=== PATIENT | male | born 1945 | race Hispanic/Latino ===

== ENCOUNTER 2017-02-07 11:31 | Outpatient (CLI) | payer MEDICARE, OTHER ==
--- NOTE | 2017-02-07 13:56 | SJPRAD ---
TWO VIEWS LUMBAR SPINE: History: Spinal listhesis. Comparison: 12-28-16 FINDINGS: Extension and flexion views of the lumbar spine redemonstrate anterolisthesis of L4 upon L5. Upon ex tension there is approximately 1 cm anterolisthesis of L4 upon L5. Upon flexion there is 1.6 mm ante rolisthesis of L4 upon L5. IMPRESSION: Spondylolisthesis of L4 upon L5. POS: [facility]
== END 2017-02-07 11:32 | disposition home or self-care (01) ==
LOC: MWLC RAD 11:31
PROVIDERS: ATTEND Specialist
DX: M43.16 Spondylolisthesis, lumbar region (principal)

== ENCOUNTER 2017-03-07 12:12 | Outpatient (CLI) | payer MEDICARE, OTHER ==
--- NOTE | 2017-03-07 13:27 | RAD ---
CHEST 2 VIEWS: Date: 03/07/17 HISTORY: Dyspnea. COMPARISON: 12/21/16. FINDINGS: Cardiac silhouette and pulmonary vasculature are unremarkable. Lungs remain hyperinflated. Atelectas is at the left base has increased since the previous study. Linear scarring is present bilaterally. Mediastinum is midline with aortic calcification and postoperative changes. There is elevation of ea ch humeral head and degenerative changes of each shoulder. IMPRESSION: 1. COPD. Increasing left basilar atelectasis. 2. Chronic bilateral rotator cuff tears. POS: [facility]
== END 2017-03-07 12:13 | disposition home or self-care (01) ==
LOC: RAD 12:12
PROVIDERS: ATTEND Internal Medicine Critical Care Medicine
DX: R06.00 Dyspnea, unspecified (principal); J44.9 Chronic obstructive pulmonary disease, unspecified; J98.11 Atelectasis; M75.102 Unspecified rotator cuff tear or rupture of left shoulder, not specified as traumatic; M75.101 Unspecified rotator cuff tear or rupture of right shoulder, not specified as traumatic
CPT/HCPCS: 71020

== ENCOUNTER 2017-03-29 14:20 | Outpatient (CLI) | payer MEDICARE, OTHER ==
--- NOTE | 2017-03-29 10:22 | RAD ---
LUMBAR SPINE SERIES WITH FLEXION AND EXTENSION: History: Back pain. FINDINGS: There are severe arthritic changes of the spine. The vertebral body heights are well maintained. Ther e are degenerative changes at all disc levels with disc narrowing. There is marked degenerative facet changes. There is a grade I spondylolisthesis at L4 on L5 which appears to perhaps slightly accentua te in flexion. Pedicles are intact. IMPRESSION: Marked arthritic changes of the spine. Spondylolisthesis of L4 on L5, perhaps slightly accentuated in flexion. POS: [facility]
--- NOTE | 2017-03-29 10:22 | CT ---
CT OF THE LUMBAR SPINE WITHOUT CONTRAST: Date: 03-29-17 Comparison: None. History: Back pain, left groin pain, left lower extremity radiculopathy. Technique: Serial axial CT imaging is obtained at 3 mm intervals from lower thoracic spine through lo wer sacrum without contrast. Coronal and sagittal reformatted imaging obtained. FINDINGS: There are six vertebral bodies which resemble lumbar vertebral bodies in that they do not contain rib s. However, for the purpose of this examination, it will be assumed that the T12 vertebral body is no n-rib bearing with a possible rudimentary left sided rib seen. Thus, there is anterolisthesis of L4 o n L5, measuring approximately 9 mm. There is an incompletely imaged left sided pleural effusion. There are scattered atherosclerotic calc ification of the abdominal aorta and its branches. There is an abdominal aortic aneurysm, incompletely imaged on this examination, measuring in the 3.8 x 3.4 cm range. T12-L1: There is anterior osteophyte formation and disc space narrowing with posterior osteophyte and mild bilateral facet hypertrophy. There is no osseous cause of significant central canal or neural f oraminal stenosis. L1-2: There is disc space narrowing and a vacuum disc. There is anterior osteophyte formation. There is a disc osteophyte complex causing at least mild central canal stenosis. There is bilateral facet h ypertrophy with mild to moderate bilateral neural foraminal stenosis, left greater than right. L2-3: There is disc space narrowing and a vacuum disc with anterior osteophyte formation and a disc o steophyte complex. There is probably at least moderate central canal stenosis. There is bilateral fac et hypertrophy with moderate left and mild right neural foraminal stenosis. L3-4: There is disc space narrowing and vacuum disc formation with bilateral facet hypertrophy causin g moderate/severe bilateral neural foraminal stenosis. Minimal retrolisthesis noted. At least moderat e central canal stenosis suspected. L4-5: Vacuum disc formation noted. Prominent facet hypertrophy with air within the bilateral facet mario ints suggest degenerative change. There is anterolisthesis in the 9-10 mm range. Severe bilateral xochilt ral foraminal stenosis and severe central canal stenosis is suspected. L5-S1: There is bilateral facet hypertrophy, right greater than left, with moderate bilateral neural foraminal stenosis suspected. Disc bulge noted. No acute fracture. No worrisome lytic or blastic bone lesion. IMPRESSION: 1. Assuming five lumbar type vertebral bodies with a T12 vertebral body which does not demonstrate ri bs, there is anterolisthesis of L4 on L5 measuring in the 9-10 mm range. There is severe multilevel d egenerative change noted within the lumbar spine as well. 2. Incompletely imaged abdominal aortic aneurysm. 3. Incompletely imaged left pleural effusion. POS: [facility]
== END 2017-03-29 14:21 | disposition home or self-care (01) ==
LOC: TBSIIMAG 14:20
PROVIDERS: ATTEND Surgery
DX: M47.26 Other spondylosis with radiculopathy, lumbar region (principal); M43.16 Spondylolisthesis, lumbar region; I71.4 Abdominal aortic aneurysm, without rupture; J90 Pleural effusion, not elsewhere classified
CPT/HCPCS: 72120; 72131

== ENCOUNTER 2017-05-03 12:51 | Outpatient (CLI) | payer MEDICARE, OTHER ==
--- NOTE | 2017-05-03 16:18 | RAD ---
PA AND LATERAL VIEWS OF CHEST: HISTORY: Dyspnea. FINDINGS: Comparison is made with the exam dated 03/07/17. Changes of median sternotomy are again seen. The heart size is borderline. Mild chronic changes in the lung baez are again noted. There is continued blunting of the left costophrenic angle. No lob ar consolidation or pneumothorax are seen. IMPRESSION: Small left pleural effusion versus scarring. POS: [facility]
== END 2017-05-03 12:52 | disposition home or self-care (01) ==
LOC: RAD 12:51
PROVIDERS: ATTEND Internal Medicine Critical Care Medicine
DX: R06.00 Dyspnea, unspecified (principal)
CPT/HCPCS: 71020

== ENCOUNTER 2017-06-19 13:32 | Inpatient (IN) | payer MEDICARE, OTHER ==
[2017-06-19 14:21] LABS: #Basophils 0.1 thou/uL (0.0-0.2); #Eosinphils 0.1 thou/uL (0.0-0.7); #Lymphocytes 2.1 thou/uL (1.20-3.40); #Monocytes 1.3 thou/uL (0.11-0.59); #Neutrophils 7.6 thou/uL (1.40-6.50); %Basophils 0.6 % (0.0-1.0); %Eosinophils 0.9 % (0.0-10.0); %Lymphocytes 18.7 % (21.0-51.0); %Monocytes 11.6 % (0.0-10.0); %Neutrophils 68.3 % (42.0-75.0); Hemoglobin 13.5 g/dL (14.0-18.0); Mean Corpuscular HGB CONC 33.9 g/dL (32.0-36.0); Mean Corpuscular Hemoglobin 35.2 pg (27.0-31.0); Mean Platelet Volume 8.4 fL (7.4-10.4); Platelet Count 230 thou/uL (130-400); RBC Distribution Width 12.6 % (11.5-14.5); Red Blood Cell (RBC) Count 3.84 mill/uL (4.70-6.10); White Blood Cell (WBC) Count 11.1 thou/uL (4.8-10.8)
[2017-06-19 14:40] LABS: CKMB 1.6 ng/mL (0-6.6); Troponin I 0.026 ng/mL (< 0.028)
[2017-06-19 14:41] LABS: ALT (SGPT) 7 U/L (8-55); AST (SGOT) 9 U/L (5-34); Alkaline Phosphatase 86 U/L (40-150); Anion Gap 12 mmol/L (10-20); BUN (Urea Nitrogen) 12 mg/dL (8.4-25.7); Bilirubin, Total 0.8 mg/dL (0.2-1.2); CK (CPK) 53 U/L (30-200); Calc. Creatinine Clearance 0 mL/min (70-130); Calcium 9.6 mg/dL (7.8-10.44); Carbon Dioxide 28 mmol/L (23-31); Chloride 101 mmol/L (98-107); Estimated GFR-MDRD 53; Globulin 3.7 g/dL (2.4-3.5); Glucose 81 mg/dL (83-110); Potassium 4.3 mmol/L (3.5-5.1); Protein, Total 7.7 g/dL (5.8-8.1); Sodium 137 mmol/L (136-145)
--- NOTE | 2017-06-19 15:18 | RAD ---
ONE VIEW OF THE CHEST: INDICATION: Dyspnea. COMPARISON: Prior exam dated 09/16/16 and 05/03/17. FINDINGS: There is cardiomegaly with worsening pulmonary vascular congestion. Hilar edema. There are small bi lateral pleural effusions, left greater than right. There are increased bilateral airspace opacities in the lower lobes which may be related to atelectasis. No pneumothorax is evident. IMPRESSION: Findings of mild congestive heart failure. Continued followup is recommended. POS: [facility]
[2017-06-19] MEDS ORDERED: Furosemide 40 MG/4 ML VIAL ONE (16:35)
[2017-06-19 19:14] LABS: Troponin I 0.045 ng/mL (< 0.028)
[2017-06-19] MEDS ORDERED: Ondansetron ODT 4 MG TAB SL PRN (20:45)
[2017-06-19] MEDS ORDERED: Acetaminophen 325 MG TAB PO PRN (20:45)
[2017-06-19] MEDS ORDERED: Ondansetron HCl/PF 4 MG/2 ML Vial IVP PRN (20:45)
[2017-06-19 21:03] VITALS: BMI 30.2
[2017-06-19 21:48] LABS: Troponin I 0.036 ng/mL (< 0.028)
[2017-06-20] MEDS ORDERED: Acetaminophen 325 MG TAB PO PRN (04:44)
[2017-06-20] MEDS ORDERED: Guaifenesin DM 100-10/5 ML UDCUP PO PRN (04:44)
[2017-06-20] MEDS ORDERED: Senokot 8.6 MG TAB PO PRN (04:44)
[2017-06-20] MEDS: Furosemide 40 MG/4 ML VIAL SLOW IVP SCH ×2 (05:49→14:25)
--- NOTE | 2017-06-20 05:53 | HP ---
REASON FOR ADMISSION: CHF exacerbation. HISTORY OF PRESENT ILLNESS: The patient gives history of shortness of breath which started last . This was getting worse progressively. Yesterday, he was barely able to breathe, hence called EMS and was brought here to the emergency room. He has dry cough mostly with no fever. He has take n his flu shot for this year. He normally ambulates inside the house and does not go out much becaus e his lower back hurts. No complaints of chest pain, palpitations or PND. The patient has some orth opnea and is comfortable at 40 degrees head elevation. PAST MEDICAL AND SURGICAL HISTORY: History of CABG, hypertension, dyslipidemia, peripheral vascular disease, benign prostatic hypertrophy, paroxysmal atrial fibrillation, back surgery, left fem-pop. CURRENT MEDICATIONS: Gabapentin 400 mg p.o. 3 times daily, aspirin 81 mg p.o. daily, Flomax 0.4 mg p .o. daily, Protonix 40 mg p.o. daily, amiodarone 200 mg p.o. daily, Lasix 40 mg p.o. daily, lovastati n 40 mg p.o. at bedtime. ALLERGIES: No known drug allergies. PERSONAL HISTORY: Quit smoking more than 15 years ago, does not abuse alcohol or drugs. Lives with his . FAMILY HISTORY: Mom in her 80s from old age. Father also in his 80s, but has had history of stroke. REVIEW OF SYSTEMS: The following complete review of systems was negative, unless otherwise mentioned in the HPI or below: Constitutional: Weight loss or gain, ability to conduct usual activities. Skin: Rash, itching. Eyes: Double vision, pain. ENT/Mouth: Nose bleeding, neck stiffness, pain, tenderness. Cardiovascular: Palpitations, dyspnea on exertion, orthopnea. Respiratory: Shortness of breath, wheezing, cough, hemoptysis, fever or night sweats. Gastrointestinal: Poor appetite, abdominal pain, heartburn, nausea, vomiting, constipation, or diarr hea. Genitourinary: Urgency, frequency, dysuria, nocturia. Musculoskeletal: Pain, swelling. Neurologic/Psychiatric: Anxiety, depression. Allergy/Immunologic: Skin rash, bleeding tendency. PHYSICAL EXAMINATION: GENERAL: The patient is a 72-year-old male who is currently not in any acute distress. The patient states he voided a lot of urine after he got into the ER. VITAL SIGNS: Blood pressure 156/74, pulse 66 per minute, respiratory rate 18 per minute, temperature 97.5 degrees Fahrenheit, saturating 100% on room air. NECK: Supple, no elevated JVD. HEENT: Eyes: Extraocular muscles intact. Pupils reacting to light. Oral cavity: Mucous membranes are moist. No exudates or congestion. CARDIOVASCULAR SYSTEM: S1, S2 heard. Regular rhythm. RESPIRATORY SYSTEM: Air entry 1+ bilateral. Scattered rales in the infrascapular area. ABDOMEN: Soft, bowel sounds heard. No tenderness, rigidity or guarding. EXTREMITIES: No peripheral edema or calf tenderness. VASCULAR SYSTEM: Peripheral pulses 1+ bilateral. No ischemic ulcerations or gangrene. CENTRAL NERVOUS SYSTEM: No gross focal deficits seen. The patient is alert, awake, oriented well. PSYCHIATRIC SYSTEM: The patient's mood is euthymic. No hallucinations or delusions. LABORATORY DATA AND X-RAY FINDINGS: EKG done shows normal sinus rhythm at 63 beats per minute. Whit e count of 11, H and H 13 and 39, platelet count 230, MCV is 104 with 68% neutrophils. Electrolytes are stable. BUN 12, creatinine 1.3, glucose 81. Troponin I is indeterminate with peaking up to 0.04 , CK-MB 1.6. BNP is 1370, albumin is 4.0. Influenza A and B antigens are negative. Chest x-ray don e shows mild pulmonary vascular congestion. CLINICAL IMPRESSION AND PLAN: The patient will be admitted to telemetry for acute congestive heart f ailure exacerbation, likely diastolic dysfunction. We will obtain echo with 2D Doppler. We will con tinue him on Lasix 40 mg IV q.12 hourly. He will also be on Flomax, Zocor, gabapentin, aspirin, amio darone as before. Small dose of Coreg will be added for now twice daily. We will also consult Dr. Selvin owens, his resort housekeeper during his stay here. The patient has already voided a significant amount of u rine after he received 40 mg of Lasix in the ER. We will continue to closely monitor him on telemetr y.
[2017-06-20] MEDS: Famotidine 20 MG TAB PO SCH (09:13)
[2017-06-20] MEDS: Tamsulosin HCl 0.4 MG CAP PO SCH (09:13)
[2017-06-20] MEDS: Carvedilol 3.125 MG TAB PO SCH ×2 (09:14→20:47)
[2017-06-20] MEDS: Gabapentin 400 MG CAP PO SCH ×3 (09:14→20:45)
[2017-06-20] MEDS: Amiodarone 200 MG TAB PO SCH (09:14)
[2017-06-20] MEDS: Enoxaparin Sodium 40 MG/0.4 ML SYRINGE SC SCH (09:15)
--- NOTE | 2017-06-20 12:20 | CON ---
DATE OF CONSULTATION: 06/20/2017 PRIMARY CARE PHYSICIAN: Unknown. PRIMARY RENAL DIETITIAN: Dr. Soraida Del Rosario REFERRING PHYSICIAN: Dr. Kong [facility] doctor. REASON FOR CARDIOLOGY CONSULTATION: CHF exacerbation. HISTORY OF PRESENT ILLNESS: Mr. Ricardo is a 72-year-old male with significant history of coronary artery disease status post CABG x4 in 07/2016, hypertension, hyperlipidemia, and chronic kidney disease. The patient started having shortness of breath about 1 week ago, which became worse even though he was taking Lasix 40 mg one tablet daily. He called primary care doctor yesterday and was instructed to present to the emergency department for further evaluation and treatments. After he was administered the Lasix 40 mg IV push and a DuoNeb in the [place] [facility], he reported his symptoms improved. He also reported that he voided a lot at the ER. The patient was transferred to [address] [place] [address] for further treatment. This morning; however, he started feeling shortness of breath even after he received Lasix IV push in the morning around 6 o'clock. The patient denies chest pain or tightness or discomfort in his chest, palpitations or fluttering in his chest, nausea and vomiting, numbness into the left extremities, diaphoresis or any other cardiac complaints during the episode or this morning. He was seen by Ms. Garner at the [facility] after he was discharged from the hospital in 2016. However, since then, he has not followed up with her. He has a history of chronic kidney disease before he moved to [place]. However, when he moved to [place], he has not seen any nephrologists yet. He has a history of peripheral artery disease and was supposed to have arterial femoral runoff last month. He has not had the arterial femoral runoff test yet due to his busy schedule. He denies any pain in the lower extremities at this moment. The patient's last echocardiogram was done in 03/2017 which shows EF of 45%, left ventricle dilation, mild aortic valve sclerosis, moderate left atrial enlargement, moderate mitral valve regurgitation, mild to moderate arterial valve insufficiency, mild tricuspid regurgitation, inferior wall akinesis. The patient had a carotid Doppler study in 07/2016 which shows no stenosis. The patient underwent a coronary artery bypass in 07/2016 x4, VIRK to LAD, reversed saphenous vein graft to acute marginal, left radial artery to ramus and a reversed saphenous vein graft to obtuse marginal 1. The patient's chest x-ray during this admission shows a mild congestive heart failure. Atrial duplex study in 03/2017 showed that the bilateral saphenous superficial femoral artery is a 70% stenosis and bilateral superficial femoral artery disease. PAST MEDICAL HISTORY: Hypertension, coronary artery disease, hyperlipidemia, valvular disease, atrial fibrillation. PAST SURGICAL HISTORY: Coronary artery bypass graft x4 in 07/216, back surgery in 10/2016. FAMILY HISTORY: His younger brother has a history of diabetes, heart surgery and pacemaker placement. The patient's father due to stroke. SOCIAL HISTORY: He is . He had 6 children who are living well. He never smoked before. He used to drink about 12 pack beer almost every day, but quit in 1999. He denied illicit drug abuse. ALLERGIES: He has no known drug allergies. CURRENT MEDICATIONS: Lasix 40 mg once a day, amiodarone 200 mg 1 tablet once a day, gabapentin 400 mg 3 times a day, aspirin 81 mg once a day, Flomax 0.4 mg once a day, Protonix 40 mg once a day, lovastatin 40 mg once a day, metolazone 5 mg 1 tablet on Monday and Monday, Coreg 3.125 mg twice a day. REVIEW OF SYSTEMS: The following complete review of systems was negative, unless otherwise mentioned in the HPI or below. CONSTITUTIONAL: Weight gain or loss. Sense of well-being, ability to conduct usual activities, exercise tolerance. SKIN: Rash, itching, change in hair growth or loss, nail change. EYES: Vision change, blurry vision, double vision, tearing, blind spots, pain. ENT: Headache, vertigo, lightheadedness, dizziness, nose bleeding, cold, obstruction, discharge, dental difficulty, gingival bleeding, dentures, neck stiffness, pain, tenderness, mass in the thyroid or other areas. He has complained about a stuffy and runny nose and phlegm with the cough. CARDIOVASCULAR: Precordial pain, substernal distress, palpitations, syncope, dyspnea on exertion, orthopnea, nocturnal dyspnea, edema, cyanosis, heart murmur , varicosis, claudication. RESPIRATORY: Positive for shortness of breath, negative for pain, wheezing, stridor, hemoptysis. GASTROINTESTINAL: Poor appetite, dysphagia, indigestion, abdominal pain, heartburn, eructation, nausea, vomiting, jaundice, diarrhea, blood in stool. He has complained of chronic constipation which resolves with fiber daily. GENITOURINARY: Urgency, frequency, dysuria, nocturia, hematuria, polyuria, oliguria, unusual color of urine. MUSCULOSKELETAL: Pain, swelling, redness or heat of muscle, limited motion, muscular weakness, atrophy, cramps. NEUROLOGIC: Seizure, conversion, tremor, incoordination, difficulty with memory of speech. PSYCHIATRIC: Emotional problem, anxiety, depression, previous psychiatric care , unusual perceptions, hallucinations. PHYSICAL EXAMINATION: VITAL SIGNS: Blood pressure 142/65, heart rate 60s with sinus rhythm, temperature 97.6, respiratory rate 16, O2 sat 95% with room air. GENERAL: Well-developed, well-nourished without any acute distress. HEAD: Normocephalic, atraumatic. EYES: Extraocular muscle movement intact. He wears glasses. ENT: Oral and nasal mucosa is moist without lesion. NECK: No JVD. Neck supple, normal range of motion. LUNGS: Diminished at the bases, but clear to auscultation bilaterally. No wheezing, rhonchi, or rales noted. CARDIOVASCULAR: Regular rate and rhythm, normal S1, S2. There are no S3 or S4. He has significant murmur to the left sternal border, but no hives, thrills , bruits or rub noted. Diminished pulses to bilateral dorsal pedis, posterior tibial and popliteal. Carotid pulse present without bruits or thrill. EXTREMITIES: No edema in the bilateral lower extremities. ABDOMEN: Soft and nontender, no mass to palpate, nondistended. Bowel sounds are present. MUSCULOSKELETAL: Able to move all extremities. SKIN: Warm and dry. No skin rash, lesion or bruise noted. NEUROLOGIC: Alert, oriented x4, awake. Normal affect. Nonfocal. PSYCHIATRIC: Mood and affect normal. EKG: A 12-lead EKG in the ER shows sinus rhythm with no significant ST segment changes or T-wave inversion. LABORATORY DATA: WBC 7.1, hemoglobin 13.5, hematocrit 39.8, platelet 230. Sodium 137, potassium 4.3, BUN 12, creatinine 1.33, AST 9, ALT 7, CK-MB 1.6, troponin, 0.026, 0.045, 0.036. BNP 1370.1. ASSESSMENT AND PLAN: 1. Acute on chronic systolic congestive heart failure. The echocardiogram result this admission is still pending at this time. The patient responds well to current medication regimen. He is not on CHAVEZ due to medical history of CKD. We would like continue current treatment plans and adjust as appropriate. We would like to refer this patient to the [facility] again at discharge. 2. Coronary artery disease with history of CABG x4 in 07/2016. The patient's condition is stable at this time. The patient is on aspirin, carvedilol, Lovenox and simvastatin. 3. Hypertension. The patient's vital signs are stable at this moment. We would like to continue to monitor. 4. History of paroxysmal atrial fibrillation. The patient's telemetry record is showing sinus rhythm at this moment. He is on amiodarone 200 mg once a day with aspirin 81 mg and also the Lovenox. We would like to continue to monitor. 5. Chronic kidney disease. The patient's creatinine is stable at this moment, we would like to continue to monitor. 6. Peripheral artery disease. The patient is asymptomatic at this moment. The patient will undergo arterial femoral runoff procedure when the patient's condition is stable. 7. Hyperlipidemia. The patient is on a statin. We would like to continue the current medication. Thank you very much for allowing Cardiology office to participate in the care of this patient. We will follow along with the patient's care team and make further recommendations as appropriate. LUIS ARMANDO
--- NOTE | 2017-06-20 18:44 | PDOC.EVN ---
Event Note - Event Note Event Note: Chart reviewed. Pt seen. Will follow.
[2017-06-20] MEDS ORDERED: Simvastatin 20 MG TAB PO SCH (21:00)
--- NOTE | 2017-06-20 21:43 | CON ---
ADDENDUM DATE OF CONSULTATION: 06/20/2017 DATE OF ADMISSION: 06/19/2017 INDICATION FOR CONSULTATION: This is a very pleasant 72-year-old gentleman I have followed for quite some time, who was admitted with CHF exacerbation. Please refer to the notes already dictated by jaimie kinney nurse practitioner. This very unfortunate 72-year-old gentleman who was found to have severe three-vessel coronary artery disease underwent bypass surgery in 07/2016 with 4-vessel bypass. He also has a history of chronic kidney disease, hypertension, and dyslipidemia. He has been complaining of shortness of breath for 1 or 2 weeks. He says it is continuing getting worse. He was taking his diuretics as prescribed, but unfortunately continued to have shortness of breath. Interestingly enough, he was able to lie down at night without too much shortness of breath, but during the day time, he appeared to be more short of breath. He was also given nebulizer treatments I believe in the emergency room as well as IV Lasi x and then had significant diuresis and is feeling much better. He has had continued urine output an d seems to be improving. He had been seen in the [facility] in the past but was doing quit e well and was then discharged from the [facility] earlier last year. Since that time, Krishna hopkins he was seen once or twice in the office. He does have chronic kidney disease, but has not bee n followed by a superintendent board mill and he was supposed to undergo further evaluation for his peripheral vas cular disease. He actually had an aortobifemoral bypass in the past and I believe he had a fem-pop b ypass also. He had an echocardiogram performed today which shows an ejection fraction of about 40-45 %. He does have mild aortic valve sclerosis and calcifications with some mitral annular calcificatio ns. His left atrium is dilated as well as the right atrium is slightly dilated. He also has some mi ld to moderate mitral valve regurgitation, mild aortic and tricuspid valve regurgitation. This is pr coty much unchanged from previous echo back in 03/2017. He has undergone bypass surgery and has been doing quite well, but has not been always compliant with his medications, but otherwise he has been doing relatively well. He denies any chest pain, but does continue to have some shortness of breath which he says had been exacerbated but now has seemed to have improved. MEDICATIONS: Prior to admission included Lasix, amiodarone, gabapentin, aspirin, Flomax, lovastatin, Protonix, metolazone on Mondays and Fridays, and Coreg 3.125 mg b.i.d. For his review of systems, social history, family history, please refer to the notes dictated by the nurse practitioner. PHYSICAL EXAMINATION: GENERAL: Reveals a well-developed, well-nourished gentleman who is in no acute distress at this time . VITAL SIGNS: His blood pressure is 142/65, heart rate is in the 60s and shows a sinus rhythm. He is afebrile. O2 saturations are 95% on room air, respiratory rate is about 16. He is a well-developed , well-nourished gentleman in no acute distress. HEENT: Shows the head to be normocephalic and atraumatic. Carotid pulses are present. I did not he ar any gross bruits at this time. CHEST: Clear to auscultation, but does have some decreased breath sounds on the right base. CARDIOVASCULAR: Exam reveals a regular rate and rhythm. Heart sounds are somewhat distant. I did n ot hear any S3 or S4. He has no significant murmurs, heaves, thrills, bruits or rubs, but does have a soft systolic murmur at the upper sternal border, most likely compatible with his aortic valve scle rosis. He has a well-healed midline surgical incision after median sternotomy. EXTREMITIES: Show no clubbing, cyanosis or edema. I cannot palpate pedal pulses. SKIN: Warm and dry. NEUROLOGIC: He is awake and alert. He seems to have a normal motor function. He has no evidence of psychiatric abnormalities. His EKG shows a sinus rhythm, but no acute ST segment changes. LABORATORY DATA: Did show an indeterminate troponin I which peaked up at 0.045 and may be due to con gestive heart failure symptoms with his BNP of 1370, his potassium is 4.3, creatinine is 1.33. There is no evidence of anemia at this time. IMPRESSION: 1. Acute on chronic systolic as well as diastolic dysfunction. Also, please note that previously on the echocardiogram today, it appears he does have some degree of diastolic dysfunction. This appear s to be an exacerbation of both diastolic and systolic dysfunction. We will continue his beta blocke rs and diuretics. He has not seen a superintendent board mill and most likely will need to be followed up with Alexus kendrick prior to starting any significant CHAVEZ inhibitors or ARBs 2. History of coronary artery disease. This has remained stable since his bypass surgery, would con tinue the same medications for the beta blockers as well as the statin medications and an aspirin a d ay. 3. History of paroxysmal atrial fibrillation. The patient remains in sinus rhythm at this time, wou ld continue the amiodarone. 4. History of hypertension. This also appears to be stable. 5. Hyperlipidemia. We will continue his medications. 6. Chronic kidney disease. He certainly should follow with a superintendent board mill as most likely in the fut ure his kidneys may become worse and otherwise from a cardiac standpoint with the diuresis, he appear s to be stable and most likely he will be discharged to home within next 1-2 days.
[2017-06-21 05:44] LABS: #Basophils 0.1 thou/uL (0.0-0.2); #Eosinphils 0.2 thou/uL (0.0-0.7); #Lymphocytes 2.9 thou/uL (1.20-3.40); #Monocytes 1.6 thou/uL (0.11-0.59); #Neutrophils 6.1 thou/uL (1.40-6.50); %Basophils 0.9 % (0.0-1.0); %Eosinophils 1.8 % (0.0-10.0); %Lymphocytes 26.4 % (21.0-51.0); %Monocytes 14.5 % (0.0-10.0); %Neutrophils 56.3 % (42.0-75.0); Hemoglobin 12.8 g/dL (14.0-18.0); Mean Corpuscular HGB CONC 33.5 g/dL (32.0-36.0); Mean Corpuscular Hemoglobin 35.1 pg (27.0-31.0); Mean Platelet Volume 8.6 fL (7.4-10.4); Platelet Count 226 thou/uL (130-400); RBC Distribution Width 12.8 % (11.5-14.5); Red Blood Cell (RBC) Count 3.64 mill/uL (4.70-6.10); White Blood Cell (WBC) Count 10.8 thou/uL (4.8-10.8)
[2017-06-21 05:59] LABS: Anion Gap 13 mmol/L (10-20); BUN (Urea Nitrogen) 19 mg/dL (8.4-25.7); Calc. Creatinine Clearance 59 mL/min (70-130); Calcium 9.3 mg/dL (7.8-10.44); Carbon Dioxide 29 mmol/L (23-31); Chloride 101 mmol/L (98-107); Estimated GFR-MDRD 49; Glucose 91 mg/dL (83-110); Potassium 3.5 mmol/L (3.5-5.1); Sodium 139 mmol/L (136-145)
[2017-06-21] MEDS: Furosemide 40 MG/4 ML VIAL SLOW IVP SCH (06:00)
[2017-06-21] MEDS: Gabapentin 400 MG CAP PO SCH (08:28)
[2017-06-21] MEDS: Enoxaparin Sodium 40 MG/0.4 ML SYRINGE SC SCH (08:29)
[2017-06-21] MEDS: Amiodarone 200 MG TAB PO SCH (08:29)
[2017-06-21] MEDS: Carvedilol 3.125 MG TAB PO SCH (08:29)
[2017-06-21] MEDS: Tamsulosin HCl 0.4 MG CAP PO SCH (08:29)
[2017-06-21] MEDS: Famotidine 20 MG TAB PO SCH (08:29)
--- NOTE | 2017-06-21 10:48 | PDOC.CTH ---
<Bertha Rangel - Last Filed: 06/21/17 10:44> Cardiology Progress Note - Subjective The pt seen and examined. No overnight events. No cardiac complaints. He stated he can breath much better today. His O2 sat was low last night and required him to wear 1LNC during sleep. - Objective Vital Signs Temp Pulse Resp BP Pulse Ox 06/21/17 08:29 97.5 F L 59 L 18 140/62 96 06/21/17 08:00 97.5 F L 59 L 18 97 06/21/17 04:50 97.7 F 62 18 114/53 L 93 L Weight 198 lb 1.6 oz 06/20/17 06/21/17 06/22/17 06:59 06:59 06:59 Intake Total 360 960 Output Total 400 1100 800 Balance -40 -140 -800 - Physical Examination General/Neuro: alert & oriented x3 Neck: no JVD present Lungs: CTA Heart: RRR Abdomen: soft Extremities: other: (No edema) - Telemetry Telemetry Rhythm: SB-SR 57-60s - Labs Result Diagrams: 06/21/17 05:03 06/21/17 05:03 Troponin/CKMB CK-MB (CK-2) 1.6 ng/mL (0-6.6) 06/19/17 14:01 Troponin I 0.036 ng/mL (< 0.028) H 06/19/17 21:15 - Assessment/Plan 1. Acute on Chronic combined HF - Echo on 06/20/17 showed EF 40-45%, mild-mod MR , and mild AR and TR. The pt's breathing improved after Lasix IV; Lasix was changed to PO. Cont. monitor 2. CAD with Hx of CABG x4 in 07/2016 - stable with ASA, BBlocker, and statin. No CHAVEZ or ARB due to hx of CKD. Cont. monitor 3. HTN - stable with current med; cont. monitor 4. PAD - AFRO as outpt. 5. CKD - Lasix was changed to PO form today. Cont. monitor 6. Hyperlipidemia - on Statin 7. Paroxysmal afib - remains in SR; cont. amiodarone MAR reviewed * From Cardiac standpoint, the pt is stable to d/c home. The pt will f/u with Dr Del Rosario' office within 2-4 wks and CHF clinic. Review of Systems - Review of Systems Constitutional: reports: no symptoms reported EENTM: reports: no symptoms reported Respiratory: reports: see HPI Cardiac (ROS): reports: no symptoms reported ABD/GI: reports: no symptoms reported : reports: no symptoms reported <Maribell Del Rosario - Last Filed: 06/21/17 17:09> Cardiology Progress Note - Objective Vital Signs Temp Pulse Pulse Pulse Resp BP BP 06/21/17 12:05 97.9 F 63 18 06/21/17 11:18 56 L 59 L 143/65 H 153/69 H 06/21/17 08:29 97.5 F L 59 L 18 06/21/17 08:00 97.5 F L 59 L 18 BP Pulse Ox Pulse Ox Pulse Ox 06/21/17 12:05 127/59 L 95 06/21/17 11:18 98 94 L 06/21/17 08:29 140/62 96 06/21/17 08:00 97 Weight 198 lb 1.6 oz 06/20/17 06/21/17 06/22/17 06:59 06:59 06:59 Intake Total 360 960 350 Output Total 400 1100 800 Balance -40 -140 -450 - Labs Result Diagrams: 06/21/17 05:03 06/21/17 05:03 Troponin/CKMB CK-MB (CK-2) 1.6 ng/mL (0-6.6) 06/19/17 14:01 Troponin I 0.036 ng/mL (< 0.028) H 06/19/17 21:15 - Assessment/Plan Pt. seen and eval;. by me. I agree with the A/P by the C PROGRAMMER.Chest clear, RRR. Pt. is stable for d/c. Follow up withthe CHF clinic and see me in 1 month.
[2017-06-21 12:08] VITALS: TEMP 97.9
[2017-06-21] MEDS ORDERED: Furosemide 20 MG TAB PO SCH (14:00)
[2017-06-21] MEDS ORDERED: Furosemide 40 MG TAB PO SCH (14:00)
[2017-06-21 15:27] VITALS: BP 153/69
--- NOTE | 2017-06-22 01:09 | DIS ---
DATE OF ADMISSION: 06/20/2017 DATE OF DISCHARGE: 06/21/2017 DISCHARGE DIAGNOSIS: Congestive heart failure exacerbation. CONDITION OF PATIENT ON THE DAY OF DISCHARGE: Stable. I assessed Mr. Ricardo on 06/21/2017. He bela es any chest pain or shortness of breath. He reports feeling better. Vital signs are stable. S1 an d S2 are heard, regular. Lungs are clear to auscultation bilaterally. CONSULTATIONS DURING THIS HOSPITALIZATION: Cardiology, Dr. Del Rosario. INVESTIGATIONS DURING THIS HOSPITALIZATION: 1. A 2D echocardiogram on 06/20/2017, which showed mildly increased left ventricular size, left vent ricular ejection fraction estimated at 40%-45%, restrictive filling pattern, normal white ventricular size and function, moderately dilated left atrium, mildly enlarged right atrium, mild to moderate mi tral regurgitation, mild aortic regurgitation and mild tricuspid regurgitation. 2. On the day of discharge, Mr. Ricardo has white count of 10,800, hemoglobin 12.8, platelet count 22 6,000, creatinine 1.41 and normal electrolytes. HOSPITAL COURSE: Mr. Ricardo is a pleasant 72-year-old gentleman who was admitted to [facility] on 06/20/2017 for congestive heart failure exacerbation. He received intravenous d iuretics with marked improvement in his symptoms. He is being discharged home on Lasix 40 mg orally daily. Cardiology service consulted during this hospitalization and will follow up as outpatient. DISCHARGE MEDICATIONS: No changes were made to his home medications as dictated on history and physi [place] note from 06/20/2017. Many thanks for allowing me to participate in your patient's care. Please feel free to contact me wi th any questions or concerns. Please note that he is on aspirin because of history of paroxysmal atrial fibrillation, per Cardiolog y Service recommendations. DISCHARGE DESTINATION: Home. TOTAL AMOUNT OF TIME SPENT COORDINATING THIS DISCHARGE: 18 minutes.
--- NOTE | 2017-07-22 18:28 | EKG ---
Test Reason : Blood Pressure : / mmHG Vent. Rate : 063 BPM Atrial Rate : 063 BPM P-R Int : 148 ms QRS Dur : 100 ms QT Int : 478 ms P-R-T Axes : 000 012 002 degrees QTc Int : 489 ms Normal sinus rhythm with sinus arrhythmia Prolonged QT No STEMI Abnormal ECG Confirmed by RAJI WICK [id number]), publishing editor TROY MORRISON ([id number] on 07/22/2017 6:27:54 PM Referred By: Confirmed By:RAJI WICK
== END 2017-06-21 13:15 | disposition home or self-care (01) | DRG 291 ==
LOC: ERS 13:32 → 2NO 18:13
PROVIDERS: ADMIT Family Medicine; ATTEND Family Medicine
DX: I13.0 Hypertensive heart and chronic kidney disease with heart failure and stage 1 through stage 4 chronic kidney disease, or unspecified chronic kidney disease (principal); I50.43 Acute on chronic combined systolic (congestive) and diastolic (congestive) heart failure; I48.0 Paroxysmal atrial fibrillation; I73.9 Peripheral vascular disease, unspecified; N18.9 Chronic kidney disease, unspecified; E78.5 Hyperlipidemia, unspecified; N40.0 Benign prostatic hyperplasia without lower urinary tract symptoms; Z87.891 Personal history of nicotine dependence; Z79.82 Long term (current) use of aspirin; Z79.899 Other long term (current) drug therapy; Z95.1 Presence of aortocoronary bypass graft
CPT/HCPCS: 36415; 71045; 80048; 80053; 82553; 83880; 84484; 85025; 87804; 93005; 93306; 93798; 94640; 94760; 96374; J1650; J1940; J7620

== ENCOUNTER 2017-06-25 23:39 | Inpatient (IN) | payer MEDICARE, OTHER ==
[2017-06-25 23:59] LABS: #Basophils 0.1 thou/uL (0.0-0.2); #Eosinphils 0.3 thou/uL (0.0-0.7); #Lymphocytes 3.2 thou/uL (1.20-3.40); #Monocytes 1.1 thou/uL (0.11-0.59); #Neutrophils 4.8 thou/uL (1.40-6.50); %Basophils 1.1 % (0.0-1.0); %Eosinophils 2.7 % (0.0-10.0); %Lymphocytes 33.5 % (21.0-51.0); %Neutrophils 50.7 % (42.0-75.0); Mean Corpuscular HGB CONC 32.9 g/dL (32.0-36.0); Mean Corpuscular Hemoglobin 34.4 pg (27.0-31.0); Mean Platelet Volume 8.5 fL (7.4-10.4); Platelet Count 236 thou/uL (130-400); RBC Distribution Width 12.5 % (11.5-14.5); Red Blood Cell (RBC) Count 3.78 mill/uL (4.70-6.10); White Blood Cell (WBC) Count 9.5 thou/uL (4.8-10.8)
[2017-06-26 00:06] LABS: INR-International Normal Ratio 1.1; PTT 32.1 SEC (22.9-36.1)
[2017-06-26 00:12] LABS: ALT (SGPT) 13 U/L (8-55); AST (SGOT) 12 U/L (5-34); Albumin 3.7 g/dL (3.4-4.8); Alkaline Phosphatase 78 U/L (40-150); Anion Gap 12 mmol/L (10-20); BUN (Urea Nitrogen) 26 mg/dL (8.4-25.7); Bilirubin, Total 0.3 mg/dL (0.2-1.2); CK (CPK) 58 U/L (30-200); Calc. Creatinine Clearance 0 mL/min (70-130); Calcium 9.4 mg/dL (7.8-10.44); Carbon Dioxide 28 mmol/L (23-31); Chloride 104 mmol/L (98-107); Estimated GFR-MDRD 43; Globulin 3.6 g/dL (2.4-3.5); Glucose 91 mg/dL (83-110); Potassium 4.2 mmol/L (3.5-5.1); Protein, Total 7.3 g/dL (5.8-8.1); Sodium 140 mmol/L (136-145)
[2017-06-26 00:17] LABS: CKMB 1.3 ng/mL (0-6.6); Troponin I 0.022 ng/mL (< 0.028)
[2017-06-26] MEDS ORDERED: Acetaminophen 325 MG TAB PO PRN (02:49)
[2017-06-26] MEDS ORDERED: Ondansetron HCl/PF 4 MG/2 ML Vial IVP PRN (02:49)
[2017-06-26] MEDS ORDERED: Ondansetron ODT 4 MG TAB SL PRN (02:49)
[2017-06-26 04:08] VITALS: BMI 32.2
[2017-06-26 04:43] LABS: Troponin I 0.029 ng/mL (< 0.028)
[2017-06-26 06:08] LABS: Troponin I 0.034 ng/mL (< 0.028)
--- NOTE | 2017-06-26 06:53 | CT ---
CT OF BRAIN PERFORMED WITHOUT CONTRAST ENHANCEMENT: Date: 06/25/17 HISTORY: Right-sided weakness. COMPARISON: 08/14/16. FINDINGS: There is generalized ventricular and sulcal prominence. An old lacunar infarct in the right periventr icular white matter is stable. There are no signs of intracerebral hemorrhage or extra-axial fluid co llections. Mastoid air cells and visualized sinuses are clear. IMPRESSION: No acute intracranial abnormalities. Findings telephoned to the ER at 0005 hours. CODE CR. POS: [facility]
[2017-06-26] MEDS ORDERED: Labetalol HCl 100 MG/20 ML VIAL SLOW IVP PRN (07:49)
[2017-06-26] MEDS ORDERED: Sodium Chloride 0.9% 1,000 ML IV SCH (08:00)
[2017-06-26] MEDS ORDERED: Lorazepam 0.5 MG TAB PO PRN (08:20)
--- NOTE | 2017-06-26 08:58 | HP ---
PATIENT'S RECORDS ANALYST: Dr. Del Rosario. CHIEF COMPLAINT: Right lower extremity weakness. HISTORY OF PRESENT ILLNESS: A 72-year-old male with a known history of paroxysmal atrial fibrillation, on aspirin for anticoagulation, status post CABG x2 vessels, who presents with a chief complaint of right lower extremity weakness that occurred while at rest watching TV yesterday evening. Patient states that he was watching TV and then suddenly felt that he was leaning towards his right side, tried to stand up, and was unable to do so due to sudden onset right lower extremity weakness. He identifies it as being isolated to the right lower extremity with no other involvement. Denies any slurred speech, any new headache, any new dizziness. Denies any paresthesias. Denies any prior similar events as well. Of note, the patient was recently admitted and discharged earlier this month for a CHF exacerbation. At this point in time, the patient denies any shortness of breath, chest pressure, chest pain, interval illness, or any difficulty with breathing. REVIEW OF SYSTEMS: As per HPI. Constitutional: No recent fevers or chills. HEENT: No new headaches, no dizziness, no vision changes, no lightheadedness. No new ear pain. Cardiovascular: No chest pain, no chest pressure, no left-sided arm numbness or tingling. No diaphoresis. Respiratory: No shortness of breath. No new cough and new sinus congestion. Gastrointestinal: Denies any nausea, vomiting, abdominal pain, diarrhea. Genitourinary: Endorses having difficulty urinating over the last several hours and was unable to urinate overnight, and currently feels that he has to urinate, but is unable to actually urinate. Denies any similar prior issues with urination. States his last bowel movement was yesterday. Denies any redness, diarrhea, or tiredness. Musculoskeletal: Right lower extremity complete weakness, unable to control any motion to that left lower extremity in any direction. Denies any paresthesias, any sensations of anesthesia on that extremity. Also, endorses some left lower extremity "shooting pain" and some chronic back pain, which is grossly unchanged per the patient. PAST MEDICAL HISTORY: As per HPI, includes the followin. Hypertension. 2. Coronary artery disease, status post CABG 4-vessel bypass in 07/2016. 3. Paroxysmal atrial fibrillation. 4. BPH. 5. Dyslipidemia. 6. Peripheral vascular disease, status post left fem-pop bypass. 7. History of CHF, echocardiogram done 06/19/2017 demonstrating EF of 40%-45%. 8. Chronic kidney disease, unknown stage, with a baseline creatinine approximately 1.4. HOME MEDICATIONS: Please see EMR for full details. The patient denies any recent changes to his home medication, endorses good compliance, although prior documentation as recently as 2 weeks ago indicates that he might have intermittently poor adherence to his medication regimen. FAMILY HISTORY: Notable for stroke and cardiovascular disease. He states his father had stroke at an early age. SOCIAL HISTORY: Denies any active alcohol, tobacco, or illicit drug use. is with him at bedside. He is a former smoker, quit more than 15 years ago. PHYSICAL EXAMINATION: VITAL SIGNS: Temperature of 98, pulse 67, blood pressure 132/82, respirations 18, satting 87% on room air. GENERAL: The patient is awake, conversant, appropriate, lying in the hospital bed, answers questions appropriately, appears to be oriented x3. HEENT: Moist mucous membranes. Equal ocular motions are intact. Pupils equal and reactive. CARDIOVASCULAR: S1, S2. Pulses 2+ bilateral upper extremities, no pitting pedal edema. RESPIRATORY: Clear to auscultation bilaterally. No wheezes, rales, or rhonchi , some bibasilar crackles bilaterally. ABDOMEN: Positive bowel sounds, soft, nontender to palpation. MUSCULOSKELETAL: Bilateral upper extremities, grossly 5/5 strength; bilateral lower extremities grossly 1/5, right lower extremity compared to the left lower extremity in terms of strength. The patient is unable to move his right lower extremity off the bed in either adduction, abduction, extension, or flexion independently. LABORATORY DATA AND IMAGING: WBC 9.5, hemoglobin 13.0, hematocrit 39.5, platelets 236. PT 14.0, INR 1.1, sodium 140, potassium 4.2, chloride 104, bicarbonate 28, BUN 26, creatinine 1.57, glucose 91, calcium 9.4, total bilirubin 0.3, AST 12, ALT 13, alkaline phosphatase 78. Creatine kinase 58. Troponin 0.022, followed by 0.029, followed by 0.034. Total serum protein 7.3, albumin 3.7. 06/25/2017, brain CT without contrast. Findings: "There is generalized ventricular and sulcal prominence and old lacunar infarct in the right periventricular white matter is stable. There are no signs of intracerebral hemorrhage or extraaxial fluid collections. Mastoid air cells and visualized sinuses are clear. 06/25/2017, chest x-ray, reviewed by myself, large cardiac silhouette, prominent postsurgical sternotomy wires are in place, overt effusion , prominent vasculature, question of early pulmonary edema. ASSESSMENT AND PLAN: A 72-year-old male, who presents with right lower extremity weakness. 1. Right lower extremity weakness. The patient denies any known history of stroke. However, he does have some abnormalities noted on brain CT, which are old. I suspect that the patient likely had an under diagnosed event in the past. The patient is currently on aspirin, mostly for anticoagulation of his risk factors, which include peripheral vascular disease, coronary artery disease , hypertension, paroxysmal atrial fibrillation. Recommend that patient undergo ultrasound of carotids, MRI of the brain. The patient recently had a transthoracic echocardiogram, 06/19/2017. I suspect that a repeat echocardiogram at this point in time might be low yield. Also, concerned for the fact that the patient has no lumbar stenosis and degenerative bone disease in his L-spine. I concern for evolution to cauda equina-type syndromes. We will go ahead and obtain imaging of the lower spine, particularly in the setting of a new urinary retention. Also, we will bladder scan and straight catheterization if needed with close attention to the patient's renal function. 2. Known history of coronary artery disease, status post coronary artery bypass grafting x4 vessels with mildly elevated troponin, likely secondary to his other comorbid ongoing issues at this point in time, suspect a type 2 myocardial infarction. He also has chronically elevated troponins and this is within range at this point in time. 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 3. Chronic kidney disease, question of resolving acute kidney injury superimposed. We will closely monitor intake and output, urinalysis with reflex culture has been ordered. See above regarding urinary retention as well. 4. Hypertension. Continue home regimen and closely monitor. 5. Hyperlipidemia. Continue home regimen. Continue to monitor. 6. Diet: Cardiac. 7. Activity: Out of bed as tolerated. Will likely benefit from physical therapy. 8. Deep venous thrombosis prophylaxis with heparin secondary to renal dysfunction. Admit the patient in observation status. The patient's code status has been reviewed. He indicates his would be his medical decision maker if he is unable to make his own medical decision and wishes to be FULL CODE at this point in time. LUIS ARMANDO
[2017-06-26] MEDS ORDERED: Non-Formulary Item 1 EACH (Multivitamin [Multi-Day Vitamins] 1 TABLET) PO SCH (09:00)
[2017-06-26] MEDS ORDERED: Furosemide 20 MG TAB PO SCH (09:00)
--- NOTE | 2017-06-26 09:01 | RAD ---
1 VIEW CHEST: Date: 06/25/17 COMPARISON: 06/19/17. HISTORY: Altered mental status. FINDINGS: There are sternotomy wires. Normal cardiac silhouette. Pulmonary vessels are slightly prominent. Diff use interstitial opacities, without consolidation or mass. Stable blunting of the left costophrenic a ngle. No pneumothorax or osseous abnormalities. IMPRESSION: Cardiomegaly. Pulmonary vascular congestion. Congestive heart failure, unchanged. POS: [facility]
[2017-06-26] MEDS: Aspirin 81 mg Enteric Coated Tablet PO SCH (10:50)
[2017-06-26] MEDS: Furosemide 40 MG TAB PO SCH (10:50)
[2017-06-26] MEDS: Multivit, Therapeutic 1 TAB PO SCH (10:51)
[2017-06-26] MEDS: Heparin 5,000 UNITS/ML VIAL SC SCH ×2 (10:51→21:45)
[2017-06-26] MEDS: Tamsulosin HCl 0.4 MG CAP PO SCH (10:51)
[2017-06-26] MEDS: Amiodarone 200 MG TAB PO SCH (10:51)
[2017-06-26] MEDS: Gabapentin 400 MG CAP PO SCH ×3 (10:51→21:44)
--- NOTE | 2017-06-26 11:30 | MRI ---
MRI BRAIN WITHOUT CONTRAST: Date: 06/26/17 HISTORY: Right-sided weakness, TIA. FINDINGS: There are a few tiny foci of restricted diffusion in the left centrum semiovale with decreased signal on the ADC maps. There are multiple foci of T2 prolongation in the periventricular white matter cons istent with chronic small vessel ischemic disease. No hemorrhage, midline shift, or abnormal extra-ax ial fluid collections are seen. The visualized paranasal sinuses are well aerated. IMPRESSION: 1. A few acute lacunar infarctions in the left centrum semiovale. 2. Chronic small vessel ischemic disease. POS: [facility]
[2017-06-26 12:15] LABS: Bilirubin Negative (Negative); Blood, Urine Negative (Negative); Clarity CLEAR (Clear); Glucose, Urine (Dipstick) Negative (Negative); Leukocyte Negative (Negative); Nitrite Negative (Negative); Protein, Urine (Dipstick) Negative (Neg-Trace); Specific Gravity, Urine 1.012 (1.002-1.036); Urobilinogen 0.2 mg/dL (0.2-1.0); pH, Urine 7.5 (5.0-9.0)
--- NOTE | 2017-06-26 13:17 | MRI ---
MRI THORACIC SPINE WITHOUT CONTRAST: HISTORY: Right lower extremity weakness. New urinary retention. COMPARISON: None. TECHNIQUE: A thoracic spine MRI is performed without intravenous Gadolinium administration. Multisequential, mu ltiplanar imaging is performed. FINDINGS: There is appropriate T1 marrow signal intensity of the thoracic vertebrae. Thoracic spine vertebral body height is maintained. There is no fracture. No significant STIR hyperintensity to suggest nicole a or ligamentous injury. Small bilateral effusions. Visualized mediastinal structures are unremarkable. The thoracic cord has overall normal size and signal intensity. No evidence of cord expansion. No e vidence of T2 hyperintensity in the cord. The conus medullaris terminates beyond the T11 level. At T6-T7, there is a small right paracentral disk bulge that abuts the thecal sac. Mild central barbara l stenosis. T8-T9: Broad-based disk osteophyte complex abuts the thecal sac. Mild deformity of the thoracic cor d. Mild central canal stenosis. T9-T10: No significant disk osteophyte complex. No significant central canal stenosis. T11-T12/T11-T12: No significant central canal stenosis. IMPRESSION: Degenerative changes of the thoracic spine, as above. No high grade central canal stenosis. POS: [facility]
--- NOTE | 2017-06-26 13:37 | MRI ---
MRI OF LUMBAR SPINE PERFORMED WITHOUT CONTRAST ENHANCEMENT: HISTORY: Right lower extremity weakness and urinary retention. COMPARISON: A 01/18/17 study. FINDINGS: The vertebral bodies are normal in height. Disk narrowing is seen at the L1-2, L2-3, and L3-4 levels . There is spondylolisthesis of L4 on L5 of approximately 7 mm. There are disk desiccation changes at L5-S1. A T2 hyperintense area within the right tibia is statistically most likely a cyst. T11-12: Unremarkable. T12-L1: No significant canal or foraminal stenosis. L1-2: Mild degree of canal narrowing is noted. There are asymmetric left-sided facet and ligamentou s hypertrophic changes and some mild left foraminal narrowing. There also appears to be a left later al disk protrusion and annular disk tear. L2-3: The canal is mildly stenotic at this level. There is disk bulging and moderate bilateral fora bridgette narrowing. L3-4: There is moderately severe canal stenosis with facet and ligamentous hypertrophic changes. Th ere is marked bilateral foraminal narrowing. L4-5: There is also a severe canal stenosis at this level which is a combination of degenerative fac et and ligamentous hypertrophic changes, disk bulging, and spondylolisthesis. There is severe bilate ral foraminal narrowing. L5-S1: Moderately severe canal stenosis is also seen at this level with bilateral foraminal narrowin g slightly greater on the left. IMPRESSION: Severe canal stenosis at the L3-4, L4-5, and L5-S1 levels with areas of foraminal narrowing as discus sed above. These changes are fairly similar in appearance to the previous exam. POS: [facility]
--- NOTE | 2017-06-26 13:56 | CON ---
DATE OF CONSULTATION: 06/26/2017 PRIMARY CARE PHYSICIAN: Dr. Lake PRIMARY RESIDENTIAL WORKER: Dr. Soraida Del Rosario ATTENDING: Dr. Vashti Reich REASON FOR CONSULTATION: Elevated troponin. HISTORY OF PRESENT ILLNESS: Mr. Ricardo is a 72 years old male with a significant history of coronary artery disease with a CABG x4 in 07/2016, hypertension, hyperlipidemia, chronic kidney dise ase. The patient was recently discharged from the hospital for acute on chronic combined congestive heart failure on 06/21/2017. At that time, the patient denied shortness of breath, chest pain or di scomfort, the patient was in sinus rhythm. No sign of stroke at that time. Last night 06/25/2017 ar ound 10 o'clock last night while the patient was watching TV with his he started having weakness to his right lower extremity. According to the he could stand up, he could hold for the balanc e; however, he could not walk because of the severe weakness to his right leg. She did not if he had any slurred speech or weakness in the right upper extremities or facial drooping to the right side. Also, the patient denied any chest pain or heaviness in the chest, palpitation or fluttering in the chest, dizziness, lightheadedness, or any other cardiac symptoms during the episode. At the ER, the patient had a CT scan of the brain which shows no acute intracranial abnormality; however, MRI brain today shows a few acute lacunar infarction in the left centrum semiovale and also chronic small vesse l ischemic disease. The patient denies any history of TIA or a CVA in the past. During the initial Cardiology consult assessment the patient denies shortness of breath or numbness in the left upper ex tremities, discomfort or palpitations or fluttering in his chest, dizziness, lightheadedness, diaphor esis, nausea, vomiting or any other cardiac complaints. The patient's last echocardiogram was on 06/20/2017 which shows EF of 40-45%, mild to moderate mitral valve regurgitation and mild aortic valve regurgitation and mild tricuspid regurgitation. The patie nt had a carotid Doppler study done in 07/2016 showed no significant stenosis. The patient underwent a coronary artery bypass in 07/2016 with VIRK to LAD, reverse saphenous vein graft to acute marginal , left radial artery to ramus, and reversed saphenous vein graft to obtuse marginal 1. Arterial Dopp ler study in 03/2017 showed bilateral saphenous superficial femoral artery is 70% stenosis and bilate ral superficial femoral artery disease. The patient is supposed to have arteriogram runoff possibly as outpatient by Dr. Del Rosario. PAST MEDICAL HISTORY: Hypertension, coronary artery disease, hyperlipidemia, valvular disease, parox ysmal atrial fibrillation. PAST SURGICAL HISTORY: Coronary artery bypass graft x4 in 07/2016, back surgery in 07/2016 also. FAMILY HISTORY: His younger brother had a history of diabetes, heart surgery and a pacemaker placeme nt. The patient's father due to a stroke. There is no significant coronary artery disease, stroke, diabetes, hypertension in his maternal side. SOCIAL HISTORY: He is . He is living with his . He has six children who are alive and w ell. Actually he quit smoking in 2016 after he had a CABG bypass. He used to drink about a 12-pack of beer almost every day, but quit in 1999. He denies any illicit drug abuse. ALLERGIES: He has no known drug allergies. CURRENT MEDICATIONS: Multivitamin 1 tablet once a day, gabapentin 400 mg twice a day, Flomax 0.4 mg once daily, daily fiber 0.52 grams once a day as needed, aspirin 81 mg once a day, Protonix 40 mg onc e a day, amiodarone 200 mg once a day, lovastatin 40 mg once a day, furosemide 40 mg once a day. REVIEW OF SYSTEMS: The following complete review of systems was negative, unless otherwise mentioned in the HPI or below. CONSTITUTIONAL: Weight gain or loss and sense of well-being, ability to conduct usual activity, exer cise tolerance. SKIN: Rash, itching, change in hair growth or loss, nail change. EYES: Vision change, blurry vision, double vision, tearing, blind spots, pain. ENT: Headache, vertigo, lightheadedness, dizziness, nose bleeding, cold, obstruction, discharge from nose, dental difficulties, gingival bleeding, dentures, neck stiffness, pain, tenderness, mass in th e thyroid or other areas. CARDIOVASCULAR: Precordial pain, substernal distress, palpitations, syncope, dyspnea on exertion, or thopnea, nocturnal dyspnea, edema, cyanosis. Psychosis. Claudication. RESPIRATORY: He has a cough with phlegm, but negative for shortness of breath, pain, wheezing, strid or, hemoptysis. GASTROINTESTINAL: Poor appetite, dysphagia, indigestion, abdominal pain, heartburn, regurgitation, n ausea, vomiting, diarrhea or blood in stool. GENITOURINARY: No urgency, frequency, dysuria, nocturia, hematuria, polyuria, oliguria, unusual colo r of urine. However, he has urgent in and out cath today. The patient and the family do not know wh y he had in and out cath for urine. MUSCULOSKELETAL: Pain, swelling, redness or heat of muscles, muscular weakness. Positive for limita tion of motion and muscular weakness to the left lower extremity and tremor to right upper extremity. He denies cramps. NEUROLOGIC: Seizure, conversion, incoordination, difficulty with memory or speech. PSYCHIATRIC: Emotional problem, anxiety, depression, previous psychiatric care, unusual perception, hallucination. PHYSICAL EXAMINATION: VITAL SIGNS: Blood pressure 122/72, pulse is 68, sinus rhythm, respiratory rate is 18, and the tempe rature 98.6. GENERAL: Well-developed, well-nourished without any acute distress. HEAD: Normocephalic and atraumatic. EYES: Extraocular muscle movements are intact. He usually wears glasses for reading. ENT: Oral and nasal mucosa are moist without lesion. NECK: No JVD. Neck is supple with normal range of motion. LUNGS: Clear to auscultation bilaterally, but diminished at the bases. No wheezing, rhonchi, or ral es noted. CARDIOVASCULAR: Regular rate and rhythm, normal S1, S2. There are no S3, S4. He has a significant murmur to the left sternal border, but no hives, thrill, bruits or rubs noted. Diminution of pulses bilateral posterior tibial, and popliteal, but good pulses in the bilateral dorsal pedis. Carotid pu lses are present without bruits or thrills. EXTREMITIES: No edema in the bilateral lower extremities. The patient is able to move all extremiti es at this moment. ABDOMEN: Soft, nontender, no mass to palpate, nondistended. Bowel sounds are present. MUSCULOSKELETAL: Able to move all extremities. SKIN: Warm and dry. No skin rash, lesion or bruise noted. NEUROLOGIC: Alert, oriented x4, no slurred speech, normal affect. Nonfocal. PSYCHIATRIC: Mood and affect normal. EKG: Twelve lead EKG at the Emergency Department shows sinus rhythm with no significant ST segment c hanges or T-wave inversions. LABORATORY DATA: WBC 9.5, hemoglobin 13.0, hematocrit 39.5, platelets 236. PT 14.0, INR 1.1. Sodiu m 140, potassium 4.2, BUN 26, creatinine 1.57, AST 12, ALT 13, CK-MB 1.3, troponin 0.022, 0.029, 0.03 4. His chest x-ray showed pulmonary vascular congestion, unchanged congestive heart failure. Results of the MRI of the spine is pending at this time. IMPRESSION: 1. Indeterminate troponin level with unknown etiology. The patient denied any cardiac symptoms at t his moment. We would like to continue to monitor on telemetry and we like to adjust the patient's tr eatment plan as appropriate in the future. 2. Coronary artery disease with history of coronary artery bypass graft x4 in 07/2016. The patient' s condition is stable with aspirin and Lipitor. We would like to start beta seda for this patient for history of coronary artery disease. We like to continue to monitor on telemetry. 3. Hypertension, stable with current medications. 4. Peripheral artery disease. Arteriogram with runoff as outpatient. The patient's condition is st able at this time. 5. Chronic kidney disease, stable at this time, we would like to continue to monitor. 6. Hyperlipidemia. The patient is on Lipitor. 7. Prior history of paroxysmal atrial fibrillation. If patient remains in sinus rhythm, possible ev ent monitor when the patient is discharged. We would like to continue amiodarone and aspirin at this moment and he is on heparin 5000 units subcu twice a day. 8. Ex-smoker. He quit in 07/2016. Smoking cessation education giving to the patient and the family . He would like to have a nicotine patch at this moment to avoid nicotine urgency. Thank you very much for allowing Cardiology Service to participate in the care of this patient. We w ill follow along with the patient's care team and make further recommendations as appropriate.
--- NOTE | 2017-06-26 15:03 | ULT ---
BILATERAL CAROTID DUPLEX ULTRASOUND: DATE: 06/26/17 HISTORY: Lacunar infarction in the left centrum semiovale, right-sided weakness, TIA. TECHNIQUE: Mckeon scale ultrasound with color flow and spectral Doppler imaging of the extracranial carotid artery systems performed. FINDINGS: Bilateral carotid plaque is again seen as on exam of 08/11/16. The peak systolic velocity in the right ICA measures 103 cm/second with an end-diastolic velocity of 10 cm/second and a systolic ratio of 0.32. The peak systolic velocity in the left ICA measures 109 cm/second with an end-diastolic velocity of 1 7 cm/second and a systolic ratio of 1.13. Flow in both vertebral arteries remains antegrade. IMPRESSION: No evidence of hemodynamically significant stenosis. POS: DARIUS
--- NOTE | 2017-06-26 15:07 | ULT ---
RENAL ULTRASOUND: History: Urinary retention. Acute kidney insufficiency. Comparison: None. Technique: Sagittal and transverse imaging of the kidneys is performed. FINDINGS: Right kidney: Mild renal cortical thinning. No hydronephrosis. 5.1 x 9.2 x 4.7 cm. Left kidney: Mild renal cortical thinning. No hydronephrosis. 5.0 x 11.5 x 4.5 cm. Urinary bladder has a grossly normal mucosa. Both ureteral jets are identified. IMPRESSION: No hydronephrosis. POS: DARIUS
[2017-06-26] MEDS: Carvedilol 3.125 MG TAB PO SCH (16:22)
--- NOTE | 2017-06-26 16:48 | CON ---
DATE OF CONSULTATION: 06/26/2017 NEUROLOGY CONSULTATION CONSULTING PHYSICIAN: Hospitalist Service. IMPRESSION: 1. Patchy left parietal infarct, likely secondary to a cardioembolic event. 2. Atrial fibrillation. 3. Coronary artery bypass graft. PLAN: 1. Continue with anticoagulation. 2. PT and OT evaluations for possible rehab transfer. Mr. Ricardo is a 72-year-old man who was on aspirin before he developed acute weakness in the right le g. He denies any weakness in the arm or face. He did not notice any speech difficulty. Initial CT scan of the brain was unremarkable. Laboratory studies were all unremarkable as well. MRI of the br ain shows some punctate areas of infarction in the left parietal lobe that are new. MRIs of the lumb ar and thoracic spine were fairly unremarkable. He denies a history of prior stroke. He is followed by Dr. Del Rosario for his Cardiology. EKGs that are in the chart show normal sinus rhythm. Reportedly, t here is a history of some atrial fibrillation. PAST MEDICAL HISTORY: As listed above. ALLERGIES: None. SOCIAL HISTORY: No tobacco use. FAMILY HISTORY: Noncontributory. REVIEW OF SYSTEMS: No complaint of headache, nausea, vomiting, chest pain, shortness of breath. PHYSICAL EXAMINATION: GENERAL: Overweight elderly man lying in bed in no distress. VITAL SIGNS: Stable. He is afebrile. HEENT: Unremarkable. NECK: Supple. EXTREMITIES: No cyanosis. NEUROLOGIC: He is alert and oriented. His speech is fluent and clear. Cranial nerves were intact. Motor exam shows good strength in both upper extremities. He has antigravity strengthened in his le gs. Plantar responses upgoing on the right, downgoing on the left. Gait was not tested. No abnorma l movements were seen. SUMMARY: Elderly male with an acute parietal stroke on the left resulting in some right leg weakness . I would agree with anticoagulation if there is documentation of atrial fibrillation.
[2017-06-26] MEDS ORDERED: Non-Formulary Item 1 EACH (Lovastatin [Lovastatin] 40 MG) PO SCH (17:00)
[2017-06-26] MEDS ORDERED: PSYLLIUM HUSK 0.52 GM PO SCH (21:00)
[2017-06-26] MEDS: Atorvastatin Calcium 10 MG TAB PO SCH (21:44)
[2017-06-26] MEDS: Metamucil PACK PO SCH (21:45)
--- NOTE | 2017-06-27 03:56 | ADD-CON ---
ADDENDUM DATE OF ADMISSION: 06/26/2017 DATE OF CONSULTATION: 06/26/2017 INDICATION FOR CONSULTATION: A 72-year-old patient with a history of coronary artery disease, decrea se in left ventricular systolic function, hypertension, peripheral vascular disease, hyperlipidemia, who has a history of paroxysmal atrial fibrillation, who presented with what appears to be a CVA with some right lower extremity weakness. He had an MRI today, which did indicate new lacunar infarcts i nvolving the left centrum semiovale and he also was found to have chronic small vessel ischemic disea se. He apparently went to home while he was sitting, he is not having any event otherwise or any act ivity. There has been no documentation of any recent atrial fibrillation. He has been in sinus rhyt hm since his admission. He recently was in the hospital also for some congestive heart failure. He did well after that and was discharged home. At this time, he denied any chest pain or shortness of breath, the right lower extremity still remains weak and he is unable to move it early at all, but he does have some movement of the leg, but otherwise appears to be from a cardiac standpoint relatively stable. As far as his past medical history, social history, review of systems, family history and e xamination, please refer to the notes dictated by the nurse practitioner. I have reviewed her record s and discussed with patient and I would agree with her assessment and plan. At this time, it would be best to anticoagulate the patient. We would continue with the amiodarone just for prevention of a ny possible atrial fibrillation. Also, his coronary artery disease appears to be stable. Hypertensi on also was stable on the present medications as far as this. He also does have peripheral vascular disease and we will plan to do an arteriogram as an outpatient. This is still pending at the time of this dictation and it was planned for future event. Also he has a history of some chronic kidney di sease, which appears to be also relatively stable at this time. Indeterminate troponin, which most roque barrely is associated with his recent CVAs. We would continue to follow does not appear that this is c ardiac in this time. We will be more than happy to continue to follow the patient with you, but card iac status appears to be stable except for the new onset of the CVA. This is possibly could be due t o an embolic phenomenon. However, we have no indication that the patient had any further episodes of atrial fibrillation at this time. He was on Coumadin in the past, please note that, several years a go and this medicine had been stopped. Now, he has suffered a CVA, I would suggest that he to go pankaj k on his Coumadin or have long-term anticoagulation with Eliquis or Xarelto or Pradaxa. Based on his renal function, the Eliquis may be the best option.
[2017-06-27 06:10] LABS: Cardiac Risk 5.9 (Less than 4.5)
[2017-06-27] MEDS ORDERED: FLU VACC TS2017-18 (>65YR) 0.5 ML SYRINGE IM ONE (09:00)
[2017-06-27] MEDS: Aspirin 81 mg Enteric Coated Tablet PO SCH (09:39)
[2017-06-27] MEDS: Amiodarone 200 MG TAB PO SCH (09:39)
[2017-06-27] MEDS: Gabapentin 400 MG CAP PO SCH ×3 (09:39→21:07)
[2017-06-27] MEDS: Furosemide 40 MG TAB PO SCH (09:39)
[2017-06-27] MEDS: Carvedilol 3.125 MG TAB PO SCH ×2 (09:39→17:15)
[2017-06-27] MEDS: Heparin 5,000 UNITS/ML VIAL SC SCH ×2 (09:39→21:08)
[2017-06-27] MEDS: Tamsulosin HCl 0.4 MG CAP PO SCH (09:39)
[2017-06-27] MEDS: Multivit, Therapeutic 1 TAB PO SCH (09:39)
--- NOTE | 2017-06-27 10:32 | PDOC.PN ---
- Subjective Encounter Start Date: 06/27/17 Encounter Start Time: 10:30 Subjective: nsg notes rev, osiel ovn, no new c/o, @ bedside -: optimistic about RLE strength improvement - Objective Vital Signs & Weight: Vital Signs (12 hours) Temp Pulse Resp BP Pulse Ox 06/27/17 07:37 97.9 F 53 L 20 06/27/17 04:00 97.9 F 53 L 20 104/59 L 96 06/27/17 02:44 94 L 06/27/17 00:00 98.0 F 62 18 129/65 89 L I&O: 06/26/17 06/27/17 06/28/17 06:59 06:59 06:59 Intake Total 775 Output Total 1000 Balance -225 Result Diagrams: 06/25/17 23:49 06/25/17 23:49 Phys Exam - Physical Examination Constitutional: NAD HEENT: PERRLA, moist MMs, sclera anicteric Neck: no nodes, no JVD, supple Respiratory: no wheezing, no rales, no rhonchi, clear to auscultation bilateral Cardiovascular: RRR, no significant murmur, no rub Gastrointestinal: soft, non-tender, no distention, positive bowel sounds Musculoskeletal: no edema, pulses present Neurological: moves all 4 limbs RLE full ROM with strenght 3/5 LLE 5/5 Psychiatric: normal affect, A&O x 3 Dx/Plan - Plan * CVA * apprec neurology c/s * continue with current mgmt * PT/ OT t/c rehab hx afib * apprec cardiology c/s diet: cardiac activity; oob as mansi dvt ppx Review of Systems - Review of Systems Constitutional: chills - Medications/Allergies Allergies/Adverse Reactions: Allergies Allergy/AdvReac Type Severity Reaction Status Date / Time No Known Allergies Allergy Verified 06/19/17 22:15 Medications: Current Medications Amiodarone HCl (Cordarone) 200 mg PO DAILY [facility] Last Admin: 06/27/17 09:39 Dose: 200 mg Aspirin (Ecotrin) 81 mg PO DAILY [facility] Last Admin: 06/27/17 09:39 Dose: 81 mg Atorvastatin Calcium (Lipitor) 10 mg PO HS [facility] Last Admin: 06/26/17 21:44 Dose: 10 mg Carvedilol (Coreg) 3.125 mg PO BID-[facility] Last Admin: 06/27/17 09:39 Dose: 3.125 mg Furosemide (Lasix) 40 mg PO QAM [facility] Last Admin: 06/27/17 09:39 Dose: 40 mg Gabapentin (Neurontin) 400 mg PO TID [facility] Last Admin: 06/27/17 09:39 Dose: 400 mg Heparin Sodium (Porcine) (Heparin) 5,000 units SC Q12HR [facility] Last Admin: 06/27/17 09:39 Dose: 5,000 units Labetalol HCl (Normodyne) 20 mg SLOW IVP Q1H PRN PRN Reason: BP > 220/110 Multivitamins (Theragran) 1 tab PO DAILY [facility] Last Admin: 06/27/17 09:39 Dose: 1 tab Pantoprazole Sodium (Protonix) 40 mg PO DAILY [facility] Last Admin: 06/27/17 09:39 Dose: 40 mg Psyllium Hydrophilic Mucilloid (Metamucil) 1 pk PO HS [facility] Last Admin: 06/26/17 21:45 Dose: 1 pk Sodium Chloride (Flush - Normal Saline) 10 ml IVF Q12HR [facility] Last Admin: 06/27/17 09:40 Dose: 10 ml Sodium Chloride (Flush - Normal Saline) 10 ml IVF PRN PRN PRN Reason: Saline Flush Tamsulosin HCl (Flomax) 0.4 mg PO DAILY [facility] Last Admin: 06/27/17 09:39 Dose: 0.4 mg
[2017-06-27] MEDS ORDERED: Docusate Calcium (SURFAK) 240 MG CAP PO PRN (11:08)
--- NOTE | 2017-06-27 15:44 | PDOC.CTH ---
<Bertha Rangel - Last Filed: 06/27/17 15:40> Cardiology Progress Note - Subjective The pt seen and examined. No overnight events. No cardiac complaints. He used NC overnight due to bradycardia 2ndary to possible SA. He feels more strength to his RLE today - Objective Vital Signs Temp Pulse Pulse Pulse Resp BP BP 06/27/17 12:00 98.5 F 53 L 20 06/27/17 08:20 97.8 F 62 16 06/27/17 07:46 59 L 60 134/60 106/55 L 06/27/17 07:37 97.9 F 53 L 20 06/27/17 04:00 97.9 F 53 L 20 BP Pulse Ox 06/27/17 12:00 104/51 L 95 06/27/17 08:20 110/62 97 06/27/17 07:46 06/27/17 07:37 06/27/17 04:00 104/59 L 96 06/26/17 06/27/17 06/28/17 06:59 06:59 06:59 Intake Total 775 Output Total 1000 Balance -225 - Physical Examination General/Neuro: alert & oriented x3 Neck: no JVD present Lungs: CTA Heart: RRR Abdomen: soft Extremities: other: (No edemas) - Telemetry Telemetry Rhythm: SR - Labs Result Diagrams: 06/25/17 23:49 06/25/17 23:49 Troponin/CKMB CK-MB (CK-2) 1.3 ng/mL (0-6.6) 06/25/17 23:49 Troponin I 0.034 ng/mL (< 0.028) H 06/26/17 05:41 - Assessment/Plan 1. CVA with RLE weakness - his RLE strength is improving; managed by neurologist 2. Paroxymal Afib - remains in SR; on Amiodarone, ASA, Heparin; the list of OAC with information given to the pt today 3. CAD with Hx of CABG x4 in 2017 - stable with bblocker, ASA, statin, but no CHAVEZ due to hx of CKD; cont. monitor 4. Chronic combined HF - stable with Lasix and bblocker; not on CHAVEZ due to hx of CKD 5. HTN - stable with current meds 6. CKD - stable; cont. monitor 7. Hyperlipidemia - on Statin 8. PVD - stable; possible Arotogram with runoff as outpt. MAR reviewed Review of Systems - Review of Systems Constitutional: reports: no symptoms reported EENTM: reports: no symptoms reported Respiratory: reports: no symptoms reported Cardiac (ROS): reports: no symptoms reported ABD/GI: reports: no symptoms reported : reports: no symptoms reported Musculoskeletal: reports: see HPI <Maribell Del Rosario - Last Filed: 06/27/17 23:08> Cardiology Progress Note - Objective Vital Signs Temp Pulse Pulse Pulse Resp BP BP 06/27/17 19:53 98.1 F 54 L 16 06/27/17 17:55 98.2 F 54 L 20 06/27/17 13:45 52 L 57 L 114/51 L 131/76 06/27/17 12:00 98.5 F 53 L 20 BP Pulse Ox Pulse Ox Pulse Ox 06/27/17 19:53 120/59 L 94 L 06/27/17 17:55 118/56 L 98 06/27/17 13:45 96 98 06/27/17 12:00 104/51 L 95 06/26/17 06/27/17 06/28/17 06:59 06:59 06:59 Intake Total 775 900 Output Total 1000 Balance -225 900 - Labs Result Diagrams: 06/25/17 23:49 06/25/17 23:49 Troponin/CKMB CK-MB (CK-2) 1.3 ng/mL (0-6.6) 06/25/17 23:49 Troponin I 0.034 ng/mL (< 0.028) H 06/26/17 05:41 - Assessment/Plan Pt. seen and eval. by me.I agree with the A/p by the [employer]. He will decide if he wants to resume coumadin of some other OAC. Chest clear. RRR.
[2017-06-27] MEDS: Metamucil PACK PO SCH (21:06)
[2017-06-27] MEDS: Atorvastatin Calcium 10 MG TAB PO SCH (21:06)
[2017-06-27] MEDS: Senokot S 8.6-50 MG TAB PO SCH (21:07)
--- NOTE | 2017-06-27 23:41 | PDOC.PN ---
- Subjective Encounter Start Date: 06/27/17 Encounter Start Time: 09:00 Subjective: nsg notes rev, osiel ovn, no new c/o -: has not called his medication ins co to determine cost of eliquis -: pt wants to go home, his is afraid that he is too weak - Objective Vital Signs & Weight: Vital Signs (12 hours) Temp Pulse Pulse Pulse Resp BP BP 06/27/17 21:13 98.1 F 54 L 16 06/27/17 19:53 98.1 F 54 L 16 06/27/17 17:55 98.2 F 54 L 20 06/27/17 13:45 52 L 57 L 114/51 L 131/76 06/27/17 12:00 98.5 F 53 L 20 BP Pulse Ox Pulse Ox Pulse Ox 06/27/17 21:13 94 L 06/27/17 19:53 120/59 L 94 L 06/27/17 17:55 118/56 L 98 06/27/17 13:45 96 98 06/27/17 12:00 104/51 L 95 I&O: 06/26/17 06/27/17 06/28/17 06:59 06:59 06:59 Intake Total 775 900 Output Total 1000 Balance -225 900 Result Diagrams: 06/25/17 23:49 06/25/17 23:49 Phys Exam - Physical Examination Constitutional: NAD HEENT: PERRLA, moist MMs, sclera anicteric, oral pharynx no lesions Neck: no nodes, no JVD Respiratory: no wheezing, no rales, no rhonchi, clear to auscultation bilateral Cardiovascular: RRR, no significant murmur, no rub Gastrointestinal: soft, non-tender, positive bowel sounds Neurological: moves all 4 limbs Psychiatric: normal affect, A&O x 3 Dx/Plan - Plan * * CVA * apprec neurology c/s * continue with current mgmt * PT/ OT t/c rehab * t/c A/C based on financial feasibility hx afib/ PAF * apprec cardiology c/s hx CAD s/p CABG * continue current regimen diet: cardiac activity; oob as mansi dvt ppx Review of Systems - Medications/Allergies Allergies/Adverse Reactions: Allergies Allergy/AdvReac Type Severity Reaction Status Date / Time No Known Allergies Allergy Verified 06/19/17 22:15 Medications: Current Medications Amiodarone HCl (Cordarone) 200 mg PO DAILY [facility] Last Admin: 06/28/17 09:06 Dose: 200 mg Aspirin (Ecotrin) 81 mg PO DAILY [facility] Last Admin: 06/28/17 09:07 Dose: 81 mg Atorvastatin Calcium (Lipitor) 10 mg PO HS [facility] Last Admin: 06/27/17 21:06 Dose: 10 mg Carvedilol (Coreg) 3.125 mg PO BID-[facility] Last Admin: 06/28/17 09:05 Dose: 3.125 mg Docusate Calcium (Surfak) 240 mg PO DAILYPRN PRN PRN Reason: Constipation Last Admin: 06/27/17 21:06 Dose: 240 mg Furosemide (Lasix) 40 mg PO QAM [facility] Last Admin: 06/28/17 09:07 Dose: 40 mg Gabapentin (Neurontin) 400 mg PO TID [facility] Last Admin: 06/28/17 09:07 Dose: 400 mg Heparin Sodium (Porcine) (Heparin) 5,000 units SC Q12HR [facility] Last Admin: 06/28/17 09:10 Dose: 5,000 units Labetalol HCl (Normodyne) 20 mg SLOW IVP Q1H PRN PRN Reason: BP > 220/110 Multivitamins (Theragran) 1 tab PO DAILY [facility] Last Admin: 06/28/17 09:08 Dose: 1 tab Pantoprazole Sodium (Protonix) 40 mg PO DAILY [facility] Last Admin: 06/28/17 09:08 Dose: 40 mg Psyllium Hydrophilic Mucilloid (Metamucil) 1 pk PO HS [facility] Last Admin: 06/27/17 21:06 Dose: 1 pk Senna/Docusate Sodium (Senokot S) 1 tab PO BID [facility] Last Admin: 06/28/17 09:09 Dose: 1 tab Sodium Chloride (Flush - Normal Saline) 10 ml IVF Q12HR [facility] Last Admin: 06/28/17 09:10 Dose: 10 ml Sodium Chloride (Flush - Normal Saline) 10 ml IVF PRN PRN PRN Reason: Saline Flush Tamsulosin HCl (Flomax) 0.4 mg PO DAILY [facility] Last Admin: 06/28/17 09:10 Dose: 0.4 mg
[2017-06-28] MEDS: Carvedilol 3.125 MG TAB PO SCH ×2 (09:05→17:26)
[2017-06-28] MEDS: Amiodarone 200 MG TAB PO SCH (09:06)
[2017-06-28] MEDS: Aspirin 81 mg Enteric Coated Tablet PO SCH (09:07)
[2017-06-28] MEDS: Gabapentin 400 MG CAP PO SCH ×3 (09:07→20:58)
[2017-06-28] MEDS: Furosemide 40 MG TAB PO SCH (09:07)
[2017-06-28] MEDS: Multivit, Therapeutic 1 TAB PO SCH (09:08)
[2017-06-28] MEDS: Senokot S 8.6-50 MG TAB PO SCH ×2 (09:09→20:58)
[2017-06-28] MEDS: Heparin 5,000 UNITS/ML VIAL SC SCH ×2 (09:10→21:02)
[2017-06-28] MEDS: Tamsulosin HCl 0.4 MG CAP PO SCH (09:10)
--- NOTE | 2017-06-28 13:36 | PDOC.PN ---
- Subjective Encounter Start Date: 06/28/17 Encounter Start Time: 13:35 Subjective: nsg notes rev, osiel ovn, no new c/o, feels that his RLE is much stronger but -: c/o of R leg 'wobbling' when he tries to ambulate. pt wants to go home, wif -: e states she isn't able to help him at home. they both want longer stay - Objective Vital Signs & Weight: Vital Signs (12 hours) Temp Pulse Pulse Pulse Resp BP BP 06/28/17 11:41 97.1 F L 52 L 18 06/28/17 09:21 57 L 57 L 109/49 L 138/63 06/28/17 08:00 97.1 F L 52 L 18 06/28/17 03:23 97.9 F 57 L 16 BP Pulse Ox 06/28/17 11:41 107/46 L 90 L 06/28/17 09:21 06/28/17 08:00 126/55 L 94 L 06/28/17 03:23 114/54 L 95 I&O: 06/27/17 06/28/17 06/29/17 06:59 06:59 06:59 Intake Total 775 1140 480 Output Total 1000 Balance -225 1140 480 Result Diagrams: 06/25/17 23:49 06/25/17 23:49 Phys Exam - Physical Examination Constitutional: NAD HEENT: PERRLA, moist MMs, sclera anicteric, oral pharynx no lesions Neurological: moves all 4 limbs RLE 4/5, LLE 5/5 Psychiatric: normal affect, A&O x 3 Dx/Plan - Plan * CVA * apprec neurology c/s * continue with current mgmt * PT/ OT t/c rehab - still pending * pt states he is able to afford the eliquis co-pay - start eliquis today and monitor * pt may well benefit from rehab, at bare minimum will need outpatient PT hx afib/ PAF * apprec cardiology c/s hx CAD s/p CABG * continue current regimen ok for d/c today once pending insurance approval diet: cardiac activity; oob as mansi dvt ppx Review of Systems - Medications/Allergies Allergies/Adverse Reactions: Allergies Allergy/AdvReac Type Severity Reaction Status Date / Time No Known Allergies Allergy Verified 02/05/18 22:15 Medications: Current Medications Amiodarone HCl (Cordarone) 200 mg PO DAILY [facility] Last Admin: 06/28/17 09:06 Dose: 200 mg Aspirin (Ecotrin) 81 mg PO DAILY [facility] Last Admin: 06/28/17 09:07 Dose: 81 mg Atorvastatin Calcium (Lipitor) 10 mg PO HS [facility] Last Admin: 06/27/17 21:06 Dose: 10 mg Carvedilol (Coreg) 3.125 mg PO BID-WM [facility] Last Admin: 06/28/17 09:05 Dose: 3.125 mg Docusate Calcium (Surfak) 240 mg PO DAILYPRN PRN PRN Reason: Constipation Last Admin: 06/27/17 21:06 Dose: 240 mg Furosemide (Lasix) 40 mg PO QAM [facility] Last Admin: 06/28/17 09:07 Dose: 40 mg Gabapentin (Neurontin) 400 mg PO TID [facility] Last Admin: 06/28/17 09:07 Dose: 400 mg Heparin Sodium (Porcine) (Heparin) 5,000 units SC Q12HR [facility] Last Admin: 06/28/17 09:10 Dose: 5,000 units Labetalol HCl (Normodyne) 20 mg SLOW IVP Q1H PRN PRN Reason: BP > 220/110 Multivitamins (Theragran) 1 tab PO DAILY [facility] Last Admin: 06/28/17 09:08 Dose: 1 tab Pantoprazole Sodium (Protonix) 40 mg PO DAILY [facility] Last Admin: 06/28/17 09:08 Dose: 40 mg Psyllium Hydrophilic Mucilloid (Metamucil) 1 pk PO HS [facility] Last Admin: 06/27/17 21:06 Dose: 1 pk Senna/Docusate Sodium (Senokot S) 1 tab PO BID [facility] Last Admin: 06/28/17 09:09 Dose: 1 tab Sodium Chloride (Flush - Normal Saline) 10 ml IVF Q12HR [facility] Last Admin: 06/28/17 09:10 Dose: 10 ml Sodium Chloride (Flush - Normal Saline) 10 ml IVF PRN PRN PRN Reason: Saline Flush Tamsulosin HCl (Flomax) 0.4 mg PO DAILY [facility] Last Admin: 06/28/17 09:10 Dose: 0.4 mg
--- NOTE | 2017-06-28 14:29 | PDOC.CTH ---
Cardiology Progress Note - Objective Vital Signs Temp Pulse Pulse Pulse Resp BP BP 06/28/17 11:41 97.1 F L 52 L 18 06/28/17 09:21 57 L 57 L 109/49 L 138/63 06/28/17 08:00 97.1 F L 52 L 18 06/28/17 03:23 97.9 F 57 L 16 BP Pulse Ox 06/28/17 11:41 107/46 L 90 L 06/28/17 09:21 06/28/17 08:00 126/55 L 94 L 06/28/17 03:23 114/54 L 95 06/27/17 06/28/17 06/29/17 06:59 06:59 06:59 Intake Total 775 1140 480 Output Total 1000 Balance -225 1140 480 - Physical Examination General/Neuro: alert & oriented x3 Neck: carotid US brisk Lungs: other: (few scattered rales.) Heart: PMI normal Abdomen: NT/ND - Labs Result Diagrams: 06/25/17 23:49 06/25/17 23:49 Troponin/CKMB CK-MB (CK-2) 1.3 ng/mL (0-6.6) 06/25/17 23:49 Troponin I 0.034 ng/mL (< 0.028) H 06/26/17 05:41 - Assessment/Plan 1. CVA with RLE weakness - his RLE strength is improving; managed by neurologist. walking in the halls today. 2. Paroxymal Afib - remains in SR; on Amiodarone, ASA, Heparin; the list of OAC with information given to the pt yesterday. He would like to try eliqis. 3. CAD with Hx of CABG x4 in 2017 - stable with bblocker, ASA, statin, but no CHAVEZ due to hx of CKD; cont. monitor 4. Chronic combined HF - stable with Lasix and bblocker; not on CHAVEZ due to hx of CKD 5. HTN - stable with current meds 6. CKD - stable; cont. monitor 7. Hyperlipidemia - on Statin 8. PVD - stable; possible Arotogram with runoff as outpt. MAR reviewed
[2017-06-28] MEDS: Metamucil PACK PO SCH (20:57)
[2017-06-28] MEDS: Atorvastatin Calcium 10 MG TAB PO SCH (20:58)
[2017-06-28] MEDS: Apixaban 5 MG TAB PO SCH (21:02)
[2017-06-29] MEDS: Apixaban 5 MG TAB PO SCH (08:47)
[2017-06-29] MEDS: Aspirin 81 mg Enteric Coated Tablet PO SCH (08:47)
[2017-06-29] MEDS: Gabapentin 400 MG CAP PO SCH ×2 (08:47→15:01)
[2017-06-29] MEDS: Senokot S 8.6-50 MG TAB PO SCH (08:47)
[2017-06-29] MEDS: Tamsulosin HCl 0.4 MG CAP PO SCH (08:48)
[2017-06-29] MEDS: Amiodarone 200 MG TAB PO SCH (08:48)
[2017-06-29] MEDS: Furosemide 40 MG TAB PO SCH (08:48)
[2017-06-29] MEDS: Multivit, Therapeutic 1 TAB PO SCH (08:48)
[2017-06-29] MEDS: Carvedilol 3.125 MG TAB PO SCH ×2 (08:49→16:15)
[2017-06-29] MEDS: Heparin 5,000 UNITS/ML VIAL SC SCH (08:49)
[2017-06-29 12:22] VITALS: TEMP 98.1
[2017-06-29 15:47] VITALS: BP 124/58
== END 2017-06-29 20:05 | DRG 65 ==
LOC: ERS 23:39 → 2SE 06-26 02:23
PROVIDERS: ADMIT Internal Medicine Infectious Disease; ATTEND Internal Medicine Infectious Disease
DX: I63.9 Cerebral infarction, unspecified (principal); I13.0 Hypertensive heart and chronic kidney disease with heart failure and stage 1 through stage 4 chronic kidney disease, or unspecified chronic kidney disease; I48.0 Paroxysmal atrial fibrillation; I50.42 Chronic combined systolic (congestive) and diastolic (congestive) heart failure; G81.91 Hemiplegia, unspecified affecting right dominant side; Z95.1 Presence of aortocoronary bypass graft; Z79.82 Long term (current) use of aspirin; I25.10 Atherosclerotic heart disease of native coronary artery without angina pectoris; Z87.891 Personal history of nicotine dependence; N40.1 Benign prostatic hyperplasia with lower urinary tract symptoms; R33.8 Other retention of urine; E78.5 Hyperlipidemia, unspecified; I73.9 Peripheral vascular disease, unspecified; I08.3 Combined rheumatic disorders of mitral, aortic and tricuspid valves; N18.9 Chronic kidney disease, unspecified
CPT/HCPCS: 36415; 36416; 70450; 70551; 71045; 72146; 72148; 76770; 80053; 80061; 81003; 82550; 82553; 84484; 85025; 85610; 85730; 86850; 86900; 86901; 87086; 90471; 90682; 93005; 93880; A4216; G0008; G8978-GP-CL; G8979-GP-CJ; G8987-GO-CJ; G8988-GO-CI; G8996-GN-CH; G8997-GN-CH; J1644; Q2036

== ENCOUNTER 2017-09-04 16:23 | Inpatient (IN) | payer MEDICARE, OTHER ==
[2017-09-04 16:53] LABS: #Basophils 0.1 thou/uL (0.0-0.2); #Eosinphils 0.1 thou/uL (0.0-0.7); #Lymphocytes 2.1 thou/uL (1.20-3.40); #Monocytes 1.1 thou/uL (0.11-0.59); #Neutrophils 6.3 thou/uL (1.40-6.50); %Basophils 0.6 % (0.0-1.0); %Eosinophils 0.7 % (0.0-10.0); %Lymphocytes 21.8 % (21.0-51.0); %Monocytes 11.3 % (0.0-10.0); %Neutrophils 65.6 % (42.0-75.0); Hemoglobin 13.2 g/dL (14.0-18.0); Mean Corpuscular Hemoglobin 32.5 pg (27.0-31.0); Mean Corpuscular Volume 95.6 fl (80.0-94.0); Mean Platelet Volume 10.6 fL (7.4-10.4); Platelet Count 181 thou/uL (130-400); RBC Distribution Width 14.5 % (11.5-14.5); Red Blood Cell (RBC) Count 4.05 mill/uL (4.70-6.10); White Blood Cell (WBC) Count 9.6 thou/uL (4.8-10.8)
--- NOTE | 2017-09-04 17:41 | RAD ---
CHEST ONE VIEW: HISTORY: Cough. COMPARISON: Chest radiograph from 08/31/2017. FINDINGS: Heart size is enlarged. Mild pulmonary vascular congestion. There is a new right basilar opacity. No pneumothorax. IMPRESSION: 1. Cardiomegaly with pulmonary vascular congestion. 2. Suggestion of possible superimposed right lower lobe air space consolidation. Followup recommend ed. POS: DARIUS
[2017-09-04 17:47] LABS: ALT (SGPT) 13 U/L (8-55); AST (SGOT) 15 U/L (5-34); Albumin 3.9 g/dL (3.4-4.8); Alkaline Phosphatase 74 U/L (40-150); Anion Gap 16 mmol/L (10-20); BUN (Urea Nitrogen) 22 mg/dL (8.4-25.7); Bilirubin, Total 0.6 mg/dL (0.2-1.2); Calc. Creatinine Clearance 0 mL/min (70-130); Calcium 8.7 mg/dL (7.8-10.44); Carbon Dioxide 26 mmol/L (23-31); Chloride 97 mmol/L (98-107); Estimated GFR-MDRD 41; Globulin 3.2 g/dL (2.4-3.5); Glucose 89 mg/dL (83-110); Potassium 4.5 mmol/L (3.5-5.1); Protein, Total 7.1 g/dL (5.8-8.1); Sodium 134 mmol/L (136-145)
[2017-09-04 17:51] LABS: CKMB 1.2 ng/mL (0-6.6); Troponin I 0.105 ng/mL (< 0.028)
[2017-09-04] MEDS ORDERED: Piperacillin/Tazobactam 3.375 GM VIAL ONE (17:52)
[2017-09-04 20:53] LABS: Troponin I 0.104 ng/mL (< 0.028)
[2017-09-04] MEDS ORDERED: Furosemide 40 MG/4 ML VIAL ONE (21:14)
[2017-09-04 21:48] LABS: pH, Arterial 7.34 (7.35-7.45)
[2017-09-04 21:49] LABS: Actual Bicarbonate (HCO3a) 26.6 mEq/L (22-26); Base Excess (BEa) 0.1 mEq/L (0 (+/-) 2.5); Hematocrit-ABG 46.5 % (42.0-52.0); Hemoglobin (Hb) 13.5 g/dL (14.0-18.0); O2 Tension (PaO2) 435.5 mmHg (80.0-100.0)
[2017-09-04 21:50] LABS: Calcium, Ionized 1.1 mmol/L (1.12-1.30); Puncture Site RRA
[2017-09-04] MEDS ORDERED: Furosemide 40 MG/4 ML VIAL SLOW IVP SCH (22:00)
[2017-09-04] MEDS ORDERED: Magnesium 2 GM/NS 0.9% 100 ML 2 GM in Premix Bag 1 BAG IVPB SCH (22:00)
[2017-09-04] MEDS ORDERED: Docusate Calcium (SURFAK) 240 MG CAP PO PRN (23:42)
[2017-09-04] MEDS ORDERED: Milk Of Magnesia 30 ML UDCUP PO PRN (23:45)
[2017-09-04] MEDS ORDERED: Albuterol Sulfate 2.5 mg/3 ml Neb NEB PRN (23:48)
[2017-09-04 23:50] LABS: Troponin I 0.208 ng/mL (< 0.028)
[2017-09-05] MEDS ORDERED: [UNRECOGNIZED DRUG - OTHER] IVPB PRN (00:44)
[2017-09-05] MEDS ORDERED: Piperacillin/Tazobactam 3.375 GM in Sodium Chloride 0.9% 100 ML IVPB SCH (01:00)
[2017-09-05] MEDS: Acetaminophen 325 MG TAB PO PRN ×2 (01:00→16:27)
--- NOTE | 2017-09-05 04:10 | HP ---
PRIMARY CARE PHYSICIAN: Monae Walker M.D. PRESENTING COMPLAINT: Shortness of breath. HISTORY OF PRESENT ILLNESS: Mr. Guille Ricardo is a 72-year-old male with a history of CAD, status post CABG of 2 vessels, CHF (combined), CKD, paroxysmal atrial fibrillation, hyperlipidemia, and peripheral vascular disease, CVA with right lower extremity paresis and hypertension, who presents to the emergency room with shortness of breath. He reports intermittent shortness of breath for the past year since his CO about a year ago. However, for the past week he has gotten even more short of breath, associated with a fever, cough with minimal sputum. He has been unable to lie down flat and his has had to be sitting him up due to shortness of breath. He also complains of dyspnea on exertion, but has no PND or lower extremity edema. He denies chest pain, palpitations. He has no abdominal or urinary symptoms. PAST MEDICAL HISTORY: Hypertension, CAD, status post CABG with 4-vessel bypass in 08/2016, paroxysmal atrial fibrillation, BPH, dyslipidemia, peripheral vascular disease, status post left femoral popliteal bypass, CHF with EF in 2017 showed an EF of 40-45%, CKD, paroxysmal atrial fibrillation. PAST SURGICAL HISTORY: CABG, bypass surgery. SOCIAL HISTORY: He is a former smoker. He smoked since he was 17 years old, smoking about 10 cigarettes daily, but now only smokes intermittently. Does not drink alcohol or use illicit drugs. FAMILY HISTORY: Reviewed and noncontributory. ALLERGIES: None. HOME MEDICATIONS: Furosemide 40 mg daily, multivitamin 1 tablet daily, psyllium 0.52 mg at bedtime, amiodarone 200 mg daily, apixaban 5 mg b.i.d., aspirin 81 mg daily, carvedilol 3.125 mg b.i.d. with meals, docusate 240 mg daily p.r.n. for constipation, gabapentin 400 mg b.i.d., lovastatin 40 mg daily , pantoprazole 40 mg b.i.d., Flomax 0.4 mg daily. REVIEW OF SYSTEMS: A 12-point review of systems conducted and negative unless as stated in HPI. PHYSICAL EXAMINATION: VITAL SIGNS: Pulse rate 99, BP 136/77, respiratory rate 32, oxygen saturation 99% on nonrebreather, temperature 99.5 degree Fahrenheit. LABORATORY DATA: Normal WBC. CBC largely unremarkable. Serum chemistry with creatinine of 1.65, which seems to be around the patient's baseline. Initial troponin 0.105. BNP 474. Chest x-ray showed cardiomegaly with vascular congestion and suggestion of superimposed right lower lobe airspace consolidation. EKG shows no signs of acute ischemia. The patient was admitted to medical floor for pneumonia and CHF exacerbation. While on telemetry, he decompensated with oxygen saturation going to about the low 80s. He was initially started on nonrebreather, but due to non-progression , he was then upgraded to BiPAP and sent to the [facility] for acute hypoxic respiratory failure. ABG was done and showed a pH of 7.34 with pCO2 of 51 and pO2 of 435 on BiPAP. On admission, bicarbonate was 26. PHYSICAL EXAMINATION: GENERAL: Patient is not in acute distress while he is on BiPAP and seems comfortable. HEENT: Normocephalic, atraumatic. Not pale, anicteric. Moist mucous membranes. PERRLA, EOMI. NECK: Supple. No JVD. RESPIRATORY: Coarse breath sounds bilaterally with bibasilar crackles. CARDIOVASCULAR: S1 and S2, regular rate and rhythm. No murmurs, rubs, or gallops. ABDOMEN: Soft, nontender, nondistended. Bowel sounds normoactive. No hepatosplenomegaly. MUSCULOSKELETAL: No edema. SKIN: Warm and well well-perfused. No rashes or lesions. PSYCHIATRIC: Normal mood and affect. ASSESSMENT AND PLAN: 1. Acute hypoxic and hypercapnic respiratory failure: This might be a combination of pneumonia and some congestive heart failure. He has been started on IV furosemide, I will monitor his ins and outs and weigh him daily. He will also be monitored on telemetry and Cardiology consulted. For his pneumonia, He has been started on broad spectrum antibiotics, blood cultures will be followed and will also place on IV Solu-Medrol 40 mg daily due to new evidence showing it improves outcomes in patients with severe pneumonia. We will monitor vital signs closely and consult Pulmonary as well. 2. Congestive heart failure, combined: Patient is on acute exacerbation. Management as above. 3. Right lower lobe pneumonia. Management as per problem #1. 4. Paroxysmal atrial fibrillation: Patient is rate controlled. We will continue his home regimen of amiodarone, apixaban, and carvedilol. Monitor heart rate closely. 5. Coronary artery disease, status post coronary artery bypass graft: Patient is chest pain free. We will resume his home medications. Troponin is elevated , likely from congestive heart failure exacerbation. We will consult Cardiology. 6. Hyperlipidemia: Continue statins. 7. Chronic kidney disease: The patient seems to be at his baseline. We will monitor creatinine closely as he is on diuretics. 8. Hypertension. Patient is around his goal. We will resume home medications with holding parameters. He might also require TTE while on admission as last echocardiogram was done in 06/2017 and showed ejection fraction of 40-45% with left ventricular size mildly increased and mild to moderate mitral regurgitation , somewhat thickened and calcified aortic valve leaflets and mild tricuspid regurgitation. We will defer this decision to primary team and Cardiology. Deep venous thrombosis prophylaxis: Eliquis. CRITICAL CARE TIME: 40 MINUTES CODE STATUS: FULL CODE. MTDD
[2017-09-05 04:36] LABS: #Lymphocytes 0.8 thou/uL (1.20-3.40); #Monocytes 0.2 thou/uL (0.11-0.59); #Neutrophils 10.3 thou/uL (1.40-6.50); %Basophils 0.1 % (0.0-1.0); %Eosinophils 0.2 % (0.0-10.0); %Neutrophils 90.7 % (42.0-75.0); Hemoglobin 11.9 g/dL (14.0-18.0); Mean Corpuscular HGB CONC 32.3 g/dL (32.0-36.0); Mean Corpuscular Hemoglobin 31.6 pg (27.0-31.0); Mean Corpuscular Volume 98.1 fl (80.0-94.0); Mean Platelet Volume 8.6 fL (7.4-10.4); Platelet Count 207 thou/uL (130-400); RBC Distribution Width 13.2 % (11.5-14.5); Red Blood Cell (RBC) Count 3.77 mill/uL (4.70-6.10); White Blood Cell (WBC) Count 11.4 thou/uL (4.8-10.8)
[2017-09-05 05:03] LABS: Anion Gap 16 mmol/L (10-20); BUN (Urea Nitrogen) 23 mg/dL (8.4-25.7); Calc. Creatinine Clearance 45 mL/min (70-130); Calcium 8.5 mg/dL (7.8-10.44); Carbon Dioxide 27 mmol/L (23-31); Chloride 96 mmol/L (98-107); Estimated GFR-MDRD 40; Glucose 126 mg/dL (83-110); Potassium 3.9 mmol/L (3.5-5.1); Sodium 135 mmol/L (136-145)
[2017-09-05] MEDS: Piperacillin/Tazobactam 3.375 GM in Sodium Chloride 0.9% 100 ML IVPB SCH ×4 (06:06→23:50)
[2017-09-05] MEDS ORDERED: Carvedilol 3.125 MG TAB PO SCH (08:00)
[2017-09-05] MEDS ORDERED: Amiodarone 200 MG TAB PO SCH (09:00)
[2017-09-05] MEDS ORDERED: guaiFENesin ER 600 MG TAB PO SCH (09:00)
[2017-09-05] MEDS ORDERED: Furosemide 20 MG TAB PO SCH (09:00)
[2017-09-05] MEDS ORDERED: Famotidine 20 MG TAB PO SCH (09:00)
--- NOTE | 2017-09-05 09:03 | PDOC.PN ---
- Subjective Encounter Start Date: 09/05/17 Encounter Start Time: 08:30 -: old records requested/rev this morning pt feels better, he is off bipap, maintaining saturation via oxygen through nasal canula, no fever today, less dyspnea, no chest pain - Objective Resuscitation Status: Resuscitation Status FULL:Full Resuscitation MAR Reviewed: Yes Vital Signs & Weight: Vital Signs (12 hours) Temp Pulse Pulse Pulse Resp Resp Resp 09/05/17 08:08 55 L 20 09/05/17 07:41 97.3 F L 56 L 19 09/05/17 04:00 98.9 F 71 18 09/05/17 02:00 65 18 09/05/17 00:17 73 22 H 09/05/17 00:00 99.3 F 74 18 09/04/17 22:10 99.5 F 73 28 H 09/04/17 22:00 91 26 H 09/04/17 21:46 94 28 H 09/04/17 21:39 72 24 H 09/04/17 21:09 99 95 32 H 28 H BP BP BP BP Pulse Ox Pulse Ox Pulse Ox 09/05/17 08:08 100 09/05/17 07:41 113/52 L 100 09/05/17 04:00 111/66 100 09/05/17 02:00 106/48 L 96 09/05/17 00:17 97 09/05/17 00:00 109/48 L 97 09/04/17 22:10 100 09/04/17 22:00 129/66 100 09/04/17 21:46 110/61 100 09/04/17 21:39 98 09/04/17 21:09 136/77 110/61 99 100 Weight Weight 182 lb 4 oz I&O: 09/04/17 09/05/17 09/06/17 06:59 06:59 06:59 Intake Total 320 Output Total 900 Balance -580 Result Diagrams: 09/05/17 04:05 09/05/17 04:05 Radiology Reviewed by me: Yes (chest xray) EKG Reviewed by me: Yes (nsr) Phys Exam - Physical Examination Constitutional: NAD HEENT: PERRLA, moist MMs, sclera anicteric Neck: no JVD, supple Respiratory: wheezing present reduced air entry, basilar rales, more on right Cardiovascular: RRR, no significant murmur, no rub Gastrointestinal: soft, non-tender, no distention, positive bowel sounds Musculoskeletal: no edema, pulses present mcguire+ Neurological: non-focal, normal sensation, moves all 4 limbs Lymphatic: no nodes Psychiatric: normal affect, A&O x 3 Skin: no rash, normal turgor Dx/Plan (1) Acute on chronic systolic (congestive) heart failure Code(s): I50.23 - ACUTE ON CHRONIC SYSTOLIC (CONGESTIVE) HEART FAILURE Status : Acute (2) Acute respiratory failure with hypoxia Code(s): J96.01 - ACUTE RESPIRATORY FAILURE WITH HYPOXIA Status: Acute (3) Demand ischemia of myocardium Code(s): I24.8 - OTHER FORMS OF ACUTE ISCHEMIC HEART DISEASE Status: Acute (4) Right lower lobe pneumonia Code(s): J18.1 - LOBAR PNEUMONIA, UNSPECIFIED ORGANISM Status: Acute (5) BPH (benign prostatic hyperplasia) Code(s): N40.0 - BENIGN PROSTATIC HYPERPLASIA WITHOUT LOWER URINRY TRACT SYMP Status: Chronic (6) Anemia, normocytic normochromic Code(s): D64.9 - ANEMIA, UNSPECIFIED Status: Chronic (7) CAD (coronary artery disease) Code(s): I25.10 - ATHSCL HEART DISEASE OF [place] CORONARY ARTERY W/O ANG PCTRS Status: Chronic Qualifiers: Coronary Disease-Associated Artery/Lesion type: bypass graft [place] vs. transplanted heart: [place] heart Associated angina: without angina Qualified Code(s): I25.810 - Atherosclerosis of coronary artery bypass graft(s) without angina pectoris (8) CKD (chronic kidney disease) stage 3, GFR 30-59 ml/min Code(s): N18.3 - CHRONIC KIDNEY DISEASE, STAGE 3 (MODERATE) Status: Chronic (9) COPD (chronic obstructive pulmonary disease) Status: Chronic Qualifiers: Chronic bronchitis type: unspecified Comment: with possible exacerbation (10) Chronic anticoagulation Code(s): Z79.01 - JAIL (CURRENT) USE OF ANTICOAGULANTS Status: Chronic Comment: with elliquis (11) Dyslipidemia Code(s): E78.5 - HYPERLIPIDEMIA, UNSPECIFIED Status: Chronic (12) HTN (hypertension) Code(s): I10 - ESSENTIAL (PRIMARY) HYPERTENSION Status: Chronic Qualifiers: Hypertension type: essential hypertension Qualified Code(s): I10 - Essential (primary) hypertension (13) PVD (peripheral vascular disease) Code(s): I73.9 - PERIPHERAL VASCULAR DISEASE, UNSPECIFIED Status: Chronic Comment: prior surgery for left LE (14) Paroxysmal atrial fibrillation Code(s): I48.0 - PAROXYSMAL ATRIAL FIBRILLATION Status: Chronic - Plan cont current plan of care, continue antibiotics, respiratory therapy * home medication reconciled * continue diuresis with lasix * continue solumedrol * continue current empiric antibiotics * medication reviewed as below * symptomatic treatment * will monitor * pulmonary and cardiology consulted. * follow on culture Review of Systems - Review of Systems Constitutional: negative: fever, chills, sweats, weakness, malaise, other Eyes: negative: Pain, Vision Change, Conjunctivae Inflammation, Eyelid Inflammation, Redness, Other ENT: negative: Ear Pain, Ear Discharge, Nose Pain, Nose Discharge, Nose Congestion, Mouth Pain, Mouth Swelling, Throat Pain, Throat Swelling, Other Respiratory: Cough, Shortness of Breath, SOB with Excertion. negative: Dry, Hemoptysis, Pleuritic Pain, Sputum, Wheezing Cardiovascular: negative: chest pain, palpitations, orthopnea, paroxysmal nocturnal dyspnea, edema, light headedness, other Gastrointestinal: negative: Nausea, Vomiting, Abdominal Pain, Diarrhea, Constipation, Melena, Hematochezia, Other Genitourinary: negative: Dysuria, Frequency, Incontinence, Hematuria, Retention , Other Musculoskeletal: negative: Neck Pain, Shoulder Pain, Arm Pain, Back Pain, Hand Pain, Leg Pain, Foot Pain, Other Skin: negative: Rash, Lesions, Gio, Bruising, Other - Medications/Allergies Allergies/Adverse Reactions: Allergies Allergy/AdvReac Type Severity Reaction Status Date / Time No Known Allergies Allergy Verified 09/04/17 22:18 Medications: Current Medications Acetaminophen (Tylenol) 650 mg PO Q4H PRN PRN Reason: Headache/Fever or Pain Last Admin: 09/05/17 01:00 Dose: 650 mg Albuterol Sulfate (Ventolin) 2.5 mg NEB [id number] PRN PRN Reason: SOB &/or Wheezing Albuterol/Ipratropium (Duoneb) 3 ml NEB [id number] DANAY Last Admin: 09/05/17 08:08 Dose: 3 ml Albuterol/Ipratropium (Duoneb) 3 ml NEB Q4RS-ON PRN PRN Reason: SOB &/or Wheezing Amiodarone HCl (Cordarone) 200 mg PO DAILY [facility] Apixaban (Eliquis) 5 mg PO BID [facility] Aspirin (Ecotrin) 81 mg PO DAILY [facility] Atorvastatin Calcium (Lipitor) 10 mg PO HS [facility] Carvedilol (Coreg) 3.125 mg PO BID-WM [facility] Cyanocobalamin (Vitamin B-12) 1,000 mcg PO DAILY [facility] Docusate Calcium (Surfak) 240 mg PO DAILYPRN PRN PRN Reason: Constipation Famotidine (Pepcid) 20 mg PO DAILY [facility] Ferrous Sulfate (Feosol) 325 mg PO QAM-WM [facility] Folic Acid (Folvite) 1 mg PO DAILY [facility] Furosemide (Lasix) 20 mg SLOW IVP 0600,1400 [facility] Gabapentin (Neurontin) 400 mg PO BID [facility] Guaifenesin (Mucinex) 600 mg PO Q12HR [facility] Piperacillin Sod/Tazobactam (Sod 3.375 gm/ Sodium Chloride) 100 mls @ 200 mls/ hr IVPB Q6HR [facility] Last Admin: 09/05/17 06:06 Dose: 100 mls Vancomycin HCl 1.5 gm/ Sodium (Chloride) 300 mls @ 200 mls/hr IVPB 1400 [facility] Magnesium Hydroxide (Milk Of Magnesium) 30 ml PO DAILYPRN PRN PRN Reason: Constipation Methylprednisolone Sodium Succinate (Solu-Medrol) 40 mg IVP DAILY [facility] Last Admin: 09/04/17 21:23 Dose: 40 mg Miscellaneous Medication (Pharmacy To Dose) 1 each IVPB PRN PRN PRN Reason: Pharmacy to dose Mometasone Furoate/Formoterol Fumar (Dulera 200 Mcg/5 Mcg Inhaler) 2 puff INH BID-RT [facility] Pantoprazole Sodium (Protonix) 40 mg PO DAILY [facility] Potassium Chloride (K-Dur) 20 meq PO QAM-WM [facility] Sodium Chloride (Flush - Normal Saline) 10 ml IVF Q12HR [facility] Sodium Chloride (Flush - Normal Saline) 10 ml IVF PRN PRN PRN Reason: Saline Flush Last Admin: 09/05/17 01:02 Dose: 10 ml Tamsulosin HCl (Flomax) 0.4 mg PO DAILY [facility]
[2017-09-05] MEDS: Aspirin 81 mg Enteric Coated Tablet PO SCH (09:34)
[2017-09-05] MEDS: Cyanocobalamin (Vitamin B-12) 1,000 MCG TAB PO SCH (09:34)
[2017-09-05] MEDS: Ferrous Sulfate 325 MG TAB PO SCH (09:34)
[2017-09-05] MEDS: Tamsulosin HCl 0.4 MG CAP PO SCH (09:35)
[2017-09-05] MEDS: guaiFENesin ER 600 MG TAB PO SCH ×2 (09:35→21:14)
[2017-09-05] MEDS: Apixaban 5 MG TAB PO SCH ×2 (09:35→21:14)
[2017-09-05] MEDS: Potassium Chloride 20 MEQ TAB PO SCH (09:35)
[2017-09-05] MEDS: Folic Acid 1 MG TAB PO SCH (09:35)
[2017-09-05] MEDS: Gabapentin 400 MG CAP PO SCH ×2 (09:35→21:14)
--- NOTE | 2017-09-05 10:06 | CON ---
DATE OF CONSULTATION: 09/05/2017 HISTORY: This is a 72-year-old gentleman who comes to the hospital with symptoms of increasing shor tness of breath, cough. He was in a monitored bed yesterday when he became progressively more short of breath last night and he had to be transferred to the [facility] and placed on noninvasive ventilation. This morning he seemed better. He said he went to see his primary care physician yesterday apparent ly. He has been in and out of the hospital numerous times since his bypass surgery. He says on most days he is able to walk maybe a couple hundred feet without getting markedly dyspneic. PAST MEDICAL HISTORY: Pertinent for myocardial infarction, COPD, peripheral vascular disease, CVA, p leural effusion, BPH, atrial fibrillation. PAST SURGICAL HISTORY: Bypass 07/2016, fem-pop, back surgery. Readmission in August for congestive heart failure. His estimated EF has been about 40-45%. MEDICATIONS: His list of medicine from home includes Flomax 0.4, Protonix 40, lovastatin 40, gabapen tin 400 b.i.d., Lasix 40, Coreg 3.125, aspirin, Eliquis 5 twice a day, amiodarone 200. He is now started on Zosyn, vancomycin, steroids, nebs treatment. ALLERGIES: None. REVIEW OF SYSTEMS: Ten point negative. PHYSICAL EXAMINATION: GENERAL: He is awake, alert, responsive. VITAL SIGNS: This morning his sats are 100% on 2 liters, pulse 56, temperature 97, blood pressure 13 0/52. His I's and O's over the last 24 hours have been 320 in, 900 out. CHEST: No wheezing or crackles. CARDIAC: Normal S1, S2, no gallops. ABDOMEN: Soft, no mass. White count 11,000, H&H 11 and 37, platelet count 207. His pO2 is 435, pCO2 53.34 on a BiPAP. His c reatinine is 1.69. Electrolytes are normal. IMPRESSION: 1. Acute on chronic respiratory failure. 2. Congestive heart failure. 3. Chronic obstructive pulmonary disease exacerbation. 4. Former smoker. 5. Renal failure. PLAN: I do not see any evidence of any sepsis. I would deescalate the antibiotics. Otherwise, I ag ree with neb treatments, steroids, cardiac care. I will follow. This is a consultation note, 70 minutes spent, 50% spent in direct patient care.
[2017-09-05] MEDS ORDERED: Vancomycin HCl 1.5 GM in Sodium Chloride 0.9% 250 ML 300 ML IVPB SCH (14:00)
[2017-09-05] MEDS ORDERED: Furosemide 40 MG/4 ML VIAL SLOW IVP SCH (14:00)
[2017-09-05] MEDS: Furosemide 20 MG/2 ML VIAL SLOW IVP SCH (15:21)
[2017-09-05] MEDS ORDERED: Lovastatin 20 MG TAB PO SCH (17:00)
--- NOTE | 2017-09-05 18:51 | CON ---
DATE OF CONSULTATION: 09/05/2017 HISTORY OF PRESENT ILLNESS: The patient is a 72-year-old gentleman presenting with increasing dyspnea. The patient has a long history of coronary artery disease status post coronary bypass surgery x4. He also has a history of peripheral vascular disease and atrial fibrillation. The patient has a known history of a mild ischemic cardiomyopathy. The patient also has a history of paroxysmal atrial fibrillation and suffered a CVA. he is on chronic anticoagulation therapy. The patient presents with increasing dyspnea. The patient states a week ago, he started increasing his sodium consumption and noted to have increasing shortness of breath. The patient denied having any chest discomfort. PAST MEDICAL HISTORY: 1. Coronary artery disease 2. Atrial fibrillation. 3. Hypertension. 4. Dyslipidemia. 5. Peripheral vascular disease. 6. Diabetes mellitus. 7. History of cerebrovascular disease. PAST SURGICAL HISTORY: Coronary bypass graft surgery and back surgery. SOCIAL HISTORY: He is a former smoker. ALLERGIES: None. MEDICATIONS: Lasix 40 daily, apixaban 5 b.i.d., aspirin 81 daily, Coreg 3.125 b.i.d., Protonix 40 daily, Flomax 0.4 daily, lovastatin 40 daily, gabapentin 400 b.i.d. REVIEW OF SYSTEMS: Noticeable for increasing dyspnea. No history of easy bruising or bleeding, bright red blood per rectum. PHYSICAL EXAMINATION: GENERAL: Middle-aged gentleman, in no acute distress. VITAL SIGNS: Blood pressure is 110/50. NECK: Showed no jugular venous distention. LUNGS: Coarse breath sounds bilateral with diffuse rhonchi. HEART: Regular rate and rhythm. Normal S1 and S2. ABDOMEN: Nondistended. EXTREMITIES: Showed trace edema. SKIN: Warm and dry. NEUROLOGIC: Nonfocal. VASCULAR: Radial pulses 2+. LABORATORY DATA: Sodium 135, potassium 3.9, chloride 96, bicarbonate 27, BUN 23 , creatinine 1.69, glucose 126, troponin 0.28. BNP was 474. White blood cell 11.4, hemoglobin 11.9, hematocrit 37.0, platelets are 207. His EKG revealed him to have normal sinus rhythm, incomplete right bundle branch block, Q-waves suggestive of previous inferior infarct, no acute ST-T wave changes. IMPRESSION: 1. Dyspnea, probably secondary to chronic obstructive pulmonary disease exacerbation. 2. History of coronary bypass surgery. 3. Mild congestive heart failure secondary to systolic dysfunction. 4. Peripheral vascular disease. 5. Paroxysmal atrial fibrillation. 6. Renal insufficiency. 7. History of cerebrovascular accident. 8. Diabetes mellitus. 9. Dyslipidemia. This gentleman presents with increasing dyspnea. He appears to have mild congestive heart failure on his chest x-ray; however, his BNP is not significantly elevated. It appears to be mostly a chronic obstructive pulmonary disease exacerbation. We will discontinue his Coreg and amiodarone at this time. We will follow this patient with you through his hospitalization. LUIS ARMANDO
[2017-09-05] MEDS: Mometasone/Formoterol 120 PUFF INHALER INH SCH (19:01)
[2017-09-05] MEDS: Atorvastatin Calcium 10 MG TAB PO SCH (21:14)
[2017-09-06] MEDS: Piperacillin/Tazobactam 3.375 GM in Sodium Chloride 0.9% 100 ML IVPB SCH (05:33)
[2017-09-06] MEDS: Furosemide 20 MG/2 ML VIAL SLOW IVP SCH ×2 (05:33→14:04)
[2017-09-06] MEDS: Mometasone/Formoterol 120 PUFF INHALER INH SCH ×2 (08:05→19:14)
[2017-09-06] MEDS: Ferrous Sulfate 325 MG TAB PO SCH (09:46)
[2017-09-06] MEDS: Apixaban 5 MG TAB PO SCH ×2 (09:46→19:49)
[2017-09-06] MEDS: Potassium Chloride 20 MEQ TAB PO SCH (09:46)
[2017-09-06] MEDS: Gabapentin 400 MG CAP PO SCH ×2 (09:47→19:49)
[2017-09-06] MEDS: Cyanocobalamin (Vitamin B-12) 1,000 MCG TAB PO SCH (09:47)
[2017-09-06] MEDS: Aspirin 81 mg Enteric Coated Tablet PO SCH (09:47)
[2017-09-06] MEDS: Folic Acid 1 MG TAB PO SCH (09:47)
[2017-09-06] MEDS: Cefdinir 300 MG CAP PO SCH ×2 (09:47→19:49)
[2017-09-06] MEDS: guaiFENesin ER 600 MG TAB PO SCH ×2 (09:47→19:49)
[2017-09-06] MEDS: Tamsulosin HCl 0.4 MG CAP PO SCH (09:47)
--- NOTE | 2017-09-06 11:06 | PDOC.PN ---
- Subjective Encounter Start Date: 09/06/17 Encounter Start Time: 10:00 pt is doing well, he is on room air, no fever, no cough Patient seen and examined. No new complaints. No overnight events - Objective Resuscitation Status: Resuscitation Status FULL:Full Resuscitation MAR Reviewed: Yes Vital Signs & Weight: Vital Signs (12 hours) Temp Pulse Resp BP Pulse Ox 09/06/17 08:04 62 20 98 09/06/17 07:42 97.9 F 59 L 16 125/41 L 98 09/06/17 04:00 98.1 F 72 20 126/50 L 94 L 09/06/17 00:18 61 18 93 L 09/06/17 00:00 59 L 18 120/51 L 94 L Weight Weight 182 lb 4 oz I&O: 09/05/17 09/06/17 09/07/17 06:59 06:59 06:59 Intake Total 320 680 Output Total 900 1825 Balance -580 -1145 Result Diagrams: 09/05/17 04:05 09/05/17 04:05 EKG Reviewed by me: Yes Phys Exam - Physical Examination Constitutional: NAD HEENT: PERRLA, moist MMs, sclera anicteric Neck: no JVD, supple Respiratory: no wheezing, no rales, no rhonchi reduced air entry Cardiovascular: RRR, no significant murmur, no rub Gastrointestinal: soft, non-tender, no distention, positive bowel sounds Musculoskeletal: no edema, pulses present mcguire+ Neurological: non-focal, normal sensation, moves all 4 limbs Lymphatic: no nodes Psychiatric: normal affect, A&O x 3 Skin: no rash, normal turgor Dx/Plan (1) Acute on chronic systolic (congestive) heart failure Code(s): I50.23 - ACUTE ON CHRONIC SYSTOLIC (CONGESTIVE) HEART FAILURE Status : Acute (2) Acute respiratory failure with hypoxia Code(s): J96.01 - ACUTE RESPIRATORY FAILURE WITH HYPOXIA Status: Acute (3) Demand ischemia of myocardium Code(s): I24.8 - OTHER FORMS OF ACUTE ISCHEMIC HEART DISEASE Status: Acute (4) Right lower lobe pneumonia Code(s): J18.1 - LOBAR PNEUMONIA, UNSPECIFIED ORGANISM Status: Acute (5) BPH (benign prostatic hyperplasia) Code(s): N40.0 - BENIGN PROSTATIC HYPERPLASIA WITHOUT LOWER URINRY TRACT SYMP Status: Chronic (6) Anemia, normocytic normochromic Code(s): D64.9 - ANEMIA, UNSPECIFIED Status: Chronic (7) CAD (coronary artery disease) Code(s): I25.10 - ATHSCL HEART DISEASE OF [place] CORONARY ARTERY W/O ANG PCTRS Status: Chronic Qualifiers: Coronary Disease-Associated Artery/Lesion type: bypass graft [place] vs. transplanted heart: circle heart Associated angina: without angina Qualified Code(s): I25.810 - Atherosclerosis of coronary artery bypass graft(s) without angina pectoris (8) CKD (chronic kidney disease) stage 3, GFR 30-59 ml/min Code(s): N18.3 - CHRONIC KIDNEY DISEASE, STAGE 3 (MODERATE) Status: Chronic (9) COPD (chronic obstructive pulmonary disease) Status: Chronic Qualifiers: Chronic bronchitis type: unspecified Comment: with possible exacerbation (10) Chronic anticoagulation Code(s): Z79.01 - PATIENT ACCOUNTS COORDINATOR (CURRENT) USE OF ANTICOAGULANTS Status: Chronic Comment: with elliquis (11) Dyslipidemia Code(s): E78.5 - HYPERLIPIDEMIA, UNSPECIFIED Status: Chronic (12) HTN (hypertension) Code(s): I10 - ESSENTIAL (PRIMARY) HYPERTENSION Status: Chronic Qualifiers: Hypertension type: essential hypertension Qualified Code(s): I10 - Essential (primary) hypertension (13) PVD (peripheral vascular disease) Code(s): I73.9 - PERIPHERAL VASCULAR DISEASE, UNSPECIFIED Status: Chronic Comment: prior surgery for left LE (14) Paroxysmal atrial fibrillation Code(s): I48.0 - PAROXYSMAL ATRIAL FIBRILLATION Status: Chronic - Plan cont current plan of care, continue antibiotics, respiratory therapy * DC vancomycin and zosyn * start omnicef * continue IV lasix * continue solumedrol and respiratory therapy * ambulate as tolerated * medication reviewed as below * symptomatic treatment * transfer to tele * cardiology and pulmonary following * currently on hold amiodaron and BB as per cardiology Review of Systems - Review of Systems Constitutional: negative: fever, chills, sweats, weakness, malaise, other Eyes: negative: Pain, Vision Change, Conjunctivae Inflammation, Eyelid Inflammation, Redness, Other ENT: negative: Ear Pain, Ear Discharge, Nose Pain, Nose Discharge, Nose Congestion, Mouth Pain, Mouth Swelling, Throat Pain, Throat Swelling, Other Respiratory: negative: Cough, Dry, Shortness of Breath, Hemoptysis, SOB with Excertion, Pleuritic Pain, Sputum, Wheezing Cardiovascular: negative: chest pain, palpitations, orthopnea, paroxysmal nocturnal dyspnea, edema, light headedness, other Gastrointestinal: negative: Nausea, Vomiting, Abdominal Pain, Diarrhea, Constipation, Melena, Hematochezia, Other Genitourinary: negative: Dysuria, Frequency, Incontinence, Hematuria, Retention , Other Musculoskeletal: negative: Neck Pain, Shoulder Pain, Arm Pain, Back Pain, Hand Pain, Leg Pain, Foot Pain, Other Skin: negative: Rash, Lesions, Gio, Bruising, Other Neurological: negative: Weakness, Numbness, Incoordination, Change in Speech, Confusion, Seizures, Other - Medications/Allergies Allergies/Adverse Reactions: Allergies Allergy/AdvReac Type Severity Reaction Status Date / Time No Known Allergies Allergy Verified 09/04/17 22:18 Medications: Current Medications Acetaminophen (Tylenol) 650 mg PO Q4H PRN PRN Reason: Headache/Fever or Pain Last Admin: 09/05/17 16:27 Dose: 650 mg Albuterol Sulfate (Ventolin) 2.5 mg NEB [id number] PRN PRN Reason: SOB &/or Wheezing Albuterol/Ipratropium (Duoneb) 3 ml NEB [id number] [facility] Last Admin: 09/06/17 08:04 Dose: 3 ml Albuterol/Ipratropium (Duoneb) 3 ml NEB [id number] PRN PRN Reason: SOB &/or Wheezing Apixaban (Eliquis) 5 mg PO BID [facility] Last Admin: 09/06/17 09:46 Dose: 5 mg Aspirin (Ecotrin) 81 mg PO DAILY [facility] Last Admin: 09/06/17 09:47 Dose: 81 mg Atorvastatin Calcium (Lipitor) 10 mg PO HS [facility] Last Admin: 09/05/17 21:14 Dose: 10 mg Cefdinir (Omnicef) 300 mg PO BID [facility] Last Admin: 09/06/17 09:47 Dose: 300 mg Cyanocobalamin (Vitamin B-12) 1,000 mcg PO DAILY [facility] Last Admin: 09/06/17 09:47 Dose: 1,000 mcg Docusate Calcium (Surfak) 240 mg PO DAILYPRN PRN PRN Reason: Constipation Ferrous Sulfate (Feosol) 325 mg PO QA-[facility] Last Admin: 09/06/17 09:46 Dose: 325 mg Folic Acid (Folvite) 1 mg PO DAILY [facility] Last Admin: 09/06/17 09:47 Dose: 1 mg Furosemide (Lasix) 20 mg SLOW IVP 0600,1400 [facility] Last Admin: 09/06/17 05:33 Dose: 20 mg Gabapentin (Neurontin) 400 mg PO BID [facility] Last Admin: 09/06/17 09:47 Dose: 400 mg Guaifenesin (Mucinex) 600 mg PO Q12HR [facility] Last Admin: 09/06/17 09:47 Dose: 600 mg Magnesium Hydroxide (Milk Of Magnesium) 30 ml PO DAILYPRN PRN PRN Reason: Constipation Methylprednisolone Sodium Succinate (Solu-Medrol) 40 mg IVP DAILY [facility] Last Admin: 09/06/17 09:47 Dose: 40 mg Mometasone Furoate/Formoterol Fumar (Dulera 200 Mcg/5 Mcg Inhaler) 2 puff INH BID-RT [facility] Last Admin: 09/06/17 08:05 Dose: 2 puff Pantoprazole Sodium (Protonix) 40 mg PO DAILY [facility] Last Admin: 09/06/17 09:47 Dose: 40 mg Potassium Chloride (K-Dur) 20 meq PO QAM-WM [facility] Last Admin: 09/06/17 09:46 Dose: 20 meq Sodium Chloride (Flush - Normal Saline) 10 ml IVF Q12HR [facility] Last Admin: 09/06/17 09:48 Dose: 10 ml Sodium Chloride (Flush - Normal Saline) 10 ml IVF PRN PRN PRN Reason: Saline Flush Last Admin: 09/05/17 12:30 Dose: 10 ml Tamsulosin HCl (Flomax) 0.4 mg PO DAILY [facility] Last Admin: 09/06/17 09:47 Dose: 0.4 mg
--- NOTE | 2017-09-06 13:59 | PRG ---
DATE OF SERVICE: 09/06/2017 SUBJECTIVE: Events have been reviewed. He says he is feeling 100% better. He thinks he ate 2 pieces of pizza and has been watching his flui d intake, which may have triggered his episode of shortness of breath. OBJECTIVE: VITAL SIGNS: He is afebrile, heart rate 64, respiratory rate 17, oximetry is 95 on room air, blood p ressure 128/50. LUNGS: He does have faint wheezes on exam. CARDIOVASCULAR: Regular rhythm. ABDOMEN: Soft. EXTREMITIES: Without clubbing, cyanosis or edema. IMPRESSION: Congestive heart failure with diastolic dysfunction and systolic dysfunction. His eject ion fraction 2 months ago was 40%-45%. He has been admitted with a diagnosis of a chronic obstructive pulmonary disease exacerbation, but he is not somebody that has been in and out of the office with chronic obstructive pulmonary disease. I have ordered spirometry, but I suspect of anything, this is cardiac asthma. I will be happy to fol low with the other physicians caring for him.
[2017-09-06 15:45] VITALS: BMI 27.4
[2017-09-06] MEDS: Atorvastatin Calcium 10 MG TAB PO SCH (19:49)
[2017-09-07] MEDS: Furosemide 20 MG/2 ML VIAL SLOW IVP SCH (04:57)
[2017-09-07] MEDS: Mometasone/Formoterol 120 PUFF INHALER INH SCH (07:54)
[2017-09-07] MEDS: Cyanocobalamin (Vitamin B-12) 1,000 MCG TAB PO SCH (08:39)
[2017-09-07] MEDS: Aspirin 81 mg Enteric Coated Tablet PO SCH (08:39)
[2017-09-07] MEDS: Potassium Chloride 20 MEQ TAB PO SCH (08:39)
[2017-09-07] MEDS: Folic Acid 1 MG TAB PO SCH (08:39)
[2017-09-07] MEDS: Gabapentin 400 MG CAP PO SCH (08:39)
[2017-09-07] MEDS: Apixaban 5 MG TAB PO SCH (08:39)
[2017-09-07] MEDS: guaiFENesin ER 600 MG TAB PO SCH (08:39)
[2017-09-07] MEDS: Ferrous Sulfate 325 MG TAB PO SCH (08:40)
[2017-09-07] MEDS: Tamsulosin HCl 0.4 MG CAP PO SCH (08:40)
[2017-09-07] MEDS: Cefdinir 300 MG CAP PO SCH (08:41)
--- NOTE | 2017-09-07 09:27 | PDOC.CTH ---
<Bertha Rangel - Last Filed: 09/07/17 09:36> Cardiology Progress Note - Subjective The pt seen and examined. No overnight events. No cardiac complaints. He stated he started having SOB, but no BLE edema or ABD bloating prior to this admission. He already walked around the unit without any difficulties. - Objective Vital Signs Temp Pulse Resp BP Pulse Ox 09/07/17 07:53 80 16 09/07/17 07:48 97.2 F L 65 17 144/65 H 09/07/17 04:00 97.8 F 74 18 132/63 94 L 09/07/17 00:11 66 16 96 09/07/17 00:00 97.9 F 74 20 140/84 93 L Weight 194 lb 8 oz 09/06/17 09/07/17 09/08/17 06:59 06:59 06:59 Intake Total 680 750 Output Total 1825 2150 Balance -1145 -1400 - Physical Examination General/Neuro: alert & oriented x3 Neck: no JVD present Lungs: CTA (diminished at bases) Heart: RRR Abdomen: soft Extremities: other: (No edema) - Telemetry Telemetry Rhythm: SR 70s - Labs Result Diagrams: 09/05/17 04:05 09/05/17 04:05 Troponin/CKMB CK-MB (CK-2) 1.2 ng/mL (0-6.6) 09/04/17 17:19 Troponin I 0.208 ng/mL (< 0.028) H 09/04/17 23:19 - Assessment/Plan 1. Acute on chronic combined HF - Stable with Lasix 20mg IV BID which changed to PO BID from today. Start Coreg 3.125mg BID. Hold CHAVEZ due to hx of CKD. 2. COPD exacerbation - Stable with RA, managed by [employer] Operations Manager 3. Paroxymal Afib - Remains in SR; On Eliquis 5mg BID. Start Coreg 3.125mg BID. Will resume Amio 200mg daily when his VS is stable 4. CAD with Hx of CABG x4 in 2017 - stable with ASA, Statin. Resume Coreg from today. Cont. to monitor on tele 5. HTN - Resume Coreg from today 6. CKD - slightly worsen today. cont. to monitor 7. Hyperlipidemia - On Statin 8. PVD - AFRO in 07/2017 showed 100% stenosis in Bilat SFA to knees; no intervention at this moment due to high risk. 9. Hx of CVA in 2018 - uses a cane MAR reviewed *Echo in 06/2017 showed EF 40-45%, mild VICKIE, mod dilated LA, mild-mod MR, mild AR, and mild TR. Review of Systems - Review of Systems Constitutional: reports: no symptoms reported EENTM: reports: no symptoms reported Respiratory: reports: no symptoms reported Cardiac (ROS): reports: no symptoms reported ABD/GI: reports: no symptoms reported : reports: no symptoms reported Musculoskeletal: reports: no symptoms reported <Maribell Del Rosario - Last Filed: 09/07/17 16:47> Cardiology Progress Note - Objective Vital Signs Temp Pulse Pulse Pulse Resp BP BP 09/07/17 16:08 97.6 F 69 16 09/07/17 12:45 98.1 F 65 16 09/07/17 08:42 73 68 150/65 H 142/61 H 09/07/17 08:00 97.2 F L 80 16 09/07/17 07:53 80 16 09/07/17 07:48 97.2 F L 65 17 BP Pulse Ox Pulse Ox Pulse Ox 09/07/17 16:08 159/70 H 96 09/07/17 12:45 142/64 H 94 L 09/07/17 08:42 97 92 L 09/07/17 08:00 94 L 09/07/17 07:53 09/07/17 07:48 144/65 H Weight 194 lb 8 oz 09/06/17 09/07/17 09/08/17 06:59 06:59 06:59 Intake Total 680 750 Output Total 182 2150 Balance -1145 -1400 - Labs Result Diagrams: 09/05/17 04:05 09/05/17 04:05 Troponin/CKMB CK-MB (CK-2) 1.2 ng/mL (0-6.6) 09/04/17 17:19 Troponin I 0.208 ng/mL (< 0.028) H 09/04/17 23:19 - Assessment/Plan Pt. seen and eval. by me. I agree with the A/P by the CAFE SITE ATTENDANT.He is ready for D/C to home. he will f/U in the office in 3-4 weeks.
[2017-09-07] MEDS ORDERED: Carvedilol 3.125 MG TAB PO SCH ×2 (09:30→17:00)
--- NOTE | 2017-09-07 10:11 | PRG ---
DATE OF SERVICE: 09/07/2017 SUBJECTIVE: Mr. Ricardo is in no distress. OBJECTIVE: VITAL SIGNS: He is afebrile, heart rate is 65, respiratory rate 17, oximetry is 94% on room air, blo od pressure 144/65. Intake and output was negative 1400. LUNGS: Still remarkable for diffuse mild wheezes. HEART: Regular rhythm. ABDOMEN: Soft. IMPRESSION AND PLAN: He has no preexisting history of asthma or chronic obstructive pulmonary diseas e prior to his heart surgery. I suspect this is more likely cardiac asthma. The only way to sort th rough this will be pulmonary function tests now and then pulmonary function tests down the road. If they normalize, there would be an argument that this is cardiac asthma. PFTs summaries were done yes terday, but are not on the chart. I will try to locate these. He is only receiving nebulized treatments q.6 hours. He could be switched to a metered dose inhaler with p.r.n. nebulizer treatments. His IV steroids can be stopped.
[2017-09-07] MEDS ORDERED: Furosemide 20 MG TAB PO SCH (14:00)
[2017-09-07 16:08] VITALS: BP 159/70; TEMP 97.6
--- NOTE | 2017-09-07 16:46 | DIS ---
DATE OF ADMISSION: 09/04/2017 DATE OF DISCHARGE: 09/07/2017 PRIMARY CARE PHYSICIAN: Monae Walker M.D. CONSULTING FISHER SEAL: Dr. Onofre Toribio. ARCHIVIST: Dr. Bentley Del Rosario. DISCHARGE DIAGNOSES: 1. Acute on chronic combined systolic and diastolic congestive heart failure. 2. Right lower lobe community-acquired pneumonia. 3. Reactive airway disease. 4. Hypertension. 5. Hyperlipidemia. 6. Peripheral vascular disease. 7. History of coronary disease without angina. CONSULTATIONS: 1. Pulmonary Critical Care by Dr. Emigdio Clark followed up by Dr. Onofre Toribio. 2. Cardiology, Dr. Jam Gutierrez, followed up by Dr. Bentley Del Rosario. PROCEDURES: Pulmonary function testing, 09/06/2017. Results pending. Reviewed by Dr. Toribio. HISTORY AND PHYSICAL: Mr. Ricardo is a 72-year-old male with history of above who pres ents to the emergency department with shortness of breath on the day of admission. He had not been having any abdominal or urinary symptoms. No chest pain or palpitations. He did hav e some on exertion, but no PND or lower extremity edema. Workup in the emergency department showed m ildly elevated BNP, he was hypoxic and hypercapnic and was found to have right lower lobe infiltrate. Given IV Lasix and we were called for admission. The patient was seen by Dr. Krishnamurthy and admitted inpatient. Cardiology and Pulmonary were consulted . He was started on IV Solu-Medrol due to wheezing and a possibility of COPD. Overnight 09/04/2017 to 09/05/2017, the patient was seen by Dr. Clark in the applied technologist. He actual ly felt this was either new diagnosis of COPD or possibly acute exacerbation of his CHF with cardiac asthma and recommended deescalating with antibiotics and respiratory treatments. He was seen by Dr. Jam Gutierrez later that afternoon. He felt it was more COPD and not cardiac related. He was given IV diuretics and IV Solu-Medrol. The patient slowly improved and by 09/06/2017, the pat ient was improving. He was seen by Dr. Toribio who did not feel that it was a COPD at all, but felt mo re cardiac asthma. PFTs were obtained, but he was unable to find the tracings and so report is curre ntly pending, and is reviewing them as I dictate this note. The patient continued to improve and by 09/07/2017, it is negative almost 4 liters of fluid. He is b reathing better and back to his baseline, was requesting to go home. He has been seen by Dr. Del Rosario' nurse practitioner earlier today and Dr. Del Rosario had reviewed the medicine s and felt like everything looked good, but wanted to see him before he left, but otherwise cleared h im for discharge. Dr. Toribio was going to review the PFTs and want to see him in 2 weeks. PHYSICAL EXAMINATION: The patient was seen and examined on the day of discharge. He had some right lower lobe crackles posteriorly, probably expiratory phase with a low pitched end-expiratory wheezes. DISCHARGE PLAN AND DISPOSITION: Discussed with the patient and his face to face at the bedside. DISCHARGE MEDICATIONS: New medications: 1. Albuterol sulfate HFA 2 puffs every 4 hours as needed. New prescription sent. 2. Omnicef 300 mg p.o. b.i.d., prescription for 7 more days. 3. Guaifenesin ER 600 mg p.o. q.12 h. Prescription sent. 4. Dulera 200/5 two puffs inhaled b.i.d. Prescription sent. Medicines to resume. 1. Eliquis 5 mg p.o. b.i.d. 2. Aspirin 81 mg daily. 3. Carvedilol 3.125 mg p.o. b.i.d. 4. Docusate 240 mg p.o. daily p.r.n. constipation. 5. Lasix 40 mg p.o. q.a.m. 6. Gabapentin 400 mg p.o. b.i.d. 7. Lovastatin 40 mg p.o. q.p.m. 8. Pantoprazole 40 mg p.o. daily. 9. Flomax 0.4 mg p.o. at bedtime. 10. Multivitamin daily. 11. Daily fiber, psyllium husk 0.52 grams p.o. at bedtime. FOLLOWUP APPOINTMENTS: 1. Dr. Walker in a week. 2. Dr. Del Rosario in [address] Toribio in 2 weeks. DISCHARGE ACTIVITY: Per cardiopulmonary limits. DISCHARGE DIET: Heart healthy diet recommended. The patient will be followed by the [facility]. Ou tpatient physical therapy to resume. DISCHARGE CONDITION: Stable. DISPOSITION: Being discharged home via private vehicle.
== END 2017-09-07 17:31 | disposition home or self-care (01) | DRG 190 ==
LOC: ERS 16:23 → 2NO 18:00 → IMCU/EMU 22:03 → 2NO 09-06 15:55
PROVIDERS: ADMIT Family Medicine; ATTEND Family Medicine
DX: J44.0 Chronic obstructive pulmonary disease with (acute) lower respiratory infection (principal); J18.9 Pneumonia, unspecified organism; I50.43 Acute on chronic combined systolic (congestive) and diastolic (congestive) heart failure; J96.01 Acute respiratory failure with hypoxia; J96.02 Acute respiratory failure with hypercapnia; I13.0 Hypertensive heart and chronic kidney disease with heart failure and stage 1 through stage 4 chronic kidney disease, or unspecified chronic kidney disease; I69.351 Hemiplegia and hemiparesis following cerebral infarction affecting right dominant side; I24.8 Other forms of acute ischemic heart disease; I48.0 Paroxysmal atrial fibrillation; J44.1 Chronic obstructive pulmonary disease with (acute) exacerbation; E78.5 Hyperlipidemia, unspecified; I73.9 Peripheral vascular disease, unspecified; I25.10 Atherosclerotic heart disease of native coronary artery without angina pectoris; Z79.82 Long term (current) use of aspirin; Z79.51 Long term (current) use of inhaled steroids; Z95.1 Presence of aortocoronary bypass graft; Z87.891 Personal history of nicotine dependence; N40.0 Benign prostatic hyperplasia without lower urinary tract symptoms; D64.9 Anemia, unspecified; N18.3 Chronic kidney disease, stage 3 (moderate); Z79.01 Long term (current) use of anticoagulants
CPT/HCPCS: 36415; 71045; 80048; 80053; 82553; 82805; 83880; 84484; 85025; 87040; 93005; 93798; 94060; 94640; 94660; 94727; 96365; 96367; A4216; G8978-GP-CK; G8979-GP-CI; G8979-GP-CK; G8980-GP-CK; G8987-GO-CI; G8988-GO-CI; G8989-GO-CI; G9165-GN-CL; G9166-GN-CJ; J1940; J2543; J2920; J3370; J7050; J7620

== ENCOUNTER 2017-10-03 09:49 | Outpatient (CLI) | payer MEDICARE, OTHER ==
--- NOTE | 2017-10-03 11:21 | RAD ---
2 VIEWS CHEST: Date: 10/03/17 HISTORY: Dyspnea. COMPARISON: 05/03/17 and 09/12/17. FINDINGS: There are sternotomy wires. Normal cardiac silhouette. Pulmonary vessels and hilum are normal. Costop hrenic angles are slightly blunted, similar to the prior examination. There are parenchymal changes i n the left lung base. Hyperinflation is noted. No pneumothorax. No osseous abnormalities. IMPRESSION: Left lower lobe infiltrate. Continue surveillance. Worsening opacification when compared to the examination from 09/12/17. POS: [facility]
== END 2017-10-03 09:50 | disposition home or self-care (01) ==
LOC: RAD 09:49
PROVIDERS: ATTEND Internal Medicine Critical Care Medicine
DX: R06.00 Dyspnea, unspecified (principal); R91.8 Other nonspecific abnormal finding of lung field
CPT/HCPCS: 71046

== ENCOUNTER 2018-01-22 13:03 | Outpatient (CLI) | payer MEDICARE, OTHER ==
--- NOTE | 2018-01-22 14:36 | RAD ---
CHEST PA AND LATERAL TWO VIEWS: History: 72-year-old male with history of dyspnea. FINDINGS: There are persistent pleural and parenchymal changes in both lung bases, somewhat worse on the left s enmanuel, with evidence for some bilateral pleural effusions, slightly larger on the left. There is some b ilateral vascular congestion. Bibasilar parenchymal changes are also worse in the left infrahilar reg ion than the right but appear stable from 11-29-17 study. No confluent pneumonia or overt edema. IMPRESSION: Bilateral vascular congestion with stable bibasilar parenchymal changes and small bilateral pleural e ffusions, probably slightly larger in the left base than on the most recent prior study. No evidence for other significant new process. POS: [facility]
== END 2018-01-22 13:04 | disposition home or self-care (01) ==
LOC: RAD 13:03
PROVIDERS: ATTEND Internal Medicine Critical Care Medicine
DX: R06.00 Dyspnea, unspecified (principal); J90 Pleural effusion, not elsewhere classified; R09.89 Other specified symptoms and signs involving the circulatory and respiratory systems
CPT/HCPCS: 71046

== ENCOUNTER 2018-03-06 20:14 | Inpatient (IN) | payer MEDICARE, OTHER ==
[2018-03-06 20:44] LABS: #Basophils 0.1 thou/uL (0.0-0.2); #Eosinphils 0.1 thou/uL (0.0-0.7); #Lymphocytes 2.7 thou/uL (1.20-3.40); #Neutrophils 6.7 thou/uL (1.40-6.50); %Basophils 0.7 % (0.0-1.0); %Lymphocytes 25.4 % (21.0-51.0); %Monocytes 9.3 % (0.0-10.0); %Neutrophils 63.7 % (42.0-75.0); Hemoglobin 12.1 g/dL (14.0-18.0); Mean Corpuscular HGB CONC 31.2 g/dL (32.0-36.0); Mean Corpuscular Hemoglobin 28.9 pg (27.0-31.0); Mean Corpuscular Volume 92.7 fL (78.0-98.0); Mean Platelet Volume 8.2 fL (7.4-10.4); Platelet Count 331 thou/uL (130-400); RBC Distribution Width 15.2 % (11.5-14.5); Red Blood Cell (RBC) Count 4.18 mill/uL (4.70-6.10); White Blood Cell (WBC) Count 10.5 thou/uL (4.8-10.8)
[2018-03-06 21:05] LABS: CKMB 2.1 ng/mL (0-6.6); Troponin I 0.028 ng/mL (< 0.028)
[2018-03-06 21:11] LABS: ALT (SGPT) 13 U/L (8-55); AST (SGOT) 23 U/L (5-34); Albumin 3.3 g/dL (3.4-4.8); Alkaline Phosphatase 87 U/L (40-150); Anion Gap 18 mmol/L (10-20); BUN (Urea Nitrogen) 20 mg/dL (8.4-25.7); Bilirubin, Total 0.5 mg/dL (0.2-1.2); CK (CPK) 50 U/L (30-200); Calc. Creatinine Clearance 0 mL/min (70-130); Calcium 8.7 mg/dL (7.8-10.44); Carbon Dioxide 26 mmol/L (23-31); Chloride 94 mmol/L (98-107); Estimated GFR-MDRD 44; Glucose 162 mg/dL (83-110); Potassium 4.9 mmol/L (3.5-5.1); Protein, Total 8.3 g/dL (5.8-8.1); Sodium 133 mmol/L (136-145)
[2018-03-06] MEDS ORDERED: Nitroglycerin 2% Ointment 1 INCH/1 GM Packet ONE (21:25)
[2018-03-06] MEDS ORDERED: Furosemide 40 MG/4 ML VIAL ONE (21:25)
--- NOTE | 2018-03-06 21:30 | RAD ---
PORTABLE AP CHEST X-RAY 03/06/18 HISTORY: Dyspnea. COMPARISON: 01/22/18. FINDINGS: Postsurgical changes related to median sternotomy are again noted. The cardiac silhouette remains enl arged. Bibasilar pleural and parenchymal lung changes are again seen asymmetrically greater on the le ft. There are small bilateral pleural effusions present again noted on the left. Pulmonary vasculatur e is within normal limits. There is mild patchy density seen at the lateral right lung base. This cou ld be related to overlying soft tissue density. Given differences in technique, there has been no sig nificant interval change from prior exam. IMPRESSION: 1. Cardiomegaly without overt CHF. 2. Overall stable bibasilar pleural and parenchymal lung changes. Findings could be related to c hronic lung changes, but small bilateral pleural effusions with pneumonia at each lung base cannot be entirely excluded. 3. Osteopenia with stable right sided rib fractures. 4. Cardiomegaly. POS: [facility]
[2018-03-06] MEDS ORDERED: Artificial Tears 18 DROP/0.9 ML EA EYE PRN (22:55)
[2018-03-06] MEDS ORDERED: Calcium Carbonate 500 MG ChewTAB PO PRN (22:55)
[2018-03-06] MEDS ORDERED: Loperamide HCl 2 MG CAP PO PRN (22:55)
[2018-03-06] MEDS ORDERED: Bisacodyl 10 MG SUPP PR PRN (22:55)
[2018-03-06] MEDS ORDERED: Zolpidem Tartrate 5 MG TAB PO PRN (22:55)
[2018-03-06] MEDS ORDERED: Loratadine 10 MG TAB PO PRN (22:55)
[2018-03-06] MEDS ORDERED: HYDROcodone/Acetaminophen 5/325 mg Tablet PO PRN (22:55)
[2018-03-06] MEDS ORDERED: Sodium Chloride 0.65% Nasal 44 ML BOT EA NARE PRN (22:55)
[2018-03-06] MEDS ORDERED: Acetaminophen 325 MG TAB PO PRN (22:55)
[2018-03-06] MEDS ORDERED: Senokot S 8.6-50 MG TAB PO PRN (22:55)
[2018-03-06] MEDS ORDERED: Eucerin (Mineral Oil/Petrolatum,White) 30 gm Jar TOP PRN (22:55)
[2018-03-06] MEDS ORDERED: hydrALAZINE 20 MG/ML VIAL SLOW IVP PRN (22:55)
[2018-03-06] MEDS ORDERED: Bisacodyl 5 MG TAB PO PRN (22:55)
[2018-03-06] MEDS ORDERED: Diabetic Tussin 200 MG/10 ML UDCUP PO PRN (22:55)
[2018-03-06] MEDS ORDERED: Nitroglycerin 0.4 MG TAB (25 Tab Bottle) SL PRN (22:55)
[2018-03-06 23:27] LABS: Bilirubin Negative (Negative); Blood, Urine Negative (Negative); Clarity CLEAR (Clear); Glucose, Urine (Dipstick) Negative (Negative); Leukocyte Negative (Negative); Nitrite Negative (Negative); Protein, Urine (Dipstick) Negative (Neg-Trace); Specific Gravity, Urine 1.005 (1.002-1.036); Urobilinogen 0.2 mg/dL (0.2-1.0); pH, Urine 7.5 (5.0-9.0)
[2018-03-06 23:34] LABS: Bacteria/HPF None Seen HPF (None Seen); Hyaline Casts/LPF 0-3 HYALINE CAST LPF (0-3 Hyaline); RBC/HPF None Seen HPF (0-3); Squamous Epithelial None Seen HPF (0-3); WBC/HPF None Seen HPF (0-3)
[2018-03-07 01:06] LABS: CKMB 2.4 ng/mL (0-6.6); Troponin I 0.032 ng/mL (< 0.028)
--- NOTE | 2018-03-07 02:46 | HP ---
PRIMARY CARE PHYSICIAN: Dr. Monae Walker. DATE OF SERVICE: 03/06/2018 REASON FOR ADMISSION: Acute hypoxic respiratory failure, acute on chronic systolic and diastolic heart failure. HISTORY OF PRESENT ILLNESS: A 73-year-old male who lives at home who is accompanied by his daughter. The patient came to emergency room with a complaint of increasing shortness of breath. Patient is chronically short of breath. He always has shortness of breath and some cough, but for last week, he has increasing shortness of breath; even after walking a few steps, he gets out of breath. He does have orthopnea. He is not able to lie down flat. He does have increasing bilateral lower extremity edema. He has weight gain. He was hypoxic when he presented to emergency room, he was requiring oxygen. In the emergency room, he was not able to lie down flat. He was having active wheezing in both lungs. He appeared in respiratory distress. He was maintaining oxygen saturation with oxygen. He was otherwise hypertensive in the emergency room. Patient's daughter reports that the patient forgets taking medication. Patient lives with his and his recently went to [place] and that is why patient was not taking medication as prescribed. Patient's last admission in hospital in 08/2017. Patient is following [facility]. As patient's condition gotten worse and that is why patient's daughter brought him to the emergency room today. Patient denies any fever or chills. He denies any upper respiratory infection. He denies any flu-like illness. He denies any UTI symptoms. He denies any constipation, diarrhea. He denies any syncope, fall or PND. He denies any focal motor or sensory symptoms. REVIEW OF SYSTEMS: The following complete review of systems was negative, unless otherwise mentioned in the HPI or below: Constitutional: Weight loss or gain, ability to conduct usual activities. Skin: Rash, itching. Eyes: Double vision, pain. ENT/Mouth: Nose bleeding, neck stiffness, pain, tenderness. Cardiovascular: Palpitations, dyspnea on exertion, orthopnea. Respiratory: Shortness of breath, wheezing, cough, hemoptysis, fever or night sweats. Gastrointestinal: Poor appetite, abdominal pain, heartburn, nausea, vomiting, constipation, or diarrhea. Genitourinary: Urgency, frequency, dysuria, nocturia. Musculoskeletal: Pain, swelling. Neurologic/Psychiatric: Anxiety, depression. Allergy/Immunologic: Skin rash, bleeding tendency. Please see my HPI for pertinent positive and negative. All other review of systems reviewed and negative except as mentioned in the HPI. ALLERGIES: No known drug allergies. CURRENT HOME MEDICATIONS: Aspirin 81 mg p.o. daily, Lasix 40 mg p.o. daily, gabapentin 400 mg p.o. b.i.d., Lovastatin 40 mg p.o. daily, multivitamin 1 tablet p.o. daily, Protonix 40 mg p.o. daily, fiber tablet daily, Flomax 0.4 mg p.o. daily, Ventolin inhaler 2 puffs q.6 hourly p.r.n., Mucinex 600 mg twice daily, Eliquis 5 mg p.o. b.i.d., Coreg 3.125 mg p.o. b.i.d., Colace 240 mg p.o. daily p.r.n., Dulera 2 puffs inhalation b.i.d. PAST MEDICAL HISTORY: Coronary artery disease, required CABG in the past, hypertension, paroxysmal atrial fibrillation, chronic anticoagulation with Eliquis, benign enlargement of prostate, dyslipidemia, peripheral vascular disease, chronic systolic and diastolic heart failure and restrictive cardiomyopathy, chronic kidney disease stage 3. PAST SURGICAL HISTORY: CABG, back surgery. PAST PSYCHIATRIC HISTORY: Senile dementia. SOCIAL HISTORY: Patient is a former smoker. He started smoking when he was 17 years of age and he was smoking almost 10 cigarettes on a daily basis, but he quit smoking more than 10 years ago. He denies any alcohol abuse. FAMILY HISTORY: No strong family history of premature coronary artery disease, stroke or cancer. EMERGENCY ROOM COURSE: Patient is given nitropatch and Lasix 40 mg. PHYSICAL EXAMINATION: VITAL SIGNS: Currently, blood pressure 158/78, pulse 89, respiratory rate 32, temperature 97.6, saturation 97% on room air, weight 85.7 kilograms. GENERAL: Patient is currently in respiratory distress, hypertensive, tachypneic. HEAD: Normocephalic, atraumatic. EYES: Pupils round, reactive to light. Extraocular muscles intact. ENT: Oropharynx within normal limits. Moist mucous membranes, no oral lesion, no pharyngeal erythema, no exudate. NECK: Supple, elevated JVD, no thyromegaly, no carotid bruit. LUNGS: Bilateral end expiratory wheezing, bibasilar rales noted. CARDIAC: S1, S2 regular. No murmur, no gallop, no rub. ABDOMEN: Soft, bowel sounds present, nontender, nondistended. No organomegaly , no mass, no suprapubic tenderness. BACK: Unremarkable, no CVA tenderness. EXTREMITIES: Upper extremity, passive movement of all joints are normal. Lower extremity: Bilateral lower extremity pitting edema noted. Good distal pulsation. SKIN: No skin rash. HEMATOLOGICAL: No lymphadenopathy. PSYCHIATRIC: Normal affect. SIGNIFICANT LABORATORY DATA: EKG showing premature atrial complexes, prolonged QT interval. Chest x-ray: Cardiomegaly, pulmonary vascular congestion. CBC: WBC 10.5, hemoglobin 12.1, platelets 331. BMP: Sodium 133, potassium 4.9, chloride 94, carbon dioxide 26, anion gap 18, BUN 20, creatinine 1.56, glucose 162, calcium 8.7. LFT: AST 23, ALT 13, alkaline phosphatase is 87, albumin 3.3. CK 50, CK-MB 2.1, troponin I 0.028 and subsequent troponin 0.032. BNP 2983. Urinalysis normal. ASSESSMENT AND PLAN: 1. Acute respiratory failure with hypoxia, likely due to acute on chronic systolic and diastolic congestive heart failure. Currently, patient requiring oxygen. We will wean oxygen as tolerated. Patient will need underlying treatment for congestive heart failure. Patient is not using oxygen at home. We will monitor his oxygen requirement. 2. Acute on chronic systolic and diastolic heart failure. Patient has a restrictive cardiomyopathy. Patient will require Lasix 40 mg IV b.i.d. We will monitor input output chart, daily weight. Cardiac rehabilitation will be consulted. We will monitor electrolytes and replace accordingly. Fluid restriction 1500 mL per day. We will continue Coreg 3.125 mg p.o. b.i.d. We will consider adding Lisinopril 2.5 mg p.o. daily. 3. Chronic obstructive pulmonary disease with possible exacerbation. We will treat with Solu-Medrol 20 mg IV q.8 hourly, DuoNeb q.4 hourly and Dulera two puff inhalation b.i.d., Mucinex 600 mg twice daily. This patient has component of chronic obstructive pulmonary disease as well along with congestive heart failure, but predominantly, patient has congestive heart failure exacerbation. 4. Paroxysmal atrial fibrillation, currently in sinus rhythm. Continue Coreg 3.125 mg p.o. b.i.d. and anticoagulation with Eliquis 5 mg p.o. b.i.d. 5. Coronary artery disease with history of coronary artery bypass grafting. Continue aspirin 81 mg p.o. daily along with Coreg, lisinopril therapy. 6. Benign enlargement of prostate. Continue Flomax 0.4 mg p.o. daily. 7. Dyslipidemia. Continue Lipitor 10 mg p.o. at bedtime. 8. Chronic kidney disease stage 3. We will monitor renal function and avoid nephrotoxin agent. 9. Demand ischemia of myocardium. Patient does have elevated troponin. We will do serial cardiac enzymes x3. 10. Peripheral vascular disease. Continue aspirin and statin therapy. 11. Deep venous thrombosis prophylaxis. Patient is already on Eliquis therapy. 12. Gastrointestinal prophylaxis. Pepcid 20 mg p.o. b.i.d. 13. Code status: Patient is FULL CODE. Patient's daughter is surrogate decision maker. Disposition plan based on clinical course. We are expecting patient's stay in hospital more than 2 midnights. Plan of care discussed with the patient and family member at bedside. Heart failure education given. MTDD
[2018-03-07 03:26] LABS: #Basophils 0.1 thou/uL (0.0-0.2); #Eosinphils 0.1 thou/uL (0.0-0.7); #Lymphocytes 2.7 thou/uL (1.20-3.40); #Monocytes 1.5 thou/uL (0.11-0.59); %Basophils 0.7 % (0.0-1.0); %Eosinophils 0.9 % (0.0-10.0); %Lymphocytes 20.4 % (21.0-51.0); %Monocytes 11.2 % (0.0-10.0); %Neutrophils 66.8 % (42.0-75.0); Mean Corpuscular HGB CONC 31.9 g/dL (32.0-36.0); Mean Corpuscular Hemoglobin 29.5 pg (27.0-31.0); Mean Corpuscular Volume 92.4 fL (78.0-98.0); Mean Platelet Volume 8.1 fL (7.4-10.4); Platelet Count 313 thou/uL (130-400); RBC Distribution Width 15.1 % (11.5-14.5); Red Blood Cell (RBC) Count 4.08 mill/uL (4.70-6.10); White Blood Cell (WBC) Count 13.4 thou/uL (4.8-10.8)
[2018-03-07 03:46] LABS: Anion Gap 15 mmol/L (10-20); BUN (Urea Nitrogen) 18 mg/dL (8.4-25.7); Calc. Creatinine Clearance 0 mL/min (70-130); Calcium 8.9 mg/dL (7.8-10.44); Carbon Dioxide 32 mmol/L (23-31); Chloride 94 mmol/L (98-107); Estimated GFR-MDRD 47; Glucose 108 mg/dL (83-110); Magnesium 2.1 mg/dL (1.6-2.6); Potassium 3.7 mmol/L (3.5-5.1); Sodium 137 mmol/L (136-145); Uric Acid 8.9 mg/dL (3.5-7.2)
[2018-03-07 03:49] LABS: CKMB 2.2 ng/mL (0-6.6); Troponin I 0.035 ng/mL (< 0.028)
[2018-03-07] MEDS ORDERED: Furosemide 40 MG/4 ML VIAL ONE (05:52)
[2018-03-07] MEDS ORDERED: Mometasone/Formoterol 120 PUFF INHALER INH SCH (06:30)
[2018-03-07] MEDS ORDERED: Aspirin 81 mg Enteric Coated Tablet ONE (09:47)
[2018-03-07 13:25] VITALS: BMI 29.5
[2018-03-07] MEDS: Furosemide 40 MG/4 ML VIAL SLOW IVP SCH ×2 (13:27→15:37)
[2018-03-07] MEDS: Apixaban 5 MG TAB PO SCH ×2 (13:28→20:42)
[2018-03-07] MEDS: Carvedilol 3.125 MG TAB PO SCH ×2 (13:28→17:46)
[2018-03-07] MEDS: Famotidine 20 MG TAB PO SCH ×2 (13:28→20:42)
[2018-03-07] MEDS: guaiFENesin ER 600 MG TAB PO SCH ×2 (13:28→20:42)
[2018-03-07] MEDS: Lisinopril 2.5 MG TAB PO SCH (13:28)
[2018-03-07] MEDS: Tamsulosin HCl 0.4 MG CAP PO SCH (13:29)
--- NOTE | 2018-03-07 17:32 | PDOC.PN ---
- Subjective Encounter Start Date: 03/07/18 Encounter Start Time: 09:00 Subjective: pt up in bed no complains - Objective Resuscitation Status: Resuscitation Status FULL:Full Resuscitation Vital Signs & Weight: Vital Signs (12 hours) Temp Pulse Resp BP Pulse Ox 03/07/18 13:15 97.4 F L 88 17 134/64 98 03/07/18 11:52 76 20 100 03/07/18 07:29 78 20 98 Weight Weight 188 lb 14.978 oz Result Diagrams: 03/07/18 03:15 03/07/18 03:15 Phys Exam - Physical Examination Neck: no nodes, no JVD, supple, full ROM Respiratory: no wheezing, no rales, no rhonchi, wheezing present, clear to auscultation bilateral Cardiovascular: RRR, no significant murmur, no rub, gallop, irregular Gastrointestinal: soft, non-tender, no distention, positive bowel sounds Dx/Plan (1) Acute respiratory failure with hypoxia Code(s): J96.01 - ACUTE RESPIRATORY FAILURE WITH HYPOXIA Status: Acute (2) Acute on chronic systolic (congestive) heart failure Code(s): I50.23 - ACUTE ON CHRONIC SYSTOLIC (CONGESTIVE) HEART FAILURE Status : Acute (3) CKD (chronic kidney disease) stage 3, GFR 30-59 ml/min Code(s): N18.3 - CHRONIC KIDNEY DISEASE, STAGE 3 (MODERATE) Status: Chronic (4) BPH (benign prostatic hyperplasia) Code(s): N40.0 - BENIGN PROSTATIC HYPERPLASIA WITHOUT LOWER URINRY TRACT SYMP Status: Chronic (5) COPD (chronic obstructive pulmonary disease) Status: Chronic Comment: with possible exacerbation - Plan will continue lasix and heart failure meds -: His last ef was 40% -: pt also has a hx of smoking will continue steroids for now -: He feels a lot better today. will also start pt on abx -: mild elevated trops most likely from demand ischemia * . Review of Systems - Review of Systems Respiratory: negative: Cough, Dry, Shortness of Breath, Hemoptysis, SOB with Excertion, Pleuritic Pain, Sputum, Wheezing Cardiovascular: negative: chest pain, palpitations, orthopnea, paroxysmal nocturnal dyspnea, edema, light headedness, other Gastrointestinal: negative: Nausea, Vomiting, Abdominal Pain, Diarrhea, Constipation, Melena, Hematochezia, Other Genitourinary: negative: Dysuria, Frequency, Incontinence, Hematuria, Retention , Other - Medications/Allergies Allergies/Adverse Reactions: Allergies Allergy/AdvReac Type Severity Reaction Status Date / Time No Known Allergies Allergy Verified 03/06/18 23:00 Medications: Current Medications Acetaminophen (Tylenol) 650 mg PO Q4H PRN PRN Reason: Headache/Fever/Mild Pain (1-3) Hydrocodone Bitart/Acetaminophen ([place] 5/325) 1 tab PO Q4H PRN PRN Reason: Moderate Pain (4-6) Albuterol/Ipratropium (Duoneb) 3 ml NEB P2ON-[facility] Last Admin: 03/07/18 14:33 Dose: Not Given Apixaban (Eliquis) 5 mg PO BID [facility] Last Admin: 03/07/18 13:28 Dose: Not Given Artificial Tears (Tears Naturale) 2 drop EA EYE PRN PRN PRN Reason: Dry Eyes Aspirin (Aspirin Chewable) 81 mg PO DAILY [facility] Last Admin: 03/07/18 13:28 Dose: Not Given Atorvastatin Calcium (Lipitor) 10 mg PO HS [facility] Bisacodyl (Dulcolax) 10 mg PO DAILYPRN PRN PRN Reason: Constipation Bisacodyl (Dulcolax) 10 mg [place] DAILYPRN PRN PRN Reason: Constipation Calcium Carbonate (Tums) 1,000 mg PO Q4H PRN PRN Reason: Heartburn or Indigestion Carvedilol (Coreg) 3.125 mg PO BID-[facility] Last Admin: 03/07/18 13:28 Dose: Not Given Famotidine (Pepcid) 20 mg PO BID [facility] Last Admin: 03/07/18 13:28 Dose: Not Given Furosemide (Lasix) 40 mg SLOW IVP 0600,1400 [facility] Last Admin: 03/07/18 15:37 Dose: 40 mg Guaifenesin (Mucinex) 600 mg PO Q12HR [facility] Last Admin: 03/07/18 13:28 Dose: Not Given Guaifenesin (Robitussin Sf) 200 mg PO Q4H PRN PRN Reason: Cough Hydralazine HCl (Apresoline) 10 mg SLOW IVP Q4H PRN PRN Reason: SBP > 180 and HR < 70 Lisinopril (Zestril) 2.5 mg PO DAILY [facility] Last Admin: 03/07/18 13:28 Dose: Not Given Loperamide HCl (Imodium) 2 mg PO PRN PRN PRN Reason: Diarrhea/Loose Stools Loratadine (Claritin) 10 mg PO DAILYPRN PRN PRN Reason: Sinus Symptoms Mineral Oil/White Petrolatum (Eucerin Cream) 0 gm TOP BIDPRN PRN PRN Reason: Dry Skin Mometasone Furoate/Formoterol Fumar (Dulera 200 Mcg/5 Mcg Inhaler) 2 puff INH BID-[facility] Last Admin: 03/07/18 07:31 Dose: 2 puff Nitroglycerin (Nitrostat) 0.4 mg SL Q5MIN PRN PRN Reason: Chest Pain Prednisone (Prednisone) 40 mg PO QA-[facility] Stop: 03/11/18 08:00 Senna/Docusate Sodium (Senokot S) 2 tab PO BID PRN PRN Reason: Constipation Sodium Chloride ([place] Nasal [place] 0.65%) 0 ml EA NARE QIDPRN PRN PRN Reason: Nasal Congestion Sodium Chloride (Flush - Normal Saline) 10 ml IVF Q12HR [facility] Last Admin: 03/07/18 13:29 Dose: Not Given Sodium Chloride (Flush - Normal Saline) 10 ml IVF PRN PRN PRN Reason: Saline Flush Tamsulosin HCl (Flomax) 0.4 mg PO DAILY [facility] Last Admin: 03/07/18 13:29 Dose: Not Given Zolpidem Tartrate (Ambien) 5 mg PO HSPRN PRN PRN Reason: Insomnia
[2018-03-07] MEDS ORDERED: Docusate Calcium (SURFAK) 240 MG CAP PO PRN (17:34)
[2018-03-07] MEDS: Mometasone/Formoterol 120 PUFF INHALER INH SCH (18:59)
[2018-03-07] MEDS ORDERED: Atorvastatin Calcium 10 MG TAB PO SCH (21:00)
[2018-03-08] MEDS: Furosemide 40 MG/4 ML VIAL SLOW IVP SCH ×2 (05:46→15:11)
[2018-03-08] MEDS: Mometasone/Formoterol 120 PUFF INHALER INH SCH ×2 (06:55→19:04)
[2018-03-08] MEDS: Carvedilol 3.125 MG TAB PO SCH ×2 (08:43→16:27)
[2018-03-08] MEDS: Lisinopril 2.5 MG TAB PO SCH (08:43)
[2018-03-08] MEDS: Tamsulosin HCl 0.4 MG CAP PO SCH (08:43)
[2018-03-08] MEDS: Famotidine 20 MG TAB PO SCH ×2 (08:43→19:51)
[2018-03-08] MEDS: Apixaban 5 MG TAB PO SCH ×2 (08:43→19:51)
[2018-03-08] MEDS: guaiFENesin ER 600 MG TAB PO SCH ×2 (08:43→19:51)
[2018-03-08] MEDS: predniSONE 20 MG TAB PO SCH (08:43)
--- NOTE | 2018-03-08 15:37 | PDOC.PN ---
- Subjective Encounter Start Date: 03/08/18 Encounter Start Time: 11:15 Subjective: pt up in chair no complains - Objective Resuscitation Status: Resuscitation Status FULL:Full Resuscitation Vital Signs & Weight: Vital Signs (12 hours) Temp Pulse Pulse Pulse Resp BP BP 03/08/18 14:00 79 86 139/62 136/84 03/08/18 10:34 80 24 H 03/08/18 08:00 03/08/18 07:02 97.8 F 88 22 H 03/08/18 06:55 69 16 03/08/18 06:17 03/08/18 06:14 69 16 03/08/18 04:00 97.3 F L 62 14 BP Pulse Ox Pulse Ox Pulse Ox 03/08/18 14:00 92 L 91 L 03/08/18 10:34 03/08/18 08:00 96 03/08/18 07:02 104/74 96 03/08/18 06:55 93 L 03/08/18 06:17 93 L 03/08/18 06:14 93 L 03/08/18 04:00 130/68 92 L Weight Weight 184 lb Result Diagrams: 03/07/18 03:15 03/07/18 03:15 Phys Exam - Physical Examination Neck: no nodes, no JVD, supple, full ROM Respiratory: no wheezing, no rales, no rhonchi, wheezing present, clear to auscultation bilateral Cardiovascular: RRR, no significant murmur, no rub, gallop, irregular Gastrointestinal: soft, non-tender, no distention, positive bowel sounds Dx/Plan (1) Acute respiratory failure with hypoxia Code(s): J96.01 - ACUTE RESPIRATORY FAILURE WITH HYPOXIA Status: Acute (2) Acute on chronic systolic (congestive) heart failure Code(s): I50.23 - ACUTE ON CHRONIC SYSTOLIC (CONGESTIVE) HEART FAILURE Status : Acute (3) CKD (chronic kidney disease) stage 3, GFR 30-59 ml/min Code(s): N18.3 - CHRONIC KIDNEY DISEASE, STAGE 3 (MODERATE) Status: Chronic (4) BPH (benign prostatic hyperplasia) Code(s): N40.0 - BENIGN PROSTATIC HYPERPLASIA WITHOUT LOWER URINRY TRACT SYMP Status: Chronic (5) COPD (chronic obstructive pulmonary disease) Status: Chronic Comment: with possible exacerbation - Plan will continue diuretics for now -: will also continue mild steroids and abx * . Review of Systems - Review of Systems Cardiovascular: negative: chest pain, palpitations, orthopnea, paroxysmal nocturnal dyspnea, edema, light headedness, other Gastrointestinal: negative: Nausea, Vomiting, Abdominal Pain, Diarrhea, Constipation, Melena, Hematochezia, Other Genitourinary: negative: Dysuria, Frequency, Incontinence, Hematuria, Retention , Other - Medications/Allergies Allergies/Adverse Reactions: Allergies Allergy/AdvReac Type Severity Reaction Status Date / Time No Known Allergies Allergy Verified 03/06/18 23:00 Medications: Current Medications Acetaminophen (Tylenol) 650 mg PO Q4H PRN PRN Reason: Headache/Fever/Mild Pain (1-3) Hydrocodone Bitart/Acetaminophen ([place] 5/325) 1 tab PO Q4H PRN PRN Reason: Moderate Pain (4-6) Albuterol/Ipratropium (Duoneb) 3 ml NEB [id number] [facility] Last Admin: 03/08/18 10:34 Dose: 3 ml Apixaban (Eliquis) 5 mg PO BID [facility] Last Admin: 03/08/18 08:43 Dose: 5 mg Artificial Tears (Tears Naturale) 2 drop EA EYE PRN PRN PRN Reason: Dry Eyes Aspirin (Aspirin Chewable) 81 mg PO DAILY [facility] Last Admin: 03/08/18 08:43 Dose: 81 mg Bisacodyl (Dulcolax) 10 mg PO DAILYPRN PRN PRN Reason: Constipation Bisacodyl (Dulcolax) 10 mg [place] DAILYPRN PRN PRN Reason: Constipation Calcium Carbonate (Tums) 1,000 mg PO Q4H PRN PRN Reason: Heartburn or Indigestion Carvedilol (Coreg) 3.125 mg PO BID-[facility] Last Admin: 03/08/18 08:43 Dose: 3.125 mg Docusate Calcium ([place]) 240 mg PO DAILYPRN PRN PRN Reason: Constipation Famotidine (Pepcid) 20 mg PO BID [facility] Last Admin: 03/08/18 08:43 Dose: 20 mg Furosemide (Lasix) 40 mg SLOW IVP 0600,1400 [facility] Last Admin: 03/08/18 15:11 Dose: 40 mg Guaifenesin (Mucinex) 600 mg PO Q12HR [facility] Last Admin: 03/08/18 08:43 Dose: 600 mg Guaifenesin (Robitussin Sf) 200 mg PO Q4H PRN PRN Reason: Cough Hydralazine HCl (Apresoline) 10 mg SLOW IVP Q4H PRN PRN Reason: SBP > 180 and HR < 70 Levofloxacin (Levaquin) 500 mg PO 0600 [facility] Last Admin: 03/08/18 05:47 Dose: 500 mg Lisinopril (Zestril) 2.5 mg PO DAILY [facility] Last Admin: 03/08/18 08:43 Dose: 2.5 mg Loperamide HCl (Imodium) 2 mg PO PRN PRN PRN Reason: Diarrhea/Loose Stools Loratadine (Claritin) 10 mg PO DAILYPRN PRN PRN Reason: Sinus Symptoms Lovastatin (Mevacor) 40 mg PO QPM-[facility] Mineral Oil/White Petrolatum (Eucerin Cream) 0 gm TOP BIDPRN PRN PRN Reason: Dry Skin Mometasone Furoate/Formoterol Fumar (Dulera 200 Mcg/5 Mcg Inhaler) 2 puff INH BID-RT [facility] Last Admin: 03/08/18 06:55 Dose: 2 puff Nitroglycerin (Nitrostat) 0.4 mg SL Q5MIN PRN PRN Reason: Chest Pain Prednisone (Prednisone) 40 mg PO QA-[facility] Stop: 03/11/18 08:00 Last Admin: 03/08/18 08:43 Dose: 40 mg Senna/Docusate Sodium (Senokot S) 2 tab PO BID PRN PRN Reason: Constipation Sodium Chloride ([place] Nasal [place] 0.65%) 0 ml EA NARE QIDPRN PRN PRN Reason: Nasal Congestion Sodium Chloride (Flush - Normal Saline) 10 ml IVF Q12HR [facility] Last Admin: 03/08/18 08:43 Dose: 10 ml Sodium Chloride (Flush - Normal Saline) 10 ml IVF PRN PRN PRN Reason: Saline Flush Tamsulosin HCl (Flomax) 0.4 mg PO DAILY [facility] Last Admin: 03/08/18 08:43 Dose: 0.4 mg Zolpidem Tartrate (Ambien) 5 mg PO HSPRN PRN PRN Reason: Insomnia
[2018-03-08] MEDS: Lovastatin 20 MG TAB PO SCH (16:28)
--- NOTE | 2018-03-08 20:48 | CT ---
NONCONTRAST CT HEAD: 03/08/18 HISTORY: New onset of confusion, history of CVA. COMPARISON: 06/25/17. FINDINGS: There is an area of encephalomalacia seen within the posterior left frontal and parietal lobe likely related to prior area of infarction. This was not present on the prior exam. Low density foci are aga in seen in each basal ganglia, likely related to remote lacunar infarctions. There is no evidence of an acute cortical infarction, hemorrhage, mass effect, or midline shift. Mild cerebral volume loss an d chronic small vessel ischemic changes are again present. The ventricular system is normal in size, shape and position. Mucosal thickening is present in the ri ght maxillary antrum with minimal mucosal thickening in the left maxillary antrum. Mastoid air cells are clear. Prominent vascular calcifications are seen in the carotid siphons and involving the distal vertebral arteries. No other interval change. IMPRESSION: 1. No acute intracranial abnormalities are demonstrated. 2. Encephalomalacia left frontoparietal lobe which was not present on the prior exam, but this i s likely related to remote area of infarction. 3. 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 4. Stable mild chronic small vessel ischemic changes and cerebral volume loss. 5. Mild sinus disease. POS: [facility]
[2018-03-09 05:18] LABS: #Lymphocytes 2.5 thou/uL (1.20-3.40); #Monocytes 1.2 thou/uL (0.11-0.59); #Neutrophils 7.9 thou/uL (1.40-6.50); %Basophils 0.4 % (0.0-1.0); %Eosinophils 0.1 % (0.0-10.0); %Lymphocytes 21.5 % (21.0-51.0); %Monocytes 10.2 % (0.0-10.0); %Neutrophils 67.9 % (42.0-75.0); Hemoglobin 11.8 g/dL (14.0-18.0); Mean Corpuscular HGB CONC 31.2 g/dL (32.0-36.0); Mean Corpuscular Hemoglobin 28.4 pg (27.0-31.0); Mean Platelet Volume 7.8 fL (7.4-10.4); Platelet Count 351 thou/uL (130-400); RBC Distribution Width 15.2 % (11.5-14.5); Red Blood Cell (RBC) Count 4.14 mill/uL (4.70-6.10); White Blood Cell (WBC) Count 11.6 thou/uL (4.8-10.8)
[2018-03-09 05:40] LABS: Anion Gap 14 mmol/L (10-20); BUN (Urea Nitrogen) 32 mg/dL (8.4-25.7); Calc. Creatinine Clearance 41 mL/min (70-130); Calcium 9.2 mg/dL (7.8-10.44); Carbon Dioxide 30 mmol/L (23-31); Chloride 94 mmol/L (98-107); Estimated GFR-MDRD 36; Glucose 110 mg/dL (83-110); Potassium 4.1 mmol/L (3.5-5.1); Sodium 134 mmol/L (136-145)
[2018-03-09] MEDS: Furosemide 40 MG/4 ML VIAL SLOW IVP SCH ×2 (06:03→14:21)
[2018-03-09] MEDS: Mometasone/Formoterol 120 PUFF INHALER INH SCH ×2 (07:25→19:23)
[2018-03-09] MEDS: guaiFENesin ER 600 MG TAB PO SCH ×2 (09:37→21:26)
[2018-03-09] MEDS: Famotidine 20 MG TAB PO SCH ×2 (09:37→21:26)
[2018-03-09] MEDS: Lisinopril 2.5 MG TAB PO SCH (09:38)
[2018-03-09] MEDS: Carvedilol 3.125 MG TAB PO SCH ×2 (09:39→17:46)
[2018-03-09] MEDS: predniSONE 20 MG TAB PO SCH (09:39)
[2018-03-09] MEDS: Tamsulosin HCl 0.4 MG CAP PO SCH (09:39)
[2018-03-09] MEDS: Apixaban 5 MG TAB PO SCH ×2 (09:40→21:26)
--- NOTE | 2018-03-09 14:35 | MRI ---
NONCONTRAST MRI BRAIN: Date: 03-09-18 History: New onset of confusion. History of CVA. Comparison: CT head, 03-08-18 as well as MRI brain on 06-26-17. FINDINGS: As noted on the recent CT of the head, there is an area of encephalomalacia seen within the left stephania etal lobe with prominent adjacent increased FLAIR and T2 weighted signal intensity probably related t o gliosis. There is no restricted diffusion seen in this region, and no evidence of an acute infarcti on. While this has developed in the interim from the prior study, this is likely related to remote ar ea of infarction. There is significant patient motion which degrades image quality. Again noted are chronic small vesse l ischemic changes. Remote lacunar infarctions again seen in each basal ganglia. Ventricular system is normal in size, shape and position. Flow voids are difficult to adequately eval uate on this exam via significant motion but appear grossly patent. Again noted is evidence of an empty sella turcica. Mucosal thickening is seen in the bilateral maxillary antra which was not present on prior exam. Orbi ts are grossly normal in appearance. IMPRESSION: 1. Interval development of an area of encephalomalacia with prominent adjacent area of increased FLAI R and T2 weighted signal density probably related to associated gliosis. Howewver, given the degree o f presumed gliosis, postcontrast MRI brain is suggested to ensure that there is no abnormal enhanceme nt in this region. 2. Chronic small vessel ischemic changes. 3. Sinus disease. POS: [facility]
--- NOTE | 2018-03-09 16:41 | PDOC.PN ---
- Subjective Encounter Start Date: 03/09/18 Encounter Start Time: 11:15 Subjective: pt up in bed no complains - Objective Resuscitation Status: Resuscitation Status FULL:Full Resuscitation Vital Signs & Weight: Vital Signs (12 hours) Temp Pulse Resp BP BP Pulse Ox 03/09/18 15:49 68 20 03/09/18 12:41 72 20 03/09/18 09:38 90 131/64 03/09/18 08:00 98.8 F 90 16 131/64 96 03/09/18 07:25 86 20 98 03/09/18 07:00 96 03/09/18 06:51 98 03/09/18 06:49 86 20 98 Weight Weight 178 lb 9.6 oz Result Diagrams: 03/09/18 04:57 03/09/18 04:57 Phys Exam - Physical Examination Neck: no nodes, no JVD, supple, full ROM Respiratory: no wheezing, no rales, no rhonchi, wheezing present, clear to auscultation bilateral Cardiovascular: RRR, no significant murmur, no rub, gallop, irregular Gastrointestinal: soft, non-tender, no distention, positive bowel sounds Dx/Plan (1) Acute respiratory failure with hypoxia Code(s): J96.01 - ACUTE RESPIRATORY FAILURE WITH HYPOXIA Status: Acute (2) Acute on chronic systolic (congestive) heart failure Code(s): I50.23 - ACUTE ON CHRONIC SYSTOLIC (CONGESTIVE) HEART FAILURE Status : Acute (3) CKD (chronic kidney disease) stage 3, GFR 30-59 ml/min Code(s): N18.3 - CHRONIC KIDNEY DISEASE, STAGE 3 (MODERATE) Status: Chronic (4) BPH (benign prostatic hyperplasia) Code(s): N40.0 - BENIGN PROSTATIC HYPERPLASIA WITHOUT LOWER URINRY TRACT SYMP Status: Chronic (5) COPD (chronic obstructive pulmonary disease) Status: Chronic Comment: with possible exacerbation - Plan ct indicates new changes in frontal parital lobe -: mri ordered no new infarct -: will continue current tx -: possible discharge in am * . Review of Systems - Review of Systems Respiratory: negative: Cough, Dry, Shortness of Breath, Hemoptysis, SOB with Excertion, Pleuritic Pain, Sputum, Wheezing Cardiovascular: negative: chest pain, palpitations, orthopnea, paroxysmal nocturnal dyspnea, edema, light headedness, other Gastrointestinal: negative: Nausea, Vomiting, Abdominal Pain, Diarrhea, Constipation, Melena, Hematochezia, Other - Medications/Allergies Allergies/Adverse Reactions: Allergies Allergy/AdvReac Type Severity Reaction Status Date / Time No Known Allergies Allergy Verified 03/06/18 23:00 Medications: Current Medications Acetaminophen (Tylenol) 650 mg PO Q4H PRN PRN Reason: Headache/Fever/Mild Pain (1-3) Hydrocodone Bitart/Acetaminophen ([place] 5/325) 1 tab PO Q4H PRN PRN Reason: Moderate Pain (4-6) Albuterol/Ipratropium (Duoneb) 3 ml NEB [id number] Last Admin: 03/09/18 15:49 Dose: 3 ml Apixaban (Eliquis) 5 mg PO BID [facility] Last Admin: 03/09/18 09:40 Dose: 5 mg Artificial Tears (Tears Naturale) 2 drop EA EYE PRN PRN PRN Reason: Dry Eyes Aspirin (Aspirin Chewable) 81 mg PO DAILY [facility] Last Admin: 03/09/18 09:41 Dose: 81 mg Bisacodyl (Dulcolax) 10 mg PO DAILYPRN PRN PRN Reason: Constipation Bisacodyl (Dulcolax) 10 mg ND DAILYPRN PRN PRN Reason: Constipation Calcium Carbonate (Tums) 1,000 mg PO Q4H PRN PRN Reason: Heartburn or Indigestion Carvedilol (Coreg) 3.125 mg PO BID-[facility] Last Admin: 03/09/18 09:39 Dose: 3.125 mg Docusate Calcium (Surfak) 240 mg PO DAILYPRN PRN PRN Reason: Constipation Famotidine (Pepcid) 20 mg PO BID [facility] Last Admin: 03/09/18 09:37 Dose: 20 mg Furosemide (Lasix) 40 mg SLOW IVP 0600,1400 [facility] Last Admin: 03/09/18 14:21 Dose: 40 mg Guaifenesin (Mucinex) 600 mg PO Q12HR [facility] Last Admin: 03/09/18 09:37 Dose: 600 mg Guaifenesin (Robitussin Sf) 200 mg PO Q4H PRN PRN Reason: Cough Hydralazine HCl (Apresoline) 10 mg SLOW IVP Q4H PRN PRN Reason: SBP > 180 and HR < 70 Levofloxacin (Levaquin) 500 mg PO 0600 [facility] Last Admin: 03/09/18 06:03 Dose: 500 mg Lisinopril (Zestril) 2.5 mg PO DAILY [facility] Last Admin: 03/09/18 09:38 Dose: 2.5 mg Loperamide HCl (Imodium) 2 mg PO PRN PRN PRN Reason: Diarrhea/Loose Stools Loratadine (Claritin) 10 mg PO DAILYPRN PRN PRN Reason: Sinus Symptoms Lovastatin (Mevacor) 40 mg PO QPM-[facility] Last Admin: 03/08/18 16:28 Dose: 40 mg Mineral Oil/White Petrolatum (Eucerin Cream) 0 gm TOP BIDPRN PRN PRN Reason: Dry Skin Mometasone Furoate/Formoterol Fumar (Dulera 200 Mcg/5 Mcg Inhaler) 2 puff INH BID-RT [facility] Last Admin: 03/09/18 07:25 Dose: 2 puff Nitroglycerin (Nitrostat) 0.4 mg SL Q5MIN PRN PRN Reason: Chest Pain Prednisone (Prednisone) 40 mg PO QA-[facility] Stop: 03/11/18 08:00 Last Admin: 03/09/18 09:39 Dose: 40 mg Senna/Docusate Sodium (Senokot S) 2 tab PO BID PRN PRN Reason: Constipation Sodium Chloride ([place] Nasal [place] 0.65%) 0 ml EA NARE QIDPRN PRN PRN Reason: Nasal Congestion Sodium Chloride (Flush - Normal Saline) 10 ml IVF Q12HR [facility] Last Admin: 03/09/18 09:37 Dose: 10 ml Sodium Chloride (Flush - Normal Saline) 10 ml IVF PRN PRN PRN Reason: Saline Flush Last Admin: 03/09/18 14:21 Dose: 10 ml Tamsulosin HCl (Flomax) 0.4 mg PO DAILY [facility] Last Admin: 03/09/18 09:39 Dose: 0.4 mg Zolpidem Tartrate (Ambien) 5 mg PO HSPRN PRN PRN Reason: Insomnia
[2018-03-09] MEDS: Lovastatin 20 MG TAB PO SCH (17:45)
[2018-03-10] MEDS: Mometasone/Formoterol 120 PUFF INHALER INH SCH ×2 (07:50→18:23)
[2018-03-10 08:13] LABS: Anion Gap 15 mmol/L (10-20); BUN (Urea Nitrogen) 44 mg/dL (8.4-25.7); Calc. Creatinine Clearance 35 mL/min (70-130); Carbon Dioxide 26 mmol/L (23-31); Chloride 95 mmol/L (98-107); Estimated GFR-MDRD 31; Glucose 98 mg/dL (83-110); Potassium 4.2 mmol/L (3.5-5.1); Sodium 132 mmol/L (136-145)
[2018-03-10] MEDS: Tamsulosin HCl 0.4 MG CAP PO SCH (08:23)
[2018-03-10] MEDS: Carvedilol 3.125 MG TAB PO SCH ×2 (08:23→16:29)
[2018-03-10] MEDS: Lisinopril 2.5 MG TAB PO SCH (08:23)
[2018-03-10] MEDS: Apixaban 5 MG TAB PO SCH ×2 (08:23→21:11)
[2018-03-10] MEDS: guaiFENesin ER 600 MG TAB PO SCH ×2 (08:23→21:10)
[2018-03-10] MEDS: Famotidine 20 MG TAB PO SCH ×2 (08:23→21:10)
[2018-03-10] MEDS ORDERED: Furosemide 40 MG TAB PO SCH (09:00)
[2018-03-10] MEDS ORDERED: Sodium Chloride 0.9% 500 ML IV SCH (09:30)
--- NOTE | 2018-03-10 11:59 | EKG ---
Test Reason : Blood Pressure : / mmHG Vent. Rate : 081 BPM Atrial Rate : 081 BPM P-R Int : 144 ms QRS Dur : 098 ms QT Int : 448 ms P-R-T Axes : 000 014 009 degrees QTc Int : 520 ms Sinus rhythm with Premature atrial complexes Prolonged QT Abnormal ECG Confirmed by GRZEGORZ PEREZ ([id number]), offline editor RAVEN VASQUEZ ([id number]) on 03/10/2018 11:59:27 AM Referred By: Confirmed By:GRZEGORZ PEREZ
--- NOTE | 2018-03-10 16:28 | PDOC.PN ---
- Subjective Encounter Start Date: 03/10/18 Encounter Start Time: 08:45 Subjective: pt up in bed very confused - Objective Resuscitation Status: Resuscitation Status FULL:Full Resuscitation Vital Signs & Weight: Vital Signs (12 hours) Temp Pulse Pulse Pulse Resp BP BP 03/10/18 14:51 76 24 H 03/10/18 12:49 90 99 130/58 L 03/10/18 11:43 97.2 F L 80 16 119/59 L 03/10/18 11:22 76 20 03/10/18 08:08 97.4 F L 96 20 134/80 03/10/18 07:51 03/10/18 07:50 78 20 03/10/18 07:47 78 20 Pulse Ox Pulse Ox Pulse Ox 03/10/18 14:51 03/10/18 12:49 95 90 L 03/10/18 11:43 93 L 03/10/18 11:22 03/10/18 08:08 94 L 03/10/18 07:51 95 03/10/18 07:50 95 03/10/18 07:47 95 Weight Weight 176 lb I&O: 03/09/18 03/10/18 03/11/18 06:59 06:59 06:59 Intake Total 1450 Balance 1450 Result Diagrams: 03/09/18 04:57 03/10/18 07:50 Phys Exam - Physical Examination confused Respiratory: no wheezing, no rales, no rhonchi, wheezing present, clear to auscultation bilateral Cardiovascular: RRR, no significant murmur, no rub, gallop, irregular Gastrointestinal: soft, non-tender, no distention, positive bowel sounds Musculoskeletal: no edema, pulses present, edema present Dx/Plan (1) Acute respiratory failure with hypoxia Code(s): J96.01 - ACUTE RESPIRATORY FAILURE WITH HYPOXIA Status: Acute (2) Acute on chronic systolic (congestive) heart failure Code(s): I50.23 - ACUTE ON CHRONIC SYSTOLIC (CONGESTIVE) HEART FAILURE Status : Acute (3) CKD (chronic kidney disease) stage 3, GFR 30-59 ml/min Code(s): N18.3 - CHRONIC KIDNEY DISEASE, STAGE 3 (MODERATE) Status: Chronic (4) BPH (benign prostatic hyperplasia) Code(s): N40.0 - BENIGN PROSTATIC HYPERPLASIA WITHOUT LOWER URINRY TRACT SYMP Status: Chronic (5) COPD (chronic obstructive pulmonary disease) Status: Chronic Comment: with possible exacerbation (6) Acute delirium Code(s): R41.0 - DISORIENTATION, UNSPECIFIED Status: Acute - Plan pt has underlying dementia per daughter. steroids discontinued could be -: contributing to his confusion, tsh normal -: mri brain no new stroke. will give pt mild fluids since his creatinine -: worsen today.will hold lasix. * . Review of Systems - Review of Systems Other: unable to do - Medications/Allergies Allergies/Adverse Reactions: Allergies Allergy/AdvReac Type Severity Reaction Status Date / Time No Known Allergies Allergy Verified 03/06/18 23:00 Medications: Current Medications Acetaminophen (Tylenol) 650 mg PO Q4H PRN PRN Reason: Headache/Fever/Mild Pain (1-3) Hydrocodone Bitart/Acetaminophen ([place] 5/325) 1 tab PO Q4H PRN PRN Reason: Moderate Pain (4-6) Albuterol/Ipratropium (Duoneb) 3 ml NEB [id number] [facility] Last Admin: 03/10/18 14:51 Dose: 3 ml Apixaban (Eliquis) 5 mg PO BID [facility] Last Admin: 03/10/18 08:23 Dose: 5 mg Artificial Tears (Tears Naturale) 2 drop EA EYE PRN PRN PRN Reason: Dry Eyes Aspirin (Aspirin Chewable) 81 mg PO DAILY [facility] Last Admin: 03/10/18 08:23 Dose: 81 mg Bisacodyl (Dulcolax) 10 mg PO DAILYPRN PRN PRN Reason: Constipation Bisacodyl (Dulcolax) 10 mg [place] DAILYPRN PRN PRN Reason: Constipation Calcium Carbonate (Tums) 1,000 mg PO Q4H PRN PRN Reason: Heartburn or Indigestion Carvedilol (Coreg) 3.125 mg PO BID-WM [facility] Last Admin: 03/10/18 08:23 Dose: 3.125 mg Docusate Calcium (Surfak) 240 mg PO DAILYPRN PRN PRN Reason: Constipation Famotidine (Pepcid) 20 mg PO BID [facility] Last Admin: 03/10/18 08:23 Dose: 20 mg Guaifenesin (Mucinex) 600 mg PO Q12HR [facility] Last Admin: 03/10/18 08:23 Dose: 600 mg Guaifenesin (Robitussin Sf) 200 mg PO Q4H PRN PRN Reason: Cough Hydralazine HCl (Apresoline) 10 mg SLOW IVP Q4H PRN PRN Reason: SBP > 180 and HR < 70 Levofloxacin (Levaquin) 500 mg PO 0600 [facility] Lisinopril (Zestril) 2.5 mg PO DAILY [facility] Last Admin: 03/10/18 08:23 Dose: 2.5 mg Loperamide HCl (Imodium) 2 mg PO PRN PRN PRN Reason: Diarrhea/Loose Stools Loratadine (Claritin) 10 mg PO DAILYPRN PRN PRN Reason: Sinus Symptoms Lovastatin (Mevacor) 40 mg PO QPM-WM [facility] Last Admin: 03/09/18 17:45 Dose: 40 mg Mineral Oil/White Petrolatum (Eucerin Cream) 0 gm TOP BIDPRN PRN PRN Reason: Dry Skin Mometasone Furoate/Formoterol Fumar (Dulera 200 Mcg/5 Mcg Inhaler) 2 puff INH BID-RT [facility] Last Admin: 03/10/18 07:50 Dose: 2 puff Nitroglycerin (Nitrostat) 0.4 mg SL Q5MIN PRN PRN Reason: Chest Pain Senna/Docusate Sodium (Senokot S) 2 tab PO BID PRN PRN Reason: Constipation Sodium Chloride ([place] Nasal [place] 0.65%) 0 ml EA NARE QIDPRN PRN PRN Reason: Nasal Congestion Sodium Chloride (Flush - Normal Saline) 10 ml IVF Q12HR [facility] Last Admin: 03/10/18 08:24 Dose: 10 ml Sodium Chloride (Flush - Normal Saline) 10 ml IVF PRN PRN PRN Reason: Saline Flush Last Admin: 03/09/18 14:21 Dose: 10 ml Tamsulosin HCl (Flomax) 0.4 mg PO DAILY [facility] Last Admin: 03/10/18 08:23 Dose: 0.4 mg Zolpidem Tartrate (Ambien) 5 mg PO HSPRN PRN PRN Reason: Insomnia
[2018-03-10] MEDS: Lovastatin 20 MG TAB PO SCH (16:29)
[2018-03-11] MEDS: Mometasone/Formoterol 120 PUFF INHALER INH SCH ×2 (05:47→19:04)
[2018-03-11 06:54] LABS: #Basophils 0.1 thou/uL (0.0-0.2); #Lymphocytes 2.3 thou/uL (1.20-3.40); #Monocytes 1.6 thou/uL (0.11-0.59); #Neutrophils 7.7 thou/uL (1.40-6.50); %Basophils 0.7 % (0.0-1.0); %Eosinophils 0.3 % (0.0-10.0); %Lymphocytes 19.3 % (21.0-51.0); %Neutrophils 65.8 % (42.0-75.0); Hemoglobin 12.1 g/dL (14.0-18.0); Mean Corpuscular HGB CONC 31.6 g/dL (32.0-36.0); Mean Corpuscular Hemoglobin 28.5 pg (27.0-31.0); Mean Platelet Volume 7.9 fL (7.4-10.4); Platelet Count 349 thou/uL (130-400); RBC Distribution Width 15.4 % (11.5-14.5); Red Blood Cell (RBC) Count 4.24 mill/uL (4.70-6.10); White Blood Cell (WBC) Count 11.7 thou/uL (4.8-10.8)
[2018-03-11 07:13] LABS: Anion Gap 14 mmol/L (10-20); BUN (Urea Nitrogen) 51 mg/dL (8.4-25.7); Calc. Creatinine Clearance 32 mL/min (70-130); Calcium 8.8 mg/dL (7.8-10.44); Carbon Dioxide 27 mmol/L (23-31); Chloride 96 mmol/L (98-107); Estimated GFR-MDRD 29; Glucose 91 mg/dL (83-110); Potassium 4.3 mmol/L (3.5-5.1); Sodium 133 mmol/L (136-145)
[2018-03-11] MEDS: Carvedilol 3.125 MG TAB PO SCH ×2 (09:09→16:17)
[2018-03-11] MEDS: guaiFENesin ER 600 MG TAB PO SCH ×2 (09:09→21:29)
[2018-03-11] MEDS: Famotidine 20 MG TAB PO SCH (09:09)
[2018-03-11] MEDS: Apixaban 5 MG TAB PO SCH ×2 (09:09→21:29)
[2018-03-11] MEDS: Tamsulosin HCl 0.4 MG CAP PO SCH (09:09)
[2018-03-11] MEDS: Lisinopril 2.5 MG TAB PO SCH (09:18)
--- NOTE | 2018-03-11 11:16 | PDOC.PN ---
- Subjective Encounter Start Date: 03/11/18 Encounter Start Time: 10:00 Subjective: pt up in bed mentation has improved - Objective Resuscitation Status: Resuscitation Status FULL:Full Resuscitation Vital Signs & Weight: Vital Signs (12 hours) Temp Pulse Resp BP BP Pulse Ox 03/11/18 09:30 94 L 03/11/18 09:26 68 14 95 03/11/18 09:18 68 123/70 03/11/18 08:00 94 L 03/11/18 07:53 97.2 F L 81 18 123/70 87 L 03/11/18 05:47 65 18 94 L 03/11/18 05:45 65 18 94 L 03/11/18 04:05 97.7 F 65 16 116/57 L 93 L 03/11/18 02:09 74 16 94 L Weight Weight 173 lb I&O: 03/10/18 03/11/18 03/12/18 06:59 06:59 06:59 Intake Total 1450 300 Balance 1450 300 Result Diagrams: 03/11/18 06:45 03/11/18 06:45 Phys Exam - Physical Examination Respiratory: no wheezing, no rales, no rhonchi, wheezing present, clear to auscultation bilateral Cardiovascular: RRR, no significant murmur, no rub, gallop, irregular Gastrointestinal: soft, non-tender, no distention, positive bowel sounds Dx/Plan (1) Acute respiratory failure with hypoxia Code(s): J96.01 - ACUTE RESPIRATORY FAILURE WITH HYPOXIA Status: Acute (2) Acute on chronic systolic (congestive) heart failure Code(s): I50.23 - ACUTE ON CHRONIC SYSTOLIC (CONGESTIVE) HEART FAILURE Status : Acute (3) CKD (chronic kidney disease) stage 3, GFR 30-59 ml/min Code(s): N18.3 - CHRONIC KIDNEY DISEASE, STAGE 3 (MODERATE) Status: Chronic (4) BPH (benign prostatic hyperplasia) Code(s): N40.0 - BENIGN PROSTATIC HYPERPLASIA WITHOUT LOWER URINRY TRACT SYMP Status: Chronic (5) COPD (chronic obstructive pulmonary disease) Status: Chronic Comment: with possible exacerbation (6) Acute delirium Code(s): R41.0 - DISORIENTATION, UNSPECIFIED Status: Acute (7) JOSE LUIS (acute kidney injury) Code(s): N17.9 - ACUTE KIDNEY FAILURE, UNSPECIFIED Status: Acute - Plan pt's creatinine is worsening will get ultrasound, lisinopril stopped -: pt encouraged to drink water -: Addenndum in the MRI brain recommended MRI brain with contrast -: pt will need this as outpatient. i have spoken with stacy (daughter) -: pt's mentation is improving Review of Systems - Review of Systems Respiratory: negative: Cough, Dry, Shortness of Breath, Hemoptysis, SOB with Excertion, Pleuritic Pain, Sputum, Wheezing Cardiovascular: negative: chest pain, palpitations, orthopnea, paroxysmal nocturnal dyspnea, edema, light headedness, other Gastrointestinal: negative: Nausea, Vomiting, Abdominal Pain, Diarrhea, Constipation, Melena, Hematochezia, Other - Medications/Allergies Allergies/Adverse Reactions: Allergies Allergy/AdvReac Type Severity Reaction Status Date / Time No Known Allergies Allergy Verified 03/06/18 23:00 Medications: Current Medications Acetaminophen (Tylenol) 650 mg PO Q4H PRN PRN Reason: Headache/Fever/Mild Pain (1-3) Last Admin: 03/10/18 21:15 Dose: 650 mg Hydrocodone Bitart/Acetaminophen ([place] 5/325) 1 tab PO Q4H PRN PRN Reason: Moderate Pain (4-6) Albuterol/Ipratropium (Duoneb) 3 ml NEB [id number] PRN PRN Reason: SOB &/or Wheezing Apixaban (Eliquis) 5 mg PO BID [facility] Last Admin: 03/11/18 09:09 Dose: 5 mg Artificial Tears (Tears Naturale) 2 drop EA EYE PRN PRN PRN Reason: Dry Eyes Aspirin (Aspirin Chewable) 81 mg PO DAILY [facility] Last Admin: 03/11/18 09:09 Dose: 81 mg Bisacodyl (Dulcolax) 10 mg PO DAILYPRN PRN PRN Reason: Constipation Bisacodyl (Dulcolax) 10 mg ND DAILYPRN PRN PRN Reason: Constipation Calcium Carbonate (Tums) 1,000 mg PO Q4H PRN PRN Reason: Heartburn or Indigestion Carvedilol (Coreg) 3.125 mg PO BID-[facility] Last Admin: 03/11/18 09:09 Dose: 3.125 mg Docusate Calcium (Surfak) 240 mg PO DAILYPRN PRN PRN Reason: Constipation Famotidine (Pepcid) 20 mg PO DAILY [facility] Guaifenesin (Mucinex) 600 mg PO Q12HR [facility] Last Admin: 03/11/18 09:09 Dose: 600 mg Guaifenesin (Robitussin Sf) 200 mg PO Q4H PRN PRN Reason: Cough Hydralazine HCl (Apresoline) 10 mg SLOW IVP Q4H PRN PRN Reason: SBP > 180 and HR < 70 Loperamide HCl (Imodium) 2 mg PO PRN PRN PRN Reason: Diarrhea/Loose Stools Loratadine (Claritin) 10 mg PO DAILYPRN PRN PRN Reason: Sinus Symptoms Lovastatin (Mevacor) 40 mg PO QPM-WM [facility] Last Admin: 03/10/18 16:29 Dose: 40 mg Mineral Oil/White Petrolatum (Eucerin Cream) 0 gm TOP BIDPRN PRN PRN Reason: Dry Skin Mometasone Furoate/Formoterol Fumar (Dulera 200 Mcg/5 Mcg Inhaler) 2 puff INH BID-RT [facility] Last Admin: 03/11/18 05:47 Dose: 2 puff Nitroglycerin (Nitrostat) 0.4 mg SL Q5MIN PRN PRN Reason: Chest Pain Senna/Docusate Sodium (Senokot S) 2 tab PO BID PRN PRN Reason: Constipation Sodium Chloride ([place] Nasal [place] 0.65%) 0 ml EA NARE QIDPRN PRN PRN Reason: Nasal Congestion Sodium Chloride (Flush - Normal Saline) 10 ml IVF Q12HR [facility] Last Admin: 03/11/18 09:10 Dose: 10 ml Sodium Chloride (Flush - Normal Saline) 10 ml IVF PRN PRN PRN Reason: Saline Flush Last Admin: 03/09/18 14:21 Dose: 10 ml Tamsulosin HCl (Flomax) 0.4 mg PO DAILY [facility] Last Admin: 03/11/18 09:09 Dose: 0.4 mg
--- NOTE | 2018-03-11 13:36 | ULT ---
BILATERAL RENAL ULTRASOUND: Date: 03/11/18 HISTORY: Acute kidney insufficiency. FINDINGS: Right kidney measures approximately 9.0 cm in length and left kidney measures approximately 10.0 cm i n length. No evidence of hydronephrosis. Cortical echogenicity appears slightly increased. No mass or cyst. The urinary bladder is mildly distended and appears unremarkable. IMPRESSION: Very mild increase in cortical echogenicity. Renal ultrasound otherwise unremarkable. POS: [facility]
[2018-03-11] MEDS: Lovastatin 20 MG TAB PO SCH (16:17)
[2018-03-12 05:53] LABS: Anion Gap 15 mmol/L (10-20); BUN (Urea Nitrogen) 43 mg/dL (8.4-25.7); Calc. Creatinine Clearance 38 mL/min (70-130); Calcium 8.8 mg/dL (7.8-10.44); Carbon Dioxide 23 mmol/L (23-31); Chloride 100 mmol/L (98-107); Estimated GFR-MDRD 36; Glucose 87 mg/dL (83-110); Potassium 3.7 mmol/L (3.5-5.1); Sodium 134 mmol/L (136-145)
[2018-03-12] MEDS: Mometasone/Formoterol 120 PUFF INHALER INH SCH ×2 (07:01→18:24)
[2018-03-12] MEDS ORDERED: Famotidine 20 MG TAB PO SCH (09:00)
[2018-03-12] MEDS: Tamsulosin HCl 0.4 MG CAP PO SCH (09:37)
[2018-03-12] MEDS: guaiFENesin ER 600 MG TAB PO SCH (09:37)
[2018-03-12] MEDS: Carvedilol 3.125 MG TAB PO SCH ×2 (09:37→17:22)
[2018-03-12] MEDS: Apixaban 5 MG TAB PO SCH (09:37)
[2018-03-12 16:45] VITALS: BP 118/78; TEMP 97.2
[2018-03-12] MEDS: Lovastatin 20 MG TAB PO SCH (17:22)
--- NOTE | 2018-03-13 05:24 | DIS ---
DATE OF ADMISSION: 03/06/2018 DATE OF DISCHARGE: 03/12/2018 DISCHARGE DIAGNOSES: 1. Acute hypoxic respiratory failure, resolved. 2. Acute on chronic systolic congestive heart failure with ejection fraction of 40%-45%, stable. 3. Chronic kidney disease, stage 3. 4. Acute delirium, multifactorial. 5. Dementia, early. CONSULTATIONS: None. PERTINENT LABORATORY DATA AND X-RAY FINDINGS: Creatinine ranged between 1.46 to 2.20. Estimated GFR ranged between 29 to 47. BNP 2984 previously noted 499 on 09/12/2017. TSH 2.23, vitamin B12 level 572. CBC showed a white blood cell count ranging between 10.5 to 13.4, hemoglobin ranged between 11. 8 to 12.1. Portable chest x-ray dated 03/06/2018 showed cardiomegaly without obvious pulmonary edema . CT of the brain without contrast dated 03/08/2018 showed no acute intracranial process. Encephalo malacia of the left frontoparietal lobe likely due to a remote area of infarct. Remote lacunar infar ctions in each basil ganglia. Chronic small vessel ischemic changes noted. MRI of the brain dated 1 showed encephalomalacia in the left parietal lobe with increased flair activity related to gliosis likely due to remote area of infarct. Chronic small vessel ischemic changes noted. Renal ul trasound dated 03/11/2018 showed no acute process. HOSPITAL COURSE: Patient was initially admitted to the medical floor after initially admitted to the telemetry unit after presenting with acute respiratory failure with hypoxemia in the context of acut e on chronic systolic congestive heart failure exacerbation. Patient was placed on oxygen therapy an d given diuretic therapy with Lasix. Patient clinically respond in the first 24 to 48 hours in conju nction with fluid restriction of 1.5 liters per day. Patient was placed on lisinopril 2.5 mg daily a nd monitored for clinical response. Patient also received general pulmonary supportive measures incl uding IV Solu-Medrol, bronchodilator therapy, and Dulera with overall stabilization of pulmonary stat us. Patient was also noted with delirium during the hospital course likely multifactorial and metabo lic in nature. Patient also likely with underlying [id number] dementia with recommendations fo r outpatient followup and monitoring. I have examined the patient at the time of discharge and discu ssed followup instructions with the patient's spouse and daughter. Patient overall clinically stable and ready for discharge on 03/12/2018. DISCHARGE MEDICATIONS: 1. Eliquis 5 mg p.o. b.i.d. 2. Aspirin enteric-coated 81 mg p.o. daily. 3. Coreg 3.125 mg p.o. b.i.d. 4. Lasix 40 mg p.o. daily. 5. Gabapentin 400 mg p.o. t.i.d. 6. Lovastatin 40 mg p.o. at bedtime. 7. Protonix 40 mg p.o. daily. 8. Tamsulosin 0.4 mg p.o. daily. 9. Lisinopril 2.5 mg p.o. daily. 10. Dulera 200/5 mcg 2 puffs inhaled b.i.d. FOLLOWUP: Patient will follow up with Dr. Monae Walker on 03/15/2018 at 3:30 p.m. Patient may also follow up with [facility]. CONDITION ON DISCHARGE: Fair. ACTIVITY: Ad lloyd. DIET: Heart healthy. CODE STATUS: FULL. DISPOSITION: Home on 03/12/2018. Total time preparing and coordinating discharge 35 minutes.
== END 2018-03-12 19:18 | disposition home or self-care (01) | DRG 291 ==
LOC: ERS 20:14 → ERHOLD 23:16 → 2NO 03-07 12:58 → T4-A 03-10 17:53
PROVIDERS: ADMIT Internal Medicine; ATTEND Internal Medicine
DX: I13.0 Hypertensive heart and chronic kidney disease with heart failure and stage 1 through stage 4 chronic kidney disease, or unspecified chronic kidney disease (principal); I50.23 Acute on chronic systolic (congestive) heart failure; J96.01 Acute respiratory failure with hypoxia; I24.8 Other forms of acute ischemic heart disease; J44.1 Chronic obstructive pulmonary disease with (acute) exacerbation; I42.9 Cardiomyopathy, unspecified; R41.0 Disorientation, unspecified; N18.3 Chronic kidney disease, stage 3 (moderate); I48.0 Paroxysmal atrial fibrillation; Z95.1 Presence of aortocoronary bypass graft; Z87.891 Personal history of nicotine dependence; I25.2 Old myocardial infarction; Z79.899 Other long term (current) drug therapy; Z79.82 Long term (current) use of aspirin; Z79.01 Long term (current) use of anticoagulants; I25.10 Atherosclerotic heart disease of native coronary artery without angina pectoris; N40.0 Benign prostatic hyperplasia without lower urinary tract symptoms; E78.5 Hyperlipidemia, unspecified; I73.9 Peripheral vascular disease, unspecified; F03.90 Unspecified dementia, unspecified severity, without behavioral disturbance, psychotic disturbance, mood disturbance, and anxiety
CPT/HCPCS: 36415; 70450; 70551; 71045; 76770; 80048; 80053; 81001; 82553; 82607; 83735; 83880; 84443; 84484; 84550; 85025; 93005; 93798; 94640; 96374; 96375; 96376; J1940; J2920; J7506; J7620

== ENCOUNTER 2018-07-16 08:14 | Outpatient (CLI) | payer MEDICARE, OTHER ==
--- NOTE | 2018-07-16 09:55 | ULT ---
ABDOMINAL AORTA ULTRASOUND: FINDINGS: The proximal aorta measures up to 2.4 cm. The mid aorta measures up to 2.6 cm. The distal aorta is aneurysmal, with a possible focal dissection (the aorta measures just over 3 cm). 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 A CT angiogram is recommended. There is also a possibility this could be an aortobiiliac graft with flow within the [place] and grafted aorta. CODE: T POS: [facility]
== END 2018-07-16 08:15 | disposition home or self-care (01) ==
LOC: ULT 08:14
PROVIDERS: ATTEND Internal Medicine Geriatric Medicine
DX: Z13.6 Encounter for screening for cardiovascular disorders (principal); Z00.00 Encounter for general adult medical examination without abnormal findings; Z87.891 Personal history of nicotine dependence
CPT/HCPCS: 76775

== ENCOUNTER 2018-07-18 10:47 | Outpatient (CLI) | payer MEDICARE, OTHER ==
[~2018-07-18 10:47] MED LIST: Iopamidol 370 76% 100 ML VIAL ONE
--- NOTE | 2018-07-18 14:20 | CT ---
CT ANGIO OF ABDOMEN PERFORMED WITH INTRAVENOUS CONTRAST ENHANCEMENT WITH 3D RECONSTRUCTIONS: History: Follow up abdominal aortic ultrasound which showed a possible dissection of the distal abdo bridgette aorta. Comparison: 07-16-18 Ultrasound FINDINGS: Lung bases show some linear interstitial scarring. The liver and spleen as well as pancreas regions appear unremarkable. There is density within the gal lbladder, probably a stone, but ultrasound would be recommended to exclude soft tissue mass. Right and left adrenal glands are normal in appearance. The right and left kidneys are within normal limits of size. No obstruction. No significant periaortic or mesenteric adenopathy. Angiographic portion of this study shows a patent celiac artery. There is extensive atherosclerotic d isease associated with the superior mesenteric artery with some moderate narrowing near the origin. T here is moderate atherosclerotic plaque at the origin of the single right renal artery which shows mi ld stenosis. There is also mild narrowing and calcification associated with the origin of the left re nal artery. There is a second lower pole left renal artery which arises from the aorta. There is an a ortoiliac graft with the distal anastomosis at the level of the femoral arteries. The [place] abdomina l aorta measures 3 cm in the super renal portion. There is flow within the [place] distal abdominal ao rta with moderate atherosclerotic change with occlusion of the left common iliac artery. The right co mmon iliac artery is patent. The right internal iliac artery is patent. The right external iliac etienne ry is occluded at its origin. There is no flow seen within the [place] left internal or external iliac arteries. The distal anastomosis on the right side with the [place] common femoral artery shows aneur ysmal dilatation with an AP measurement of 2.7 cm. There is a pseudoaneurysm arising from the anterio r margin of the dilated femoral artery and a small pseudoaneurysm arising along the anterior border o f the distal end of the iliac portion of this graft. The superior mesenteric artery is occluded. Ther e is flow within the profunda femoral artery. On the left side there is a pseudoaneurysmal outpouchin g of the distal rim of this graft. The pseudoaneurysmal like component measures 1.4 cm in AP dimensio n. The graft then tapers to a normal caliber as it enters the dilated left femoral artery which measu res 2.2 cm. There is no flow seen within the superficial femoral artery. There is flow within the pro jes femoral. There is what is probably some type of graft placement in the region of the left super ficial femoral artery incompletely visualized. There is also a small piece of what appears to be an o ld graft, probably a fem-fem graft. Incidental note is made of sigmoid diverticulosis. Prostate calcification is seen. There are marked a rthritic changes of the spine. IMPRESSION: 1. Patient is status post aortobifemoral graft with findings as discussed above. 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 In addition, there is flow within the [place] aorta and right common iliac and right int ernal iliac arteries as discussed above. 2. Sigmoid diverticulosis. 3. Probable gallstone. POS: [facility]
== END 2018-07-18 10:48 | disposition home or self-care (01) ==
LOC: CT 10:47
PROVIDERS: ATTEND Internal Medicine Geriatric Medicine
DX: I71.00 Dissection of unspecified site of aorta (principal); I72.4 Aneurysm of artery of lower extremity; I70.203 Unspecified atherosclerosis of native arteries of extremities, bilateral legs; K57.30 Diverticulosis of large intestine without perforation or abscess without bleeding
CPT/HCPCS: 36415; 74174; 80053; 80061; 82306; 82607; 84443; 85025; Q9967

== ENCOUNTER 2018-08-08 11:47 | Outpatient (CLI) | payer MEDICARE, OTHER ==
--- NOTE | 2018-08-08 13:40 | CT ---
FCTA ABD AND PELVIS AND BILATERAL RUNOFF: HISTORY: Peripheral vascular disease. FINDINGS: Contrast-enhanced CTA of the abdominal aorta, pelvis, and bilateral lower extremity arterial system was performed. 2-D and 3-D reconstruction images performed on an independent 3-D workstation. The lung bases demonstrate some lung parenchymal scarring. No evidence of free intraperitoneal air is seen. The liver is unremarkable. The gallbladder has a partially collapsed portion in the more normal porti on. There may be a circumferential gallbladder mass including malignancy in the gallbladder. Correla te with gallbladder sonography. The pancreas is unremarkable. The spleen is unremarkable. Calcifications seen in the origin of the right and left renal arteries. In addition, atherosclerotic calcification is also seen in the celiac and superior mesenteric arteries. Multilevel lumbar degenerative change is seen. Descending and sigmoid colonic diverticulosis is present. There is an intraosseous calcified lesion in the distal left femur compatible with an area of bony in farction. Other possibilities could include enchondroma. Abdominal aorta: There is an infrarenal abdominal aortic aneurysm. An aorto bifemoral graft is presen t and is patent providing flow to the right and left, femoral arteries. There are extensive bilateral iliac artery calcifications and complete thrombosis and occlusion of th e left common iliac artery. There is some flow in the right common and internal iliac arteries. There is an area of aneurysmal dilatation along the distal aspect of the left femoral component of the gra ft seen on axial image #135 diameter measuring 1.9 cm. Pseudoaneurysms seen bilaterally at the juncti on of the right and left aorto bifemoral graft anastomosis with the common femoral arteries. The area of aneurysmal dilatation in the right measures 3.4 x 2.9 cm while on the left measures 2.4 x 2.3 cm. There is a portion of a femorofemoral graft which is seen in the subcutaneous tissues. Inflow and out flow components have been surgically removed. No evidence of blood flow seen within the femorofemoral residual graft. Right lower extremity: The right superficial femoral artery is completely thrombosed along its entire course. Extensive profunda collaterals are seen extending into the right thigh. These profunda colla terals reconstitute the post trifurcation arteries well into the distal right popliteal artery. The m ajority of the right popliteal artery is thrombosed. Some profunda collaterals help reconstitute the right anterior tibial artery, right peroneal trunk and right peroneal and posterior tibial arteries. Left lower extremity: Extensive profunda collaterals are present. The left SFA is completely thrombos ed. The left femoropopliteal graft is also thrombosed. There is some flow seen via profunda collater als into the left peroneal artery. No significant flow is seen in the proximal left anterior and post erior tibial arteries. There is some reconstitution and some flow seen in the left distal posterior t ibial and anterior tibial arteries. IMPRESSION: Completely thrombosed bilateral superficial femoral arteries. The aorto bifemoral graft i s patent. Left femoropopliteal graft is occluded completely. Extensive bilateral profunda collaterals provide flow to the post trifurcation arteries. Transcribed Date/Time: 08/08/2018 1:40 PM
== END 2018-08-08 11:48 | disposition home or self-care (01) ==
LOC: CT 11:47
PROVIDERS: ATTEND Thoracic Surgery (Cardiothoracic Vascular Surgery)
DX: I73.9 Peripheral vascular disease, unspecified (principal); T82.868A Thrombosis due to vascular prosthetic devices, implants and grafts, initial encounter; I82.813 Embolism and thrombosis of superficial veins of lower extremities, bilateral
CPT/HCPCS: 75635; 82565

== ENCOUNTER 2019-03-26 10:04 | Outpatient (CLI) | payer MEDICARE, OTHER ==
--- NOTE | 2019-03-26 10:37 | RAD ---
EXAM: Two views chest PROVIDED CLINICAL HISTORY: Dyspnea COMPARISON: 01/22/2018 FINDINGS: The cardiac silhouette is mildly enlarged. Pulmonary vasculature is within normal limits. Postsurgica l changes related to median sternotomy are again seen. There is persistent blunting of each lateral costophrenic angle may represent small left and tiny right pleural effusions with associated atelecta sis. Pleural and parenchymal scarring at each lung base is also a possibility. There is mild nonspecific prominence of interstitial densities present at each lung base. Vascular calcifications a re again seen in the thoracic aorta. There is been no significant interval change when compared to the prior exam given differences in technique. IMPRESSION: 1. Small left and tiny right pleural effusions with increased interstitial densities at each lung bas e which could be related to an element of mild asymmetric pulmonary edema or infectious process. 2. Mild cardiomegaly. 3. Remote right-sided rib fractures..
== END 2019-03-26 10:05 | disposition home or self-care (01) ==
LOC: RAD 10:04
PROVIDERS: ATTEND Internal Medicine Critical Care Medicine
DX: R06.00 Dyspnea, unspecified (principal); I51.7 Cardiomegaly; J98.4 Other disorders of lung
CPT/HCPCS: 71046

== ENCOUNTER 2019-03-29 14:41 | Outpatient (CLI) | payer MEDICARE, OTHER ==
--- NOTE | 2019-03-29 15:33 | RAD ---
PA AND LATERAL CHEST: 03/29/19 HISTORY: Shortness of breath. COMPARISON: 09/06/16 and an 03/26/19 exam. Heart size is enlarged with chronic appearing lung changes seen. Flattening to the hemidiaphragms are noted. I do not appreciate any definite infiltrative process. IMPRESSION: Cardiomegaly with chronic appearing lung change. POS: TPC
== END 2019-03-29 14:42 | disposition home or self-care (01) ==
LOC: BICRAD 14:41
PROVIDERS: ATTEND Family Medicine
DX: I50.42 Chronic combined systolic (congestive) and diastolic (congestive) heart failure (principal)
CPT/HCPCS: 36415; 71046; 80048; 83880; 85025

== ENCOUNTER 2019-04-10 14:34 | Inpatient (IN) | payer MEDICARE, OTHER ==
--- NOTE | 2019-04-10 15:39 | RAD ---
EXAM: CHEST ONE VIEW HISTORY: Shortness of breath, dyspnea. COMPARISON: 03/29/2019 FINDINGS: Postsurgical changes related to CABG are again noted. Cardiac silhouette is magnified by projection b ut does appear mildly enlarged. Chronic appearing lung changes are again seen. There are slightly greater interstitial densities now seen at the right lung base on today's examination which could be related to acute infectious process superimposed on chronic lung changes. There is persistent mild blunting of the left lateral costophrenic angle which may related to mild pleural and parenchymal sca rring. Remote right-sided rib fractures are again seen. There is osteopenia. Vascular calcifications are seen in the thoracic aorta IMPRESSION: Chronic lung changes with possible superimposed more acute infectious process at the right lung base. Follow-up PA and lateral chest x-ray is recommended.
[2019-04-10 15:42] LABS: #Basophils 0.1 thou/uL (0.0-0.2); #Eosinphils 0.2 thou/uL (0.0-0.7); #Lymphocytes 2.3 thou/uL (1.20-3.40); #Monocytes 1.4 thou/uL (0.11-0.59); #Neutrophils 7.7 thou/uL (1.40-6.50); %Basophils 0.8 % (0.0-1.0); %Eosinophils 1.3 % (0.0-10.0); %Lymphocytes 19.9 % (21.0-51.0); %Monocytes 11.7 % (0.0-10.0); %Neutrophils 66.3 % (42.0-75.0); Hemoglobin 11.8 g/dL (14.0-18.0); Mean Corpuscular HGB CONC 32.7 g/dL (32.0-36.0); Mean Platelet Volume 8.4 fL (7.4-10.4); Platelet Count 298 thou/uL (130-400); RBC Distribution Width 13.2 % (11.5-14.5); Red Blood Cell (RBC) Count 3.57 mill/uL (4.70-6.10); White Blood Cell (WBC) Count 11.6 thou/uL (4.8-10.8)
[2019-04-10 16:05] LABS: ALT (SGPT) 9 U/L (8-55); AST (SGOT) 9 U/L (5-34); Albumin 3.6 g/dL (3.4-4.8); Alkaline Phosphatase 79 U/L (40-110); Anion Gap 11 mmol/L (10-20); BUN (Urea Nitrogen) 24 mg/dL (8.4-25.7); Bilirubin, Total 0.6 mg/dL (0.2-1.2); Calc. Creatinine Clearance 0 mL/min (70-130); Carbon Dioxide 30 mmol/L (23-31); Chloride 99 mmol/L (98-107); Estimated GFR-MDRD 40; Globulin 3.9 g/dL (2.4-3.5); Glucose 100 mg/dL (83-110); Potassium 4.9 mmol/L (3.5-5.1); Protein, Total 7.5 g/dL (5.8-8.1); Sodium 135 mmol/L (136-145)
[2019-04-10 16:26] LABS: CKMB 1.5 ng/mL (0-6.6)
[2019-04-10] MEDS ORDERED: Furosemide 40 MG/4 ML VIAL ONE (16:35)
[2019-04-10] MEDS ORDERED: Aspirin 325 MG TAB ONE (16:35)
[2019-04-10 17:46] LABS: Troponin I 0.063 ng/mL (< 0.028)
[2019-04-10] MEDS ORDERED: Guaifenesin DM 100-10/5 ML UDCUP PO PRN (18:50)
[2019-04-10] MEDS ORDERED: Bisacodyl 10 MG SUPP PR PRN (18:50)
[2019-04-10] MEDS ORDERED: Senokot S 8.6-50 MG TAB PO PRN (18:50)
--- NOTE | 2019-04-10 19:24 | HP ---
REASON FOR ADMISSION: Acute CHF exacerbation, mild COPD exacerbation, possible viral illness. HISTORY OF PRESENTING ILLNESS: The patient gives history of worsening shortness of breath from last 2 days. He has chronic edema in both lower extremities, but this has become worse from last one week or so, which has been slowly building up per patient. No complaints of chest pain or palpitation. Has cough with expectoration of yellow sputum. No fever. He has not had a flu shot for this year yet. He follows up with Dr. Del Rosario. He normally ambulates with a cane and does all his activities of daily living at home. From last 2 days, this has become difficult with his shortness of breath. PAST MEDICAL AND SURGICAL HISTORY: History of coronary artery disease with prior CABG, history of NH in 2017, back surgery, dyslipidemia, hypertension, benign prostatic hypertrophy, history of paroxysmal atrial fibrillation, left femoral-popliteal, dyslipidemia, peripheral vascular disease, and neuropathy. CURRENT MEDICATIONS: The patient is on: 1. Gabapentin 400 mg p.o. three times daily. 2. Protonix 40 mg p.o. daily. 3. Lasix 40 mg daily. 4. Coreg 3.125 mg twice daily. 5. Eliquis 5 mg twice daily. 6. Aspirin 81 mg p.o. daily. 7. Lovastatin 40 mg p.o. daily. 8. Dulera inhaler twice daily. ALLERGIES: NO KNOWN DRUG ALLERGIES. PERSONAL HISTORY: Quit smoking 25 years ago, prior to which has smoked 1 pack a day for nearly 30 years. Does not abuse alcohol or drugs. Lives with his . FAMILY HISTORY: Both parents in the 90s. Father had history of stroke. CODE STATUS: Full. Power of tax associate attorney is his . REVIEW OF SYSTEMS: CONSTITUTIONAL: Negative for weight loss or gain, ability to conduct usual activities. SKIN: Negative for rash, itching. EYES: Negative for double vision, pain. ENT/MOUTH: Negative for nose bleeding, neck stiffness, pain, tenderness. CARDIOVASCULAR: Negative for palpitations, dyspnea on exertion, orthopnea. RESPIRATORY: Negative for shortness of breath, wheezing, cough, hemoptysis, fever or night sweats. GASTROINTESTINAL: Negative for poor appetite, abdominal pain, heartburn, nausea , vomiting, constipation, or diarrhea. GENITOURINARY: Negative for urgency, frequency, dysuria, nocturia. MUSCULOSKELETAL: Negative for pain, swelling. NEUROLOGIC/PSYCHIATRIC: Negative for anxiety, depression. ALLERGY/IMMUNOLOGIC: Negative for skin rash, bleeding tendency. PHYSICAL EXAMINATION: GENERAL: The patient is a 74-year-old male, who is currently in mild respiratory distress due to shortness of breath. VITAL SIGNS: Blood pressure 114/54, pulse 90 per minute, respiratory rate 22 per minute, temperature 97.6 degrees Fahrenheit, and saturating 95% on room air. NECK: Supple. No elevated JVD. HEENT: Eyes; extraocular muscles intact. Pupils reacting to light. Oral cavity, mucous membranes are moist. No exudates or congestion. CARDIOVASCULAR SYSTEM: S1 and S2 heard. Regular rhythm. RESPIRATORY SYSTEM: Air entry 1+ bilateral. Rales plus bilateral. Occasional wheezes plus. ABDOMEN: Soft. Bowel sounds heard. No tenderness, rigidity, or guarding. EXTREMITIES: There is 2+ peripheral edema. No calf tenderness. VASCULAR SYSTEM: Peripheral pulses 1+ bilateral. No ischemic ulcerations or gangrene. CENTRAL NERVOUS SYSTEM: No gross focal deficits noted. The patient is alert, awake, and oriented well. PSYCHIATRIC SYSTEM: The patient's mood is euthymic. No hallucinations or delusions. LABORATORY DATA: White count of 11, hemoglobin and hematocrit of 11 and 36, platelet count 298, MCV is 101 with 66% neutrophils. BUN 24, creatinine 1.6, and serum glucose 100. Troponin I is indeterminate, peaking up to 0.07, CK-MB 1.5. Liver enzymes within normal limits. BNP is 3115. Albumin is 3.6. Chest x-ray done shows pulmonary vascular congestion. EKG done shows normal sinus rhythm at 92 beats per minute. There are signs of LVH seen. CLINICAL IMPRESSION AND PLAN: The patient will be admitted to telemetry for acute congestive heart failure exacerbation with likely systolic dysfunction. His last echo was done in 2018, which showed EF of around 40% to 45%. He has received 80 mg of Lasix in the ER and we will continue him on 40 mg IV at 6 a.m. and 2 p.m. We will continue his Eliquis, aspirin, Coreg, lisinopril, Neurontin, lovastatin, Protonix, and Flomax as before. The patient will be on DuoNebs q.6 hourly. We will also empirically place him on doxycycline 100 mg twice daily. PT/OT evaluations will be obtained for early mobilization. We will also obtain echo with 2D Doppler for current ejection fraction. Respiratory virus panel, PCR will be obtained in view of the patient having a flu-like illness from last 2 to 3 days now. TSH in the morning will be obtained as well. BERNIE deshpande for the lower extremities for 2+ peripheral edema. We will continue to closely monitor him on telemetry. Dr. Logan will be consulted, who is covering Dr. Del Rosario for Cardiology. Job ID: [id number] MTDD
[2019-04-10] MEDS: Gabapentin 400 MG CAP PO SCH (20:15)
[2019-04-10] MEDS: Doxycycline 100 MG CAP PO SCH (20:15)
[2019-04-10] MEDS: Carvedilol 3.125 MG TAB PO SCH (20:15)
[2019-04-10] MEDS: Apixaban 5 MG TAB PO SCH (20:15)
[2019-04-11 05:06] LABS: #Basophils 0.1 thou/uL (0.0-0.2); #Eosinphils 0.2 thou/uL (0.0-0.7); #Lymphocytes 1.9 thou/uL (1.20-3.40); #Monocytes 1.5 thou/uL (0.11-0.59); #Neutrophils 7.8 thou/uL (1.40-6.50); %Basophils 0.6 % (0.0-1.0); %Eosinophils 1.7 % (0.0-10.0); %Lymphocytes 16.7 % (21.0-51.0); %Monocytes 12.9 % (0.0-10.0); %Neutrophils 68.1 % (42.0-75.0); Hemoglobin 12.2 g/dL (14.0-18.0); Mean Corpuscular HGB CONC 31.7 g/dL (32.0-36.0); Mean Corpuscular Hemoglobin 32.1 pg (27.0-31.0); Mean Platelet Volume 8.5 fL (7.4-10.4); Platelet Count 283 thou/uL (130-400); RBC Distribution Width 13.1 % (11.5-14.5); White Blood Cell (WBC) Count 11.4 thou/uL (4.8-10.8)
[2019-04-11 05:23] LABS: Anion Gap 8 mmol/L (10-20); BUN (Urea Nitrogen) 23 mg/dL (8.4-25.7); Calc. Creatinine Clearance 44 mL/min (70-130); Calcium 9.1 mg/dL (7.8-10.44); Carbon Dioxide 34 mmol/L (23-31); Chloride 97 mmol/L (98-107); Estimated GFR-MDRD 39; Glucose 91 mg/dL (83-110); Potassium 4.4 mmol/L (3.5-5.1); Sodium 135 mmol/L (136-145)
[2019-04-11] MEDS: Furosemide 40 MG/4 ML VIAL SLOW IVP SCH ×2 (05:27→15:10)
[2019-04-11] MEDS: Mometasone/Formoterol 120 PUFF INHALER INH SCH ×2 (06:49→18:35)
[2019-04-11] MEDS: Apixaban 5 MG TAB PO SCH ×2 (08:42→20:55)
[2019-04-11] MEDS: Gabapentin 400 MG CAP PO SCH ×3 (08:42→20:55)
[2019-04-11] MEDS: Carvedilol 3.125 MG TAB PO SCH (08:42)
[2019-04-11] MEDS: Lisinopril 2.5 MG TAB PO SCH (08:43)
[2019-04-11] MEDS: Aspirin Chewable 81 MG TAB PO SCH (08:43)
[2019-04-11] MEDS: Doxycycline 100 MG CAP PO SCH ×2 (08:44→20:55)
[2019-04-11] MEDS: Tamsulosin HCl 0.4 MG CAP PO SCH (08:45)
--- NOTE | 2019-04-11 11:48 | PDOC.HOSPP ---
- Subjective Encounter Date: 04/11/19 Encounter Time: 10:15 Subjective: sob is better has trouble bringing up sputum has ambulated in hallway with PT sitting in chair now, at bedside no c/o palp or chest pain - Objective Vital Signs & Weight: Vital Signs (12 hours) Temp Pulse Pulse Pulse Resp BP BP 04/11/19 09:05 85 97 130/60 04/11/19 08:43 84 135/68 04/11/19 08:00 97.4 F L 87 14 04/11/19 06:49 84 16 04/11/19 06:43 04/11/19 06:39 84 16 04/11/19 03:47 97.2 F L 83 16 04/11/19 00:12 89 16 BP BP Pulse Ox 04/11/19 09:05 105/50 L 04/11/19 08:43 04/11/19 08:00 135/68 92 L 04/11/19 06:49 04/11/19 06:43 92 L 04/11/19 06:39 04/11/19 03:47 125/72 97 04/11/19 00:12 95 Weight Weight 180 lb 14.4 oz I&O: 04/10/19 04/11/19 04/12/19 06:59 06:59 06:59 Intake Total 240 Balance 240 Result Diagrams: 04/11/19 04:48 04/11/19 04:48 Hospitalist ROS - Medication Medications: Active Medications Generic Name Dose Route Start Last Admin Trade Name Gurpreetq PRN Reason Stop Dose Admin Albuterol/Ipratropium 3 ml 04/10/19 19:00 04/11/19 06:39 Duoneb NEB 3 ml [id number] DANAY Administration Apixaban 5 mg 04/10/19 21:00 04/11/19 08:42 Eliquis PO 5 mg BID ADNAY Administration Aspirin 81 mg 04/11/19 09:00 04/11/19 08:43 Aspirin Chewable PO 81 mg DAILY DANAY Administration Doxycycline Hyclate 100 mg 04/10/19 21:00 04/11/19 08:44 Vibramycin PO 100 mg BID DANAY Administration Furosemide 40 mg 04/11/19 06:00 04/11/19 05:27 Lasix SLOW IVP 40 mg 0600,1400 DANAY Administration Gabapentin 400 mg 04/10/19 21:00 04/11/19 08:42 Neurontin PO 400 mg TID DANAY Administration Lisinopril 2.5 mg 04/11/19 09:00 04/11/19 08:43 Zestril PO 2.5 mg DAILY DANAY Administration Mometasone Furoate/Formoterol Fumar 2 puff 04/11/19 06:30 04/11/19 06:49 Dulera 200 Mcg/5 Mcg Inhaler INH 2 puff BID-RT DANAY Administration Pantoprazole Sodium 40 mg 04/11/19 09:00 04/11/19 08:42 Protonix PO 40 mg DAILY DANAY Administration Tamsulosin HCl 0.4 mg 04/11/19 09:00 04/11/19 08:45 Flomax PO 0.4 mg DAILY DANAY Administration - Exam General Appearance: NAD, awake alert Eye: PERRL, anicteric sclera ENT: no oropharyngeal lesions, moist mucosa Neck: supple, no JVD Heart: RRR, no murmur Respiratory: no wheezes, rales, rhonchi Gastrointestinal: soft, non-tender, non-distended, normal bowel sounds Extremities: no cyanosis, 1+ LE edema Neurological: cranial nerve grossly intact, no focal deficits Psychiatric: normal affect, A&O x 3 Hosp A/P (1) Acute on chronic systolic (congestive) heart failure Code(s): I50.23 - ACUTE ON CHRONIC SYSTOLIC (CONGESTIVE) HEART FAILURE Status : Acute (2) Anemia, normocytic normochromic Code(s): D64.9 - ANEMIA, UNSPECIFIED Status: Chronic (3) BPH (benign prostatic hyperplasia) Code(s): N40.0 - BENIGN PROSTATIC HYPERPLASIA WITHOUT LOWER URINRY TRACT SYMP Status: Chronic Qualifiers: Lower urinary tract symptom presence: symptoms absent Qualified Code(s): N40.0 - Benign prostatic hyperplasia without lower urinary tract symptoms (4) CAD (coronary artery disease) Code(s): I25.10 - ATHSCL HEART DISEASE OF [place] CORONARY ARTERY W/O ANG PCTRS Status: Chronic Qualifiers: Coronary Disease-Associated Artery/Lesion type: bypass graft [place] vs. transplanted heart: [place] heart Associated angina: without angina Qualified Code(s): I25.810 - Atherosclerosis of coronary artery bypass graft(s) without angina pectoris (5) CKD (chronic kidney disease) stage 3, GFR 30-59 ml/min Code(s): N18.3 - CHRONIC KIDNEY DISEASE, STAGE 3 (MODERATE) Status: Chronic (6) COPD (chronic obstructive pulmonary disease) Status: Chronic Qualifiers: COPD type: COPD with acute exacerbation Qualified Code(s): J44.1 - Chronic obstructive pulmonary disease with (acute) exacerbation (7) Dyslipidemia Code(s): E78.5 - HYPERLIPIDEMIA, UNSPECIFIED Status: Chronic (8) HTN (hypertension) Code(s): I10 - ESSENTIAL (PRIMARY) HYPERTENSION Status: Chronic Qualifiers: Hypertension type: essential hypertension Qualified Code(s): I10 - Essential (primary) hypertension (9) PVD (peripheral vascular disease) Code(s): I73.9 - PERIPHERAL VASCULAR DISEASE, UNSPECIFIED Status: Chronic (10) Paroxysmal atrial fibrillation Code(s): I48.0 - PAROXYSMAL ATRIAL FIBRILLATION Status: Chronic - Plan gentle diuresis, increase coreg to 12.5mg bid (had 8-10 beats of nonsustained vtac), lisinopril, asp, eliquis and lipitor nebs, short course of steroids, dulera, doxy hemostable await echo results, cardio consultation d/w patient and at bedside, influenza screen is -ve, viral pcr is pending
[2019-04-11] MEDS: Benzonatate 100 MG CAP PO SCH ×2 (15:09→20:55)
[2019-04-11] MEDS: methylPREDNISolone Sod Succ 40 MG VIAL IVP SCH ×2 (15:10→21:02)
[2019-04-11] MEDS ORDERED: Carvedilol 6.25 MG TAB PO SCH (17:00)
[2019-04-11] MEDS: guaiFENesin ER 600 MG TAB PO SCH (20:55)
[2019-04-11] MEDS ORDERED: Atorvastatin Calcium 10 MG TAB PO SCH (21:00)
[2019-04-11] MEDS ORDERED: FLU VACC TS2019-20(65YR UP)/PF 180 MCG/0.5 ML SYRINGE IM ONE (21:00)
--- NOTE | 2019-04-11 23:04 | CON ---
DATE OF CONSULTATION: HISTORY OF PRESENT ILLNESS: Guille Ricardo is a 74-year-old male , patient of Dr. Del Rosario with history of coronary artery disease as well as peripheral vascular disease. In July 2016, he was found to have severe coronary artery disease with 95% to 99% left main stenosis as well as severe 90% to 99% lesions elsewhere. He then underwent CABG x4 with VIRK to the LAD, saphenous vein graft to the acute marginal, radial artery to the ramus and saphenous vein graft to the obtuse marginal 1. He has had episodes of heart failure and has ischemic cardiomyopathy with ejection fraction of 40% to 45%. He also has paroxysmal atrial fibrillation. He has had a stroke and is on anticoagulant therapy. He now presents complaining of increased shortness of breath. He denies missing any of his medications. He denies leg edema, but it is present. He has not had any PND or orthopnea. Also since being admitted, he has had an episode of nonsustained ventricular tachycardia. He denies any palpitations or syncope. PAST MEDICAL HISTORY: Coronary artery disease, peripheral vascular disease, history of CVA, paroxysmal atrial fibrillation, hypertension, hypercholesterolemia, neuropathy, COPD, chronic kidney disease. MEDICATIONS: When he was last seen in the office 2 weeks ago: 1. Lisinopril 2.5 daily. 2. Gabapentin 400 mg t.i.d. 3. Furosemide 40 mg q.a.m. 4. Carvedilol 3.125 b.i.d. 5. Flomax 0.4 mg daily. 6. Lovastatin 40 mg daily. 7. Eliquis 5 mg b.i.d. 8. Aspirin 81 daily. 9. Pantoprazole 40 daily. 10. Cefdinir 300 mg b.i.d. ALLERGIES: NONE. SOCIAL HISTORY: Quit smoking 25 years ago. Smoked one pack per day prior to that. He does not drink. FAMILY HISTORY: Negative for coronary artery disease. REVIEW OF SYSTEMS: A 10-point review of systems is otherwise unremarkable. PHYSICAL EXAMINATION: VITAL SIGNS: Blood pressure 123/58, pulse of 71. HEENT: PERRL. NECK: Supple. CHEST: Reveals rales at the right base. CARDIOVASCULAR: S1 and S2 normal without any S3 or S4. There is a 2/6 holosystolic murmur at the apex. ABDOMEN: Normal bowel sounds without tenderness or organomegaly. EXTREMITIES: Reveal 1 to 2+ pretibial edema. NEUROLOGICAL: Grossly intact. SKIN: Warm and dry. LABORATORY DATA: EKG revealed normal sinus rhythm with probable left ventricular hypertrophy. Hemoglobin 12.2, hematocrit 38.4, white count 11,400, platelets 283,000. Sodium 135, potassium 4.4, chloride 97, carbon dioxide 34, BUN 23, creatinine 1.72. Troponin I 0.072. TSH is normal. IMPRESSION: 1. Acute on chronic systolic and diastolic failure. Last ejection fraction has been 40% to 45%. 2. Non-ST elevation myocardial infarction type 2. 3. History of coronary artery disease with bypass surgery in July 2016. 4. Peripheral vascular disease. 5. Former smoker. 6. History of paroxysmal atrial fibrillation. 7. History of stroke. 8. Chronic kidney disease. PLAN: The patient currently is being diuresed with intravenous furosemide. He also has had an episode of nonsustained ventricular tachycardia. Echo will be performed to reassess left ventricular function. It is worrisome that he has had episode of nonsustained ventricular tachycardia and further evaluation may need to be performed to rule out ischemia as a cause. Job ID: [id number] [facility]
[2019-04-12 05:20] LABS: Anion Gap 12 mmol/L (10-20); BUN (Urea Nitrogen) 33 mg/dL (8.4-25.7); Calc. Creatinine Clearance 37 mL/min (70-130); Calcium 8.9 mg/dL (7.8-10.44); Carbon Dioxide 31 mmol/L (23-31); Cardiac Risk 4.6 (Less than 4.5); Chloride 97 mmol/L (98-107); Cholesterol 128 mg/dl (< 200 Desired); Estimated GFR-MDRD 33; Glucose 133 mg/dL (83-110); HDL Cholesterol 28 mg/dL (>60 Neg Risk); LDL Cholesterol, Calculated 86 mg/dL; Potassium 4.6 mmol/L (3.5-5.1); Sodium 135 mmol/L (136-145); Triglycerides 70 mg/dL (Less than 150)
[2019-04-12] MEDS: methylPREDNISolone Sod Succ 40 MG VIAL IVP SCH (06:08)
[2019-04-12] MEDS: Furosemide 40 MG/4 ML VIAL SLOW IVP SCH (06:08)
[2019-04-12] MEDS: Mometasone/Formoterol 120 PUFF INHALER INH SCH ×2 (07:21→19:33)
[2019-04-12] MEDS: Lisinopril 2.5 MG TAB PO SCH (09:27)
[2019-04-12] MEDS: Benzonatate 100 MG CAP PO SCH ×3 (09:27→20:38)
[2019-04-12] MEDS: Gabapentin 400 MG CAP PO SCH ×3 (09:28→20:38)
[2019-04-12] MEDS: Doxycycline 100 MG CAP PO SCH ×2 (09:28→20:38)
[2019-04-12] MEDS: Apixaban 5 MG TAB PO SCH (09:28)
[2019-04-12] MEDS: guaiFENesin ER 600 MG TAB PO SCH ×2 (09:28→20:38)
[2019-04-12] MEDS: Aspirin Chewable 81 MG TAB PO SCH (09:28)
[2019-04-12] MEDS: Carvedilol 3.125 MG TAB PO SCH ×2 (09:28→17:29)
[2019-04-12] MEDS: Tamsulosin HCl 0.4 MG CAP PO SCH (09:28)
--- NOTE | 2019-04-12 13:33 | PDOC.HOSPP ---
- Subjective Encounter Date: 04/12/19 Encounter Time: 10:00 Subjective: no chest pain or palp is breathing better and ambulating in hallway - Objective Vital Signs & Weight: Vital Signs (12 hours) Temp Pulse Pulse Pulse Resp BP BP 04/12/19 12:00 97.8 F 80 16 04/12/19 11:55 100 86 118/56 L 04/12/19 09:27 85 111/66 04/12/19 08:15 97.5 F L 85 16 04/12/19 07:23 04/12/19 07:21 83 16 04/12/19 04:02 97.4 F L 83 14 BP BP Pulse Ox Pulse Ox Pulse Ox 04/12/19 12:00 103/52 L 92 L 04/12/19 11:55 97/51 L 92 L 90 L 04/12/19 09:27 04/12/19 08:15 111/66 95 04/12/19 07:23 97 04/12/19 07:21 97 04/12/19 04:02 115/62 99 Weight Weight 182 lb 4.8 oz I&O: 04/11/19 04/12/19 04/13/19 06:59 06:59 06:59 Intake Total 720 Balance 720 Result Diagrams: 04/11/19 04:48 04/12/19 04:38 Hospitalist ROS - Medication Medications: Active Medications Generic Name Dose Route Start Last Admin Trade Name Freq PRN Reason Stop Dose Admin Albuterol/Ipratropium 3 ml 04/10/19 19:00 04/12/19 07:21 Duoneb NEB 3 ml [id number] DANAY Administration Apixaban 5 mg 04/10/19 21:00 04/12/19 09:28 Eliquis PO 5 mg BID DANAY Administration Aspirin 81 mg 04/11/19 09:00 04/12/19 09:28 Aspirin Chewable PO 81 mg DAILY DANAY Administration Atorvastatin Calcium 10 mg 04/11/19 21:00 04/11/19 20:55 Lipitor PO 10 mg HS DANAY Administration Benzonatate 100 mg 04/11/19 15:00 04/12/19 09:27 Tessalon PO 100 mg TID DANAY Administration Carvedilol 3.125 mg 04/12/19 08:00 04/12/19 09:28 Coreg PO 3.125 mg BID-WM DANAY Administration Doxycycline Hyclate 100 mg 04/10/19 21:00 04/12/19 09:28 Vibramycin PO 100 mg BID DANAY Administration Furosemide 40 mg 04/11/19 06:00 04/12/19 06:08 Lasix SLOW IVP 40 mg 0600,1400 DANAY Administration Gabapentin 400 mg 04/10/19 21:00 04/12/19 09:28 Neurontin PO 400 mg TID DANAY Administration Guaifenesin 600 mg 04/11/19 21:00 04/12/19 09:28 Mucinex PO 600 mg Q12HR DANAY Administration Lisinopril 2.5 mg 04/11/19 09:00 04/12/19 09:27 Zestril PO 2.5 mg DAILY DANAY Administration Methylprednisolone Sodium Succinate 20 mg 04/11/19 14:00 04/12/19 06:08 Solu-Medrol IVP 20 mg Q8HR DANAY Administration Mometasone Furoate/Formoterol Fumar 2 puff 04/11/19 06:30 04/12/19 07:21 Dulera 200 Mcg/5 Mcg Inhaler INH 2 puff BID-RT DANAY Administration Pantoprazole Sodium 40 mg 04/11/19 09:00 04/12/19 09:28 Protonix PO 40 mg DAILY DANAY Administration Tamsulosin HCl 0.4 mg 04/11/19 09:00 04/12/19 09:28 Flomax PO 0.4 mg DAILY DANAY Administration - Exam General Appearance: NAD, awake alert Eye: PERRL, anicteric sclera ENT: no oropharyngeal lesions, moist mucosa Neck: supple, no JVD Heart: RRR, no murmur Respiratory: no wheezes, no rales Gastrointestinal: soft, non-tender, non-distended, normal bowel sounds Extremities: no cyanosis, 1+ LE edema Neurological: cranial nerve grossly intact, no focal deficits Psychiatric: normal affect, A&O x 3 Hosp A/P (1) Acute on chronic systolic (congestive) heart failure Code(s): I50.23 - ACUTE ON CHRONIC SYSTOLIC (CONGESTIVE) HEART FAILURE Status : Acute (2) Anemia, normocytic normochromic Code(s): D64.9 - ANEMIA, UNSPECIFIED Status: Chronic (3) BPH (benign prostatic hyperplasia) Code(s): N40.0 - BENIGN PROSTATIC HYPERPLASIA WITHOUT LOWER URINRY TRACT SYMP Status: Chronic Qualifiers: Lower urinary tract symptom presence: symptoms absent Qualified Code(s): N40.0 - Benign prostatic hyperplasia without lower urinary tract symptoms (4) CAD (coronary artery disease) Code(s): I25.10 - ATHSCL HEART DISEASE OF [place] CORONARY ARTERY W/O ANG PCTRS Status: Chronic Qualifiers: Coronary Disease-Associated Artery/Lesion type: bypass graft [place] vs. transplanted heart: [place] heart Associated angina: without angina Qualified Code(s): I25.810 - Atherosclerosis of coronary artery bypass graft(s) without angina pectoris (5) CKD (chronic kidney disease) stage 3, GFR 30-59 ml/min Code(s): N18.3 - CHRONIC KIDNEY DISEASE, STAGE 3 (MODERATE) Status: Chronic (6) COPD (chronic obstructive pulmonary disease) Status: Chronic Qualifiers: COPD type: COPD with acute exacerbation Qualified Code(s): J44.1 - Chronic obstructive pulmonary disease with (acute) exacerbation (7) Dyslipidemia Code(s): E78.5 - HYPERLIPIDEMIA, UNSPECIFIED Status: Chronic (8) HTN (hypertension) Code(s): I10 - ESSENTIAL (PRIMARY) HYPERTENSION Status: Chronic Qualifiers: Hypertension type: essential hypertension Qualified Code(s): I10 - Essential (primary) hypertension (9) PVD (peripheral vascular disease) Code(s): I73.9 - PERIPHERAL VASCULAR DISEASE, UNSPECIFIED Status: Chronic (10) Paroxysmal atrial fibrillation Code(s): I48.0 - PAROXYSMAL ATRIAL FIBRILLATION Status: Chronic - Plan Oral lasix, mild chang due to iv diuresis continue coreg, asp, eliquis and lipitor had 8-10 beats of nonsustained vtac nebs, short course of steroids (done), dulera, doxy hemostable await echo results d/w patient and at bedside, influenza screen is -ve, viral pcr is -ve
[2019-04-12] MEDS: Furosemide 40 MG TAB PO SCH (14:35)
[2019-04-12] MEDS: Atorvastatin Calcium 20 MG TAB PO SCH (20:38)
[2019-04-12] MEDS: Enoxaparin Sodium 80 MG/0.8 ML SYRINGE SC SCH (20:39)
[2019-04-13 05:14] LABS: Hemoglobin 11.8 g/dL (14.0-18.0); Platelet Count 296 thou/uL (130-400)
[2019-04-13 05:34] LABS: Anion Gap 12 mmol/L (10-20); BUN (Urea Nitrogen) 46 mg/dL (8.4-25.7); Calc. Creatinine Clearance 35 mL/min (70-130); Calcium 9.1 mg/dL (7.8-10.44); Carbon Dioxide 31 mmol/L (23-31); Chloride 96 mmol/L (98-107); Estimated GFR-MDRD 31; Glucose 78 mg/dL (83-110); Potassium 4.4 mmol/L (3.5-5.1); Sodium 135 mmol/L (136-145)
[2019-04-13] MEDS: Mometasone/Formoterol 120 PUFF INHALER INH SCH ×2 (06:44→20:01)
[2019-04-13] MEDS: guaiFENesin ER 600 MG TAB PO SCH ×2 (08:22→20:13)
[2019-04-13] MEDS: Carvedilol 3.125 MG TAB PO SCH ×2 (08:22→17:53)
[2019-04-13] MEDS: Enoxaparin Sodium 80 MG/0.8 ML SYRINGE SC SCH (08:26)
[2019-04-13] MEDS: Furosemide 40 MG TAB PO SCH ×2 (08:26→14:27)
[2019-04-13] MEDS: Benzonatate 100 MG CAP PO SCH ×3 (08:26→20:04)
[2019-04-13] MEDS: Doxycycline 100 MG CAP PO SCH ×2 (08:26→20:04)
[2019-04-13] MEDS: Gabapentin 400 MG CAP PO SCH ×3 (08:26→20:04)
[2019-04-13] MEDS: Tamsulosin HCl 0.4 MG CAP PO SCH (08:26)
[2019-04-13] MEDS: Aspirin Chewable 81 MG TAB PO SCH (08:54)
--- NOTE | 2019-04-13 10:43 | PDOC.HOSPP ---
- Subjective Encounter Date: 04/13/19 Encounter Time: 07:20 Subjective: Pt seen for followup re: CHF exacerbation. Feels better. No fevers or chills. - Objective Vital Signs & Weight: Vital Signs (12 hours) Temp Pulse Resp BP Pulse Ox 04/13/19 08:00 96.1 F L 80 20 96/52 L 97 04/13/19 06:40 80 16 97 04/13/19 04:00 97.4 F L 77 96 H 98/55 L 96 04/13/19 01:01 102 H 18 92 L Weight Weight 182 lb 9.6 oz I&O: 04/12/19 04/13/19 04/14/19 06:59 06:59 06:59 Intake Total 720 952 Balance 720 952 Result Diagrams: 04/13/19 04:32 04/13/19 04:32 Additional Labs: Labs and MARs reviewed by me. EKG Reviewed by me: Yes (Tele: NSR) Hospitalist ROS - Review of Systems Respiratory: reports: SOB with excertion Cardiovascular: denies: chest pain, palpitations, orthopnea, paroxysmal noc. dyspnea, edema, light headedness Gastrointestinal: denies: nausea, vomiting, abdominal pain, diarrhea, constipation, melena, hematochezia - Medication Medications: Active Medications Generic Name Dose Route Start Last Admin Trade Name Freq PRN Reason Stop Dose Admin Albuterol/Ipratropium 3 ml 04/10/19 19:00 04/13/19 06:40 Duoneb NEB 3 ml [id number] DANAY Administration Aspirin 81 mg 04/11/19 09:00 04/13/19 08:54 Aspirin Chewable PO 81 mg DAILY DANAY Administration Atorvastatin Calcium 20 mg 04/12/19 21:00 04/12/19 20:38 Lipitor PO 20 mg HS DANAY Administration Benzonatate 100 mg 04/11/19 15:00 04/13/19 08:26 Tessalon PO 100 mg TID DANAY Administration Carvedilol 3.125 mg 04/12/19 08:00 04/13/19 08:22 Coreg PO 3.125 mg BID-WM DANAY Administration Doxycycline Hyclate 100 mg 04/10/19 21:00 04/13/19 08:26 Vibramycin PO 100 mg BID DANAY Administration Enoxaparin Sodium 80 mg 04/12/19 21:00 04/13/19 08:26 Lovenox SC 80 mg 0900,2100 DANAY Administration Furosemide 40 mg 04/12/19 14:00 04/13/19 08:26 Lasix PO 40 mg 0900,1400 DANAY Administration Gabapentin 400 mg 04/10/19 21:00 04/13/19 08:26 Neurontin PO 400 mg TID DANAY Administration Guaifenesin 600 mg 04/11/19 21:00 04/13/19 08:22 Mucinex PO 600 mg Q12HR DANAY Administration Mometasone Furoate/Formoterol Fumar 2 puff 04/11/19 06:30 04/13/19 06:44 Dulera 200 Mcg/5 Mcg Inhaler INH 2 puff BID-RT DANAY Administration Pantoprazole Sodium 40 mg 04/11/19 09:00 04/13/19 08:26 Protonix PO 40 mg DAILY DANAY Administration Tamsulosin HCl 0.4 mg 04/11/19 09:00 04/13/19 08:26 Flomax PO 0.4 mg DAILY DANAY Administration - Exam General Appearance: NAD Eye: anicteric sclera ENT: moist mucosa Neck: supple Heart: RRR Respiratory: CTAB, no ronchi Gastrointestinal: soft, non-tender Extremities: no cyanosis Musculoskeletal: normal tone, normal strength Psychiatric: normal affect, normal behavior Hosp A/P (1) Acute on chronic systolic (congestive) heart failure Code(s): I50.23 - ACUTE ON CHRONIC SYSTOLIC (CONGESTIVE) HEART FAILURE Status : Acute (2) COPD exacerbation Code(s): J44.1 - CHRONIC OBSTRUCTIVE PULMONARY DISEASE W (ACUTE) EXACERBATION Status: Acute (3) Cardiomyopathy Code(s): I42.9 - CARDIOMYOPATHY, UNSPECIFIED Status: Acute (4) BPH (benign prostatic hyperplasia) Code(s): N40.0 - BENIGN PROSTATIC HYPERPLASIA WITHOUT LOWER URINRY TRACT SYMP Status: Chronic Qualifiers: Lower urinary tract symptom presence: symptoms absent Qualified Code(s): N40.0 - Benign prostatic hyperplasia without lower urinary tract symptoms (5) CAD (coronary artery disease) Code(s): I25.10 - ATHSCL HEART DISEASE OF [place] CORONARY ARTERY W/O ANG PCTRS Status: Chronic Qualifiers: Coronary Disease-Associated Artery/Lesion type: bypass graft [place] vs. transplanted heart: [place] heart Associated angina: without angina Qualified Code(s): I25.810 - Atherosclerosis of coronary artery bypass graft(s) without angina pectoris - Plan out of bed/ambulate Continue furosemide. Continue oxygen, steroids and bronchodilators. LVEF 25-30%, pt also had NSVT during this admission. BPH stable.
--- NOTE | 2019-04-13 17:19 | PDOC.CPN ---
- Subjective Date: 04/13/19 Time: 17:18 Interval history: Doing better, breathing better. - Review of Systems General: denies: fever/chills, weight/appetite/sleep changes, night sweats, fatigue Respiratory: reports: shortness of breath. denies: cough, congestion, exercise intolerance Cardiovascular: denies: chest pain, palpitation, edema, paroxysmal nocturnal dyspnea, orthopnea Gastrointestinal: denies: nausea, vomiting, diarrhea, constipation, abd pain, GI bleeding Musculoskeletal: denies: pain, tenderness, stiffness, swelling, arthritis/ arthralgias Neurological: denies: numbness, syncope, seizure, weakness - Objective Allergies/Adverse Reactions: Allergies Allergy/AdvReac Type Severity Reaction Status Date / Time No Known Allergies Allergy Verified 04/11/19 04:44 Visit Medications: Current Medications Acetaminophen (Tylenol) 650 mg PO Q4H PRN PRN Reason: Headache/Fever/Mild Pain (1-3) Albuterol/Ipratropium (Duoneb) 3 ml NEB [id number] [facility] Last Admin: 04/13/19 13:12 Dose: 3 ml Aspirin (Aspirin Chewable) 81 mg PO DAILY [facility] Last Admin: 04/13/19 08:54 Dose: 81 mg Atorvastatin Calcium (Lipitor) 20 mg PO HS [facility] Last Admin: 04/12/19 20:38 Dose: 20 mg Benzonatate (Tessalon) 100 mg PO TID [facility] Last Admin: 04/13/19 14:27 Dose: 100 mg Bisacodyl (Dulcolax) 10 mg [place] DAILYPRN PRN PRN Reason: Constipation Carvedilol (Coreg) 3.125 mg PO BID-WM [facility] Last Admin: 04/13/19 08:22 Dose: 3.125 mg Doxycycline Hyclate (Vibramycin) 100 mg PO BID [facility] Last Admin: 04/13/19 08:26 Dose: 100 mg Enoxaparin Sodium (Lovenox) 80 mg SC 0900,2100 [facility] Furosemide (Lasix) 40 mg PO 0900,1400 [facility] Last Admin: 04/13/19 14:27 Dose: 40 mg Gabapentin (Neurontin) 400 mg PO TID [facility] Last Admin: 04/13/19 14:27 Dose: 400 mg Guaifenesin (Mucinex) 600 mg PO Q12HR [facility] Last Admin: 04/13/19 08:22 Dose: 600 mg Guaifenesin/Dextromethorphan (Robitussin Dm) 15 ml PO Q4H PRN PRN Reason: Cough Mometasone Furoate/Formoterol Fumar (Dulera 200 Mcg/5 Mcg Inhaler) 2 puff INH BID-RT [facility] Last Admin: 04/13/19 06:44 Dose: 2 puff Pantoprazole Sodium (Protonix) 40 mg PO DAILY [facility] Last Admin: 04/13/19 08:26 Dose: 40 mg Senna/Docusate Sodium (Senokot S) 2 tab PO BIDPRN PRN PRN Reason: Constipation Tamsulosin HCl (Flomax) 0.4 mg PO DAILY [facility] Last Admin: 04/13/19 08:26 Dose: 0.4 mg Vital Signs & Weight: Vital Signs Temp Pulse Pulse Pulse Resp BP BP 04/13/19 16:45 98.7 F 81 16 04/13/19 16:00 18 04/13/19 13:12 73 18 04/13/19 12:01 84 78 115/57 L 94/53 L 04/13/19 12:00 97.8 F 87 16 04/13/19 08:00 96.1 F L 80 20 04/13/19 06:40 80 16 BP Pulse Ox Pulse Ox Pulse Ox 04/13/19 16:45 96/51 L 95 04/13/19 16:00 04/13/19 13:12 95 04/13/19 12:01 95 93 L 04/13/19 12:00 85/46 L 92 L 04/13/19 08:00 96/52 L 97 04/13/19 06:40 97 Weight 182 lb 9.6 oz - Physical Exam General: alert & oriented x3 HEENT: mucus membranes moist Neck: supple neck Cardiac: regular rate and rhythm Lungs: normal breath sounds Neuro: grossly intact Abdomen: active bowel sounds Extremities: 1+ LE edema Skin: clear Musculoskeletal: no pain - Labs Result Diagrams: 04/13/19 04:32 04/13/19 04:32 Troponin/CKMB CK-MB (CK-2) 1.5 ng/mL (0-6.6) 04/10/19 15:33 Troponin I 0.063 ng/mL (< 0.028) H 04/10/19 16:55 - Telemetry Sinus rhythms and dysrhythmias: sinus rhythm - Assessment/Plan Assessment/Plan: 1. Acute on chronic systolic heart failure. 2. Ischemic CM Ef at 25-30% 3. S/P CABG x 4 in 2017 4. Paroxysmal afib 5. Hx of CVA 6. Non sustained VT PLAN: - On PO lasix. - Will need Lifevest before discharge. - Creatinine increasing. - Will need ischemic work up.
[2019-04-13] MEDS: Atorvastatin Calcium 20 MG TAB PO SCH (20:04)
--- NOTE | 2019-04-14 02:58 | PDOC.EVN ---
Event Note - Event Note Event Note: patient converted to A-flutter with variable HR. EKG ordered, discussed with Dr. Kong, mattie dc'd neb treatments, verified patient is being followed by cardiology, needs life vest, is on 1mg/kg lovenox already. No other orders recommended at this time.
[2019-04-14] MEDS: Mometasone/Formoterol 120 PUFF INHALER INH SCH ×2 (07:39→18:32)
[2019-04-14] MEDS: Carvedilol 3.125 MG TAB PO SCH ×2 (08:45→17:33)
[2019-04-14] MEDS: Gabapentin 400 MG CAP PO SCH ×4 (08:45→20:20)
[2019-04-14] MEDS: Benzonatate 100 MG CAP PO SCH ×3 (08:45→20:19)
[2019-04-14] MEDS: Tamsulosin HCl 0.4 MG CAP PO SCH (08:45)
[2019-04-14] MEDS: Furosemide 40 MG TAB PO SCH ×2 (08:45→14:53)
[2019-04-14] MEDS: guaiFENesin ER 600 MG TAB PO SCH ×2 (08:45→20:19)
[2019-04-14] MEDS: Aspirin Chewable 81 MG TAB PO SCH (08:45)
[2019-04-14] MEDS: Sodium Chloride 0.9% 10 ML ONE ×2 (08:46→20:19)
[2019-04-14] MEDS: Enoxaparin Sodium 80 MG/0.8 ML SYRINGE SC SCH ×2 (08:47→20:20)
[2019-04-14 10:21] LABS: #Basophils 0.1 thou/uL (0.0-0.2); #Eosinphils 0.1 thou/uL (0.0-0.7); #Lymphocytes 1.8 thou/uL (1.20-3.40); #Monocytes 1.5 thou/uL (0.11-0.59); #Neutrophils 7.2 thou/uL (1.40-6.50); %Basophils 0.9 % (0.0-1.0); %Eosinophils 0.7 % (0.0-10.0); %Lymphocytes 16.6 % (21.0-51.0); %Monocytes 13.9 % (0.0-10.0); %Neutrophils 67.9 % (42.0-75.0); Hemoglobin 12.2 g/dL (14.0-18.0); Mean Corpuscular HGB CONC 32.7 g/dL (32.0-36.0); Mean Corpuscular Hemoglobin 32.8 pg (27.0-31.0); Mean Platelet Volume 8.5 fL (7.4-10.4); Platelet Count 295 thou/uL (130-400); RBC Distribution Width 13.2 % (11.5-14.5); Red Blood Cell (RBC) Count 3.73 mill/uL (4.70-6.10); White Blood Cell (WBC) Count 10.7 thou/uL (4.8-10.8)
[2019-04-14 10:40] LABS: Anion Gap 12 mmol/L (10-20); BUN (Urea Nitrogen) 40 mg/dL (8.4-25.7); Calc. Creatinine Clearance 40 mL/min (70-130); Carbon Dioxide 32 mmol/L (23-31); Chloride 96 mmol/L (98-107); Estimated GFR-MDRD 35; Glucose 103 mg/dL (83-110); Potassium 4.2 mmol/L (3.5-5.1); Sodium 136 mmol/L (136-145)
--- NOTE | 2019-04-14 11:18 | PDOC.HOSPP ---
- Subjective Encounter Date: 04/14/19 Encounter Time: 07:00 Subjective: Pt seen for followup re: CHF exacerbation. States he feels well, no complaints. - Objective Vital Signs & Weight: Vital Signs (12 hours) Temp Pulse Resp BP Pulse Ox 04/14/19 08:00 98.1 F 18 L 18 109/59 L 96 04/14/19 05:03 106/72 04/14/19 04:00 97.9 F 129 H 21 H 106/72 94 L 04/14/19 01:07 89 16 94 L Weight Weight 187 lb 9.6 oz I&O: 04/13/19 04/14/19 04/15/19 06:59 06:59 06:59 Intake Total 952 240 Balance 952 240 Result Diagrams: 04/14/19 09:51 04/14/19 09:51 Additional Labs: Labs and MARs reviewed by me EKG Reviewed by me: Yes (Tele: dimitry disla overnight) Hospitalist ROS - Review of Systems Respiratory: denies: cough, dry, shortness of breath, hemoptysis, SOB with excertion, pleuritic pain, sputum, wheezing Cardiovascular: denies: chest pain, palpitations, orthopnea, paroxysmal noc. dyspnea, edema, light headedness - Medication Medications: Active Medications Generic Name Dose Route Start Last Admin Trade Name Freq PRN Reason Stop Dose Admin Aspirin 81 mg 04/11/19 09:00 04/14/19 08:45 Aspirin Chewable PO 81 mg DAILY DANAY Administration Atorvastatin Calcium 20 mg 04/12/19 21:00 04/13/19 20:04 Lipitor PO 20 mg HS DANAY Administration Benzonatate 100 mg 04/11/19 15:00 04/14/19 08:45 Tessalon PO 100 mg TID DANAY Administration Carvedilol 3.125 mg 04/12/19 08:00 04/14/19 08:45 Coreg PO 3.125 mg BID-WM DANAY Administration Enoxaparin Sodium 80 mg 04/14/19 09:00 04/14/19 08:47 Lovenox SC 80 mg 0900,2100 DANAY Administration Furosemide 40 mg 04/12/19 14:00 04/14/19 08:45 Lasix PO 40 mg 0900,1400 DANAY Administration Gabapentin 400 mg 04/10/19 21:00 04/14/19 08:45 Neurontin PO 400 mg TID DANAY Administration Guaifenesin 600 mg 04/11/19 21:00 04/14/19 08:45 Mucinex PO 600 mg Q12HR DANAY Administration Guaifenesin/Dextromethorphan 15 ml 04/10/19 18:50 04/13/19 20:12 Robitussin Dm PO 15 ml Q4H PRN Administration Cough Mometasone Furoate/Formoterol Fumar 2 puff 04/11/19 06:30 04/14/19 07:39 Dulera 200 Mcg/5 Mcg Inhaler INH 2 puff BID-RT DANAY Administration Pantoprazole Sodium 40 mg 04/11/19 09:00 04/14/19 08:45 Protonix PO 40 mg DAILY DANAY Administration Tamsulosin HCl 0.4 mg 04/11/19 09:00 04/14/19 08:45 Flomax PO 0.4 mg DAILY DANAY Administration - Exam General Appearance: NAD, awake alert Eye: anicteric sclera ENT: no oropharyngeal lesions, moist mucosa Neck: supple, symmetric Heart: RRR, no rubs Respiratory: CTAB Gastrointestinal: soft, non-tender Extremities: no clubbing Psychiatric: normal affect, normal behavior Hosp A/P (1) Acute on chronic systolic (congestive) heart failure Code(s): I50.23 - ACUTE ON CHRONIC SYSTOLIC (CONGESTIVE) HEART FAILURE Status : Acute (2) COPD exacerbation Code(s): J44.1 - CHRONIC OBSTRUCTIVE PULMONARY DISEASE W (ACUTE) EXACERBATION Status: Acute (3) Atrial flutter Code(s): I48.92 - UNSPECIFIED ATRIAL FLUTTER Status: Acute (4) Cardiomyopathy Code(s): I42.9 - CARDIOMYOPATHY, UNSPECIFIED Status: Acute (5) BPH (benign prostatic hyperplasia) Code(s): N40.0 - BENIGN PROSTATIC HYPERPLASIA WITHOUT LOWER URINRY TRACT SYMP Status: Chronic Qualifiers: Lower urinary tract symptom presence: symptoms absent Qualified Code(s): N40.0 - Benign prostatic hyperplasia without lower urinary tract symptoms (6) CAD (coronary artery disease) Code(s): I25.10 - ATHSCL HEART DISEASE OF [place] CORONARY ARTERY W/O ANG PCTRS Status: Chronic Qualifiers: Coronary Disease-Associated Artery/Lesion type: bypass graft [place] vs. transplanted heart: [place] heart Associated angina: without angina Qualified Code(s): I25.810 - Atherosclerosis of coronary artery bypass graft(s) without angina pectoris - Plan Creatinine improved to 1.88 today. Will continue furosemide. Will continue oxygen, steroids and bronchodilators. LVEF 25-30%, pt also had NSVT during this admission. Will need LifeVest. BPH stable.
--- NOTE | 2019-04-14 16:53 | PDOC.CPN ---
- Subjective Date: 04/14/19 Time: 16:51 Interval history: Doing well. Breathing better. - Review of Systems General: denies: fever/chills, weight/appetite/sleep changes, night sweats, fatigue Respiratory: denies: cough, congestion, shortness of breath, exercise intolerance Cardiovascular: denies: chest pain, palpitation, edema, paroxysmal nocturnal dyspnea, orthopnea Gastrointestinal: denies: nausea, vomiting, diarrhea, constipation, abd pain, GI bleeding Musculoskeletal: denies: pain, tenderness, stiffness, swelling, arthritis/ arthralgias Neurological: denies: numbness, syncope, seizure, weakness - Objective Allergies/Adverse Reactions: Allergies Allergy/AdvReac Type Severity Reaction Status Date / Time No Known Allergies Allergy Verified 04/11/19 04:44 Visit Medications: Current Medications Acetaminophen (Tylenol) 650 mg PO Q4H PRN PRN Reason: Headache/Fever/Mild Pain (1-3) Aspirin (Aspirin Chewable) 81 mg PO DAILY [facility] Last Admin: 04/14/19 08:45 Dose: 81 mg Atorvastatin Calcium (Lipitor) 20 mg PO HS [facility] Last Admin: 04/13/19 20:04 Dose: 20 mg Benzonatate (Tessalon) 100 mg PO TID [facility] Last Admin: 04/14/19 14:53 Dose: 100 mg Bisacodyl (Dulcolax) 10 mg [place] DAILYPRN PRN PRN Reason: Constipation Carvedilol (Coreg) 3.125 mg PO BID-WM [facility] Last Admin: 04/14/19 08:45 Dose: 3.125 mg Enoxaparin Sodium (Lovenox) 80 mg SC 0900,2100 [facility] Last Admin: 04/14/19 08:47 Dose: 80 mg Furosemide (Lasix) 40 mg PO 0900,1400 [facility] Last Admin: 04/14/19 14:53 Dose: 40 mg Gabapentin (Neurontin) 400 mg PO TID [facility] Last Admin: 04/14/19 14:57 Dose: Not Given Guaifenesin (Mucinex) 600 mg PO Q12HR [facility] Last Admin: 04/14/19 08:45 Dose: 600 mg Guaifenesin/Dextromethorphan (Robitussin Dm) 15 ml PO Q4H PRN PRN Reason: Cough Last Admin: 04/13/19 20:12 Dose: 15 ml Mometasone Furoate/Formoterol Fumar (Dulera 200 Mcg/5 Mcg Inhaler) 2 puff INH BID-RT [facility] Last Admin: 04/14/19 07:39 Dose: 2 puff Pantoprazole Sodium (Protonix) 40 mg PO DAILY [facility] Last Admin: 04/14/19 08:45 Dose: 40 mg Senna/Docusate Sodium (Senokot S) 2 tab PO BIDPRN PRN PRN Reason: Constipation Tamsulosin HCl (Flomax) 0.4 mg PO DAILY [facility] Last Admin: 04/14/19 08:45 Dose: 0.4 mg Vital Signs & Weight: Vital Signs Temp Pulse Pulse Pulse Resp BP BP 04/14/19 15:59 97.3 F L 87 18 04/14/19 12:00 97.7 F 76 16 04/14/19 11:46 89 85 117/55 L 110/88 04/14/19 08:00 98.1 F 18 L 18 04/14/19 05:03 BP Pulse Ox 04/14/19 15:59 106/51 L 97 04/14/19 12:00 96/50 L 97 04/14/19 11:46 04/14/19 08:00 109/59 L 96 04/14/19 05:03 106/72 Weight 187 lb 9.6 oz - Physical Exam General: alert & oriented x3 HEENT: mucus membranes moist Neck: supple neck Cardiac: no murmur Lungs: normal breath sounds Neuro: grossly intact Abdomen: active bowel sounds Extremities: 1+ LE edema Skin: clear Musculoskeletal: no pain - Labs Result Diagrams: 04/14/19 09:51 04/14/19 09:51 Troponin/CKMB CK-MB (CK-2) 1.5 ng/mL (0-6.6) 04/10/19 15:33 Troponin I 0.063 ng/mL (< 0.028) H 04/10/19 16:55 - Telemetry Sinus rhythms and dysrhythmias: sinus rhythm - Assessment/Plan Assessment/Plan: 1. Acute on chronic systolic heart failure. 2. Ischemic CM EF at 25-30% 3. S/P CABG x 4 in 2017 4. Paroxysmal afib 5. Hx of CVA 6. Non sustained VT PLAN: - On PO lasix. - Will need Lifevest before discharge. - Creatinine improving. - Will need ischemic work up once creatinine better.
[2019-04-14] MEDS ORDERED: Albuterol Sulfate 1.25 MG/3 ML NEB INH SCH (18:15)
[2019-04-14] MEDS: Atorvastatin Calcium 20 MG TAB PO SCH (20:19)
[2019-04-15 04:42] LABS: #Basophils 0.1 thou/uL (0.0-0.2); #Eosinphils 0.1 thou/uL (0.0-0.7); #Lymphocytes 2.6 thou/uL (1.20-3.40); #Monocytes 1.7 thou/uL (0.11-0.59); #Neutrophils 7.4 thou/uL (1.40-6.50); %Basophils 0.5 % (0.0-1.0); %Eosinophils 0.5 % (0.0-10.0); %Lymphocytes 21.6 % (21.0-51.0); %Monocytes 14.6 % (0.0-10.0); %Neutrophils 62.8 % (42.0-75.0); Hemoglobin 11.5 g/dL (14.0-18.0); Mean Corpuscular HGB CONC 32.2 g/dL (32.0-36.0); Mean Corpuscular Hemoglobin 32.4 pg (27.0-31.0); Mean Platelet Volume 8.5 fL (7.4-10.4); Platelet Count 259 thou/uL (130-400); RBC Distribution Width 13.2 % (11.5-14.5); Red Blood Cell (RBC) Count 3.54 mill/uL (4.70-6.10); White Blood Cell (WBC) Count 11.8 thou/uL (4.8-10.8)
[2019-04-15 05:10] LABS: Anion Gap 10 mmol/L (10-20); BUN (Urea Nitrogen) 38 mg/dL (8.4-25.7); Calc. Creatinine Clearance 38 mL/min (70-130); Calcium 8.9 mg/dL (7.8-10.44); Carbon Dioxide 33 mmol/L (23-31); Chloride 98 mmol/L (98-107); Estimated GFR-MDRD 34; Glucose 107 mg/dL (83-110); Sodium 137 mmol/L (136-145)
[2019-04-15] MEDS: Mometasone/Formoterol 120 PUFF INHALER INH SCH ×2 (07:27→20:06)
[2019-04-15] MEDS: Enoxaparin Sodium 80 MG/0.8 ML SYRINGE SC SCH (08:52)
[2019-04-15] MEDS: Benzonatate 100 MG CAP PO SCH ×3 (08:52→20:37)
[2019-04-15] MEDS: Aspirin Chewable 81 MG TAB PO SCH (08:52)
[2019-04-15] MEDS: Tamsulosin HCl 0.4 MG CAP PO SCH (08:53)
[2019-04-15] MEDS: guaiFENesin ER 600 MG TAB PO SCH ×2 (08:53→20:38)
[2019-04-15] MEDS: Gabapentin 400 MG CAP PO SCH ×3 (08:53→20:37)
[2019-04-15] MEDS: Furosemide 40 MG TAB PO SCH ×2 (09:24→14:39)
[2019-04-15] MEDS: Carvedilol 3.125 MG TAB PO SCH ×2 (09:24→16:29)
--- NOTE | 2019-04-15 12:33 | PDOC.CPN ---
- Subjective Date: 04/15/19 Time: 13:12 Interval history: The pt seen and examined. No overnight events. No cardiac complaints. - Objective Allergies/Adverse Reactions: Allergies Allergy/AdvReac Type Severity Reaction Status Date / Time No Known Allergies Allergy Verified 04/11/19 04:44 Visit Medications: Current Medications Acetaminophen (Tylenol) 650 mg PO Q4H PRN PRN Reason: Headache/Fever/Mild Pain (1-3) Aspirin (Aspirin Chewable) 81 mg PO DAILY [facility] Last Admin: 04/15/19 08:52 Dose: 81 mg Atorvastatin Calcium (Lipitor) 20 mg PO HS [facility] Last Admin: 04/14/19 20:19 Dose: 20 mg Benzonatate (Tessalon) 100 mg PO TID [facility] Last Admin: 04/15/19 08:52 Dose: 100 mg Bisacodyl (Dulcolax) 10 mg [place] DAILYPRN PRN PRN Reason: Constipation Carvedilol (Coreg) 3.125 mg PO BID-WM [facility] Last Admin: 04/15/19 09:24 Dose: 3.125 mg Enoxaparin Sodium (Lovenox) 80 mg SC 0900,2100 [facility] Last Admin: 04/15/19 08:52 Dose: 80 mg Furosemide (Lasix) 40 mg PO 0900,1400 [facility] Last Admin: 04/15/19 09:24 Dose: Not Given Gabapentin (Neurontin) 400 mg PO TID [facility] Last Admin: 04/15/19 08:53 Dose: 400 mg Guaifenesin (Mucinex) 600 mg PO Q12HR [facility] Last Admin: 04/15/19 08:53 Dose: 600 mg Guaifenesin/Dextromethorphan (Robitussin Dm) 15 ml PO Q4H PRN PRN Reason: Cough Last Admin: 04/13/19 20:12 Dose: 15 ml Mometasone Furoate/Formoterol Fumar (Dulera 200 Mcg/5 Mcg Inhaler) 2 puff INH BID-RT [facility] Last Admin: 04/15/19 07:27 Dose: 2 puff Pantoprazole Sodium (Protonix) 40 mg PO DAILY [facility] Last Admin: 04/15/19 08:53 Dose: 40 mg Senna/Docusate Sodium (Senokot S) 2 tab PO BIDPRN PRN PRN Reason: Constipation Tamsulosin HCl (Flomax) 0.4 mg PO DAILY [facility] Last Admin: 04/15/19 08:53 Dose: 0.4 mg Vital Signs & Weight: Vital Signs Temp Pulse Resp BP BP Pulse Ox 04/15/19 11:49 98.7 F 86 16 91/50 L 94 L 04/15/19 07:26 98.5 F 84 15 103/52 L 99 04/15/19 03:20 97.5 F L 84 20 126/58 L 97 Weight 180 lb - Physical Exam General: other (confused about time) Neck: supple neck Cardiac: irregularly regular Lungs: decreased breath sounds Neuro: cranial nerve 2-12 intact Abdomen: unremarkable Extremities: no cyanosis, 1+ LE edema Skin: clear Musculoskeletal: decreased range of motion - Labs Result Diagrams: 04/15/19 04:22 04/15/19 04:22 Troponin/CKMB CK-MB (CK-2) 1.5 ng/mL (0-6.6) 04/10/19 15:33 Troponin I 0.063 ng/mL (< 0.028) H 04/10/19 16:55 - Telemetry Supraventricular conduction: atrial flutter - Assessment/Plan Assessment/Plan: 1. Acute on chronic systolic heart failure with EF 25-30% - stable with RA; on Coreg and Lasix; not on CHAVEZ/ARB due to hx of CKD 2. Ischemic CM EF at 25-30% - Will need ischemic work up once creatinine better. Will need Lifevest before discharge. 3. S/P CABG x 4 in 2017 - stable; on BBlocker, statin, and ASA 4. Paroxysmal afib/Aflutter - He converted into Aflutter with HR 100s around 1205 today. 5. Hx of CVA in 2018 - 6. Non sustained VT - 7. PAD with s/p AFRO - 8. COPD exacerbation - 9. HTN - hypotensive; cont to monitor MAR reviewed * Will need Lifevest before discharge. However, the pt may not be able to manage LifeVest well at home due to intermittent dementia per the pt's daughter <addendum> Converted back to Afib with RVR around 1400 on 04/15/2019. Will start with Digoxin with loading dose. Pt. seen and eval. by me. He still has some MILLER and lower leg edema. He is positive routinely on his I/O's.It appears that the I/O's may not be accurate. I will ask Nephrology to assist with his care. May need to consider amiodarone for the atrial fib/flutter, NSVT. Otherwise I agree with the A/P by the COOPERATIVE EDUCATION COORDINATOR.
[2019-04-15] MEDS ORDERED: Digoxin 0.5 MG/2 ML AMP SLOW IVP SCH (15:00)
[2019-04-15] MEDS: Acetaminophen 325 MG TAB PO PRN (16:29)
--- NOTE | 2019-04-15 18:10 | PDOC.HOSPP ---
- Subjective Encounter Date: 04/15/19 Encounter Time: 07:40 Subjective: Pt seen for followup re: CHF exacerbation. States he feels better. Ambulating with cardiac rehab. - Objective Vital Signs & Weight: Vital Signs (12 hours) Temp Pulse Pulse Pulse Resp BP BP 04/15/19 16:19 98.3 F 107 H 17 04/15/19 14:39 152 H 04/15/19 14:25 04/15/19 14:20 04/15/19 11:49 98.7 F 86 16 04/15/19 10:25 89 84 104/60 94/64 04/15/19 07:26 98.5 F 84 15 BP BP Pulse Ox Pulse Ox 04/15/19 16:19 102/68 92 L 04/15/19 14:39 04/15/19 14:25 97/62 04/15/19 14:20 82/52 L 04/15/19 11:49 91/50 L 94 L 04/15/19 10:25 93 L 04/15/19 07:26 103/52 L 99 Weight Weight 180 lb I&O: 04/14/19 04/15/19 04/16/19 06:59 06:59 06:59 Intake Total 240 1114 960 Output Total 300 Balance 240 814 960 Result Diagrams: 04/15/19 04:22 04/15/19 04:22 Additional Labs: Labs and MARs reviewed by me EKG Reviewed by me: Yes (Tele: NSR) Hospitalist ROS - Review of Systems Constitutional: denies: fever, chills, sweats, weakness, malaise Respiratory: reports: SOB with excertion Cardiovascular: denies: chest pain, palpitations, orthopnea, paroxysmal noc. dyspnea, edema, light headedness - Medication Medications: Active Medications Generic Name Dose Route Start Last Admin Trade Name Freq PRN Reason Stop Dose Admin Acetaminophen 650 mg 04/10/19 18:50 04/15/19 16:29 Tylenol PO 650 mg Q4H PRN Administration Headache/Fever/Mild Pain (1-3) Aspirin 81 mg 04/11/19 09:00 04/15/19 08:52 Aspirin Chewable PO 81 mg DAILY [facility] Administration Atorvastatin Calcium 20 mg 04/12/19 21:00 04/14/19 20:19 Lipitor PO 20 mg HS [facility] Administration Benzonatate 100 mg 04/11/19 15:00 04/15/19 14:39 Tessalon PO 100 mg TID [facility] Administration Carvedilol 3.125 mg 04/12/19 08:00 04/15/19 16:29 Coreg PO 3.125 mg BID-WM [facility] Administration Furosemide 40 mg 04/12/19 14:00 04/15/19 14:39 Lasix PO 40 mg 0900,1400 [facility] Administration Gabapentin 400 mg 04/10/19 21:00 04/15/19 14:39 Neurontin PO 400 mg TID [facility] Administration Guaifenesin 600 mg 04/11/19 21:00 04/15/19 08:53 Mucinex PO 600 mg Q12HR [facility] Administration Guaifenesin/Dextromethorphan 15 ml 04/10/19 18:50 04/13/19 20:12 Robitussin Dm PO 15 ml Q4H PRN Administration Cough Mometasone Furoate/Formoterol Fumar 2 puff 04/11/19 06:30 04/15/19 07:27 Dulera 200 Mcg/5 Mcg Inhaler INH 2 puff BID-RT [facility] Administration Pantoprazole Sodium 40 mg 04/11/19 09:00 04/15/19 08:53 Protonix PO 40 mg DAILY [facility] Administration Tamsulosin HCl 0.4 mg 04/11/19 09:00 04/15/19 08:53 Flomax PO 0.4 mg DAILY [facility] Administration - Exam General Appearance: NAD Eye: anicteric sclera Neck: supple Heart: RRR Respiratory: CTAB, no rales Gastrointestinal: soft, non-tender Extremities: 1+ LE edema Psychiatric: normal affect, normal behavior Hosp A/P (1) Acute on chronic systolic (congestive) heart failure Code(s): I50.23 - ACUTE ON CHRONIC SYSTOLIC (CONGESTIVE) HEART FAILURE Status : Acute (2) COPD exacerbation Code(s): J44.1 - CHRONIC OBSTRUCTIVE PULMONARY DISEASE W (ACUTE) EXACERBATION Status: Acute (3) Cardiomyopathy Code(s): I42.9 - CARDIOMYOPATHY, UNSPECIFIED Status: Acute (4) BPH (benign prostatic hyperplasia) Code(s): N40.0 - BENIGN PROSTATIC HYPERPLASIA WITHOUT LOWER URINRY TRACT SYMP Status: Chronic Qualifiers: Lower urinary tract symptom presence: symptoms absent Qualified Code(s): N40.0 - Benign prostatic hyperplasia without lower urinary tract symptoms (5) CAD (coronary artery disease) Code(s): I25.10 - ATHSCL HEART DISEASE OF [place] CORONARY ARTERY W/O ANG PCTRS Status: Chronic Qualifiers: Coronary Disease-Associated Artery/Lesion type: bypass graft [place] vs. transplanted heart: [place] heart Associated angina: without angina Qualified Code(s): I25.810 - Atherosclerosis of coronary artery bypass graft(s) without angina pectoris (6) Atrial flutter Code(s): I48.92 - UNSPECIFIED ATRIAL FLUTTER Status: Resolved - Plan out of bed/ambulate Creatinine 1.92 today. Improving, on furosemide. Will continue oxygen, steroids and bronchodilators. LVEF 25-30% on echo. BPH stable.
[2019-04-15] MEDS: Atorvastatin Calcium 20 MG TAB PO SCH (20:37)
[2019-04-15] MEDS: Heparin 5,000 UNITS/ML VIAL SC SCH (20:38)
[2019-04-15] MEDS: Digoxin 0.5 MG/2 ML AMP SLOW IVP SCH (20:39)
[2019-04-15] MEDS ORDERED: Amiodarone 200 MG TAB PO SCH (21:00)
[2019-04-16] MEDS: Digoxin 0.5 MG/2 ML AMP SLOW IVP SCH (02:16)
[2019-04-16 04:47] LABS: #Basophils 0.1 thou/uL (0.0-0.2); #Eosinphils 0.1 thou/uL (0.0-0.7); #Lymphocytes 1.2 thou/uL (1.20-3.40); #Monocytes 1.3 thou/uL (0.11-0.59); #Neutrophils 9.7 thou/uL (1.40-6.50); %Basophils 0.4 % (0.0-1.0); %Eosinophils 0.8 % (0.0-10.0); %Lymphocytes 9.5 % (21.0-51.0); %Monocytes 10.7 % (0.0-10.0); %Neutrophils 78.6 % (42.0-75.0); Hemoglobin 12.5 g/dL (14.0-18.0); Mean Corpuscular HGB CONC 32.1 g/dL (32.0-36.0); Mean Corpuscular Hemoglobin 32.4 pg (27.0-31.0); Mean Platelet Volume 8.9 fL (7.4-10.4); Platelet Count 270 thou/uL (130-400); RBC Distribution Width 13.3 % (11.5-14.5); Red Blood Cell (RBC) Count 3.85 mill/uL (4.70-6.10); White Blood Cell (WBC) Count 12.4 thou/uL (4.8-10.8)
[2019-04-16 05:20] LABS: Anion Gap 14 mmol/L (10-20); BUN (Urea Nitrogen) 33 mg/dL (8.4-25.7); Calc. Creatinine Clearance 40 mL/min (70-130); Calcium 9.1 mg/dL (7.8-10.44); Carbon Dioxide 29 mmol/L (23-31); Chloride 98 mmol/L (98-107); Estimated GFR-MDRD 36; Glucose 93 mg/dL (83-110); Potassium 4.7 mmol/L (3.5-5.1); Sodium 136 mmol/L (136-145)
[2019-04-16] MEDS ORDERED: Amiodarone 450 MG, Admixture Fee 1 EACH in Dextrose 5% in Water 250 ML IVPB SCH (08:15)
[2019-04-16] MEDS ORDERED: Amiodarone 150 MG, Admixture Fee 1 EACH in Dextrose 5% in Water 100 ML IVPB SCH (08:15)
[2019-04-16] MEDS: Mometasone/Formoterol 120 PUFF INHALER INH SCH ×2 (08:26→19:05)
[2019-04-16] MEDS: Furosemide 40 MG TAB PO SCH ×2 (09:17→13:24)
[2019-04-16] MEDS: Carvedilol 3.125 MG TAB PO SCH ×3 (09:17→16:39)
[2019-04-16] MEDS: Aspirin Chewable 81 MG TAB PO SCH (09:17)
[2019-04-16] MEDS: Benzonatate 100 MG CAP PO SCH ×3 (09:17→16:39)
[2019-04-16] MEDS: Gabapentin 400 MG CAP PO SCH ×2 (09:17→16:26)
[2019-04-16] MEDS: guaiFENesin ER 600 MG TAB PO SCH (09:18)
[2019-04-16] MEDS: Heparin 5,000 UNITS/ML VIAL SC SCH ×2 (09:18→21:12)
[2019-04-16] MEDS: Tamsulosin HCl 0.4 MG CAP PO SCH (09:18)
[2019-04-16 10:25] LABS: Albumin 3.4 g/dL (3.4-4.8)
[2019-04-16 10:26] LABS: Alkaline Phosphatase 67 U/L (40-110); Bilirubin, Total 1.2 mg/dL (0.2-1.2); Protein, Total 7.6 g/dL (5.8-8.1)
[2019-04-16 10:41] LABS: ALT (SGPT) 12 U/L (8-55); AST (SGOT) 11 U/L (5-34); Bilirubin, Direct 0.6 mg/dL (0.1-0.3)
--- NOTE | 2019-04-16 10:58 | PDOC.CPN ---
- Subjective Date: 04/16/19 Time: 11:04 Interval history: The pt seen and examined. Afib. with RVR up to 160bpm last night and this AM. No cardiac complaints from pt. He is unawre of the tachycardia.. He was in bathroom sitting commode to have BM; however, he forgot pull his pants down. - Objective Allergies/Adverse Reactions: Allergies Allergy/AdvReac Type Severity Reaction Status Date / Time No Known Allergies Allergy Verified 04/11/19 04:44 Visit Medications: Current Medications Acetaminophen (Tylenol) 650 mg PO Q4H PRN PRN Reason: Headache/Fever/Mild Pain (1-3) Last Admin: 04/15/19 16:29 Dose: 650 mg Aspirin (Aspirin Chewable) 81 mg PO DAILY [facility] Last Admin: 04/16/19 09:17 Dose: 81 mg Atorvastatin Calcium (Lipitor) 20 mg PO HS [facility] Last Admin: 04/15/19 20:37 Dose: 20 mg Benzonatate (Tessalon) 100 mg PO TID [facility] Last Admin: 04/16/19 09:17 Dose: 100 mg Bisacodyl (Dulcolax) 10 mg ID DAILYPRN PRN PRN Reason: Constipation Carvedilol (Coreg) 3.125 mg PO BID-WM [facility] Last Admin: 04/16/19 09:17 Dose: 3.125 mg Furosemide (Lasix) 40 mg PO 0900,1400 [facility] Last Admin: 04/16/19 09:17 Dose: 40 mg Gabapentin (Neurontin) 400 mg PO TID [facility] Last Admin: 04/16/19 09:17 Dose: 400 mg Guaifenesin (Mucinex) 600 mg PO Q12HR [facility] Last Admin: 04/16/19 09:18 Dose: 600 mg Guaifenesin/Dextromethorphan (Robitussin Dm) 15 ml PO Q4H PRN PRN Reason: Cough Last Admin: 04/13/19 20:12 Dose: 15 ml Heparin Sodium (Porcine) (Heparin) 5,000 units SC BID [facility] Last Admin: 04/16/19 09:18 Dose: 5,000 units Amiodarone HCl 450 mg/Miscellaneous Medication 1 each/ Dextrose/Water 259 mls @ 0 mls/hr IVPB INF [facility]; Protocol Last Admin: 04/16/19 09:18 Dose: 259 mls Mometasone Furoate/Formoterol Fumar (Dulera 200 Mcg/5 Mcg Inhaler) 2 puff INH BID-RT [facility] Last Admin: 04/16/19 08:26 Dose: Not Given Pantoprazole Sodium (Protonix) 40 mg PO DAILY [facility] Last Admin: 04/16/19 09:18 Dose: 40 mg Senna/Docusate Sodium (Senokot S) 2 tab PO BIDPRN PRN PRN Reason: Constipation Tamsulosin HCl (Flomax) 0.4 mg PO DAILY [facility] Last Admin: 04/16/19 09:18 Dose: 0.4 mg Vital Signs & Weight: Vital Signs Temp Pulse Resp BP BP Pulse Ox 04/16/19 07:32 98.4 F 145 H 16 137/70 97 04/16/19 03:42 98.5 F 81 20 145/81 H 93 L 04/16/19 02:16 104 H 04/16/19 00:00 98.5 F 80 18 124/58 L 92 L Weight 182 lb - Quality Measures Condition: Atrial Fibrillation/Flutter (hx or current), Coronary Artery Disease , Heart Failure CV meds: Beta Linda: Yes, CHAVEZ/ARB: No, Statin: Yes, ASA: Yes, Anticoagulant: Yes (heparin) - Physical Exam General: other (confused) Neck: supple neck Cardiac: other (irreg/irreg. - afib.) Lungs: decreased breath sounds. negative: clear to auscultation Neuro: other (confused) Abdomen: unremarkable Extremities: no edema - Labs Result Diagrams: 04/16/19 04:27 04/16/19 04:27 Troponin/CKMB CK-MB (CK-2) 1.5 ng/mL (0-6.6) 04/10/19 15:33 Troponin I 0.063 ng/mL (< 0.028) H 04/10/19 16:55 - Telemetry Supraventricular conduction: atrial fibrillation - Assessment/Plan Assessment/Plan: 1. Acute on chronic systolic heart failure with EF 25-30% - on Coreg and Lasix; not on CHAVEZ/ARB due to hx of CKD 2. Ischemic CM EF at 25-30% - Will need ischemic work up once creatinine better. Will need Lifevest before discharge; however, he is confused last night and this AM. 3. S/P CABG x 4 in 2017 - stable; on BBlocker, statin, and ASA 4. Paroxysmal afib/Aflutter - Afib/Aflutter with RVR with HR 140s since 0400 on 04/16/2019 - Amiodarone drip with bolus was started this AM and he converted back to SR around 1100 today; 5. Hx of CVA in 2018 - 6. Non sustained VT - 7. PAD with s/p AFRO - 8. COPD exacerbation - 9. HTN - stable with Amiodarone drip; cont to monitor 10. Dementia - the pt may not be able to manage LifeVest well at home due to intermittent dementia per the pt's daughter MAR reviewed * Will need Lifevest before discharge. However, the pt may not be able to manage LifeVest well at home due to intermittent dementia per the pt's daughter. Pt. seen and eval. by me. I agree with the A/P by the CARROTING MACHINE OFFBEARER.When I saw him this AM he was still in Afib. but did not feel the rapid HR. He did seem nervous however and this may have been the etiology of his CHF exacerbation if he is having intermitent afib. at home and is unaware of the tachycardia.Continue amiodarone for 24hrs and then change to po. gjmays <Addendum> Will stop Amiodarone drip since the med might cause termer, more in BLE per RN. Will request EP consult if he converts back to Afib.
[2019-04-16] MEDS ORDERED: ALPRAZolam 0.25 MG TAB PO PRN (11:05)
--- NOTE | 2019-04-16 11:40 | RAD ---
EXAM: Single view of the chest HISTORY: Wheezing and edema COMPARISON: 04/10/2019 FINDINGS: Single view of the chest shows an enlarged but stable cardiomediastinal silhouette. The pa tient is status post sternotomy. There is no evidence of consolidation, mass, or pleural effusion. The bones are unremarkable. IMPRESSION: No evidence of acute cardiopulmonary disease
--- NOTE | 2019-04-16 14:33 | CT ---
CT BRAIN WITHOUT CONTRAST: HISTORY:Altered mental status COMPARISON:03/08/2018 FINDINGS: Old infarctions in the left frontoparietal lobe and the basal ganglia are again seen. Bilateral basal ganglia calcifications are redemonstrated. No evidence of acute infarct, hemorrhage, midline shift or abnormal extra-axial fluid collections is seen. The ventricular size is appropriate and the basilar cisterns are patent. The bony calvarium is intact. There is mucosal disease in the paranasal sinuses. IMPRESSION: No CT evidence of acute intracranial process.
--- NOTE | 2019-04-16 15:52 | CON ---
DATE OF CONSULTATION: 04/16/2019 SERVICE: Nephrology. REQUESTING PROVIDER: Dr. Del Rosario. REASON FOR CONSULTATION: Renal insufficiency. HISTORY OF PRESENT ILLNESS: A 74-year-old male with known history of ischemic cardiomyopathy with EF of 40% to 45%, coronary artery disease, COPD, peripheral vascular disease, amongst others, who was admitted on April 10, 2019, due to worsening shortness of breath and bilateral leg edema associated with generalized weakness. Impression of COPD and CHF exacerbation was made, and the patient was started on diuretic therapy, bronchodilators, amongst others. On presentation, creatinine was 1.67, but he has trended up to 2.09 on April 13 with diuretic therapy and has started trending back downward again to a serena of 1.84 earlier today, April 16, 2019. The patient, however, was found to have atrial flutter/fibrillation as well as nonsustained ventricular tachycardia and is still with significant volume overload, hence Nephrology consulted to help with management of the patient. History is mostly from the patient's spouse as the patient is weak and has some memory lapses. He has chronic shortness of breath and uses home oxygen at home. They reported that swelling has improved, but he is generally weak and also has shortness of breath especially with exertion. There is no history of fever, nausea, vomiting, or dysuria. There is involuntary movement of both lower and upper limbs which has gotten worse in the last 24 hours. Review of medical records showed that the patient had CKD with baseline of 1.5 to 1.8 in the last 1 year with intermittent episodes of acute kidney injury. The patient is still on diuretic therapy. PAST MEDICAL HISTORY: 1. Coronary artery disease, status post CABG. 2. Ischemic cardiomyopathy. 3. Chronic systolic heart failure. 4. Chronic respiratory failure, on home oxygen. 5. COPD. 6. Dyslipidemia. 7. Chronic back pain. 8. Hypertension. 9. BPH. 10. Paroxysmal atrial fibrillation/flutter. 11. Peripheral artery disease. 12. Neuropathy. PAST SURGICAL HISTORY: 1. CABG. 2. Femoral popliteal bypass. FAMILY HISTORY: Reviewed, but noncontributory. SOCIAL HISTORY: The patient lives with family. He is a former smoker that quit more than 25 years ago. He denied alcohol or recreational drug use. ALLERGIES: NO KNOWN DRUG ALLERGIES REPORTED. PRIOR TO HOSPITAL MEDICATIONS: 1. Eliquis 5 mg p.o. b.i.d. 2. Aspirin 81 mg p.o. daily. 3. Carvedilol 3.125 mg p.o. b.i.d. 4. Donepezil 10 mg p.o. daily at bedtime. 5. Lasix 40 mg p.o. daily. 6. Gabapentin 400 mg p.o. b.i.d. 7. Lovastatin 40 mg p.o. daily at bedtime. 8. Protonix 40 mg p.o. daily. 9. Tamsulosin 0.4 mg p.o. daily. 10. Lisinopril 2.5 mg p.o. daily. 11. Mometasone/formoterol 200/5 two puffs inhalation b.i.d. CURRENT HOSPITAL MEDICATIONS: 1. Amiodarone infusion. 2. Mucinex 600 mg p.o. b.i.d. 3. Aspirin 81 mg p.o. daily. 4. Lipitor 20 mg p.o. daily at bedtime. 5. Tessalon pills 100 mg p.o. t.i.d. 6. Carvedilol 3.125 mg p.o. b.i.d. 7. Lasix 40 mg p.o. at 9 and at 1400 hours. 8. Gabapentin 400 mg p.o. t.i.d. 9. Heparin subcu 5000 units b.i.d. 10. Mometasone/formoterol two puffs inhalation b.i.d. 11. Protonix 40 mg p.o. daily. 12. Flomax 0.4 mg p.o. daily. 13. Acetaminophen 650 mg p.o. q.4 p.r.n. for pain. 14. Xanax 0.25 mg p.o. b.i.d. p.r.n. REVIEW OF SYSTEMS: This is grossly limited due to the patient's condition. Pertinent positives and negatives are included in the history of present illness. Otherwise, this was negative. PHYSICAL EXAMINATION: VITAL SIGNS: Temperature 98.4, pulse 145, respiratory rate 16, SpO2 of 97 on 2 L nasal cannula, blood pressure is 137/70. GENERAL: Obese male, fatigued, but in no obvious distress. Afebrile. Anicteric. HEENT: Normocephalic and atraumatic. Oral mucosa is moist. NECK: Supple. Nontender. No obvious JVD appreciated. CARDIOVASCULAR: Irregular rhythm and rate. Tachycardic. RESPIRATORY: Fair air entry with prolonged expiration as well as scattered rhonchi in all lung zones. GI: Full, soft, nontender, nondistended with normal bowel sounds. EXTREMITIES: [id number] edema of both upper and lower extremities noted. PERSONNEL RECORDS CLERK: Conscious and alert and oriented x3. Memory lapse is noted. Involuntary movement of both upper limbs, especially right upper limb noted, which gets worse with intention or attempting to sit up. The patient moves all extremities. DIAGNOSTIC DATA: CBC today showed WBC count of 12.4, hemoglobin of 12.5, MCV of 101, platelets of 270 with neutrophil percent of 78.6. CMP showed sodium 136, potassium 4.7, chloride 98, CO2 of 29, BUN 33, creatinine 1.84, glucose 93, calcium 9.1, total bilirubin 1.2, AST 11, ALT 12, alkaline phosphatase 67, total protein 7.6, albumin 3.4. IMAGING STUDIES: Chest x-ray on presentation on April 10 showed chronic lung changes with possible superimposed more acute infectious process at the right lung base. ASSESSMENT: 1. Acute on chronic renal failure: Most likely due to cardiorenal. Renal function has improved somewhat with diuretic therapy. The patient, however, still has fluid overload and could benefit from further diuretics, though atrial flutter/fibrillation with rapid ventricular response could be leading to diastolic heart failure. 2. Acute on chronic systolic heart failure with acute drop in EF from 40-45 to 20-25. 3. Ischemic cardiomyopathy. 4. Volume overload. 5. Chronic obstructive pulmonary disease with acute exacerbation. 6. Myoclonic jerks: Etiology is unclear. Most likely related to metabolic encephalopathy. 7. Nonsustained ventricular tachycardia. 8. Chronic kidney disease stage 3B. 9. Physical deconditioning. PLAN: 1. I agree with continuation of diuretic therapy at this time. 2. Adequate rate and rhythm control of atrial fibrillation/flutter with improved cardiac function and renal perfusion. 3. We will, however, get urine electrolytes and chest x-ray to assess volume status. 4. We will monitor renal function since creatinine is trending downward with diuretics. 5. We will consider repeating renal ultrasound since one obtained about a year ago showed right kidney measuring 9 cm and left kidney measuring 10 cm with mildly increased cortical echogenicity. 6. Further treatment to follow depending on hospital course. Job ID: [id number]
[2019-04-16 15:56] LABS: Actual Bicarbonate (HCO3a) 25.4 mEq/L (22-28); CO2 Tension 35.4 mmHg (35.0-45.0); Calcium, Ionized 1.06 mmol/L (1.12-1.30); Carboxyhemoglobin (COHb) 1.3 gm% (0.0-3.0); Hemoglobin (Hb) 12.9 g/dL (14.0-18.0); Potassium - ABG Lab 5.36 mmol/L (3.70-5.30); pH, Arterial 7.47 (7.35-7.45)
[2019-04-16 16:04] LABS: O2 Tension (PaO2) 51.4 mmHg (> 70.0); Puncture Site RRA
[2019-04-16 16:29] LABS: #Lymphocytes 0.9 thou/uL (1.20-3.40); #Monocytes 0.9 thou/uL (0.11-0.59); #Neutrophils 6.7 thou/uL (1.40-6.50); %Eosinophils 0.2 % (0.0-10.0); %Lymphocytes 10.1 % (21.0-51.0); %Monocytes 10.7 % (0.0-10.0); Hemoglobin 12.4 g/dL (14.0-18.0); Mean Corpuscular HGB CONC 32.7 g/dL (32.0-36.0); Mean Corpuscular Hemoglobin 32.8 pg (27.0-31.0); Mean Platelet Volume 8.4 fL (7.4-10.4); Platelet Count 260 thou/uL (130-400); RBC Distribution Width 13.4 % (11.5-14.5); White Blood Cell (WBC) Count 8.5 thou/uL (4.8-10.8)
[2019-04-16] MEDS ORDERED: Furosemide 20 MG/2 ML VIAL SLOW IVP SCH (16:45)
[2019-04-16] MEDS ORDERED: Dextrose 5 % And 0.9 % NaCl 1,000 ML IV SCH ×2 (16:45)
[2019-04-16 16:49] LABS: ALT (SGPT) 898 U/L (8-55); AST (SGOT) 824 U/L (5-34); Albumin 3.3 g/dL (3.4-4.8); Alkaline Phosphatase 70 U/L (40-110); Anion Gap 15 mmol/L (10-20); BUN (Urea Nitrogen) 36 mg/dL (8.4-25.7); Bilirubin, Total 2.1 mg/dL (0.2-1.2); Calc. Creatinine Clearance 31 mL/min (70-130); Calcium 8.8 mg/dL (7.8-10.44); Carbon Dioxide 26 mmol/L (23-31); Chloride 95 mmol/L (98-107); Estimated GFR-MDRD 27; Globulin 4.3 g/dL (2.4-3.5); Glucose 119 mg/dL (83-110); Potassium 5.3 mmol/L (3.5-5.1); Protein, Total 7.6 g/dL (5.8-8.1); Sodium 131 mmol/L (136-145)
[2019-04-16] MEDS ORDERED: Furosemide 20 MG/2 ML VIAL SLOW IVP PRN (17:14)
[2019-04-16] MEDS ORDERED: Albumin 25% 25 GM/100 ML BOT IVPB SCH (17:28)
[2019-04-16 17:42] LABS: CKMB 20.9 ng/mL (0-6.6)
[2019-04-16] MEDS ORDERED: methylPREDNISolone Sod Succ 40 MG VIAL IVP SCH (17:45)
--- NOTE | 2019-04-16 17:59 | CON ---
DATE OF CONSULTATION: HISTORY OF PRESENT ILLNESS: Guille Ricardo is a 74-year-old, morbidly obese gentleman, who presented with shortness of breath on 04/10/2019. Today on 04/16/2019, he is having difficulty breathing after amiodarone was initiated for SVT, became less responsive, became tachypneic and tachycardiac. Raeann gore was called in, where blood gases showed hypoxemia. BNP was 2000. Troponin was elevated at 9. His liver functions which were initially normal, now AST is 824, ALT is 898. When I saw him on the monitor bed, he was clearly having difficulty breathing, now on BiPAP in the ICU. He is much better and settled down. His blood pressure is 99 systolic. He is awake, responsive, but lethargic. His creatinine was 1.84, it is now 2.37. He has severe limitation in his activity prior to his recent admission, being short of breath on minimal exertion. PAST MEDICAL HISTORY: Coronary artery disease, previous IN, SVT, COPD, probably sleep apnea, peripheral vascular disease, neuropathy. PREVIOUS SURGERIES: Bypass, back surgery, fem-pop. HOME MEDICATIONS: Include; 1. Flomax 0.4. 2. Protonix 40. 3. Dulera. 4. Lovastatin 40. 5. Lisinopril 2.5. 6. Gabapentin 400. 7. Lasix 40. 8. Coreg 3.125. 9. Aspirin. 10. Eliquis 5 b.i.d. ALLERGIES: NONE. REVIEW OF SYSTEMS: At this time difficult to obtain. PHYSICAL EXAMINATION: VITAL SIGNS: As noted, his saturations are now 100% on BiPAP, blood pressure 98, respirations 20, pulse 80 and irregular. CHEST: Decreased breath sounds, minimal rhonchi, crackles. No wheezing ABDOMEN: Soft. EXTREMITIES: Trace edema. LABORATORY DATA: White count 8000, hemoglobin and hematocrit are 12 and 38, platelet count is normal. Sodium 131. IMPRESSION: 1. Respiratory failure, diastolic dysfunction. 2. Chronic obstructive pulmonary disease. 3. Sleep apnea. 4. Peripheral vascular disease. 5. Encephalopathy. PLAN: Initiate neb treatments. Continue noninvasive ventilation. Avoid sedation. Dr. Toribio has seen him before in the past. We will notify him tomorrow. This is a 45-minute critical time. If his condition gets worse, he may have to get intubated. Job ID: [id number]
[2019-04-16] MEDS ORDERED: SYSTANE 3.5 GM TUBE EA EYE PRN (18:02)
[2019-04-16] MEDS ORDERED: Norepinephrine 8 MG/0.9% NS 250 ML IVPB PRN ×2 (18:02→18:15)
[2019-04-16] MEDS ORDERED: Heparin 25,000 units/D5W 500 ML IVPB SCH (18:15)
[2019-04-16] MEDS ORDERED: Heparin 10,000 UNITS/ 10 ML VIAL SLOW IVP SCH (18:15)
[2019-04-16] MEDS ORDERED: Norepinephrine 8 MG in Dextrose 5% in Water 242 ML IVPB PRN (18:19)
[2019-04-16 18:30] LABS: INR-International Normal Ratio 1.5; PTT 40.8 SEC (22.9-36.1); Prothrombin Time 17.8 SEC (12.0-14.7)
[2019-04-16] MEDS: Norepinephrine 4 MG/4 ML VIAL ONE ×2 (18:30)
[2019-04-16 18:31] LABS: Hemoglobin 12.6 g/dL (14.0-18.0); Platelet Count 196 thou/uL (130-400)
[2019-04-16] MEDS: Dextrose 5 % And 0.9 % NaCl 1,000 ML IV SCH (18:31)
--- NOTE | 2019-04-16 19:05 | PDOC.HOSPP ---
- Subjective Encounter Date: 04/16/19 Encounter Time: 15:00 Subjective: Pt seen at various times today. Lethargic. Occasional tremors. - Objective Vital Signs & Weight: Vital Signs (12 hours) Temp Pulse Resp BP BP Pulse Ox 04/16/19 16:58 67 04/16/19 15:28 99 F 74 18 113/58 L 95 04/16/19 13:24 139/63 04/16/19 11:24 97.3 F L 89 16 89/50 L 97 04/16/19 07:32 98.4 F 145 H 16 137/70 97 Weight Weight 182 lb I&O: 04/15/19 04/16/19 04/17/19 06:59 06:59 06:59 Intake Total 1114 1320 Output Total 300 600 Balance 814 720 Result Diagrams: 04/16/19 18:24 04/16/19 16:20 Additional Labs: Accuchecks 04/16/19 16:30 POC Glucose 109 Labs and MARs reviewed by me EKG Reviewed by me: Yes (Tele: NSR) Hospitalist ROS - Review of Systems Constitutional: denies: fever, chills, sweats, weakness, malaise Respiratory: reports: SOB with excertion Cardiovascular: denies: chest pain, palpitations, orthopnea, paroxysmal noc. dyspnea, edema, light headedness Neurological: reports: confusion, other (tremors) - Medication Medications: Active Medications Generic Name Dose Route Start Last Admin Trade Name Freq PRN Reason Stop Dose Admin Acetaminophen 650 mg 04/10/19 18:50 04/15/19 16:29 Tylenol PO 650 mg Q4H PRN Administration Headache/Fever/Mild Pain (1-3) Albumin Human 25 gm 04/16/19 17:28 04/16/19 17:54 Albumin 25% IVPB 04/16/19 19:30 25 gm NOW DANAY Administration Atorvastatin Calcium 20 mg 04/12/19 21:00 04/15/19 20:37 Lipitor PO 20 mg HS DANAY Administration Carvedilol 3.125 mg 04/12/19 08:00 04/16/19 16:39 Coreg PO Not Given BID-WM DANAY Guaifenesin/Dextromethorphan 15 ml 04/10/19 18:50 04/13/19 20:12 Robitussin Dm PO 15 ml Q4H PRN Administration Cough Dextrose/Sodium Chloride 1,000 mls @ 50 mls/hr 04/16/19 16:45 04/16/19 18:31 D5 0.9% Ns IV 1,000 mls .Q20H DANAY Administration Methylprednisolone Sodium Succinate 40 mg 04/16/19 17:45 04/16/19 17:55 Solu-Medrol IVP 04/16/19 19:45 40 mg NOW DANAY Administration Mometasone Furoate/Formoterol Fumar 2 puff 04/11/19 06:30 04/16/19 08:26 Dulera 200 Mcg/5 Mcg Inhaler INH Not Given BID-RT DANAY Tamsulosin HCl 0.4 mg 04/11/19 09:00 04/16/19 09:18 Flomax PO 0.4 mg DAILY DANAY Administration - Exam General Appearance: NAD Eye: anicteric sclera Neck: supple, symmetric Heart: RRR Respiratory: CTAB, no wheezes, no rales, no ronchi Gastrointestinal: soft, non-tender Extremities: no clubbing, 1+ LE edema Neurological: cranial nerve grossly intact Neurological - other findings: tremor Psychiatric: oriented to person, oriented to place, lethargic. negative: oriented to time Hosp A/P (1) Acute metabolic encephalopathy Code(s): G93.41 - METABOLIC ENCEPHALOPATHY Status: Acute (2) Acute on chronic systolic (congestive) heart failure Code(s): I50.23 - ACUTE ON CHRONIC SYSTOLIC (CONGESTIVE) HEART FAILURE Status : Acute (3) COPD exacerbation Code(s): J44.1 - CHRONIC OBSTRUCTIVE PULMONARY DISEASE W (ACUTE) EXACERBATION Status: Acute (4) Cardiomyopathy Code(s): I42.9 - CARDIOMYOPATHY, UNSPECIFIED Status: Acute (5) BPH (benign prostatic hyperplasia) Code(s): N40.0 - BENIGN PROSTATIC HYPERPLASIA WITHOUT LOWER URINRY TRACT SYMP Status: Chronic Qualifiers: Lower urinary tract symptom presence: symptoms absent Qualified Code(s): N40.0 - Benign prostatic hyperplasia without lower urinary tract symptoms (6) CAD (coronary artery disease) Code(s): I25.10 - ATHSCL HEART DISEASE OF [place] CORONARY ARTERY W/O ANG PCTRS Status: Chronic Qualifiers: Coronary Disease-Associated Artery/Lesion type: bypass graft [place] vs. transplanted heart: [place] heart Associated angina: without angina Qualified Code(s): I25.810 - Atherosclerosis of coronary artery bypass graft(s) without angina pectoris (7) Atrial flutter Code(s): I48.92 - UNSPECIFIED ATRIAL FLUTTER Status: Resolved - Plan plan discussed w/ family, out of bed/ambulate Etiology of metabolic encaphalopathy unclear. CT brain nil acute. Check ABG. Check CBC, CMP. Creatinine 1.84 today. Continue furosemide LVEF 25-30% on echo. BPH stable.
--- NOTE | 2019-04-16 19:31 | RAD ---
Exam: Chest one view HISTORY:Line placement Comparison: 04/10/2019 FINDINGS: Lines and tubes: Interval placement of a right-sided internal jugular central venous catheter with th e distal tip in the caval atrial region. Sternotomy wires are noted. Cardiac silhouette:Cardiomegaly. Aorta: Unremarkable Pulmonary vessels: Prominent. Costophrenic angles: Stable blunting of the left costophrenic angle LUNGS: Scattered interstitial reticular nodular opacities. Pneumothorax: None Osseous abnormalities: None IMPRESSION: Interval placement of a right-sided vascular catheter. No pneumothorax. Otherwise, no sig nificant interval change.
[2019-04-16 20:29] LABS: Bacteria/HPF None Seen HPF (None Seen); Bilirubin Negative (Negative); Blood, Urine Negative (Negative); Clarity Clear (Clear); Glucose, Urine (Dipstick) Normal (Negative); Leukocyte Negative Leu/uL (Negative); Nitrite Negative (Negative); Protein, Urine (Dipstick) 30 mg/dL (Neg-Trace); RBC/HPF 0-3 HPF (0-3); Squamous Epithelial None Seen HPF (0-3); Urobilinogen Normal mg/dL (Less than 2); WBC/HPF 0-3 HPF (0-3)
[2019-04-16 20:33] LABS: Urine Culture Reflex No No
[2019-04-16 20:42] LABS: Creatinine, Urine 86.28 mg/dL (63-166)
[2019-04-16] MEDS: Famotidine/PF 20 mg/2ml Vial SLOW IVP SCH (21:12)
[2019-04-16] MEDS: Aspirin 300 MG Suppository PR SCH (21:12)
[2019-04-16] MEDS: Atorvastatin Calcium 20 MG TAB PO SCH (21:13)
[2019-04-16 21:21] LABS: CKMB 15.1 ng/mL (0-6.6); Critical Call CKMB RESULT DECREASING
[2019-04-17] MEDS ORDERED: Furosemide 20 MG/2 ML VIAL SLOW IVP SCH (06:00)
[2019-04-17] MEDS: Mometasone/Formoterol 120 PUFF INHALER INH SCH ×2 (07:00→18:30)
[2019-04-17] MEDS: Tamsulosin HCl 0.4 MG CAP PO SCH (13:03)
[2019-04-17] MEDS: methylPREDNISolone Sod Succ 40 MG VIAL IVP SCH ×2 (13:03→19:38)
[2019-04-17] MEDS: Heparin 5,000 UNITS/ML VIAL SC SCH ×2 (13:03→21:01)
[2019-04-17] MEDS: Carvedilol 3.125 MG TAB PO SCH ×2 (13:03→16:03)
[2019-04-17] MEDS: Famotidine/PF 20 mg/2ml Vial SLOW IVP SCH (13:03)
[2019-04-17] MEDS: Pantoprazole 40 MG VIAL IVP SCH (13:03)
[2019-04-17] MEDS: Dextrose 5 % And 0.9 % NaCl 1,000 ML IV SCH (13:04)
--- NOTE | 2019-04-17 14:12 | ULT ---
HEPATIC DUPLEX EVALUATION: INDICATIONS: History of abnormal LFTs. FINDINGS: Mckeon-scale, color Doppler and spectral Doppler were obtained of the right upper quadrant and spleen. Additional images were obtained of the aorta. FINDINGS: The proximal aorta measured 2.5 cm. The mid aorta was obscured. The distal aorta measured 1.9 cm. The patient has a known aortobifemoral bypass graft. No shaheen aneurysmal dilatation is seen involving th e visualized aspects of the distal aorta or the proximal aorta. The liver measured 12.4 cm. No focal hepatic lesion is evident. The spleen was obscured by overlying bowel gas. The gallbladder is partial ly obscured. The visualized aspects appear within normal limits. No sonographic Khalil sign is report ed. The common bile duct measured 2.7 mm. The pancreas was not well seen. The right kidney measured 9 .6 cm. There is no evidence of hydronephrosis. The right renal cortical thickness is 1.1 cm. There is some antegrade flow within the main portal vein. There is appropriate flow within the spleni c artery and splenic vein. Appropriate flow is seen within the aorta. There is appropriate flow in th e left hepatic vein, hepatic artery, mid hepatic vein and right portal vein. The right hepatic vein i s not well seen. The common bile duct measured 2.7 mm. IMPRESSION: 1. Limitations of examination due to overlying bowel gas and patient cooperation. 2. Within the visualized hepatic vasculature there appears to be hepatopedal flow. The right hepatic vein is not well seen. 3. No definite acute abnormality seen. POS: OFF
[2019-04-17 15:47] LABS: Anion Gap 12 mmol/L (10-20); BUN (Urea Nitrogen) 47 mg/dL (8.4-25.7); Calc. Creatinine Clearance 24 mL/min (70-130); Calcium 8.6 mg/dL (7.8-10.44); Carbon Dioxide 30 mmol/L (23-31); Chloride 97 mmol/L (98-107); Estimated GFR-MDRD 20; Glucose 148 mg/dL (83-110); Magnesium 2.6 mg/dL (1.6-2.6); Potassium 4.6 mmol/L (3.5-5.1); Sodium 134 mmol/L (136-145)
[2019-04-17] MEDS: Aspirin 300 MG Suppository PR SCH (16:04)
[2019-04-17 16:34] LABS: Hemoglobin 11.3 g/dL (14.0-18.0); Mean Corpuscular HGB CONC 30.7 g/dL (32.0-36.0); Mean Corpuscular Hemoglobin 31.7 pg (27.0-31.0); Mean Platelet Volume 9.2 fL (7.4-10.4); Platelet Count 208 thou/uL (130-400); RBC Distribution Width 13.7 % (11.5-14.5); Red Blood Cell (RBC) Count 3.59 mill/uL (4.70-6.10); White Blood Cell (WBC) Count 11.5 thou/uL (4.8-10.8)
[2019-04-17 16:35] LABS: Band 29 % (5-11); Lymphocytes 10 % (21-51); MDiff Complete? YES; Macrocytosis SLIGHT = 6-15 cells (100X) (0-5/hpf); Monocytes 3 % (0-10); Neutrophil 58 % (42-75); Platelet Morphology Comment Appears Adequate; Polychromasia SLIGHT = 2-3 cells (100X) (0-2/hpf)
--- NOTE | 2019-04-17 18:45 | PDOC.HOSPP ---
- Subjective Encounter Date: 04/17/19 Encounter Time: 11:20 Subjective: Pt seen for followup re: NSTEMI. States he feels well. Denies having any chest pain yesterday. - Objective Vital Signs & Weight: Vital Signs (12 hours) Temp Pulse Resp Pulse Ox 04/17/19 18:28 82 24 H 100 04/17/19 15:41 74 04/17/19 15:00 98.8 F 04/17/19 14:00 98.8 F 04/17/19 13:51 80 04/17/19 13:49 81 22 H 99 Weight Weight 182 lb Most Recent Monitor Data Heart Rate from ECG 78 NIBP 103/55 NIBP BP-Mean 71 Respiration from ECG 23 SpO2 100 I&O: 04/16/19 04/17/19 04/18/19 06:59 06:59 06:59 Intake Total 1320 865 Output Total 600 495 250 Balance 720 -495 615 Result Diagrams: 04/17/19 04:15 04/17/19 04:15 Additional Labs: Accuchecks 04/17/19 04/17/19 04/16/19 17:45 04:22 21:14 POC Glucose 122 H 148 H 145 H Labs and MARs reviewed by me EKG Reviewed by me: Yes (Tele: NSR) Hospitalist ROS - Review of Systems Cardiovascular: denies: chest pain, palpitations, orthopnea, paroxysmal noc. dyspnea, edema, light headedness Gastrointestinal: denies: nausea, vomiting, abdominal pain, diarrhea, constipation, melena, hematochezia - Medication Medications: Active Medications Generic Name Dose Route Start Last Admin Trade Name Freq PRN Reason Stop Dose Admin Acetaminophen 650 mg 04/10/19 18:50 04/15/19 16:29 Tylenol PO 650 mg Q4H PRN Administration Headache/Fever/Mild Pain (1-3) Albuterol/Ipratropium 3 ml 04/17/19 18:30 04/17/19 18:28 Duoneb NEB 3 ml [id number] DANAY Administration Aspirin 300 mg 04/16/19 18:30 04/17/19 16:04 Aspirin [place] 300 mg Q24H DANAY Administration Atorvastatin Calcium 20 mg 04/12/19 21:00 04/16/19 21:13 Lipitor PO Not Given HS DANAY Carvedilol 3.125 mg 04/12/19 08:00 04/17/19 16:03 Coreg PO 3.125 mg BID-WM DANAY Administration Guaifenesin/Dextromethorphan 15 ml 04/10/19 18:50 04/13/19 20:12 Robitussin Dm PO 15 ml Q4H PRN Administration Cough Heparin Sodium (Porcine) 5,000 units 04/16/19 21:00 04/17/19 13:03 Heparin SC Not Given BID DANAY Dextrose/Sodium Chloride 1,000 mls @ 50 mls/hr 04/16/19 16:45 04/17/19 13:04 D5 0.9% Ns IV Not Given .Q20H DANAY Methylprednisolone Sodium Succinate 40 mg 04/17/19 09:00 04/17/19 13:03 Solu-Medrol IVP Not Given DAILY [facility] Mometasone Furoate/Formoterol Fumar 2 puff 04/11/19 06:30 04/17/19 18:30 Dulera 200 Mcg/5 Mcg Inhaler INH 2 puff BID-RT DANAY Administration Pantoprazole Sodium 40 mg 04/17/19 09:00 04/17/19 13:03 Protonix IVP Not Given DAILY DANAY Tamsulosin HCl 0.4 mg 04/11/19 09:00 04/17/19 13:03 Flomax PO Not Given DAILY DANAY - Exam General Appearance: NAD Eye: anicteric sclera ENT: moist mucosa Neck: supple, JVD Heart: RRR, no rubs Respiratory - other findings: Bibasal crackles Gastrointestinal: soft, non-tender Extremities: 1+ LE edema Psychiatric: normal affect, normal behavior Hosp A/P (1) NSTEMI (non-ST elevated myocardial infarction) Code(s): I21.4 - NON-ST ELEVATION (NSTEMI) MYOCARDIAL INFARCTION Status: Acute (2) Acute on chronic systolic (congestive) heart failure Code(s): I50.23 - ACUTE ON CHRONIC SYSTOLIC (CONGESTIVE) HEART FAILURE Status : Acute (3) COPD exacerbation Code(s): J44.1 - CHRONIC OBSTRUCTIVE PULMONARY DISEASE W (ACUTE) EXACERBATION Status: Acute (4) Cardiomyopathy Code(s): I42.9 - CARDIOMYOPATHY, UNSPECIFIED Status: Acute (5) BPH (benign prostatic hyperplasia) Code(s): N40.0 - BENIGN PROSTATIC HYPERPLASIA WITHOUT LOWER URINRY TRACT SYMP Status: Chronic Qualifiers: Lower urinary tract symptom presence: symptoms absent Qualified Code(s): N40.0 - Benign prostatic hyperplasia without lower urinary tract symptoms (6) CAD (coronary artery disease) Code(s): I25.10 - ATHSCL HEART DISEASE OF [place] CORONARY ARTERY W/O ANG PCTRS Status: Chronic Qualifiers: Coronary Disease-Associated Artery/Lesion type: bypass graft [place] vs. transplanted heart: [place] heart Associated angina: without angina Qualified Code(s): I25.810 - Atherosclerosis of coronary artery bypass graft(s) without angina pectoris (7) Atrial flutter Code(s): I48.92 - UNSPECIFIED ATRIAL FLUTTER Status: Resolved (8) Acute metabolic encephalopathy Code(s): G93.41 - METABOLIC ENCEPHALOPATHY Status: Resolved - Plan Pt had Code Green yesterday evening due to acute metabolic encephalopathy. Was transferred to CCU and treated with pressors, now off of pressors. Abnormal LFTs most likely secondary to hepatic congestion from cardiogenic shock. Creatinine 3.09 today. Continue furosemide LVEF 25-30% on echo. BPH stable.
--- NOTE | 2019-04-17 20:18 | RAD ---
CHEST ONE VIEW: 04/17/19 COMPARISON: 04/16/19 HISTORY: Shortness of breath. FINDINGS: Exam is on the taken list and submitted for official interpretation 04/17/19 at 8:15 p.m. Sternotomy wires and vascular catheter redemonstrated. There is cardiomegaly and pulmonary vascular c ongestion. Patchy interstitial and alveolar infiltrates are redemonstrated. No pneumothorax. IMPRESSION: No significant interval change. Congestive heart failure. Superimposed pneumonia in the right lung ba se cannot be excluded. Continued surveillance is recommended. POS: OFF
[2019-04-17] MEDS: Atorvastatin Calcium 20 MG TAB PO SCH (20:59)
[2019-04-17 21:36] LABS: ALT (SGPT) 2197 U/L (8-55); AST (SGOT) 3136 U/L (5-34); Albumin 3.5 g/dL (3.4-4.8); Alkaline Phosphatase 65 U/L (40-110); Bilirubin, Direct 0.7 mg/dL (0.1-0.3); Bilirubin, Total 1.1 mg/dL (0.2-1.2)
[2019-04-17 22:09] LABS: CKMB 15.5 ng/mL (0-6.6)
[2019-04-18] MEDS: methylPREDNISolone Sod Succ 40 MG VIAL IVP SCH ×6 (00:10→23:48)
[2019-04-18] MEDS: Dextrose 5 % And 0.9 % NaCl 1,000 ML IV SCH ×3 (06:22→23:22)
[2019-04-18] MEDS: Carvedilol 3.125 MG TAB PO SCH ×2 (07:27→17:24)
[2019-04-18] MEDS: Tamsulosin HCl 0.4 MG CAP PO SCH (07:27)
[2019-04-18] MEDS: Pantoprazole 40 MG VIAL IVP SCH (07:28)
[2019-04-18] MEDS: Heparin 5,000 UNITS/ML VIAL SC SCH ×2 (07:28→20:38)
[2019-04-18 07:29] LABS: #Lymphocytes 1.1 thou/uL (1.20-3.40); #Monocytes 0.7 thou/uL (0.11-0.59); #Neutrophils 16.2 thou/uL (1.40-6.50); %Eosinophils 0.1 % (0.0-10.0); %Lymphocytes 5.9 % (21.0-51.0); %Monocytes 3.6 % (0.0-10.0); %Neutrophils 90.4 % (42.0-75.0); Hemoglobin 11.8 g/dL (14.0-18.0); Mean Corpuscular HGB CONC 32.4 g/dL (32.0-36.0); Mean Corpuscular Hemoglobin 33.1 pg (27.0-31.0); Mean Platelet Volume 9.8 fL (7.4-10.4); Platelet Count 156 thou/uL (130-400); RBC Distribution Width 13.8 % (11.5-14.5); Red Blood Cell (RBC) Count 3.57 mill/uL (4.70-6.10)
--- NOTE | 2019-04-18 07:33 | PRG ---
DATE OF SERVICE: 04/17/2019 SERVICE: Nephrology. SUBJECTIVE: A 74-year-old male with known history of ischemic cardiomyopathy, coronary artery disease, COPD, peripheral artery disease, amongst others, who was admitted due to worsening shortness of breath and bilateral leg edema associated with generalized weakness. Hospital course was complicated by development of atrial fibrillation/flutter with RVR, hence the patient was started on amiodarone infusion. Nephrology was consulted for management of CKD with acute kidney injury. With diuretics, creatinine has improved from admission level of 2.09 to 1.84. However, the patient later developed acute mental status change of unresponsiveness associated with worsening wheezing and hypotension and was subsequently transferred to the ICU after a code green. Subsequently, creatinine was noted to increase to 2.5 and currently 3.09. The patient seems more comfortable today. He is more awake and conversational. Denies fever, nausea, or vomiting. OBJECTIVE: VITAL SIGNS: Temperature 98.8, pulse 78, respiratory rate 21, SpO2 of 100%, blood pressure 115/61. GENERAL: Obese male, in no obvious distress. Afebrile. Anicteric. HEENT: Normocephalic, atraumatic. Oral mucosa is moist. NECK: Supple with no JVD. CARDIOVASCULAR: Regular rhythm and rate with normal heart sounds 1 and 2. RESPIRATORY: Fair air entry bilateral with few scattered transmitted sounds all over. GI: Full, soft, nontender, nondistended with normal bowel sounds. EXTREMITIES: Grossly normal looking, atraumatic with no obvious edema or erythema. TAPER PRINTED CIRCUIT LAYOUT: Conscious, alert, oriented x3 with appropriate mental status. No involuntary movement appreciated. Cranial nerves 2 through 12 are grossly intact. DIAGNOSTIC DATA: CBC showed WBC count of 11.5, hemoglobin of 11.3, MCV of 103, platelets of 208. BMP showed sodium 134, potassium 4.6, chloride 97, CO2 of 30, BUN 47, creatinine 3.09, glucose 148, calcium 8.6. Magnesium is 2.6. Urine electrolytes of 04/16, showed urine creatinine of 86.28, urine urea nitrogen of 594 with calculated fractional excretion of urea of 45%. Chest x-ray of 04/16, showed scattered interstitial reticulonodular opacities with no pneumothorax. ASSESSMENT: 1. Acute kidney injury: These are hemodynamic factors due to prerenal etiology from cardiorenal as well as volume depletion. ATN is a concern. 2.. Cardiogenic shock with acute kidney injury and shock liver. 3. Shock liver. 4. Acute respiratory failure due to congestive heart failure and chronic obstructive pulmonary disease exacerbation. 5. Acute on chronic systolic heart failure with acute worsening of systolic function from 40 to 45, to 20 to 25. 6. Paroxysmal atrial flutter, fibrillation with rapid ventricular response. Currently in sinus rhythm. 7. Myoclonic jerks: Due to metabolic encephalopathy: Resolved. PLAN: 1. Continue Gentle IVF. monitor volume status closely given ischemic cardiomyopathy with ejection fraction of 20% to 25%. 2. Avoid diuretics at this time. 3. Recheck CMP in the morning Job ID: [id number] MTDD
[2019-04-18 07:39] LABS: ALT (SGPT) 2139 U/L (8-55); AST (SGOT) 1691 U/L (5-34); Albumin 3.3 g/dL (3.4-4.8); Alkaline Phosphatase 89 U/L (40-110); Anion Gap 14 mmol/L (10-20); BUN (Urea Nitrogen) 66 mg/dL (8.4-25.7); Bilirubin, Total 1.3 mg/dL (0.2-1.2); Calc. Creatinine Clearance 23 mL/min (70-130); Calcium 8.1 mg/dL (7.8-10.44); Carbon Dioxide 26 mmol/L (23-31); Chloride 101 mmol/L (98-107); Estimated GFR-MDRD 19; Globulin 3.6 g/dL (2.4-3.5); Glucose 127 mg/dL (83-110); Potassium 4.4 mmol/L (3.5-5.1); Protein, Total 6.9 g/dL (5.8-8.1); Sodium 137 mmol/L (136-145)
[2019-04-18 07:40] LABS: INR-International Normal Ratio 1.6; Prothrombin Time 18.7 SEC (12.0-14.7)
--- NOTE | 2019-04-18 07:46 | PRG ---
DATE OF SERVICE: 04/17/2019 SUBJECTIVE: Guille Ricardo was evaluated today. He is a patient of past. In the past, I thought Mr. Ricardo had a component of cardiac asthma. He apparently presented to the hospital several days ago with complaints of shortness of breath. He had a BNP over 2000. Apparently, yesterday, he developed a rapid narrow complex rhythm and very tachypneic. He was transferred to the critical care unit. Better today, but this afternoon . There are no blood gases in the system. OBJECTIVE: GENERAL: He is on BiPAP, in no distress this afternoon. LUNGS: Clear anteriorly. HEART: Regular rhythm. ABDOMEN: Soft and nontender. EXTREMITIES: LABORATORY DATA: White count today is 11.5, hemoglobin 11.3, platelets 208, 000. Electrolytes; sodium 134, potassium 4.6, chloride 97 , bicarb 30, BUN 47, creatinine on admission was 1.67. Chest x-ray yesterday, right base and left. IMPRESSION: congestive heart failure. His ejection fraction is 25% to 30%. It is not surprising that he can tolerate narrow complex rapid rhythm. He is clinically a little better. I do believe he has more cardiac asthma than anything, and I do not feel based on my interactions in the past that he has or true asthma. I will be happy to follow with the other physicians. He will stay on BiPAP tonight. I would not diurese him given his rising creatinine. Adding steroids may be helpful. Positive fluid balance in the last couple of days, although there is no fluid balance today since more than half of the day. We will follow with the other physicians caring for him. Critical care time is 35 minutes. Job ID: [id number] MTDD
[2019-04-18] MEDS: Mometasone/Formoterol 120 PUFF INHALER INH SCH ×2 (08:21→21:57)
[2019-04-18] MEDS ORDERED: Famotidine/PF 20 mg/2ml Vial SLOW IVP SCH (09:00)
[2019-04-18 09:07] LABS: Lactic Acid 2.1 mmol/L (0.5-2.2)
[2019-04-18 09:41] LABS: Creatinine, Urine 85.66 mg/dL (63-166); Protein, Urine Random Quant 43 mg/dL (1-14); Sodium, Urine Less than 20 mmol/L (Not Available); Urea Nitrogen, Random Urine 871 mg/dl
--- NOTE | 2019-04-18 11:25 | PRG ---
DATE OF SERVICE: 04/18/2019 SERVICE: Nephrology. SUBJECTIVE: A 74-year-old male with known history of ischemic cardiomyopathy, admitted due to worsening shortness of breath and leg swelling. The patient was treated with diuretics with improvement. He, however, later developed atrial fibrillation and flutter with rapid ventricular response associated with cardiac decompensation and mental status change necessitating ICU transfer. Nephrology is following patient for acute on chronic renal failure. The patient reports feeling a lot better. Denied shortness of breath, cough, chest pain, abdominal pain, nausea, or vomiting. Oral intake is better. He denied leg swelling. PHYSICAL EXAMINATION: VITAL SIGNS: Temperature 98.0, pulse 73, respiratory rate 15, SpO2 of 100% on 2 L nasal cannula, and blood pressure is 91/57. GENERAL: Comfortable male patient, in no obvious distress. Afebrile. Anicteric. Acyanotic. HEENT: Normocephalic and atraumatic. Oral mucosa is moist. NECK: Supple with no JVD. CARDIOVASCULAR: Regular rhythm and rate with normal heart sounds 1 and 2. RESPIRATORY: Good air entry bilaterally with no obvious crackle. Few rhonchi were appreciated. Work of breathing is not increased. GI: Full, soft, nontender, and nondistended with normal bowel sounds. UROGENITAL: Larkin catheter is in place. EXTREMITIES: Grossly normal looking with no edema or erythema. SKIN: Rather dry. NURSING AIDE: Conscious, alert, and oriented x3 with appropriate mental status. Cranial nerves 2 through 12 are grossly intact. DIAGNOSTIC DATA: CBC showed WBC count of 18, hemoglobin of 11.8, MCV of 102, platelet of 156. Coagulation panel showed PT 18.7, INR 1.6. CMP showed sodium 137, potassium 4.4, chloride 101, CO2 of 26, BUN 66, creatinine 3.20, glucose 127, calcium 8.1. Total bilirubin 1.3, AST 1691, ALT 2139, total protein 6.9, albumin 3.3, globulin 3.6. Lactic acid is 2.1. Urine electrolytes and protein showed total random protein 43 mg/dL, urine creatinine 85.6. Urine sodium less than 20 and urine urea 871 with calculated fractional excretion of sodium of 0.5. ASSESSMENT: 1. Acute kidney injury: These are hemodynamic factors due to prerenal etiology from cardiorenal as well as volume depletion. Fractional excretion of sodium of 0.5 is in line as well as with less than 20 urine sodium. The patient is hypovolemic clinically. 2. Acute tubular necrosis is a concern, but this seems unlikely in view of this fractional excretion of urea given the patient was hypotensive for a brief period of time. 3. Cardiogenic shock with acute kidney injury and shock liver. 4. Shock liver. 5. Acute respiratory failure due to congestive heart failure and chronic obstructive pulmonary disease exacerbation. 6. Acute on chronic systolic heart failure with acute worsening of systolic function from 40 to 45, to 20 to 25. 7. Paroxysmal atrial flutter, fibrillation with rapid ventricular response. Currently in sinus rhythm. 8. Myoclonic jerks: Due to metabolic encephalopathy: Resolved. PLAN: 1. We will increase crystalloid to 80 mL per hour. We will also give albumin x2 doses. We will monitor volume status closely given ischemic cardiomyopathy with ejection fraction of 20% to 25%. 2. We will continue to avoid diuretics at this time. 3. We will recheck CMP in the morning to assess renal and liver recovery. Other treatment as per Pulmonary and Critical Care, Cardiology, and primary attending. Job ID: [id number] [facility]
[2019-04-18] MEDS: Albumin 25% 25 GM/100 ML BOT IVPB SCH ×2 (11:48→16:16)
--- NOTE | 2019-04-18 15:42 | PDOC.HOSPP ---
- Subjective Encounter Date: 04/18/19 Encounter Time: 10:00 Subjective: Pt seen for followup re: NSTEMI. States he feels well, denies any complaints today. - Objective Vital Signs & Weight: Vital Signs (12 hours) Temp Pulse Resp Pulse Ox 04/18/19 14:27 82 18 99 04/18/19 11:49 78 20 99 04/18/19 08:18 99 04/18/19 08:17 79 19 99 04/18/19 07:07 100 04/18/19 04:00 98.0 F Weight Weight 179 lb 10.828 oz Most Recent Monitor Data Heart Rate from ECG 76 NIBP 127/64 NIBP BP-Mean 85 Respiration from ECG 17 SpO2 100 I&O: 04/17/19 04/18/19 04/19/19 06:59 06:59 06:59 Intake Total 1444 0 Output Total 161 903 928 Balance -270 313 -484 Result Diagrams: 04/18/19 07:10 04/18/19 07:10 Additional Labs: Accuchecks 04/18/19 04/17/19 04/17/19 06:24 21:04 17:45 POC Glucose 133 H 123 H 122 H Labs and MARs reviewed by me Hospitalist ROS - Review of Systems Constitutional: denies: fever, chills, sweats, weakness, malaise Cardiovascular: denies: chest pain, palpitations, orthopnea, paroxysmal noc. dyspnea, edema, light headedness Gastrointestinal: denies: nausea, vomiting, abdominal pain, diarrhea, constipation, melena, hematochezia - Medication Medications: Active Medications Generic Name Dose Route Start Last Admin Trade Name Freq PRN Reason Stop Dose Admin Acetaminophen 650 mg 04/10/19 18:50 04/15/19 16:29 Tylenol PO 650 mg Q4H PRN Administration Headache/Fever/Mild Pain (1-3) Albumin Human 25 gm 04/18/19 11:00 04/18/19 11:48 Albumin 25% IVPB 04/18/19 17:01 25 gm Q6H DANAY Administration Albuterol/Ipratropium 3 ml 04/17/19 18:30 04/18/19 14:27 Duoneb NEB 3 ml [id number] DANAY Administration Aspirin 300 mg 04/16/19 18:30 04/17/19 16:04 Aspirin [place] 300 mg Q24H DANAY Administration Atorvastatin Calcium 20 mg 04/12/19 21:00 04/17/19 20:59 Lipitor PO 20 mg HS DANAY Administration Carvedilol 3.125 mg 04/12/19 08:00 04/18/19 07:27 Coreg PO 3.125 mg BID-WM DANAY Administration Guaifenesin/Dextromethorphan 15 ml 04/10/19 18:50 04/13/19 20:12 Robitussin Dm PO 15 ml Q4H PRN Administration Cough Heparin Sodium (Porcine) 5,000 units 04/16/19 21:00 04/18/19 07:28 Heparin SC 5,000 units BID DANAY Administration Dextrose/Sodium Chloride 1,000 mls @ 80 mls/hr 04/18/19 10:44 04/18/19 11:47 D5 0.9% Ns IV 1,000 mls .[id number] DANAY Administration Methylprednisolone Sodium Succinate 40 mg 04/17/19 18:00 04/18/19 11:47 Solu-Medrol IVP 40 mg Q6HR DANAY Administration Mometasone Furoate/Formoterol Fumar 2 puff 04/11/19 06:30 04/18/19 08:21 Dulera 200 Mcg/5 Mcg Inhaler INH 2 puff BID-RT DANAY Administration Tamsulosin HCl 0.4 mg 04/11/19 09:00 04/18/19 07:27 Flomax PO 0.4 mg DAILY DANAY Administration - Exam General Appearance: NAD Eye: anicteric sclera ENT: moist mucosa Neck: supple Heart: RRR Respiratory: CTAB Gastrointestinal: soft, non-tender Skin: no rashes Musculoskeletal: no muscle wasting Psychiatric: normal affect, normal behavior Hosp A/P (1) NSTEMI (non-ST elevated myocardial infarction) Code(s): I21.4 - NON-ST ELEVATION (NSTEMI) MYOCARDIAL INFARCTION Status: Acute (2) Acute on chronic systolic (congestive) heart failure Code(s): I50.23 - ACUTE ON CHRONIC SYSTOLIC (CONGESTIVE) HEART FAILURE Status : Acute (3) COPD exacerbation Code(s): J44.1 - CHRONIC OBSTRUCTIVE PULMONARY DISEASE W (ACUTE) EXACERBATION Status: Acute (4) Cardiomyopathy Code(s): I42.9 - CARDIOMYOPATHY, UNSPECIFIED Status: Acute (5) BPH (benign prostatic hyperplasia) Code(s): N40.0 - BENIGN PROSTATIC HYPERPLASIA WITHOUT LOWER URINRY TRACT SYMP Status: Chronic Qualifiers: Lower urinary tract symptom presence: symptoms absent Qualified Code(s): N40.0 - Benign prostatic hyperplasia without lower urinary tract symptoms (6) CAD (coronary artery disease) Code(s): I25.10 - ATHSCL HEART DISEASE OF [place] CORONARY ARTERY W/O ANG PCTRS Status: Chronic Qualifiers: Coronary Disease-Associated Artery/Lesion type: bypass graft [place] vs. transplanted heart: [place] heart Associated angina: without angina Qualified Code(s): I25.810 - Atherosclerosis of coronary artery bypass graft(s) without angina pectoris (7) Atrial flutter Code(s): I48.92 - UNSPECIFIED ATRIAL FLUTTER Status: Resolved (8) Acute metabolic encephalopathy Code(s): G93.41 - METABOLIC ENCEPHALOPATHY Status: Resolved - Plan continue antibiotics, out of bed/ambulate Pt clinically improving. Creatinine levelling off. Pt receiving albumin. LFTs show mild improvement. LVEF 25-30% on echo. BPH stable.
--- NOTE | 2019-04-18 18:44 | PDOC.CPN ---
- Subjective Date: 04/18/19 Time: 10:00 - Review of Systems General: reports: fatigue. denies: fever/chills Respiratory: reports: exercise intolerance. denies: cough Cardiovascular: reports: edema. denies: chest pain, palpitation Gastrointestinal: denies: nausea, vomiting, diarrhea, constipation, abd pain Musculoskeletal: reports: arthritis/arthralgias. denies: pain Neurological: denies: syncope - Objective Allergies/Adverse Reactions: Allergies Allergy/AdvReac Type Severity Reaction Status Date / Time No Known Allergies Allergy Verified 04/11/19 04:44 Visit Medications: Current Medications Acetaminophen (Tylenol) 650 mg PO Q4H PRN PRN Reason: Headache/Fever/Mild Pain (1-3) Last Admin: 04/15/19 16:29 Dose: 650 mg Albuterol/Ipratropium (Duoneb) 3 ml NEB [id number] [facility] Last Admin: 04/18/19 14:27 Dose: 3 ml Aspirin (Aspirin) 300 mg RI Q24H [facility] Last Admin: 04/17/19 16:04 Dose: 300 mg Atorvastatin Calcium (Lipitor) 20 mg PO HS [facility] Last Admin: 04/17/19 20:59 Dose: 20 mg Bisacodyl (Dulcolax) 10 mg RI DAILYPRN PRN PRN Reason: Constipation Carvedilol (Coreg) 3.125 mg PO BID-WM [facility] Last Admin: 04/18/19 17:24 Dose: 3.125 mg Guaifenesin/Dextromethorphan (Robitussin Dm) 15 ml PO Q4H PRN PRN Reason: Cough Last Admin: 04/13/19 20:12 Dose: 15 ml Heparin Sodium (Porcine) (Heparin) 5,000 units SC BID [facility] Last Admin: 04/18/19 07:28 Dose: 5,000 units Norepinephrine Bitartrate 8 mg (/ Dextrose/Water) 250 mls @ 0 mls/hr IVPB INF PRN; Protocol PRN Reason: TO MAINTAIN MAP > 65 Dextrose/Sodium Chloride (D5 0.9% Ns) 1,000 mls @ 80 mls/hr IV .[id number] [facility] Last Admin: 04/18/19 11:47 Dose: 1,000 mls Methylprednisolone Sodium Succinate (Solu-Medrol) 40 mg IVP Q6HR [facility] Last Admin: 04/18/19 17:24 Dose: 40 mg Mineral Oil/White Petrolatum (Systane Nighttime Eye Ointment) 0 gm EA EYE PRN PRN PRN Reason: Dry Eyes Mometasone Furoate/Formoterol Fumar (Dulera 200 Mcg/5 Mcg Inhaler) 2 puff INH BID-RT DANAY Last Admin: 04/18/19 08:21 Dose: 2 puff Pantoprazole Sodium (Protonix) 40 mg PO DAILY [facility] Senna/Docusate Sodium (Senokot S) 2 tab PO BIDPRN PRN PRN Reason: Constipation Tamsulosin HCl (Flomax) 0.4 mg PO DAILY [facility] Last Admin: 04/18/19 07:27 Dose: 0.4 mg Vital Signs & Weight: Vital Signs Temp Pulse Resp Pulse Ox 04/18/19 16:47 97.9 F 04/18/19 14:27 82 18 99 04/18/19 11:49 78 20 99 04/18/19 08:18 99 04/18/19 08:17 79 19 99 04/18/19 07:07 100 Weight 179 lb 10.828 oz - Quality Measures Condition: Atrial Fibrillation/Flutter (hx or current), Coronary Artery Disease , Heart Failure CV meds: Beta Linda: Yes, CHAVEZ/ARB: No, Statin: Yes, ASA: Yes, Anticoagulant: Yes (heparin) - Physical Exam HEENT: normocephaly Neck: supple neck, no JVD/HJR Cardiac: regular rate and rhythm, no murmur Lungs: decreased breath sounds (poor inspiratory effort.) Neuro: cranial nerve 2-12 intact, grossly intact Abdomen: active bowel sounds, non-tender Extremities: 1+ LE edema - Labs Result Diagrams: 04/18/19 07:10 04/18/19 07:10 Troponin/CKMB CK-MB (CK-2) 15.5 ng/mL (0-6.6) H* 04/17/19 04:04 Troponin I 15.195 ng/mL (< 0.028) H* 04/17/19 04:04 - Telemetry Sinus rhythms and dysrhythmias: sinus rhythm - Assessment/Plan Assessment/Plan: 1. Acute on chronic systolic heart failure with EF 25-30% - on Coreg . Lasix being held; not on CHAVEZ/ARB due to hx of CKD 2. Ischemic CM EF at 25-30% - Will need ischemic work up once creatinine better. Will need Lifevest before discharge; however, he may not be a candidate due to his dementia. 3. S/P CABG x 4 in 2017 - stable; on BBlocker, statin, and ASA. the decr. in EF may be due to progression of CAD or graft failure. When stable then cath if the renal function allows. 4. Paroxysmal afib/Aflutter -he is maintaining NSR. He did not tolerate amiodarone but this converted him to NSR. With his decr. EF and diastolic dysfunction he will not tolerate rapid ventricular rates. May need to involve EP depending on further arrhythmias. 5. Hx of CVA in 2018 - 6. Non sustained VT - 7. PAD with s/p AFRO - 8. COPD exacerbation - 9. HTN - stable 10. Dementia 11. Acute on Chronic renal failure. Nephrology assisting in case.
[2019-04-18] MEDS: Atorvastatin Calcium 20 MG TAB PO SCH (20:38)
[2019-04-18] MEDS: Aspirin 300 MG Suppository PR SCH (20:39)
--- NOTE | 2019-04-18 20:48 | PRG ---
DATE OF SERVICE: 04/18/2019 SUBJECTIVE: Guille Ricardo looks better this morning. He actually looked better yesterday morning. By late in the afternoon, he was on noninvasive ventilation. OBJECTIVE: VITAL SIGNS: His heart rates in the 90s, respiratory rates in the 20s to low 30s. This afternoon, he went back on BiPAP. LUNGS: Remarkable for coarse equal breath sounds. HEART: Regular rhythm. ABDOMEN: Soft. IMPRESSION: 1. Congestive heart failure. 2. Chronic kidney disease. 3. History of coronary artery disease with bypass grafting in 2006. 4. Paroxysmal atrial fibrillation and atrial flutter, currently in sinus rhythm. 5. History of CVA in the past. 6. History of, what I believe is, cardiac asthma and not chronic obstructive pulmonary disease or conventional asthma. PLAN: Continue nebulized treatments, steroids, and ICU care. I would continue to try to gently diurese him. He is actually in positive fluid balance when coming in today, will follow. Job ID: [id number]
--- NOTE | 2019-04-18 21:26 | EKG ---
Test Reason : Blood Pressure : / mmHG Vent. Rate : 087 BPM Atrial Rate : 087 BPM P-R Int : 174 ms QRS Dur : 096 ms QT Int : 344 ms P-R-T Axes : 036 028 040 degrees QTc Int : 413 ms Normal sinus rhythm Possible Left atrial enlargement Nonspecific ST abnormality Abnormal ECG When compared with ECG of 10-APR-2019 14:46, (Unconfirmed) Premature atrial complexes are no longer Present Non-specific change in ST segment in Anterior leads QT has shortened Confirmed by Katharina MORELAND ([id number]) on 04/18/2019 9:25:42 PM Referred By: ORALIA Confirmed By:Katharina MORELAND
--- NOTE | 2019-04-18 21:28 | EKG ---
Test Reason : Blood Pressure : / mmHG Vent. Rate : 081 BPM Atrial Rate : 081 BPM P-R Int : 172 ms QRS Dur : 100 ms QT Int : 370 ms P-R-T Axes : 066 017 032 degrees QTc Int : 429 ms Normal sinus rhythm Possible Left atrial enlargement Borderline ECG When compared with ECG of 16-APR-2019 17:38, (Unconfirmed) No significant change was found Confirmed by Katharina MORELAND ([id number]) on 04/18/2019 9:28:09 PM Referred By: NGHIA Confirmed By:Katharina MOREALND
[2019-04-19] MEDS ORDERED: Sodium Chloride 0.9% 1,000 ML IV SCH (00:30)
[2019-04-19] MEDS ORDERED: Furosemide 100 MG/10 ML VIAL SLOW IVP SCH ×2 (03:00→11:22)
[2019-04-19] MEDS: methylPREDNISolone Sod Succ 40 MG VIAL IVP SCH ×4 (05:53→21:40)
[2019-04-19 06:01] LABS: ALT (SGPT) 1602 U/L (8-55); AST (SGOT) 884 U/L (5-34); Albumin 3.6 g/dL (3.4-4.8); Alkaline Phosphatase 105 U/L (40-110); Anion Gap 13 mmol/L (10-20); BUN (Urea Nitrogen) 74 mg/dL (8.4-25.7); Bilirubin, Total 1.5 mg/dL (0.2-1.2); Calc. Creatinine Clearance 26 mL/min (70-130); Calcium 8.3 mg/dL (7.8-10.44); Carbon Dioxide 25 mmol/L (23-31); Chloride 105 mmol/L (98-107); Estimated GFR-MDRD 21; Globulin 3.2 g/dL (2.4-3.5); Glucose 111 mg/dL (83-110); Potassium 4.2 mmol/L (3.5-5.1); Protein, Total 6.8 g/dL (5.8-8.1); Sodium 139 mmol/L (136-145)
[2019-04-19 06:12] LABS: #Lymphocytes 0.8 thou/uL (1.20-3.40); #Monocytes 0.8 thou/uL (0.11-0.59); #Neutrophils 16.1 thou/uL (1.40-6.50); %Basophils 0.1 % (0.0-1.0); %Eosinophils 0.1 % (0.0-10.0); %Lymphocytes 4.6 % (21.0-51.0); %Monocytes 4.5 % (0.0-10.0); %Neutrophils 90.7 % (42.0-75.0); MDiff Complete? YES; Macrocytosis SLIGHT = 6-15 cells (100X) (0-5/hpf); Mean Corpuscular HGB CONC 31.8 g/dL (32.0-36.0); Mean Corpuscular Hemoglobin 32.2 pg (27.0-31.0); Mean Platelet Volume 10.3 fL (7.4-10.4); Platelet Count 124 thou/uL (130-400); Platelet Morphology Comment Appears Decreased; RBC Distribution Width 13.7 % (11.5-14.5); Red Blood Cell (RBC) Count 3.41 mill/uL (4.70-6.10); White Blood Cell (WBC) Count 17.7 thou/uL (4.8-10.8)
[2019-04-19] MEDS: Mometasone/Formoterol 120 PUFF INHALER INH SCH ×2 (06:45→19:18)
--- NOTE | 2019-04-19 09:49 | RAD ---
EXAM: Single view of the chest HISTORY: Chest pain COMPARISON: 04/17/2019 FINDINGS: Single view of the chest shows an enlarged but stable cardiomediastinal silhouette. The pa tient is status post sternotomy. The centimeters catheter is unchanged in position. Increased interstitial markings are present. There is subtle airspace opacity projecting over the right lower lobe. The bones are unremarkable. IMPRESSION: Right lower lobe infiltrate
[2019-04-19] MEDS: Heparin 5,000 UNITS/ML VIAL SC SCH ×2 (12:23→20:33)
--- NOTE | 2019-04-19 12:49 | PDOC.CPN ---
- Subjective Date: 04/19/19 Time: 09:00 Interval history: The pt seen and examined. No overnight events. No cardiac complaints. Per his daughter, he was very confused with steroid during last hospitalization - Objective Allergies/Adverse Reactions: Allergies Allergy/AdvReac Type Severity Reaction Status Date / Time No Known Allergies Allergy Verified 04/11/19 04:44 Visit Medications: Current Medications Acetaminophen (Tylenol) 650 mg PO Q4H PRN PRN Reason: Headache/Fever/Mild Pain (1-3) Last Admin: 04/15/19 16:29 Dose: 650 mg Albuterol/Ipratropium (Duoneb) 3 ml NEB [id number] DANAY Last Admin: 04/19/19 10:25 Dose: 3 ml Aspirin (Aspirin) 300 mg SD Q24H DANAY Last Admin: 04/18/19 20:39 Dose: 300 mg Atorvastatin Calcium (Lipitor) 20 mg PO HS DANAY Last Admin: 04/18/19 20:38 Dose: 20 mg Bisacodyl (Dulcolax) 10 mg SD DAILYPRN PRN PRN Reason: Constipation Carvedilol (Coreg) 3.125 mg PO BID-WM [facility] Last Admin: 04/18/19 17:24 Dose: 3.125 mg Furosemide (Lasix) 60 mg SLOW IVP NOW DANAY Stop: 04/19/19 13:30 Last Admin: 04/19/19 11:40 Dose: 60 mg Guaifenesin/Dextromethorphan (Robitussin Dm) 15 ml PO Q4H PRN PRN Reason: Cough Last Admin: 04/13/19 20:12 Dose: 15 ml Heparin Sodium (Porcine) (Heparin) 5,000 units SC BID DANAY Last Admin: 04/18/19 20:38 Dose: 5,000 units Norepinephrine Bitartrate 8 mg (/ Dextrose/Water) 250 mls @ 0 mls/hr IVPB INF PRN; Protocol PRN Reason: TO MAINTAIN MAP > 65 Dexmedetomidine HCl 200 mcg/ (Sodium Chloride) 50 mls @ 0 mls/hr IVPB INF PRN; Protocol PRN Reason: .AGITATION Last Admin: 04/19/19 03:49 Dose: 50 mls Levofloxacin 500 mg/ Device 100 mls @ 100 mls/hr IVPB Q24HR DANAY Methylprednisolone Sodium Succinate (Solu-Medrol) 40 mg IVP Q6HR DANAY Last Admin: 04/19/19 05:53 Dose: 40 mg Methylprednisolone Sodium Succinate (Solu-Medrol) 20 mg IVP Q8HR [facility] Mineral Oil/White Petrolatum (Systane Nighttime Eye Ointment) 0 gm EA EYE PRN PRN PRN Reason: Dry Eyes Mometasone Furoate/Formoterol Fumar (Dulera 200 Mcg/5 Mcg Inhaler) 2 puff INH BID-RT [facility] Last Admin: 04/19/19 06:45 Dose: 2 puff Pantoprazole Sodium (Protonix) 40 mg PO DAILY [facility] Senna/Docusate Sodium (Senokot S) 2 tab PO BIDPRN PRN PRN Reason: Constipation Tamsulosin HCl (Flomax) 0.4 mg PO DAILY [facility] Last Admin: 04/18/19 07:27 Dose: 0.4 mg Vital Signs & Weight: Vital Signs Pulse Resp Pulse Ox 04/19/19 10:26 68 04/19/19 10:25 69 17 100 04/19/19 06:45 79 04/19/19 06:43 77 23 H 100 04/19/19 04:00 100 04/19/19 03:13 84 04/19/19 02:22 91 24 H 97 Admit Weight 186 lb 8 oz Weight 187 lb 9.814 oz - Quality Measures Condition: Atrial Fibrillation/Flutter (hx or current), Coronary Artery Disease , Heart Failure CV meds: Beta Linda: Yes, CHAVEZ/ARB: No, Statin: Yes, ASA: Yes, Anticoagulant: Yes (heparin) - Physical Exam General: other (confused) Cardiac: regular rate and rhythm, S1/S2 Lungs: decreased breath sounds Abdomen: unremarkable Extremities: no cyanosis - Labs Result Diagrams: 04/19/19 05:15 04/19/19 05:15 Troponin/CKMB CK-MB (CK-2) 15.5 ng/mL (0-6.6) H* 04/17/19 04:04 Troponin I 15.195 ng/mL (< 0.028) H* 04/17/19 04:04 - Telemetry Sinus rhythms and dysrhythmias: sinus rhythm - Assessment/Plan Assessment/Plan: 1. Acute on chronic systolic heart failure with EF 25-30% - on Coreg. Lasix 60mg IV given today; not on CHAVEZ/ARB due to hx of CKD 2. Ischemic CM EF at 25-30% - Will need ischemic work up once creatinine better. Will need Lifevest before discharge; however, he may not be a candidate due to his dementia. 3. S/P CABG x 4 in 2017 - stable; on BBlocker, statin, and ASA. the decr. in EF may be due to progression of CAD or graft failure. When stable then cath if the renal function allows. 4. Paroxysmal afib/Aflutter -he is maintaining NSR. He did not tolerate amiodarone but this converted him to NSR. With his decr. EF and diastolic dysfunction he will not tolerate rapid ventricular rates. May need to involve EP depending on further arrhythmias. 5. Hx of CVA in 2018 - 6. Non sustained VT - 7. PAD with s/p AFRO - 8. COPD exacerbation - 9. HTN - stable 10. Dementia 11. Acute on Chronic renal failure. Nephrology assisting in case. MAR reviewed * Will need Lifevest before discharge. However, the pt may not be able to manage LifeVest well at home due to intermittent dementia per the pt's daughter. Pt. seen and eval. by me. I agree with the A/P by the EXECUTIVE DIRECTOR OF NURSING. He went back into Afib with RVR today around 2pm. He became anxious and more SOB. Back on BiPAP. will try bolus of amiodarone again. He has multiple problems with a decrease in EF: 20-25%,BNP> 2000. CAD,s/p CABG, he may have progession of disease or graft failure. The plan is to do a cardiac cath to evaluate when the renal function is stable enough to avaiod renal failure from the contrast. He has acute on chronic renal insufficiency. nephrology is assisting with the case. He is being given IV fluids but I am not sure that he can tolerate much more volume without further CHF and possible intubation. The o2 sats are good at this time on the BiPAP mask.. I have discussed with the family about code status but they have not made a decision. I will ask EP for their opinion about other options for antiarrhythmics. he may need inotropic support to help mobilize the fluid. Exam: irreg/irreg. rate controlled at this time. decreased BS but decreased inspiratory effort. trace edema. gjmays
--- NOTE | 2019-04-19 13:02 | PRG ---
DATE OF SERVICE: 04/19/2019 SERVICE: Nephrology. SUBJECTIVE: A 74-year-old male with known history of coronary artery disease, ischemic cardiomyopathy, admitted due to worsening shortness of breath. Hospital course was complicated by development of mental status change, hypotension and respiratory failure. The patient also had acute on chronic renal failure, for which Nephrology is following. Last night, the patient developed acute respiratory distress and currently is on BiPAP. Recent echo showed acute worsening of EF from 40%-45% to 20%-25%. Cardiac catheterization is contemplated if renal function improved. Patient reports feeling better currently. OBJECTIVE: VITAL SIGNS: Temperature 98.2, pulse 68, respiratory rate 17, SpO2 100 and FiO2 40 via BiPAP, blood pressure is 103/52. GENERAL: Pleasant with BiPAP in place. Afebrile, anicteric. HEENT: Normocephalic, atraumatic. NECK: Supple, nontender with no JVD. CARDIOVASCULAR: Regular rhythm and rate with normal heart sounds 1 and 2. RESPIRATORY: Fair air entry bilaterally with transmitted breath sounds and few bibasilar crackles, especially on the right posteriorly. There is no obvious respiratory distress. GI: Full, soft, nontender, nondistended with normal bowel sounds. UROGENITAL: Larkin catheter is in place draining some urine. EXTREMITIES: Grossly normal looking atraumatic with no obvious edema or erythema. TOBACCO CLOTH RECLAIMER: Conscious and alert and oriented x3 with appropriate mental status. Cranial nerves 2 through 12 are grossly intact. There is no involuntary movement appreciated. DIAGNOSTIC DATA: CBC showed WBC count of 17.7, hemoglobin of 11.0, MCV of 101, platelet of 124. BMP showed sodium 139, potassium 4.2, chloride 105, CO2 of 25, BUN 74, creatinine 2.92, glucose 111, calcium 8.3. Total bilirubin 1.5, AST 884, ALT 1602, alkaline phosphatase 105, total protein 6.8, albumin 3.6, globulin 3.2. ASSESSMENT: 1. Acute kidney injury: Most likely due to cardiorenal related to acute cardiac decompensation. The patient went into flash pulmonary edema again necessitating diuretic therapy. Worsening azotemia with BUN going up from 66 yesterday to 74 today is related to diuretic therapy. Patient did receive gentle IV fluid yesterday with creatinine down from 3.2 to 2.92. 2. Acute on chronic systolic heart failure with recurrent flash pulmonary edema, most likely due to coronary artery disease. 3. Ischemic cardiomyopathy with ejection fraction of 20% to 25%. 4. Acute respiratory failure due to flash pulmonary edema related to cardiac decompensation. 5. Shock liver: Liver enzymes are trending downwards. 6. Anemia in chronic kidney disease. DISCUSSION: The patient has an acute decompensation of cardiac function with EF in 20% to 25%. Acute renal failure most likely is cardiorenal in etiology. Blood pressure is soft currently. Attempt at diuretics leads to worsening azotemia. The patient may benefit from inotropic therapy and then diuretics to improve cardiac function as well as renal perfusion. Further evaluation with cardiac catheterization is contemplated, but this could not take place due to acute kidney injury at this time. The patient is at increased risk of contrast-induced nephropathy. I did discuss with the family about this problem of cardiorenal as well as acute cardiac decompensation and the limitations in the evaluation and treatment of both by the decompensation . PLAN: Continue BiPAP, respiratory support as per Pulmonary and Critical Care. Await Cardiology evaluation. Repeat renal function in the morning. Avoid nephrotoxic agents. Job ID: [id number]
--- NOTE | 2019-04-19 13:23 | PRG ---
DATE OF SERVICE: 04/19/2019 SUBJECTIVE: Guille Ricardo had to go back on BiPAP yesterday afternoon and again last night. He was given Lasix this morning and had a good response to Lasix, but still had a positive fluid balance. I have ordered Lasix again right now. OBJECTIVE: LUNGS: Surprisingly clear. HEART: Regular rate and rhythm. ABDOMEN: Soft. LABORATORY DATA: White count 17.7, hemoglobin , platelets 124. Electrolytes are normal. BUN 74, creatinine 2.92. IMPRESSION: 1. Congestive heart failure. Chest x-ray today still shows mild edema. 2. Chronic kidney disease, making diuresis difficult. 3. History of cardiac asthma. He is not bronchospastic now. We will cut his Solu-Medrol dose. We will continue with nebulizer treatments. 4. I doubt he has pneumonia. I suspect all of his problems are cardiac mediated, but given his waxing and waning clinical appearance, we will add an antibiotic for now. Whether he had pneumonia or congestive heart failure, he has a very unimpressive chest x-ray and I would not think he would have respiratory muscle and tachypneic issues with his current radiograph. 5. I doubt he has myasthenia gravis, but this must be kept in mind. We will continue to follow with physicians caring for him. Job ID: [id number]
[2019-04-19] MEDS ORDERED: Amiodarone 150 MG, Admixture Fee 1 EACH in Dextrose 5% in Water 100 ML IVPB SCH (14:45)
[2019-04-19] MEDS: Tamsulosin HCl 0.4 MG CAP PO SCH (14:59)
[2019-04-19] MEDS: Carvedilol 3.125 MG TAB PO SCH ×2 (14:59→18:43)
[2019-04-19] MEDS: Amiodarone 450 MG, Admixture Fee 1 EACH in Dextrose 5% in Water 250 ML IVPB SCH (15:42)
--- NOTE | 2019-04-19 18:49 | CT ---
CT head noncontrast HISTORY: Altered mental status. CVA. COMPARISON: 04/16/2019. FINDINGS: There is no evidence of acute intracranial hemorrhage or infarct. Encephalomalacia at the l eft parietal lobe is unchanged. Chronic ischemic small vessel disease is again demonstrated within the periventricular white matter. There is no mass effect or shift of midline structures. Calcificati on in the arterial structures. IMPRESSION: Chronic-type findings are stable. No acute intracranial abnormalities are demonstrated.
[2019-04-19] MEDS: Aspirin 300 MG Suppository PR SCH (19:35)
--- NOTE | 2019-04-19 19:43 | PDOC.HOSPP ---
- Subjective Encounter Date: 04/19/19 Encounter Time: 10:00 Subjective: Pt seen for followup re: NSTEMI. On BiPAP today, denies chest pain. SOBOE+ - Objective Vital Signs & Weight: Vital Signs (12 hours) Temp Pulse Resp Pulse Ox 04/19/19 19:18 77 100 04/19/19 19:17 100 04/19/19 16:00 98.7 F 04/19/19 14:47 93 04/19/19 14:46 98 21 H 100 04/19/19 10:26 68 04/19/19 10:25 69 17 100 Weight Admit Weight 186 lb 8 oz Weight 187 lb 9.814 oz Most Recent Monitor Data Heart Rate from ECG 74 NIBP 93/54 NIBP BP-Mean 67 Respiration from ECG 19 SpO2 100 I&O: 04/18/19 04/19/19 04/20/19 06:59 06:59 06:59 Intake Total 1444 1891.1 Output Total 755 1242 630 Balance 689 649.1 -630 Result Diagrams: 04/19/19 05:15 04/19/19 05:15 Additional Labs: Labs and MARs reviewed by me EKG Reviewed by me: Yes (Tele: NSR) Hospitalist ROS - Review of Systems Respiratory: reports: SOB with excertion. denies: cough, shortness of breath, pleuritic pain, wheezing Cardiovascular: denies: chest pain, palpitations, orthopnea, paroxysmal noc. dyspnea, edema, light headedness - Medication Medications: Active Medications Generic Name Dose Route Start Last Admin Trade Name Freq PRN Reason Stop Dose Admin Acetaminophen 650 mg 04/10/19 18:50 04/15/19 16:29 Tylenol PO 650 mg Q4H PRN Administration Headache/Fever/Mild Pain (1-3) Albuterol/Ipratropium 3 ml 04/17/19 18:30 04/19/19 19:17 Duoneb NEB 3 ml [id number] DANAY Administration Aspirin 300 mg 04/16/19 18:30 04/19/19 19:35 Aspirin [place] 300 mg Q24H DANAY Administration Atorvastatin Calcium 20 mg 04/12/19 21:00 04/18/19 20:38 Lipitor PO 20 mg HS DANAY Administration Carvedilol 3.125 mg 04/12/19 08:00 04/19/19 18:43 Coreg PO Not Given BID-WM DANAY Guaifenesin/Dextromethorphan 15 ml 04/10/19 18:50 04/13/19 20:12 Robitussin Dm PO 15 ml Q4H PRN Administration Cough Heparin Sodium (Porcine) 5,000 units 04/16/19 21:00 04/19/19 12:23 Heparin SC 5,000 units BID DANAY Administration Dexmedetomidine HCl 200 mcg/ 50 mls @ 0 mls/hr 04/19/19 02:58 04/19/19 03:49 Sodium Chloride IVPB 50 mls INF PRN Administration .AGITATION Protocol Titrate Levofloxacin 500 mg/ Device 100 mls @ 100 mls/hr 04/19/19 12:30 04/19/19 15: 51 IVPB 100 mls Q24HR DANAY Administration Amiodarone HCl 450 mg/ 259 mls @ 0 mls/hr 04/19/19 14:45 04/19/19 15:42 Miscellaneous Medication 1 IVPB 259 mls each/ Dextrose/Water INF DANAY Administration Protocol As Directed Methylprednisolone Sodium Succinate 20 mg 04/19/19 14:00 04/19/19 15:51 Solu-Medrol IVP 20 mg Q8HR DANAY Administration Mometasone Furoate/Formoterol Fumar 2 puff 04/11/19 06:30 04/19/19 19:18 Dulera 200 Mcg/5 Mcg Inhaler INH 2 puff BID-RT DANAY Administration Pantoprazole Sodium 40 mg 04/19/19 09:00 04/19/19 14:59 Protonix PO Not Given DAILY DANAY Tamsulosin HCl 0.4 mg 04/11/19 09:00 04/19/19 14:59 Flomax PO Not Given DAILY DANAY - Exam General Appearance: awake alert ENT: no oropharyngeal lesions, moist mucosa Heart: RRR, no rubs Respiratory - other findings: Wiley crackes Gastrointestinal: soft, non-tender Extremities: no clubbing, 1+ LE edema Musculoskeletal: no muscle wasting Psychiatric: normal affect Hosp A/P (1) NSTEMI (non-ST elevated myocardial infarction) Code(s): I21.4 - NON-ST ELEVATION (NSTEMI) MYOCARDIAL INFARCTION Status: Acute (2) Acute on chronic systolic (congestive) heart failure Code(s): I50.23 - ACUTE ON CHRONIC SYSTOLIC (CONGESTIVE) HEART FAILURE Status : Acute (3) COPD exacerbation Code(s): J44.1 - CHRONIC OBSTRUCTIVE PULMONARY DISEASE W (ACUTE) EXACERBATION Status: Acute (4) Cardiomyopathy Code(s): I42.9 - CARDIOMYOPATHY, UNSPECIFIED Status: Acute (5) BPH (benign prostatic hyperplasia) Code(s): N40.0 - BENIGN PROSTATIC HYPERPLASIA WITHOUT LOWER URINRY TRACT SYMP Status: Chronic Qualifiers: Lower urinary tract symptom presence: symptoms absent Qualified Code(s): N40.0 - Benign prostatic hyperplasia without lower urinary tract symptoms (6) CAD (coronary artery disease) Code(s): I25.10 - ATHSCL HEART DISEASE OF [place] CORONARY ARTERY W/O ANG PCTRS Status: Chronic Qualifiers: Coronary Disease-Associated Artery/Lesion type: bypass graft [place] vs. transplanted heart: [place] heart Associated angina: without angina Qualified Code(s): I25.810 - Atherosclerosis of coronary artery bypass graft(s) without angina pectoris (7) Atrial flutter Code(s): I48.92 - UNSPECIFIED ATRIAL FLUTTER Status: Resolved (8) Acute metabolic encephalopathy Code(s): G93.41 - METABOLIC ENCEPHALOPATHY Status: Resolved - Plan plan discussed w/ family Pt had to go on BiPAP last night. Creatinine improved to 2.92 today. LFTs improving. LVEF 25-30% on echo. Pt may need cath when creatinine improves (or consider dialytic therapy).
[2019-04-19] MEDS: Atorvastatin Calcium 20 MG TAB PO SCH (20:34)
[2019-04-20] MEDS: Amiodarone 450 MG, Admixture Fee 1 EACH in Dextrose 5% in Water 250 ML IVPB SCH ×2 (03:37→16:48)
[2019-04-20 04:22] LABS: ALT (SGPT) 1302 U/L (8-55); AST (SGOT) 461 U/L (5-34); Albumin 3.5 g/dL (3.4-4.8); Alkaline Phosphatase 101 U/L (40-110); Anion Gap 15 mmol/L (10-20); BUN (Urea Nitrogen) 86 mg/dL (8.4-25.7); Bilirubin, Total 1.6 mg/dL (0.2-1.2); Calc. Creatinine Clearance 24 mL/min (70-130); Calcium 8.5 mg/dL (7.8-10.44); Carbon Dioxide 27 mmol/L (23-31); Chloride 105 mmol/L (98-107); Estimated GFR-MDRD 20; Globulin 3.2 g/dL (2.4-3.5); Glucose 129 mg/dL (83-110); Potassium 4.6 mmol/L (3.5-5.1); Protein, Total 6.7 g/dL (5.8-8.1); Sodium 142 mmol/L (136-145)
[2019-04-20 04:55] LABS: Band 18 % (5-11); Hemoglobin 11.6 g/dL (14.0-18.0); Large Platelets SLIGHT; Lymphocytes 7 % (21-51); MDiff Complete? YES; Mean Corpuscular HGB CONC 31.6 g/dL (32.0-36.0); Mean Corpuscular Hemoglobin 31.9 pg (27.0-31.0); Mean Platelet Volume 10.9 fL (7.4-10.4); Monocytes 6 % (0-10); Neutrophil 69 % (42-75); Nucleated RBC 2 % (0); Platelet Count 111 thou/uL (130-400); Platelet Morphology Comment Appears Decreased; RBC Distribution Width 13.7 % (11.5-14.5); Red Blood Cell (RBC) Count 3.64 mill/uL (4.70-6.10)
[2019-04-20] MEDS: methylPREDNISolone Sod Succ 40 MG VIAL IVP SCH (05:14)
[2019-04-20] MEDS: Mometasone/Formoterol 120 PUFF INHALER INH SCH (07:03)
[2019-04-20] MEDS: Carvedilol 3.125 MG TAB PO SCH ×2 (09:43→17:18)
[2019-04-20] MEDS: Tamsulosin HCl 0.4 MG CAP PO SCH (09:43)
[2019-04-20] MEDS: Heparin 5,000 UNITS/ML VIAL SC SCH (09:45)
--- NOTE | 2019-04-20 12:38 | PRG ---
DATE OF SERVICE: 04/20/2019 SERVICE: Pulmonary Medicine. INTERVAL HISTORY: The patient is doing fine from respiratory standpoint. He is on 1 L nasal cannula. He is off the Precedex drip. He seems to be doing better from mentation standpoint. Otherwise, there has been no interval change to his condition. PHYSICAL EXAMINATION: VITAL SIGNS: Afebrile, pulse 82, blood pressure 110/58, respirations 20, saturation 100%, currently on 1 L nasal cannula. GENERAL: The patient is awake and alert, in no apparent distress. LUNGS: Decent air entry. Rhonchi are present. No prolonged expiratory phase or wheezing is appreciated. HEART: Normal rate, regular. ABDOMEN: Soft, nontender, and nondistended. Bowel sounds are positive. MUSCULOSKELETAL: No cyanosis or clubbing. No pitting in the bilateral lower extremities. NEUROLOGIC: Grossly nonfocal. LABORATORY DATA: WBC 17.0, hemoglobin 11.6, platelets 111,000. Band count is 18% on top of 69% neutrophils. Those numbers are improving. INR 1.6. Creatinine uptrending to 3.09. AST and ALT are both elevated. Alkaline phosphatase falls within the normal limits. Ammonia level is slightly elevated. Bilirubin is uptrending. Respiratory virus panel is negative. Blood cultures x2 and influenza A and B are both unremarkable. IMAGING STUDIES: CT of the brain demonstrates no acute intracranial abnormality. Chest x-ray demonstrates infiltrate in the right lower lobe. ASSESSMENT: 1. Acute hypoxic respiratory failure. 2. Community-acquired pneumonia. 3. Severe sepsis. 4. Acute kidney injury on chronic kidney disease, stage3. 5. Metabolic encephalopathy. DISCUSSION AND PLAN: The patient clinically is very dry. He has dry mucous membrane and skin tenting throughout. He does have some crackles which are worse on the right compared to the left. That being said, I am going to go ahead and initiate a very low dose of D5 water. We will continue working on rate control. He can be transitioned out of the ICU to the telemetry unit. Steroids will be deescalated. Pulmonary/Critical Care will continue to follow very closely while he remains in-house. Job ID: [id number]
[2019-04-20] MEDS: Dextrose 5% in Water 1,000 ML IV SCH (13:07)
[2019-04-20] MEDS: Acetaminophen 325 MG TAB PO PRN (13:13)
[2019-04-20 15:27] LABS: Actual Bicarbonate (HCO3a) 16.4 mEq/L (22-28); Base Excess (BEa) -7.7 mEq/L (-2.0 to +3.0); CO2 Tension 29.6 mmHg (35.0-45.0); Calcium, Ionized 1.09 mmol/L (1.12-1.30); Carboxyhemoglobin (COHb) 0.5 gm% (0.0-3.0); Hemoglobin (Hb) 12.9 g/dL (14.0-18.0); O2 Tension (PaO2) 133.9 mmHg (> 70.0); Potassium - ABG Lab 4.96 mmol/L (3.70-5.30); pH, Arterial 7.36 (7.35-7.45)
--- NOTE | 2019-04-20 15:31 | PRG ---
DATE OF SERVICE: 04/20/2019 SERVICE: Nephrology. SUBJECTIVE: A 74-year-old male, admitted due to worsening shortness of breath and leg swelling. The patient also was found to have atrial fibrillation with rapid ventricular response, associated with acute CHF and COPD exacerbation. Nephrology is following the patient for acute on chronic renal failure. The patient has been in and out of atrial flutter/fibrillation. Yesterday afternoon, he flipped into atrial fibrillation with acute worsening of shortness of breath, hence was started on noninvasive respiratory support. Cardiology also restarted the patient on amiodarone infusion. Oral intake has remained abysmal. OBJECTIVE: VITAL SIGNS: Temperature 96.9, pulse 82, respiratory rate BiPAP with FiO2 30%, blood pressure is 112/58. GENERAL: Elderly male, in mild respiratory distress. Afebrile and acyanotic. HEENT: BiPAP mask is in place. NECK: No JVD appreciated. CARDIOVASCULAR: Regular rhythm and rate. RESPIRATORY: Fair air entry with BiPAP transmitted breath sounds. Crackles are heard in right base. However, there is no overt evidence of accessory muscle use or respiratory distress. GI: Full, soft, nontender, nondistended with normal bowel sounds. EXTREMITIES: Grossly normal looking, atraumatic, with no edema or edema. UROGENITAL: Larkin catheter is in place, draining some urine. SEE SUPERVISOR: The patient is awake and oriented to person at least. Moves all extremities. Conversation is grossly limited due to BiPAP mask. Telemetry showed atrial flutter with controlled rate. DIAGNOSTIC DATA: CBC showed WBC count of 17, hemoglobin of 11.6, platelets of 111. CMP showed sodium 143, potassium 4.6, chloride 105, CO2 of 27, BUN 86, creatinine 3.09, glucose 129, calcium 8.5, total bilirubin 1.6, AST 461, ALT 1302, alkaline phosphatase 101, total protein 6.7, albumin 3.5, globulin 3.2. Note that liver enzymes are trending downward from AST peak of 3136 on February 15 and ALT peak of 2097 on February 15. Creatinine however has not shown any significant improvement. In fact, he went up from 2.92 yesterday to 3.09 today from a serena of 1.67 on admission. ASSESSMENT: 1. Acute kidney injury: This is due to cardiorenal. The patient has worsening systolic function with EF currently at 20 to 25, which is even made worse by atrial fibrillation with rapid ventricular response. Attempt at diuresing the patient causes worsening renal function as expectedly. The patient however, though clinically dry, could not handle IV fluid therapy due to cardiac decompensation. Fractional excretion of urea and sodium are consistent with prerenal etiology. 2. Chronic kidney disease, stage 3. 3. Acute on chronic systolic heart failure with features of cardiogenic shock. 4. Acute respiratory failure from congestive heart failure exacerbation, chronic obstructive pulmonary disease exacerbation, and possible pneumonia. DISCUSSION: At this point, since the patient cannot handle IV fluid therapy to improve renal function to the point cardiac catheterization could be considered as recommended by Cardiology, inotropic therapy might improve cardiac function and improve overall hemodynamics and improve renal function. I therefore recommend consideration of inotropic therapy in this patient. We will avoid nephrotoxic agent including diuretics, CHAVEZ inhibitor, and other medications. We will recheck CMP in the morning. We actually will discuss with Cardiology . Respiratory support and other supportive care to continue at this time. Job ID: [id number]
[2019-04-20 15:34] LABS: Puncture Site RBRACH
[2019-04-20] MEDS: Aspirin 300 MG Suppository PR SCH (17:20)
--- NOTE | 2019-04-20 17:34 | PDOC.HOSPP ---
- Subjective Encounter Date: 04/20/19 Encounter Time: 11:00 Subjective: Pt seen for followup re: NSTEMI. Sleepy, not answering questions, could not complete ROS. - Objective Vital Signs & Weight: Vital Signs (12 hours) Temp Pulse Pulse Pulse Resp BP BP 04/20/19 15:00 98.4 F 04/20/19 14:38 133 H 22 H 04/20/19 13:23 78 79 112/58 L 110/58 L 04/20/19 12:00 98.3 F 04/20/19 10:03 82 26 H 04/20/19 06:57 77 30 H Pulse Ox Pulse Ox Pulse Ox 04/20/19 15:00 04/20/19 14:38 04/20/19 13:23 98 97 04/20/19 12:00 04/20/19 10:03 100 04/20/19 06:57 100 Weight Admit Weight 186 lb 8 oz Weight 167 lb 5.294 oz Most Recent Monitor Data Heart Rate from ECG 76 NIBP 109/70 NIBP BP-Mean 83 Respiration from ECG 34 SpO2 100 I&O: 04/19/19 04/20/19 04/21/19 06:59 06:59 06:59 Intake Total 1891.1 486 Output Total 1248 935 425 Balance 649.1 -449 -425 Result Diagrams: 04/20/19 03:34 04/20/19 03:34 Additional Labs: Accuchecks 04/19/19 04/19/19 23:56 19:28 POC Glucose 124 H 141 H Labs and MARs reviewed by pr Hospitalist ROS - Medication Medications: Active Medications Generic Name Dose Route Start Last Admin Trade Name Freq PRN Reason Stop Dose Admin Acetaminophen 650 mg 04/10/19 18:50 04/20/19 13:13 Tylenol PO 650 mg Q4H PRN Administration Headache/Fever/Mild Pain (1-3) Albuterol/Ipratropium 3 ml 04/20/19 13:00 04/20/19 14:38 Duoneb NEB 3 ml [id number] DANAY Administration Aspirin 300 mg 04/16/19 18:30 04/20/19 17:20 Aspirin [place] 300 mg Q24H DANAY Administration Atorvastatin Calcium 20 mg 04/12/19 21:00 04/19/19 20:34 Lipitor PO 20 mg HS DANAY Administration Carvedilol 3.125 mg 04/12/19 08:00 04/20/19 17:18 Coreg PO 3.125 mg BID-WM DANAY Administration Levofloxacin 500 mg/ Device 100 mls @ 100 mls/hr 04/19/19 12:30 04/20/19 13: 13 IVPB 100 mls Q24HR DANAY Administration Amiodarone HCl 450 mg/ 259 mls @ 0 mls/hr 04/19/19 14:45 04/20/19 16:48 Miscellaneous Medication 1 IVPB 259 mls each/ Dextrose/Water INF DANAY Administration Protocol As Directed Dextrose/Water 1,000 mls @ 50 mls/hr 04/20/19 12:00 04/20/19 13:07 D5w IV 1,000 mls .Q20H DANAY Administration Pantoprazole Sodium 40 mg 04/19/19 09:00 04/20/19 09:43 Protonix PO Not Given DAILY DANAY Tamsulosin HCl 0.4 mg 04/11/19 09:00 04/20/19 09:43 Flomax PO Not Given DAILY DANAY - Exam General Appearance: NAD ENT: dry oral mucosa Neck: supple, no thyromegaly Heart - other findings: S1, S2, reg, tachy Respiratory: CTAB Gastrointestinal: soft, non-tender Extremities: no cyanosis Skin: no rashes Psychiatric - other findings: Unable to assess Hosp A/P (1) NSTEMI (non-ST elevated myocardial infarction) Code(s): I21.4 - NON-ST ELEVATION (NSTEMI) MYOCARDIAL INFARCTION Status: Acute (2) Acute on chronic systolic (congestive) heart failure Code(s): I50.23 - ACUTE ON CHRONIC SYSTOLIC (CONGESTIVE) HEART FAILURE Status : Acute (3) COPD exacerbation Code(s): J44.1 - CHRONIC OBSTRUCTIVE PULMONARY DISEASE W (ACUTE) EXACERBATION Status: Acute (4) Cardiomyopathy Code(s): I42.9 - CARDIOMYOPATHY, UNSPECIFIED Status: Acute (5) BPH (benign prostatic hyperplasia) Code(s): N40.0 - BENIGN PROSTATIC HYPERPLASIA WITHOUT LOWER URINRY TRACT SYMP Status: Chronic Qualifiers: Lower urinary tract symptom presence: symptoms absent Qualified Code(s): N40.0 - Benign prostatic hyperplasia without lower urinary tract symptoms (6) CAD (coronary artery disease) Code(s): I25.10 - ATHSCL HEART DISEASE OF [place] CORONARY ARTERY W/O ANG PCTRS Status: Chronic Qualifiers: Coronary Disease-Associated Artery/Lesion type: bypass graft [place] vs. transplanted heart: [place] heart Associated angina: without angina Qualified Code(s): I25.810 - Atherosclerosis of coronary artery bypass graft(s) without angina pectoris (7) Atrial flutter Code(s): I48.92 - UNSPECIFIED ATRIAL FLUTTER Status: Resolved (8) Acute metabolic encephalopathy Code(s): G93.41 - METABOLIC ENCEPHALOPATHY Status: Resolved - Plan Pt on BiPAP. Creatinine mildly worse at 3.09 today. LFTs improving. LVEF 25-30% on echo. Pt may need cath when creatinine improves.
[2019-04-20] MEDS: Budesonide 0.25 MG/2 ML NEB INH SCH (18:47)
[2019-04-20] MEDS ORDERED: Lorazepam 2 MG/ML VIAL ONE (20:27)
[2019-04-20] MEDS: Donepezil HCl 10 MG TAB PO SCH (20:40)
[2019-04-20] MEDS: Apixaban 5 MG TAB PO SCH (20:40)
[2019-04-20] MEDS: Gabapentin 400 MG CAP PO SCH (20:40)
[2019-04-20] MEDS: Atorvastatin Calcium 20 MG TAB PO SCH (20:40)
[2019-04-20] MEDS: Lorazepam 2 MG/ML VIAL SLOW IVP PRN (22:46)
[2019-04-21] MEDS: Lorazepam 2 MG/ML VIAL SLOW IVP PRN (03:39)
[2019-04-21] MEDS: Budesonide 0.25 MG/2 ML NEB INH SCH ×2 (07:10→18:34)
[2019-04-21 08:11] LABS: ALT (SGPT) 992 U/L (8-55); AST (SGOT) 238 U/L (5-34); Albumin 3.5 g/dL (3.4-4.8); Alkaline Phosphatase 108 U/L (40-110); Anion Gap 20 mmol/L (10-20); BUN (Urea Nitrogen) 103 mg/dL (8.4-25.7); Bilirubin, Total 1.9 mg/dL (0.2-1.2); Calc. Creatinine Clearance 20 mL/min (70-130); Calcium 8.5 mg/dL (7.8-10.44); Carbon Dioxide 21 mmol/L (23-31); Chloride 102 mmol/L (98-107); Estimated GFR-MDRD 16; Globulin 3.4 g/dL (2.4-3.5); Glucose 137 mg/dL (83-110); Phosphorus 4.9 mg/dL (2.3-4.7); Potassium 4.9 mmol/L (3.5-5.1); Protein, Total 6.9 g/dL (5.8-8.1); Sodium 138 mmol/L (136-145)
[2019-04-21 08:33] LABS: Hemoglobin 12.8 g/dL (14.0-18.0); Mean Corpuscular HGB CONC 32.2 g/dL (32.0-36.0); Mean Platelet Volume 10.8 fL (7.4-10.4); Platelet Count 122 thou/uL (130-400); Red Blood Cell (RBC) Count 3.87 mill/uL (4.70-6.10); White Blood Cell (WBC) Count 21.2 thou/uL (4.8-10.8)
[2019-04-21 08:34] LABS: Band 24 % (5-11); Lymphocytes 23 % (21-51); MDiff Complete? YES; Macrocytosis SLIGHT = 6-15 cells (100X) (0-5/hpf); Monocytes 4 % (0-10); Neutrophil 49 % (42-75); Nucleated RBC 7 % (0); Polychromasia SLIGHT = 2-3 cells (100X) (0-2/hpf)
[2019-04-21] MEDS: Carvedilol 3.125 MG TAB PO SCH ×2 (09:18→17:16)
[2019-04-21] MEDS: Tamsulosin HCl 0.4 MG CAP PO SCH (09:18)
[2019-04-21] MEDS: Amiodarone 450 MG, Admixture Fee 1 EACH in Dextrose 5% in Water 250 ML IVPB SCH ×2 (09:19→20:44)
[2019-04-21] MEDS: Dextrose 5% in Water 1,000 ML IV SCH (09:20)
[2019-04-21] MEDS: Apixaban 5 MG TAB PO SCH ×2 (09:23→20:43)
--- NOTE | 2019-04-21 09:52 | PRG ---
DATE OF SERVICE: 04/21/2019 SERVICE: Nephrology. SUBJECTIVE: A 74-year-old male with chronic systolic heart failure, admitted due to worsening shortness of breath and edema and found to have atrial fibrillation with rapid ventricular response. Nephrology is following the patient for acute on chronic renal failure. The patient has been in and out of atrial fibrillation/flutter associated with cardiac decompensation and flash pulmonary edema. In one of these occasions, the patient actually developed hypotension. Following that, creatinine has progressively worsened. The patient has been on BiPAP, which was finally weaned off last night. He however remained in atrial flutter with controlled rate. OBJECTIVE: VITAL SIGNS: Temperature 98.7, pulse 79, respiratory rate 23, SpO2 97 on 4 L nasal cannula, and blood pressure is 114/63. GENERAL: Awake, elderly male, in no obvious distress. The patient seems confused and minimally verbal. HEENT: Normocephalic, atraumatic. Oral mucosa is dry. NECK: Supple, nontender with no JVD. CARDIOVASCULAR: Regular rhythm and rate. RESPIRATORY: Fair air entry with coarse transmitted breath sounds as well as crackles especially right base. Work of breathing is increased. GI: Full, soft, nontender, nondistended with normal bowel sounds. UROGENITAL: Larkin catheter is in place, draining some urine. EXTREMITIES: Grossly normal looking, atraumatic with no edema or erythema. Legs look rather dry. MICA SPLITTER: Awake. The patient seems confused with slow mentation. Attempting to obey commands. Moves all extremities. DIAGNOSTIC DATA: CBC showed WBC count of 21.2, hemoglobin of 12.8, MCV of 102, and platelets of 122. CMP showed sodium 138, potassium 4.9, chloride 102, CO2 of 21, BUN 103, creatinine 3.77, glucose 137, calcium 8.5, phosphorus 4.9, total bilirubin 1.9, AST 238, ALT 992, alkaline phosphatase 108, total protein 6.9, albumin 3.5, and globulin 3.4. ASSESSMENT: 1. Acute on chronic renal failure: Due to prerenal etiology from cardiorenal as well as volume depletion, the patient is clinically dry, but attempt to providing IV fluid will lead to cardiac decompensation. Currently, the patient has pulmonary congestion and respiratory distress, hence not in a position to get IV fluids. Unless inotropic therapy is commenced to improve perfusion of the kidneys. 2. Worsening azotemia: BUN today is 103. The patient seems confused with slow mentation consistent with uremic encephalopathy. 3. Acute on chronic systolic heart failure with ejection fraction of 20% to 25%, which is down from baseline of 40% to 45%. Paroxysmal atrial fibrillation/flutter. 4. Shock liver: Recovering with improving LFTs. DISCUSSION: Renal function continues to worsen due to poor perfusion. Unless the patient is intubated, IV fluid therapy will lead to worsening respiratory distress. Cardiology is contemplating cardiac cath for evaluation of coronary arteries; however, this could not be done at this time due to renal failure. I will have to discuss with family about dialytic treatment as is becoming clear that the patient is heading in that direction, however, that alone could not save this patient with as the primary problem here is cardiogenic shock. We will also discuss with Cardiology earlier today to find out the care part for this patient. Given the patient has history of dementia and considering the overall picture and prognosis, Palliative Care consultation will be appropriate at this time. The patient however is full code, and we will continue to proceed aggressive treatments. We will however start low-dose sodium bicarbonate given worsening metabolic acidosis and azotemia while waiting to discuss with family. Job ID: [id number]
--- NOTE | 2019-04-21 10:18 | CT ---
CT Chest WO Con HISTORY: Congestion, cough and leukocytosis. COMPARISON: Chest x-ray of 04/19/2019. FINDINGS: There is a mild right-sided pleural effusion demonstrated. The right lower lobe infiltrativ e lung changes may be slightly improved as compared to the prior examination. There are some patchy infiltrative changes in both upper lobes and some minimal changes within the left lower lobe. There i s a 7 mm pleural-based nodule in the superior segment left lower lobe it abuts the upper portion of the major fissure. There is a small left effusion present. Postop sternotomy changes are seen. No significant mediastinal adenopathy is noted. Visualized liver parenchyma shows no focal findings. IMPRESSION: 1. Mild to moderate size right-sided pleural effusion, the right lower lobe infiltrative lung changes show some slight improvement as compared to previous chest x-ray. There are some patchy areas of infiltrate in both upper lobes and the left lower lobe in addition to the right lower lobe lung ernesto humphries.
[2019-04-21] MEDS ORDERED: Pantoprazole 40 MG GRANULES PACKET PO SCH (11:00)
[2019-04-21] MEDS: Sodium Chloride 0.45% 1,000 ML IV SCH (11:20)
--- NOTE | 2019-04-21 11:49 | PRG ---
DATE OF SERVICE: 04/21/2019 SERVICE: Pulmonary medicine. INTERVAL HISTORY: The patient is doing really well from respiratory standpoint. Breathing comfortably. He had one respiratory event yesterday evening. I put back on BiPAP, and settled down. Each one of his respiratory events and desaturations is precipitated by tachyarrhythmia. PHYSICAL EXAMINATION: VITAL SIGNS: Afebrile, blood pressure 113/65, respirations 21, saturation 100%, currently on 2 L nasal cannula. GENERAL: The patient is awake and alert, in no apparent distress. LUNGS: Decent air entry. Rhonchi are present. There are some minimal dependent crackles noted. HEART: Normal rate and regular. ABDOMEN: Soft, nontender, nondistended. Bowel sounds are positive. MUSCULOSKELETAL: No cyanosis or clubbing. There is no pitting in the bilateral lower extremities. NEUROLOGIC: Grossly nonfocal. LABORATORY DATA: WBC 21.2, hemoglobin 12.8, platelets 122,000. Neutrophil count is 49% on top of 24% bands, though the lymphocyte count seems to be rebounding. INR 1.6. Creatinine 3.77 and gently up trending, BUN 103. Basic metabolic profile is otherwise unremarkable. Bilirubin 1.9 and gently uptrending, AST and ALT continue to improve. Alkaline phosphatase remains low. Blood cultures x2 and respiratory virus panel are unremarkable. CT of the chest demonstrates a small to moderate at best effusion on the right side. There are infiltrates of the right base with associated atelectasis. This seems to be improving compared to prior. ASSESSMENT: 1. Acute hypoxic respiratory failure. 2. Community-acquired pneumonia, improving. 3. Severe sepsis. 4. Acute kidney injury on CKD 3, with volume depletion. 5. Chronic systolic, diastolic, and valvular heart failure. 6. Aortic and Mitral valve regurgitation. 7. Metabolic encephalopathy. 8. Dementia. DISCUSSION AND PLAN: I will proceed with a thoracentesis to see if this prevents any additional desaturation spells. My suspicion is that his kidney injury is secondary to nothing more than prerenal azotemia and does not represent a true injury. I will put him on half-normal saline at 75 mL/h, and we will let that right for the next 24 hours. D5 water will be interrupted. Pulmonary/Critical Care will follow closely. ADDENDUM: Family did not want a thoracentesis after discussing the risks and benefits of this procedure. Job ID: [id number] [id number]
--- NOTE | 2019-04-21 16:03 | ULT ---
Renal sonogram HISTORY: Renal insufficiency. FINDINGS: Right kidney measures up to 8.9 cm and the left 8.9 cm. There is thinning of the cortex of each kidney. No hydronephrosis or mass. Urinary bladder is decompressed by a Larkin catheter. IMPRESSION: No evidence of urinary tract obstruction. Symmetric bilateral renal cortical atrophy.
--- NOTE | 2019-04-21 17:55 | PDOC.HOSPP ---
- Subjective Encounter Date: 04/21/19 Encounter Time: 09:40 Subjective: Pt seen for followup re: NSTEMI. Denies chest pain. SOBOE+. - Objective Vital Signs & Weight: Vital Signs (12 hours) Temp Pulse Pulse Pulse Resp BP BP 04/21/19 16:00 97.7 F 04/21/19 13:36 80 28 H 04/21/19 12:38 79 80 123/67 117/64 04/21/19 12:00 98.0 F 04/21/19 08:00 97.8 F 04/21/19 07:53 04/21/19 07:10 79 30 H Pulse Ox Pulse Ox Pulse Ox 04/21/19 16:00 04/21/19 13:36 99 04/21/19 12:38 96 100 04/21/19 12:00 04/21/19 08:00 04/21/19 07:53 2 L 04/21/19 07:10 100 Weight Admit Weight 186 lb 8 oz Weight 183 lb 6.793 oz Most Recent Monitor Data Heart Rate from ECG 79 NIBP 123/68 NIBP BP-Mean 86 Respiration from ECG 30 SpO2 98 I&O: 04/20/19 04/21/19 04/22/19 06:59 06:59 06:59 Intake Total 486 590.75 742 Output Total 935 800 387 Balance -449 -209.25 355 Result Diagrams: 04/21/19 07:38 04/21/19 07:38 Additional Labs: Labs and MARs reviewed by me EKG Reviewed by me: Yes (Tele: NSR) Hospitalist ROS - Review of Systems Respiratory: reports: SOB with excertion Cardiovascular: denies: chest pain, palpitations, orthopnea, paroxysmal noc. dyspnea, edema, light headedness Gastrointestinal: denies: nausea, vomiting, abdominal pain, diarrhea, constipation, melena, hematochezia - Medication Medications: Active Medications Generic Name Dose Route Start Last Admin Trade Name Freq PRN Reason Stop Dose Admin Acetaminophen 650 mg 04/10/19 18:50 04/20/19 13:13 Tylenol PO 650 mg Q4H PRN Administration Headache/Fever/Mild Pain (1-3) Albuterol/Ipratropium 3 ml 04/20/19 13:00 04/21/19 13:36 Duoneb NEB 3 ml [id number] DANAY Administration Apixaban 5 mg 04/20/19 21:00 04/21/19 09:23 Eliquis PO 5 mg BID DANAY Administration Aspirin 300 mg 04/16/19 18:30 04/20/19 17:20 Aspirin [place] 300 mg Q24H DANAY Administration Atorvastatin Calcium 20 mg 04/12/19 21:00 04/20/19 20:40 Lipitor PO 20 mg HS DANAY Administration Budesonide 0.25 mg 04/20/19 18:30 04/21/19 07:10 Pulmicort Neb Solution INH 0.25 mg BID-RT DANAY Administration Carvedilol 3.125 mg 04/12/19 08:00 04/21/19 17:16 Coreg PO 3.125 mg BID-WM DANAY Administration Donepezil HCl 10 mg 04/20/19 21:00 04/20/19 20:40 Aricept PO 10 mg HS DANAY Administration Gabapentin 400 mg 04/20/19 21:00 04/20/19 20:40 Neurontin PO 400 mg HS DANAY Administration Amiodarone HCl 450 mg/ 259 mls @ 0 mls/hr 04/19/19 14:45 04/21/19 09:19 Miscellaneous Medication 1 IVPB 259 mls each/ Dextrose/Water INF DANAY Administration Protocol As Directed Sodium Chloride 1,000 mls @ 75 mls/hr 04/21/19 11:00 04/21/19 11:20 1/2 Normal Saline IV 1,000 mls .[id number] DANAY Administration Levofloxacin 250 mg/ Device 50 mls @ 100 mls/hr 04/21/19 13:00 04/21/19 13:55 IVPB 50 mls 1300 DANAY Administration Lorazepam 0.5 mg 04/20/19 20:40 04/21/19 03:39 Ativan SLOW IVP 0.5 mg Q5M PRN Administration Agitation -NMT 2MG/2HRS Tamsulosin HCl 0.4 mg 04/11/19 09:00 04/21/19 09:18 Flomax PO 0.4 mg DAILY DANAY Administration - Exam General Appearance: awake alert Eye: scleral icterus ENT: moist mucosa Neck: supple Heart: RRR Respiratory - other findings: Wiley crackles Psychiatric: normal affect, normal behavior Hosp A/P (1) NSTEMI (non-ST elevated myocardial infarction) Code(s): I21.4 - NON-ST ELEVATION (NSTEMI) MYOCARDIAL INFARCTION Status: Acute (2) Acute respiratory failure with hypoxia Code(s): J96.01 - ACUTE RESPIRATORY FAILURE WITH HYPOXIA Status: Acute (3) CAP (community acquired pneumonia) Code(s): J18.9 - PNEUMONIA, UNSPECIFIED ORGANISM Status: Acute (4) Acute on chronic systolic (congestive) heart failure Code(s): I50.23 - ACUTE ON CHRONIC SYSTOLIC (CONGESTIVE) HEART FAILURE Status : Acute (5) COPD exacerbation Code(s): J44.1 - CHRONIC OBSTRUCTIVE PULMONARY DISEASE W (ACUTE) EXACERBATION Status: Acute (6) Cardiomyopathy Code(s): I42.9 - CARDIOMYOPATHY, UNSPECIFIED Status: Acute (7) BPH (benign prostatic hyperplasia) Code(s): N40.0 - BENIGN PROSTATIC HYPERPLASIA WITHOUT LOWER URINRY TRACT SYMP Status: Chronic Qualifiers: Lower urinary tract symptom presence: symptoms absent Qualified Code(s): N40.0 - Benign prostatic hyperplasia without lower urinary tract symptoms (8) CAD (coronary artery disease) Code(s): I25.10 - ATHSCL HEART DISEASE OF [place] CORONARY ARTERY W/O ANG PCTRS Status: Chronic Qualifiers: Coronary Disease-Associated Artery/Lesion type: bypass graft [place] vs. transplanted heart: [place] heart Associated angina: without angina Qualified Code(s): I25.810 - Atherosclerosis of coronary artery bypass graft(s) without angina pectoris (9) Atrial flutter Code(s): I48.92 - UNSPECIFIED ATRIAL FLUTTER Status: Resolved (10) Acute metabolic encephalopathy Code(s): G93.41 - METABOLIC ENCEPHALOPATHY Status: Resolved - Plan plan discussed w/ family, continue antibiotics, out of bed/ambulate Continue levofloxacin. Creatinine worsening, 3.77 today. Bilirubin slightly worse today, but overall LFTs improving. LVEF 25-30% on echo. Pt may need cath when creatinine improves.
[2019-04-21] MEDS: Aspirin 300 MG Suppository PR SCH (18:18)
[2019-04-21] MEDS: Atorvastatin Calcium 20 MG TAB PO SCH (20:43)
[2019-04-21] MEDS: Donepezil HCl 10 MG TAB PO SCH (20:43)
[2019-04-21] MEDS: Gabapentin 400 MG CAP PO SCH (20:43)
--- NOTE | 2019-04-21 20:46 | PRG ---
DATE OF SERVICE: 04/21/2019 SUBJECTIVE: Mr. Ricardo is sleepy but arouses easily. No chest pain or pressure. OBJECTIVE: VITAL SIGNS: Blood pressure is 98/81, pulse 70, it is relatively regular, looks like it is atrial flutter. LUNGS: Clear. CARDIAC: Normal S1, normal S2. There is no new murmur, rub, or gallop. ABDOMEN: Soft, nontender. ASSESSMENT: 1. Depressed left ventricular function. 2. Atrial arrhythmia. 3. Diastolic and systolic heart failure. PLAN: Continue the current medical regimen. No changes at the present time. Job ID: [id number]
[2019-04-22] MEDS: Sodium Chloride 0.45% 1,000 ML IV SCH ×2 (01:53→14:22)
[2019-04-22 06:20] LABS: ALT (SGPT) 1567 U/L (8-55); AST (SGOT) 1366 U/L (5-34); Albumin 3.2 g/dL (3.4-4.8); Alkaline Phosphatase 143 U/L (40-110); Anion Gap 21 mmol/L (10-20); BUN (Urea Nitrogen) 119 mg/dL (8.4-25.7); Calc. Creatinine Clearance 16 mL/min (70-130); Calcium 8.4 mg/dL (7.8-10.44); Carbon Dioxide 22 mmol/L (23-31); Chloride 98 mmol/L (98-107); Estimated GFR-MDRD 13; Globulin 3.2 g/dL (2.4-3.5); Glucose 102 mg/dL (83-110); Phosphorus 6.1 mg/dL (2.3-4.7); Potassium 5.4 mmol/L (3.5-5.1); Protein, Total 6.4 g/dL (5.8-8.1); Sodium 136 mmol/L (136-145)
[2019-04-22 06:22] LABS: Band 21 % (5-11); Hemoglobin 11.4 g/dL (14.0-18.0); Lymphocytes 10 % (21-51); MDiff Complete? YES; Mean Corpuscular Hemoglobin 32.2 pg (27.0-31.0); Mean Platelet Volume 11.1 fL (7.4-10.4); Monocytes 3 % (0-10); Myelocyte 2 % (0-0); Neutrophil 64 % (42-75); Nucleated RBC 9 % (0); Platelet Count 115 thou/uL (130-400); Platelet Morphology Comment Appears Decreased; RBC Distribution Width 13.8 % (11.5-14.5); Red Blood Cell (RBC) Count 3.54 mill/uL (4.70-6.10); White Blood Cell (WBC) Count 20.4 thou/uL (4.8-10.8)
[2019-04-22] MEDS: Budesonide 0.25 MG/2 ML NEB INH SCH ×2 (07:09→19:07)
[2019-04-22] MEDS: Carvedilol 3.125 MG TAB PO SCH ×2 (08:50→17:38)
[2019-04-22] MEDS: Tamsulosin HCl 0.4 MG CAP PO SCH (09:17)
[2019-04-22] MEDS: Apixaban 5 MG TAB PO SCH (09:17)
[2019-04-22] MEDS: Pantoprazole 40 MG GRANULES PACKET PO SCH (09:17)
[2019-04-22] MEDS ORDERED: Enoxaparin Sodium 80 MG/0.8 ML SYRINGE SC SCH (11:00)
[2019-04-22 13:32] VITALS: BP 180/99
[2019-04-22] MEDS: Amiodarone 450 MG, Admixture Fee 1 EACH in Dextrose 5% in Water 250 ML IVPB SCH (14:22)
[2019-04-22] MEDS: Aspirin 300 MG Suppository PR SCH (18:29)
--- NOTE | 2019-04-22 19:11 | PDOC.HOSPP ---
- Subjective Encounter Date: 04/22/19 Encounter Time: 08:40 Subjective: Pt seen for followup re: NSTEMI. Pt on BiPAO, not talking, could not complete ROS. - Objective Vital Signs & Weight: Vital Signs (12 hours) Temp Pulse Resp BP Pulse Ox 04/22/19 19:07 78 96 04/22/19 19:06 96 04/22/19 16:00 99.3 F 04/22/19 13:47 69 04/22/19 13:45 75 29 H 94 L 04/22/19 13:00 82 180/99 H 04/22/19 12:00 97.7 F 04/22/19 07:10 75 Weight Admit Weight 186 lb 8 oz Weight 176 lb 2.389 oz Most Recent Monitor Data Heart Rate from ECG 77 NIBP 136/70 NIBP BP-Mean 92 Respiration from ECG 34 SpO2 95 I&O: 04/21/19 04/22/19 04/23/19 06:59 06:59 06:59 Intake Total 590.75 1805 1193 Output Total 800 662 375 Balance -209.25 1143 818 Result Diagrams: 04/22/19 03:50 04/22/19 03:50 Additional Labs: Labs and MARs reviewed by me EKG Reviewed by me: Yes (Tele: dimitry disla) Hospitalist ROS - Review of Systems ROS unobtainable: due to mental status - Medication Medications: Active Medications Generic Name Dose Route Start Last Admin Trade Name Freq PRN Reason Stop Dose Admin Acetaminophen 650 mg 04/10/19 18:50 04/20/19 13:13 Tylenol PO 650 mg Q4H PRN Administration Headache/Fever/Mild Pain (1-3) Albuterol/Ipratropium 3 ml 04/20/19 13:00 04/22/19 19:06 Duoneb NEB 3 ml [id number] DANAY Administration Aspirin 300 mg 04/16/19 18:30 04/22/19 18:29 Aspirin ND Not Given Q24H DANAY Atorvastatin Calcium 20 mg 04/12/19 21:00 04/21/19 20:43 Lipitor PO 20 mg HS DANAY Administration Budesonide 0.25 mg 04/20/19 18:30 04/22/19 19:07 Pulmicort Neb Solution INH 0.25 mg BID-RT DANAY Administration Carvedilol 3.125 mg 04/12/19 08:00 04/22/19 17:38 Coreg PO Not Given BID-WM DANAY Donepezil HCl 10 mg 04/20/19 21:00 04/21/19 20:43 Aricept PO 10 mg HS DANAY Administration Gabapentin 400 mg 04/20/19 21:00 04/21/19 20:43 Neurontin PO 400 mg HS DANAY Administration Amiodarone HCl 450 mg/ 259 mls @ 0 mls/hr 04/19/19 14:45 04/22/19 14:22 Miscellaneous Medication 1 IVPB 259 mls each/ Dextrose/Water INF DANAY Administration Protocol As Directed Sodium Chloride 1,000 mls @ 75 mls/hr 04/21/19 11:00 04/22/19 14:22 1/2 Normal Saline IV 1,000 mls .[id number] DANAY Administration Levofloxacin 250 mg/ Device 50 mls @ 100 mls/hr 04/21/19 13:00 04/22/19 12:48 IVPB 50 mls 1300 DANAY Administration Lorazepam 0.5 mg 04/20/19 20:40 04/21/19 03:39 Ativan SLOW IVP 0.5 mg Q5M PRN Administration Agitation -NMT 2MG/2HRS Pantoprazole Sodium 40 mg 04/22/19 09:00 04/22/19 09:17 Protonix PO Not Given DAILY DANAY Sodium Chloride 10 ml 04/21/19 21:00 04/22/19 09:19 Flush - Normal Saline IVF 10 ml Q12HR DANAY Administration Tamsulosin HCl 0.4 mg 04/11/19 09:00 04/22/19 09:17 Flomax PO Not Given DAILY DANAY - Exam General Appearance: ill appearing Eye: anicteric sclera ENT: moist mucosa Neck: supple Heart - other findings: S1, S2, reg, tachy Respiratory - other findings: Wiley crackles Neurological - other findings: Unable to assess Psychiatric - other findings: Unable to assess Hosp A/P (1) NSTEMI (non-ST elevated myocardial infarction) Code(s): I21.4 - NON-ST ELEVATION (NSTEMI) MYOCARDIAL INFARCTION Status: Acute (2) Acute respiratory failure with hypoxia Code(s): J96.01 - ACUTE RESPIRATORY FAILURE WITH HYPOXIA Status: Acute (3) CAP (community acquired pneumonia) Code(s): J18.9 - PNEUMONIA, UNSPECIFIED ORGANISM Status: Acute (4) Acute on chronic systolic (congestive) heart failure Code(s): I50.23 - ACUTE ON CHRONIC SYSTOLIC (CONGESTIVE) HEART FAILURE Status : Acute (5) COPD exacerbation Code(s): J44.1 - CHRONIC OBSTRUCTIVE PULMONARY DISEASE W (ACUTE) EXACERBATION Status: Acute (6) Cardiomyopathy Code(s): I42.9 - CARDIOMYOPATHY, UNSPECIFIED Status: Acute (7) BPH (benign prostatic hyperplasia) Code(s): N40.0 - BENIGN PROSTATIC HYPERPLASIA WITHOUT LOWER URINRY TRACT SYMP Status: Chronic Qualifiers: Lower urinary tract symptom presence: symptoms absent Qualified Code(s): N40.0 - Benign prostatic hyperplasia without lower urinary tract symptoms (8) CAD (coronary artery disease) Code(s): I25.10 - ATHSCL HEART DISEASE OF [place] CORONARY ARTERY W/O ANG PCTRS Status: Chronic Qualifiers: Coronary Disease-Associated Artery/Lesion type: bypass graft [place] vs. transplanted heart: [place] heart Associated angina: without angina Qualified Code(s): I25.810 - Atherosclerosis of coronary artery bypass graft(s) without angina pectoris (9) Atrial flutter Code(s): I48.92 - UNSPECIFIED ATRIAL FLUTTER Status: Resolved (10) Acute metabolic encephalopathy Code(s): G93.41 - METABOLIC ENCEPHALOPATHY Status: Resolved - Plan plan discussed w/ family, continue antibiotics, speech therapy, respiratory therapy Continue levofloxacin. Creatinine worse,4.56 today. LFTs worse today. LVEF 25-30% on echo. Pt may need cath when creatinine improves. Daughter and grand daughter updated by the bedside. Pt is at high risk of aspiration due to AMS. If no improvement tomorrow, may need to start NG feeds.
[2019-04-22] MEDS: Atorvastatin Calcium 20 MG TAB PO SCH (20:12)
[2019-04-22] MEDS: Gabapentin 400 MG CAP PO SCH (20:13)
[2019-04-22] MEDS: Donepezil HCl 10 MG TAB PO SCH (20:13)
--- NOTE | 2019-04-22 21:40 | PRG ---
DATE OF SERVICE: 04/22/2019 SERVICE: Nephrology. SUBJECTIVE: A 74-year-old male being followed up for acute on chronic renal failure. The patient has history of acute on chronic systolic heart failure as well as cardiogenic shock and mitral regurgitation. The patient had an episode of hypotension following increased renal function, progressively started to worsen. He is also in atrial fibrillation/flutter. Currently on BiPAP due to respiratory distress. The patient is not in a position for IV fluid therapy escalation. Family meeting is scheduled today to review care plan and care options as well as care goals. OBJECTIVE: VITAL SIGNS: Temperature 99, pulse 74, respiratory rate 24, SpO2 100% on BiPAP with FiO2 30%. Blood pressure is 117/70. GENERAL: Elderly male, in mild respiratory distress. Afebrile. Anicteric. Acyanotic. HEENT: Normocephalic, atraumatic. Oral mucosa is dry. BiPAP mask is in place. CARDIOVASCULAR: Regular rhythm with normal heart sounds 1 and 2. Systolic murmur noted. RESPIRATORY: Fair air entry bilateral with some transmitted breath sounds as well as bibasilar crackles. Work of breathing is increased. GI: Full, soft, nontender, nondistended with normal bowel sounds. UROGENITAL: Larkin catheter is in place. EXTREMITIES: Grossly normal looking, atraumatic with no edema or erythema. MEN'S DESIGNER: Conscious and alert. Oriented to person at least. BiPAP mask is in place and this limited conversation. DIAGNOSTIC DATA: CBC showed WBC count of 20.4, hemoglobin of 11.4, platelets of 115. CMP showed sodium 136, potassium 5.4, chloride 98, CO2 of 22, BUN 119, creatinine 4.56, calcium 8.4, phosphorus 6.1. Total bilirubin 3.0, AST 1366, ALT 1567, alkaline phosphatase 147, albumin 3.2, total protein 6.4, globulin 3.2. ASSESSMENT: 1. Acute on chronic renal failure: This initially was due to cardiorenal, but this was superimposed. This had hypotension superimposed on it. Now, it seems clear that the patient has had with progressive increase in .. 2. Hyperkalemia. 3. Marked azotemia with BUN of 119. 4. Acute worsening of liver enzymes: This may be related to amiodarone use. In the last 24 hours, there was no drop in blood pressure to account for this. Shock liver is still a concern as the patient is still in severe cardiac decompensation. 5. Dementia. PLAN: Like I discussed with the patient's family yesterday, the main problem here is cardiac decompensation and mitral valve regurgitation. Dialysis will not be sufficient to rescue this patient at this point. Aggressive cardiac treatment might salvage him. However, we will defer to Cardiology. Family meeting is scheduled for today. Following discussion with family care plan and goals will be more clear to determine plan of care. We will, however, provide Kayexalate for hyperkalemia which is expected to worsen. We will recheck renal function in the morning. If, however, family elects to proceed with hemodialysis, we will arrange for dialysis catheter placement. Job ID: [id number]
[2019-04-23] MEDS: Sodium Chloride 0.45% 1,000 ML IV SCH ×2 (03:47→16:48)
[2019-04-23] MEDS: Amiodarone 450 MG, Admixture Fee 1 EACH in Dextrose 5% in Water 250 ML IVPB SCH ×2 (05:36→08:01)
[2019-04-23 05:45] LABS: ALT (SGPT) 1176 U/L (8-55); AST (SGOT) 559 U/L (5-34); Albumin 2.9 g/dL (3.4-4.8); Alkaline Phosphatase 135 U/L (40-110); Anion Gap 18 mmol/L (10-20); Bilirubin, Total 3.3 mg/dL (0.2-1.2); Calc. Creatinine Clearance 16 mL/min (70-130); Calcium 7.9 mg/dL (7.8-10.44); Carbon Dioxide 23 mmol/L (23-31); Chloride 100 mmol/L (98-107); Estimated GFR-MDRD 13; Globulin 3.2 g/dL (2.4-3.5); Glucose 104 mg/dL (83-110); Phosphorus 5.6 mg/dL (2.3-4.7); Potassium 5.2 mmol/L (3.5-5.1); Protein, Total 6.1 g/dL (5.8-8.1); Sodium 136 mmol/L (136-145)
[2019-04-23 05:56] LABS: BUN (Urea Nitrogen) 122 mg/dL (8.4-25.7)
[2019-04-23] MEDS: Budesonide 0.25 MG/2 ML NEB INH SCH ×2 (07:04→18:28)
[2019-04-23] MEDS: Carvedilol 3.125 MG TAB PO SCH ×2 (07:58→16:49)
--- NOTE | 2019-04-23 08:12 | CON ---
DATE OF CONSULTATION: 04/22/2019 HISTORY OF PRESENT ILLNESS: I am seeing Mr. 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 His problems are: 1. Recurrent atrial arrhythmias. a. Paroxysmal atrial fibrillation and also atrial flutter noted this admission, requiring amiodarone suppression, currently in atrial flutter with controlled rates. 2. Acute on chronic CHF. a. Prior history of reduced LVEF in 45%, now at 20% to 25%. 3. History of coronary artery disease, ischemic cardiomyopathy. a. History of coronary artery bypass grafting surgery x4 vessels in 2017. 4. History of CVA in 2018. 5. Nonsustained ventricular tachycardia on telemetry monitors. 6. History of peripheral vascular disease. 7. Chronic obstructive pulmonary disease exacerbation. 8. Acute renal insufficiency. 9. Elevated LFTs. 10. History of hypertension. ALLERGIES: NONE NOTED. MEDICATIONS: At home included, 1. Tamsulosin. 2. Lovastatin. 3. Carvedilol. 4. Aspirin. 5. Pantoprazole. 6. Gabapentin. 7. Furosemide. 8. Apixaban. 9. Lisinopril. 10. Mometasone. 11. Donepezil. SUBJECTIVE: Mr. Ricardo was admitted on 04/10/2019. He originally complained of acute CHF exacerbation, dyspnea, lower extremity edema. He was admitted and diuretics have been initiated. On hospital workup revealed further reduction of his LV systolic function to the severely depressed range of 25% to 30%. His renal function seems to have worsen during his stay, currently at 4.56. Also, his liver functions has progressively worsened as well. He developed progressive obtundents and decreased alertness in last 2 days. Today continues on CPAP mask. Most of the history obtained from the chart and the nurses. At this point, there are no symptoms of angina noted during this admission. His PND, orthopnea seems to have improved. Rest of 12-point review of system otherwise unremarkable. PAST MEDICAL HISTORY: As above, with history of myocardial infarction in 2017, back surgery, dyslipidemia, hypertension, BPH, paroxysmal atrial fibrillation, left femoral popliteal bypass surgery, dyslipidemia, neuropathy is noted. SOCIAL HISTORY: Quit smoking 25 years ago with one pack per day for 30 years habit noted. Denies EtOH or drug abuse. He lives at home. FAMILY HISTORY: Not contributory. OBJECTIVE DATA: VITAL SIGNS: Blood pressure is 144/71, heart rate 78, respirations 28, and temperature 99.3 degrees Fahrenheit. GENERAL: Alert and oriented man, in no apparent distress. NECK: Supple. Jugular veins not distended. CHEST: Coarse without crackles. HEART: Sounds are regular to rate and rhythm. No murmur or gallop. ABDOMEN: Benign. Bowel sounds positive. EXTREMITIES: Lower extremity without edema, clubbing, or cyanosis. Pulses are adequate. NEUROLOGIC: The patient is nonfocal. MUSCULOSKELETAL: Without joint swelling or deformities. SKIN: Without rash. DATABASE: EKG is reviewed. Initial EKG reveals on sinus rhythm with rate of 92 beats per minute. Subsequent telemetry strips reveal nonsustained ventricular tachycardia around of 12 beats on 04/10/2019. Later EKG is suggestive of an episode of atrial fibrillation, but also subsequently developed an atrial flutter is noted as well. The most recent EKG this morning is suggestive of an atrial flutter, possibly typical isthmus dependent in morphology, ruled out. LABORATORY DATA: Sodium today 136, potassium 5.4, BUN is 119, creatinine 4.56. The AST and ALT are up to 1366, ALT 1567, alkaline phosphatase 143, albumin 3.2. TSH is 1.258, the INR is 1.6 on the 18 of April. ASSESSMENT: Mr. Ricardo is a 74-year-old man with history of coronary artery disease, prior bypass surgery, and moderately reduced LVEF now further worsened to the severely reduced range. His current reason for admission is chronic obstructive pulmonary disease exacerbation along with a congestive heart failure exacerbation. The symptoms improved transiently, but now he has worsened with worsened mental status as well. His kidney and liver functions are progressively worsening as well. While in the hospital, he developed paroxysmal atrial fibrillation later especially while on amiodarone. His fibrillation organized in atrial flutter. Flutter could be typical isthmus dependent in morphology, although clearly multi circuit atrial arrhythmias could be present in his case. PLAN: At this point, I agree with the current management. Clearly, this gentleman's ventricular rates needs to be controlled. Amiodarone seems to be doing reasonable job for rate control, but so far he has not converted back to sinus rhythm. After adequate loading with amiodarone is occurred which likely the case since he has been on for last 3 days. Cardioversion could be a consideration once he is clinically stable from that. Alternatively, radiofrequency ablation with a cavotricuspid isthmus flutter circuit could be made, although he likely will have additional circuits at this point, but not finding stable enough for an extensive left atrial post ablation procedure just yet. More concerning is his worsening renal and liver function as well it is likely due to his worsening heart failure issues. Amiodarone use could also be limited by his liver function in the future. His mental status change might be related to possibly worsening renal and liver function with encephalopathy as well. Long-term, he will likely need medical management initially with improving his LV function, later he may benefit from consideration for a prophylactic ICD implant. At this point though we will continue to monitor with you. Thank you again for letting me to participate in the care of this patient. Job ID: [id number] [facility]ITAL[facility]guy[facility]n
--- NOTE | 2019-04-23 08:45 | PDOC.CPN ---
- Subjective Date: 04/23/19 Time: 08:43 Interval history: EP progress note 04/23/19 Continous to be confuced overnight. Still on Bipap. No other events. - Review of Systems ROS unobtainable: due to mental status - Objective Allergies/Adverse Reactions: Allergies Allergy/AdvReac Type Severity Reaction Status Date / Time No Known Allergies Allergy Verified 04/11/19 04:44 Visit Medications: Current Medications Acetaminophen (Tylenol) 650 mg PO Q4H PRN PRN Reason: Headache/Fever/Mild Pain (1-3) Last Admin: 04/20/19 13:13 Dose: 650 mg Albuterol/Ipratropium (Duoneb) 3 ml NEB [id number] DANAY Last Admin: 04/23/19 07:03 Dose: 3 ml Aspirin (Aspirin) 300 mg OR Q24H DANAY Last Admin: 04/22/19 18:29 Dose: Not Given Atorvastatin Calcium (Lipitor) 20 mg PO HS [facility] Last Admin: 04/22/19 20:12 Dose: Not Given Bisacodyl (Dulcolax) 10 mg OR DAILYPRN PRN PRN Reason: Constipation Budesonide (Pulmicort Neb Solution) 0.25 mg INH BID-RT DANAY Last Admin: 04/23/19 07:04 Dose: 0.25 mg Carvedilol (Coreg) 3.125 mg PO BID-WM DANAY Last Admin: 04/23/19 07:58 Dose: Not Given Donepezil HCl (Aricept) 10 mg PO HS [facility] Last Admin: 04/22/19 20:13 Dose: Not Given Enoxaparin Sodium (Lovenox) 80 mg SC 0900 DANAY Gabapentin (Neurontin) 400 mg PO HS [facility] Last Admin: 04/22/19 20:13 Dose: Not Given Sodium Chloride (1/2 Normal Saline) 1,000 mls @ 75 mls/hr IV .[id number] DANAY Last Admin: 04/23/19 03:47 Dose: 1,000 mls Levofloxacin 250 mg/ Device 50 mls @ 100 mls/hr IVPB 1300 DANAY Last Admin: 04/22/19 12:48 Dose: 50 mls Lorazepam (Ativan) 0.5 mg SLOW IVP Q5M PRN PRN Reason: Agitation -NMT 2MG/2HRS Last Admin: 04/21/19 03:39 Dose: 0.5 mg Mineral Oil/White Petrolatum (Systane Nighttime Eye Ointment) 0 gm EA EYE PRN PRN PRN Reason: Dry Eyes Miscellaneous Medication (Pharmacy To Dose) 1 each IVPB PRN PRN PRN Reason: Pharmacy to dose Pantoprazole Sodium (Protonix) 40 mg PO DAILY [facility] Last Admin: 04/22/19 09:17 Dose: Not Given Senna/Docusate Sodium (Senokot S) 2 tab PO BIDPRN PRN PRN Reason: Constipation Sodium Chloride (Flush - Normal Saline) 10 ml IVF Q12HR [facility] Last Admin: 04/22/19 20:13 Dose: Not Given Sodium Chloride (Flush - Normal Saline) 10 ml IVF PRN PRN PRN Reason: Saline Flush Tamsulosin HCl (Flomax) 0.4 mg PO DAILY [facility] Last Admin: 04/22/19 09:17 Dose: Not Given Vital Signs & Weight: Vital Signs Temp Pulse Resp Pulse Ox 04/23/19 07:05 77 98 04/23/19 07:04 77 27 H 96 04/23/19 07:03 77 27 H 96 04/23/19 04:00 97.9 F 04/23/19 00:00 97.9 F 04/22/19 23:03 100 Admit Weight 186 lb 8 oz Weight 184 lb 1.376 oz - CHADS-VASc Congestive heart failure: 1 Hypertension: 1 Age >75: 2 Vascular disease: 1 Risk Score: 5 - Quality Measures Condition: Atrial Fibrillation/Flutter (hx or current), Coronary Artery Disease , Heart Failure CV meds: Beta Linda: Yes, CHAVEZ/ARB: No, Statin: Yes, ASA: Yes, Anticoagulant: Yes (heparin) - Physical Exam General: other (confused. Intermittently agitated.) HEENT: mucus membranes moist Neck: supple neck Cardiac: no murmur, irregularly regular, S1/S2 (nl) Lungs: normal exam, no wheeze, rales, rhonchi Neuro: grossly intact Abdomen: soft, non-tender Extremities: no cyanosis Skin: clear Musculoskeletal: no fluid collection - Labs Result Diagrams: 04/22/19 03:50 04/23/19 04:43 Troponin/CKMB CK-MB (CK-2) 15.5 ng/mL (0-6.6) H* 04/17/19 04:04 Troponin I 15.195 ng/mL (< 0.028) H* 04/17/19 04:04 LFTs decreasing - Telemetry Supraventricular conduction: atrial flutter (Atypical) - Assessment/Plan Assessment/Plan: 1. Recurrent atrial arrhythmias. a. Paroxysmal atrial fibrillation and also atrial flutter noted this admission, requiring amiodarone suppression, currently in atrial flutter with controlled rates. 2. Acute on chronic CHF. a. Prior history of reduced LVEF in 45%, now at 20% to 25%. 3. History of coronary artery disease, ischemic cardiomyopathy. a. History of coronary artery bypass grafting surgery x4 vessels in 2017. 4. History of CVA in 2018. 5. Nonsustained ventricular tachycardia on telemetry monitors. 6. History of peripheral vascular disease. 7. Chronic obstructive pulmonary disease exacerbation. 8. Acute renal insufficiency. 9. Elevated LFTs. 10. History of hypertension. PLAN: 1. Atrial fibrillation/flutter: Clearly ventricular rates needs to be controlled. Amiodarone seems to be succesfully controlled rates, but due to the elevatd LFTs , there is a concern for amio related liver toxicity. So far he has not converted back to sinus rhythm. Discussed with dr Rangel, will hold amiofor now, If rapid rates recur, hence adequate loading with amiodarone cardioversion could be a consideration once he is clinically stable from that. Alternatively, radiofrequency ablation with a cavotricuspid isthmus flutter circuit could be made, although he likely will have additional circuits at this point, but not finding stable enough for an extensive left atrial post ablation procedure just yet. His pacing Bivntricular device with AV jerome ablation could be a considerartion of all other measures fail. 2. Chadvasc score of 5. On lovenox - adjusted to renal insuf. 3.Worsening renal and liver function as well it is likely due to his worsening heart failure issues. Amiodarone use is limited by his liver function. 4. His mental status change might be related to possibly worsening renal and liver function with encephalopathy as well. Continue medical management to improve his LV function,if that does not occur he may benefit from consideration for a prophylactic ICD implant. I will ontinue to monitor with you.
[2019-04-23] MEDS: Pantoprazole 40 MG GRANULES PACKET PO SCH (09:00)
[2019-04-23] MEDS: Tamsulosin HCl 0.4 MG CAP PO SCH (09:00)
[2019-04-23] MEDS: Enoxaparin Sodium 80 MG/0.8 ML SYRINGE SC SCH (09:03)
[2019-04-23 10:20] LABS: Hemoglobin 11.4 g/dL (14.0-18.0); Mean Corpuscular HGB CONC 31.6 g/dL (32.0-36.0); Mean Platelet Volume 10.9 fL (7.4-10.4); Platelet Count 133 thou/uL (130-400); RBC Distribution Width 13.9 % (11.5-14.5); Red Blood Cell (RBC) Count 3.55 mill/uL (4.70-6.10); White Blood Cell (WBC) Count 12.4 thou/uL (4.8-10.8)
[2019-04-23 11:27] LABS: Band 9 % (5-11); Lymphocytes 16 % (21-51); MDiff Complete? YES; Monocytes 7 % (0-10); Neutrophil 68 % (42-75); Nucleated RBC 14 % (0); Platelet Morphology Comment Appears Adequate; Polychromasia MODERATE = 3-4 cells (100X) (0-2/hpf)
[2019-04-23] MEDS ORDERED: PROPOFOL 200 MG/20 ML VIAL IV SCH (12:30)
--- NOTE | 2019-04-23 12:38 | PRG ---
DATE OF SERVICE: 04/23/2019 BiPAP over still modestly hypertensive with a blood pressure 180/99 at 1300 hours, heart rate 82, respiratory rate 20's. HEART: Regular rhythm. ABDOMEN: Soft. LABORATORY DATA: White count 12.4, hemoglobin 11.4, creatinine 4.56. Intake and output are positive 1143. IMPRESSION: heart failure with chronic kidney disease requiring intermittent noninvasive ventilatory support . Job ID: [id number]
--- NOTE | 2019-04-23 15:08 | PDOC.HOSPP ---
- Subjective Encounter Date: 04/23/19 Encounter Time: 09:20 Subjective: Pt seen for followup re: NSTEMI. On BiPAP, not speaking, could not complete ROS. - Objective Vital Signs & Weight: Vital Signs (12 hours) Temp Pulse Resp Pulse Ox 04/23/19 13:32 79 04/23/19 13:31 80 16 98 04/23/19 12:00 98.3 F 04/23/19 08:00 97.7 F 95 04/23/19 07:05 77 98 04/23/19 07:04 77 27 H 96 04/23/19 07:03 77 27 H 96 04/23/19 04:00 97.9 F Weight Admit Weight 186 lb 8 oz Weight 184 lb 1.376 oz Most Recent Monitor Data Heart Rate from ECG 55 NIBP 77/46 NIBP BP-Mean 56 Respiration from ECG 12 SpO2 99 I&O: 04/22/19 04/23/19 04/24/19 06:59 06:59 06:59 Intake Total 1805 2252 46 Output Total 662 1160 675 Balance 1143 1092 -629 Result Diagrams: 04/23/19 09:57 04/23/19 04:43 Additional Labs: Labs and MARs reviewed by me. EKG Reviewed by me: Yes (Chante; dimitry disla) Hospitalist ROS - Medication Medications: Active Medications Generic Name Dose Route Start Last Admin Trade Name Freq PRN Reason Stop Dose Admin Acetaminophen 650 mg 04/10/19 18:50 04/20/19 13:13 Tylenol PO 650 mg Q4H PRN Administration Headache/Fever/Mild Pain (1-3) Albuterol/Ipratropium 3 ml 04/20/19 13:00 04/23/19 13:31 Duoneb NEB 3 ml [id number] DANAY Administration Aspirin 300 mg 04/16/19 18:30 04/22/19 18:29 Aspirin [place] Not Given Q24H DANAY Atorvastatin Calcium 20 mg 04/12/19 21:00 04/22/19 20:12 Lipitor PO Not Given HS DANAY Budesonide 0.25 mg 04/20/19 18:30 04/23/19 07:04 Pulmicort Neb Solution INH 0.25 mg BID-RT DANAY Administration Carvedilol 3.125 mg 04/12/19 08:00 04/23/19 07:58 Coreg PO Not Given BID-WM DANAY Donepezil HCl 10 mg 04/20/19 21:00 04/22/19 20:13 Aricept PO Not Given HS DANAY Enoxaparin Sodium 80 mg 04/23/19 09:00 04/23/19 09:03 Lovenox SC 80 mg 0900 DANAY Administration Gabapentin 400 mg 04/20/19 21:00 04/22/19 20:13 Neurontin PO Not Given HS DANAY Sodium Chloride 1,000 mls @ 75 mls/hr 04/21/19 11:00 04/23/19 03:47 1/2 Normal Saline IV 1,000 mls .[id number] DANAY Administration Levofloxacin 250 mg/ Device 50 mls @ 100 mls/hr 04/21/19 13:00 04/23/19 12:47 IVPB 50 mls 1300 DANAY Administration Lorazepam 0.5 mg 04/20/19 20:40 04/21/19 03:39 Ativan SLOW IVP 0.5 mg Q5M PRN Administration Agitation -NMT 2MG/2HRS Pantoprazole Sodium 40 mg 04/22/19 09:00 04/23/19 09:00 Protonix PO Not Given DAILY DANAY Sodium Chloride 10 ml 04/21/19 21:00 04/23/19 09:03 Flush - Normal Saline IVF 10 ml Q12HR DANAY Administration Tamsulosin HCl 0.4 mg 04/11/19 09:00 04/23/19 09:00 Flomax PO Not Given DAILY DANAY - Exam General - other findings: Seth: scleral icterus ENT: moist mucosa Neck: supple Heart: RRR Respiratory - other findings: Wiley crackles Neurological - other findings: Unable to assess Psychiatric: lethargic Hosp A/P (1) NSTEMI (non-ST elevated myocardial infarction) Code(s): I21.4 - NON-ST ELEVATION (NSTEMI) MYOCARDIAL INFARCTION Status: Acute (2) Acute respiratory failure with hypoxia Code(s): J96.01 - ACUTE RESPIRATORY FAILURE WITH HYPOXIA Status: Acute (3) CAP (community acquired pneumonia) Code(s): J18.9 - PNEUMONIA, UNSPECIFIED ORGANISM Status: Acute (4) Acute on chronic systolic (congestive) heart failure Code(s): I50.23 - ACUTE ON CHRONIC SYSTOLIC (CONGESTIVE) HEART FAILURE Status : Acute (5) COPD exacerbation Code(s): J44.1 - CHRONIC OBSTRUCTIVE PULMONARY DISEASE W (ACUTE) EXACERBATION Status: Acute (6) Cardiomyopathy Code(s): I42.9 - CARDIOMYOPATHY, UNSPECIFIED Status: Acute (7) BPH (benign prostatic hyperplasia) Code(s): N40.0 - BENIGN PROSTATIC HYPERPLASIA WITHOUT LOWER URINRY TRACT SYMP Status: Chronic Qualifiers: Lower urinary tract symptom presence: symptoms absent Qualified Code(s): N40.0 - Benign prostatic hyperplasia without lower urinary tract symptoms (8) CAD (coronary artery disease) Code(s): I25.10 - ATHSCL HEART DISEASE OF [place] CORONARY ARTERY W/O ANG PCTRS Status: Chronic Qualifiers: Coronary Disease-Associated Artery/Lesion type: bypass graft [place] vs. transplanted heart: [place] heart Associated angina: without angina Qualified Code(s): I25.810 - Atherosclerosis of coronary artery bypass graft(s) without angina pectoris (9) Atrial flutter Code(s): I48.92 - UNSPECIFIED ATRIAL FLUTTER Status: Resolved (10) Acute metabolic encephalopathy Code(s): G93.41 - METABOLIC ENCEPHALOPATHY Status: Resolved - Plan plan discussed w/ family Continue levofloxacin. Creatinine improved to 4.40 today. LFTs improving. LVEF 25-30% on echo. Pt may need cath when creatinine improves. Daughter daughter in law updated by the bedside. Pt is at high risk of aspiration due to AMS. DFiscussed with family re; NG feeds. They would like to think about and decide.
[2019-04-23] MEDS ORDERED: Lorazepam 2 MG/ML VIAL SLOW IVP PRN (15:15)
--- NOTE | 2019-04-23 16:13 | PDOC.PALCO ---
Palliative Care Consult - Consult Details Requesting Physician: Dr Gomez Reason for Consult: goals of care, advance directives assistance, assistance with communication prognosis/disease, family support Family Members Present: Patient , two daughters, son and [id number] - Pertinent HPI Patient presented to the emergency room 04/10 with shortness of breath x 2 days and increase in edema x pne week. Evaluation of patient led to admission to telementary for exacerbation of heart failure. Patients admission has become complicated with continued decline and guarded status, with eventual transition to CCU for higher level of care. Patient on Bipap with poor kidney function. Patient was cardioverted today to a regular rhythm. - Pertinent PMH CAD, CABG, [place] 2017, HDL, HF HTN, atrial fib, PVD. - Social History Smoking Status: Former smoker Smoking: no tobacco exposure Alcohol Use: other (daughter states prior to 2016 heavy alcohol use) Drug Use History: none Living Situation: - Medications MAR Reviewed: Yes - Allergies Allergies/Adverse Reactions: Allergies Allergy/AdvReac Type Severity Reaction Status Date / Time No Known Allergies Allergy Verified 04/11/19 04:44 - Subjective On Bi Pap, opens eyes, restless. Moves extremities - ROS Constitutional: lethargic ENT: dry mouth Psychological: anxiety - Objective Vital Signs: Vital Signs - Most Recent Temp Pulse Resp BP Pulse Ox 98.3 F 79 16 180/99 H 98 04/23/19 12:00 04/23/19 13:32 04/23/19 13:31 04/22/19 13:00 04/23/19 13:31 Palliative Performance Scale: 30 - Physical Exam Constitutional: ill appearing, mild distress HEENT: EOMI, moist MMs, sclera anicteric Deviation from normal: adventicious bilateral lung sounds, on Bipap Cardiovascular: irregular Gastrointestinal: non-tender, positive bowel sounds Genitourinary: mcguire catheter Neurology: moves all 4 limbs Skin: cap refill <2 seconds Deviation from normal: Opens eyes, confused - Problem List (1) Palliative care encounter Code(s): Z51.5 - ENCOUNTER FOR PALLIATIVE CARE Current Visit: Yes Status: Acute (2) Cardiomyopathy Code(s): I42.9 - CARDIOMYOPATHY, UNSPECIFIED Current Visit: Yes Status: Acute (3) NSTEMI (non-ST elevated myocardial infarction) Code(s): I21.4 - NON-ST ELEVATION (NSTEMI) MYOCARDIAL INFARCTION Current Visit : Yes Status: Acute (4) Acute on chronic systolic (congestive) heart failure Code(s): I50.23 - ACUTE ON CHRONIC SYSTOLIC (CONGESTIVE) HEART FAILURE Current Visit: No Status: Acute (5) CKD (chronic kidney disease) stage 3, GFR 30-59 ml/min Code(s): N18.3 - CHRONIC KIDNEY DISEASE, STAGE 3 (MODERATE) Current Visit: No Status: Chronic (6) COPD (chronic obstructive pulmonary disease) Current Visit: No Status: Chronic Qualifiers: COPD type: COPD with acute exacerbation Qualified Code(s): J44.1 - Chronic obstructive pulmonary disease with (acute) exacerbation - Plan/Recommendations Plan:Lengthy family visit with patient , his two daughters, a son and his . Discussed patient condition at length and conversations that Dr Del Rosario and Dr Vitale have had with family. Initially family was in agreement for DNAR after cardioversion and to obtain information in relation to hospice care. Patient daughter from [place] is questioning about "what if and doing everything". Revisited what has been explained to family in relation to overall cardiac status. Daughter left and will return tomorrow. Family has decided to wait until the morning to revisit the DNAR status and goals of care with possible consideration for hospice. Palliative Care will continue to follow and revisit goals of care 04/24 and continue to provide family support and information as needed to make complex decisions. [90] minutes spent on this encounter with >50% of the time in counseling and coordination of care. Thank you for this very appropriate consult.
--- NOTE | 2019-04-23 16:54 | PRG ---
DATE OF SERVICE: 04/23/2019 SERVICE: Nephrology. SUBJECTIVE: A 74-year-old male with known history of coronary artery disease, admitted with acute on chronic heart failure, being followed up for acute on chronic renal failure. The patient is currently on BiPAP, hence was unable to provide any significant history. He is awake and responds to verbal stimulus. OBJECTIVE: VITAL SIGNS: Temperature 97.7, pulse 77, respiratory rate 17, SpO2 of 95 on BiPAP with FiO2 of 30%. Blood pressure is 118/54. GENERAL: Elderly male, in some respiratory distress. Afebrile. Anicteric. Acyanotic. HEENT: Normocephalic, atraumatic. Oral mucosa is dry. BiPAP mask is in place. NECK: Supple with no JVD. CARDIOVASCULAR: Irregular rhythm with normal heart sounds. Systolic murmur noted. RESPIRATORY: Fair air entry bilaterally with transmitted breath sounds/crackles, both lung baez. No rhonchi were appreciated. GI: Full, soft, nontender, nondistended with normal bowel sounds. UROGENITAL: Larkin catheter is in place, draining some urine. EXTREMITIES: Grossly normal looking, atraumatic with no edema or erythema. COMMUNICATION SPECIALIST: Conscious and alert, oriented to person at least. Moves all extremities. Conversation is limited due to BiPAP mask in place. DIAGNOSTIC DATA: CBC showed WBC count of 12.4, hemoglobin of 11.4, MCV of 101, and platelets of 133. BMP showed sodium 136, potassium 5.2, chloride 100, CO2 of 23, BUN , creatinine 4.4, glucose 104, calcium 7.9, phosphorus 5.6, total bilirubin 3.3, AST 559, ALT 1176, alkaline phosphatase 135. Total protein 6.1, albumin 2.9, globulin 3.2. Ammonia is 58. ASSESSMENT: 1. Acute on chronic renal failure. This most likely now due to acute tubular necrosis. Creatinine seems to but BUN continued to trend up. Blood pressures and hemodynamics have been stable in the last few days. However, the patient had episodes of hypotension before worsening renal function. He, however, still has atrial flutter. 2. Acute on chronic systolic heart failure with EF of 20%. 3. Paroxysmal atrial flutter/fibrillation. Rate control is adequate with amiodarone. However, due to abnormal liver enzymes, amiodarone was discontinued earlier on today. 4. Shock liver. 5. Metabolic encephalopathy: Most likely multifactorial with hypoperfusion, uremic encephalopathy, and acute liver dysfunction all contributing. 6. Coronary artery disease. 7. Ischemic cardiomyopathy. DISCUSSIONS/PLAN: I had a family meeting with the patient's spouse, two daughters, and a son in attendance with also in attendance. We went over the medical problems including the primary problem, which is cardiac dysfunction as well as complications of it including liver dysfunction and acute renal failure. Treatment options for acute renal failure including dialysis and conservative management were discussed with the patient and family. They, however, want to discuss with Cardiology before taking a decision as to how to proceed, with or without dialysis. I did reach out to the family later on after discussing with Cardiology, and they elected not to proceed with hemodialysis. We will continue conservative management. We will monitor renal function and treat hyperkalemia medically. The patient received Kayexalate last night with improvement in potassium from 5.4 to 5.2 today. Cardiology is planning cardioversion. We will monitor hemodynamics and renal function. Further treatment to follow depending on hospital course. More than 1 hour was spent in this encounter today. Job ID: [id number]
[2019-04-23] MEDS: Aspirin 300 MG Suppository PR SCH (20:10)
[2019-04-23] MEDS: Donepezil HCl 10 MG TAB PO SCH (20:17)
[2019-04-23] MEDS: Atorvastatin Calcium 20 MG TAB PO SCH (20:17)
[2019-04-23] MEDS: Gabapentin 400 MG CAP PO SCH (20:18)
--- NOTE | 2019-04-23 22:07 | PRG ---
DATE OF SERVICE: 04/23/2019 SUBJECTIVE: Guille Ricardo continues to require noninvasive ventilation. Initially apparently family thought about DNR status, but they have decided based on the daughter's request that they not. His pulmonary edema is not really a huge factor. The biggest factor in my opinion is his deconditioning. His heart rate is 97. He is on FiO2 of 30%, blood pressure 113/52, respiratory rates in the low 20s. He appears comfortable. He has been encephalopathic for last few days. OBJECTIVE: LUNGS: Remarkable for coarse equal breath sounds. HEART: Regular rhythm. ABDOMEN: Soft. LABORATORY DATA: White count 12.4, hemoglobin 11.4, platelets 133. Sodium 136, potassium 5.2, chloride 100, bicarb 23, BUN 122, creatinine 4.4. IMPRESSION: 1. Congestive heart failure. 2. Progressive renal failure. His renal function continues decline in spite of a positive fluid balance. I have explained to the son in about a 20-minute meeting today that his prognosis is dismal. I have encouraged him to make a do not resuscitate status. I have explained to him that we will continue to take care of him, short of aggressive measures. I do not think Mr. Ricardo will survive this. CRITICAL CARE TIME: 30 minutes. Job ID: [id number]
[2019-04-24] MEDS: Sodium Chloride 0.45% 1,000 ML IV SCH ×2 (05:19→19:52)
[2019-04-24 05:55] LABS: ALT (SGPT) 758 U/L (8-55); AST (SGOT) 216 U/L (5-34); Albumin 2.5 g/dL (3.4-4.8); Alkaline Phosphatase 118 U/L (40-110); Anion Gap 15 mmol/L (10-20); BUN (Urea Nitrogen) 120 mg/dL (8.4-25.7); Calc. Creatinine Clearance 22 mL/min (70-130); Calcium 7.9 mg/dL (7.8-10.44); Carbon Dioxide 24 mmol/L (23-31); Chloride 105 mmol/L (98-107); Estimated GFR-MDRD 17; Globulin 3.3 g/dL (2.4-3.5); Glucose 81 mg/dL (83-110); Potassium 4.8 mmol/L (3.5-5.1); Protein, Total 5.8 g/dL (5.8-8.1); Sodium 139 mmol/L (136-145)
[2019-04-24 06:13] LABS: Band 21 % (5-11); Hemoglobin 10.9 g/dL (14.0-18.0); Lymphocytes 13 % (21-51); MDiff Complete? YES; Mean Corpuscular HGB CONC 31.6 g/dL (32.0-36.0); Mean Corpuscular Hemoglobin 32.2 pg (27.0-31.0); Mean Platelet Volume 11.3 fL (7.4-10.4); Monocytes 11 % (0-10); Myelocyte 3 % (0-0); Neutrophil 52 % (42-75); Nucleated RBC 23 % (0); Platelet Count 126 thou/uL (130-400); Red Blood Cell (RBC) Count 3.37 mill/uL (4.70-6.10); White Blood Cell (WBC) Count 7.8 thou/uL (4.8-10.8)
[2019-04-24] MEDS: Budesonide 0.25 MG/2 ML NEB INH SCH ×2 (07:35→19:13)
[2019-04-24] MEDS: Pantoprazole 40 MG GRANULES PACKET PO SCH (07:56)
[2019-04-24] MEDS: Carvedilol 3.125 MG TAB PO SCH ×2 (07:56→17:04)
[2019-04-24] MEDS: Enoxaparin Sodium 80 MG/0.8 ML SYRINGE SC SCH (09:12)
[2019-04-24] MEDS: Tamsulosin HCl 0.4 MG CAP PO SCH (09:13)
--- NOTE | 2019-04-24 09:20 | PRG ---
DATE OF SERVICE: 04/24/2019 SERVICE: Nephrology. SUBJECTIVE: A 74-year-old male admitted due to acute on chronic systolic heart failure and worsening leg swelling. Nephrology is following the patient for acute on chronic renal failure. The patient is still on BiPAP with altered mental sensorium. Had cardioversion of atrial flutter yesterday with improvement in hemodynamics. Still n.p.o. due to dysphagia. OBJECTIVE: VITAL SIGNS: Temperature 98.1, pulse 64, respiratory rate 24, SpO2 of 98% on BiPAP, FiO2 30%, and blood pressure is 114/51. GENERAL: Elderly male, in mild respiratory distress. Afebrile. Anicteric. Acyanotic. HEENT: Normocephalic, atraumatic. BiPAP mask is in place. NECK: Supple with no JVD. CARDIOVASCULAR: Regular rhythm and rate with normal heart sounds 1 and 2. RESPIRATORY: Fair air entry bilaterally with coarse transmitted breath sounds and few bibasilar crackles. No rhonchi were appreciated. Work of breathing is increased. GI: Full, soft, nontender, nondistended with normal bowel sounds. UROGENITAL: Larkin catheter is in place, draining some urine. EXTREMITIES: No edema or erythema. CLINIC ASSISTANT: Awake. Oriented to person. Confused. DIAGNOSTIC DATA: CBC showed WBC count of 7.8, hemoglobin of 10.9, MCV of 102, and platelets of 126. CMP showed sodium 139, potassium 4.8, chloride 105, CO2 of 24, BUN 120, creatinine 3.48, glucose 81, calcium 7.9, total bilirubin 3.0, AST 216, ALT 754, alkaline phosphatase 118, total protein 5.8, albumin 2.5, and globulin 3.3. ASSESSMENT: 1. Acute kidney injury: Due to cardiorenal syndrome from cardiac decompensation. Hemodynamics improved with cardioversion of atrial flutter with better perfusion of the kidneys with improvement in creatinine from 4.40 to 3.48. Acute tubular necrosis remains a concern. 2. Chronic kidney disease, stage 3. 3. Acute on chronic systolic heart failure. 4. Abnormal liver enzymes: Initially due to shock liver with contribution from amiodarone therapy. Levels are trending downwards with better hemodynamics and discontinuation of amiodarone. 5. Acute encephalopathy: Multifactorial from uremia, liver dysfunction, and hypoperfusion. 6. Hyperkalemia: Resolved. 7. Acute respiratory failure with hypoxia due to congestive heart failure exacerbation. 8. Ischemic cardiomyopathy with ejection fraction of 20s. PLAN: The patient remained critically ill with guarded prognosis. Renal function is improving with better hemodynamics. Discussion about hemodialytic treatment yesterday was held and family do not want dialysis. We will continue conservative management. We will avoid nephrotoxic agents. We will monitor renal function. Discussion about comfort care is ongoing. We will monitor the patient now, he is cardioverted to see if renal function continues to improve. There is no need for diuretics in this patient as he is clinically dry. Job ID: [id number]
--- NOTE | 2019-04-24 09:32 | PRG ---
DATE OF SERVICE: 04/24/2019 SUBJECTIVE: Guille Ricardo is a 74-year-old gentleman, who remains in the ICU on a noninvasive ventilation. He remains quite encephalopathic. Dr. Toribio had a long talk with the family members regarding his long-term prognosis being grave. OBJECTIVE: VITAL SIGNS: Pulse 68, blood pressure 114/51, and saturations 100% on noninvasive ventilation of 16. CHEST: Decreased breath sounds. Bilateral rhonchi. CARDIAC: Normal S1 and S2. No gallop. ABDOMEN: Soft. ASSESSMENT: 1. Multiorgan failure, metabolic encephalopathy. 2. Respiratory failure. 3. Increasing renal failure, BUN and creatinine at 120 and 3.48 respectively. AST is elevated 216. White count is 7000. PLAN: Continue supportive care and PT. Once again talk with the family regarding ongoing care. Prognosis is grave. This is a one-half hour of critical care time. Job ID: [id number]
--- NOTE | 2019-04-24 12:51 | PDOC.CPN ---
- Subjective Date: 04/24/19 Time: 08:30 Interval history: The pt seen and examined. No overnight events. Very lethargic to answer any questions. S/p DCCV on 04/23/2019; remains in SR. - Objective Allergies/Adverse Reactions: Allergies Allergy/AdvReac Type Severity Reaction Status Date / Time No Known Allergies Allergy Verified 04/11/19 04:44 Visit Medications: Current Medications Acetaminophen (Tylenol) 650 mg PO Q4H PRN PRN Reason: Headache/Fever/Mild Pain (1-3) Last Admin: 04/20/19 13:13 Dose: 650 mg Albuterol/Ipratropium (Duoneb) 3 ml NEB [id number] DANAY Last Admin: 04/24/19 07:34 Dose: 3 ml Aspirin (Aspirin) 300 mg MA Q24H DANAY Last Admin: 04/23/19 20:10 Dose: 300 mg Atorvastatin Calcium (Lipitor) 20 mg PO HS DANAY Last Admin: 04/23/19 20:17 Dose: Not Given Bisacodyl (Dulcolax) 10 mg [place] DAILYPRN PRN PRN Reason: Constipation Budesonide (Pulmicort Neb Solution) 0.25 mg INH BID-RT DANAY Last Admin: 04/24/19 07:35 Dose: 0.25 mg Carvedilol (Coreg) 3.125 mg PO BID-WM DANAY Last Admin: 04/24/19 07:56 Dose: Not Given Enoxaparin Sodium (Lovenox) 80 mg SC 0900 DANAY Last Admin: 04/24/19 09:12 Dose: 80 mg Gabapentin (Neurontin) 400 mg PO HS DANAY Last Admin: 04/23/19 20:18 Dose: Not Given Sodium Chloride (1/2 Normal Saline) 1,000 mls @ 75 mls/hr IV .[id number] DANAY Last Admin: 04/24/19 05:19 Dose: 1,000 mls Levofloxacin 250 mg/ Device 50 mls @ 100 mls/hr IVPB 1300 DANAY Last Admin: 04/23/19 12:47 Dose: 50 mls Lorazepam (Ativan) 1 mg SLOW IVP Q4H PRN PRN Reason: Anxiety/Agitation Last Admin: 04/23/19 23:18 Dose: 1 mg Mineral Oil/White Petrolatum (Systane Nighttime Eye Ointment) 0 gm EA EYE PRN PRN PRN Reason: Dry Eyes Miscellaneous Medication (Pharmacy To Dose) 1 each IVPB PRN PRN PRN Reason: Pharmacy to dose Pantoprazole Sodium (Protonix) 40 mg PO DAILY [facility] Last Admin: 04/24/19 07:56 Dose: Not Given Senna/Docusate Sodium (Senokot S) 2 tab PO BIDPRN PRN PRN Reason: Constipation Sodium Chloride (Flush - Normal Saline) 10 ml IVF Q12HR [facility] Last Admin: 04/24/19 09:13 Dose: 10 ml Sodium Chloride (Flush - Normal Saline) 10 ml IVF PRN PRN PRN Reason: Saline Flush Tamsulosin HCl (Flomax) 0.4 mg PO DAILY [facility] Last Admin: 04/24/19 09:13 Dose: Not Given Vital Signs & Weight: Vital Signs Temp Pulse Resp Pulse Ox 04/24/19 12:00 99 F 04/24/19 08:00 96 04/24/19 07:35 64 24 H 98 04/24/19 07:34 64 24 H 98 04/24/19 07:00 98.1 F 63 98 04/24/19 04:00 97.7 F Admit Weight 186 lb 8 oz Weight 188 lb 0.869 oz - Quality Measures Condition: Atrial Fibrillation/Flutter (hx or current), Coronary Artery Disease , Heart Failure CV meds: Beta Linda: Yes, CHAVEZ/ARB: No, Statin: Yes, ASA: Yes, Anticoagulant: Yes (heparin) - Physical Exam General: other (lethargic) Neck: supple neck Cardiac: regular rate and rhythm, S1/S2 Lungs: decreased breath sounds - Labs Result Diagrams: 04/24/19 04:15 04/24/19 04:15 Troponin/CKMB CK-MB (CK-2) 15.5 ng/mL (0-6.6) H* 04/17/19 04:04 Troponin I 15.195 ng/mL (< 0.028) H* 04/17/19 04:04 - Telemetry Sinus rhythms and dysrhythmias: sinus rhythm - Assessment/Plan Assessment/Plan: 1. Acute on chronic systolic heart failure with EF 25-30% - on Coreg. Lasix 60mg IV given today; not on CHAVEZ/ARB due to hx of CKD 2. Ischemic CM EF at 25-30% - Will need ischemic work up once creatinine better. Will need Lifevest before discharge; however, he may not be a candidate due to his dementia. 3. S/P CABG x 4 in 2017 - stable; on BBlocker, statin, and ASA. the decr. in EF may be due to progression of CAD or graft failure. When stable then cath if the renal function allows. 4. Paroxysmal afib/Aflutter with s/p DCCV on 04/23/2019 -maintaining NSR. Off Amiodarone drip due to elevated LFT. With his decr. EF and diastolic dysfunction he will not tolerate rapid ventricular rates. Appreciate EP input. 5. Hx of CVA in 2018 - 6. Non sustained VT - 7. PAD with s/p AFRO - 8. COPD exacerbation - 9. HTN - stable 10. Dementia 11. Acute on Chronic renal failure. Nephrology assisting in case. MAR reviewed * Will need Lifevest before discharge. However, the pt may not be able to manage LifeVest well at home due to intermittent dementia per the pt's daughter. pt. seen and eval. by me. I agree with the a/P by theNP. if the family continues to want to be aggressive in treatment then I will advise low dose dobutamine to see if the C.O. will improve and the urine output.. Will discuss with family. Otherwise very poor prognosis.
[2019-04-24 13:47] VITALS: BMI 28.5
--- NOTE | 2019-04-24 13:56 | PDOC.CPN ---
- Subjective Date: 04/24/19 Time: 13:55 Interval history: EP progress note 04/24/19 Continues to be confused overnight. Still on Bipap. No other events. - Review of Systems ROS unobtainable: due to mental status - Objective Allergies/Adverse Reactions: Allergies Allergy/AdvReac Type Severity Reaction Status Date / Time No Known Allergies Allergy Verified 04/11/19 04:44 Visit Medications: Current Medications Acetaminophen (Tylenol) 650 mg PO Q4H PRN PRN Reason: Headache/Fever/Mild Pain (1-3) Last Admin: 04/20/19 13:13 Dose: 650 mg Albuterol/Ipratropium (Duoneb) 3 ml NEB [id number] DANAY Last Admin: 04/24/19 13:09 Dose: 3 ml Aspirin (Aspirin) 300 mg KS Q24H DANAY Last Admin: 04/23/19 20:10 Dose: 300 mg Atorvastatin Calcium (Lipitor) 20 mg PO HS DANAY Last Admin: 04/23/19 20:17 Dose: Not Given Bisacodyl (Dulcolax) 10 mg KS DAILYPRN PRN PRN Reason: Constipation Budesonide (Pulmicort Neb Solution) 0.25 mg INH BID-RT DANAY Last Admin: 04/24/19 07:35 Dose: 0.25 mg Carvedilol (Coreg) 3.125 mg PO BID-WM DANAY Last Admin: 04/24/19 07:56 Dose: Not Given Enoxaparin Sodium (Lovenox) 80 mg SC 0900 DANAY Last Admin: 04/24/19 09:12 Dose: 80 mg Gabapentin (Neurontin) 400 mg PO HS DANAY Last Admin: 04/23/19 20:18 Dose: Not Given Sodium Chloride (1/2 Normal Saline) 1,000 mls @ 75 mls/hr IV .[id number] DANAY Last Admin: 04/24/19 05:19 Dose: 1,000 mls Levofloxacin 250 mg/ Device 50 mls @ 100 mls/hr IVPB 1300 DANAY Last Admin: 04/24/19 13:22 Dose: 50 mls Lorazepam (Ativan) 1 mg SLOW IVP Q4H PRN PRN Reason: Anxiety/Agitation Last Admin: 04/23/19 23:18 Dose: 1 mg Mineral Oil/White Petrolatum (Systane Nighttime Eye Ointment) 0 gm EA EYE PRN PRN PRN Reason: Dry Eyes Miscellaneous Medication (Pharmacy To Dose) 1 each IVPB PRN PRN PRN Reason: Pharmacy to dose Pantoprazole Sodium (Protonix) 40 mg PO DAILY [facility] Last Admin: 04/24/19 07:56 Dose: Not Given Senna/Docusate Sodium (Senokot S) 2 tab PO BIDPRN PRN PRN Reason: Constipation Sodium Chloride (Flush - Normal Saline) 10 ml IVF Q12HR [facility] Last Admin: 04/24/19 09:13 Dose: 10 ml Sodium Chloride (Flush - Normal Saline) 10 ml IVF PRN PRN PRN Reason: Saline Flush Tamsulosin HCl (Flomax) 0.4 mg PO DAILY [facility] Last Admin: 04/24/19 09:13 Dose: Not Given Vital Signs & Weight: Vital Signs Temp Pulse Resp Pulse Ox 04/24/19 13:10 57 L 04/24/19 13:09 57 L 21 H 100 04/24/19 12:00 99 F 04/24/19 08:00 96 04/24/19 07:35 64 24 H 98 04/24/19 07:34 64 24 H 98 04/24/19 07:00 98.1 F 63 98 04/24/19 04:00 97.7 F Admit Weight 186 lb 8 oz Weight 188 lb 0.869 oz - Quality Measures Condition: Atrial Fibrillation/Flutter (hx or current), Coronary Artery Disease , Heart Failure CV meds: Beta Linda: Yes, CHAVEZ/ARB: No, Statin: Yes, ASA: Yes, Anticoagulant: Yes (heparin) - Physical Exam General: no apparent distress HEENT: mucus membranes moist, normocephaly Neck: supple neck, no JVD/HJR Cardiac: regular rate and rhythm Lungs: clear to auscultation, normal breath sounds, no rhonchi Abdomen: unremarkable, no masses, no pulsations/bruits, no hepatosplenomegaly Extremities: no cyanosis, no clubbing, no edema - Labs Result Diagrams: 04/24/19 04:15 04/24/19 04:15 Troponin/CKMB CK-MB (CK-2) 15.5 ng/mL (0-6.6) H* 04/17/19 04:04 Troponin I 15.195 ng/mL (< 0.028) H* 04/17/19 04:04 - Telemetry Sinus rhythms and dysrhythmias: sinus rhythm - Assessment/Plan Assessment/Plan: 1. Recurrent atrial arrhythmias. a. Paroxysmal atrial fibrillation and also atrial flutter noted this admission, requiring amiodarone suppression, currently in atrial flutter with controlled rates. 2. Acute on chronic CHF. a. Prior history of reduced LVEF in 45%, now at 20% to 25%. 3. History of coronary artery disease, ischemic cardiomyopathy. a. History of coronary artery bypass grafting surgery x4 vessels in 2017. 4. History of CVA in 2018. 5. Nonsustained ventricular tachycardia on telemetry monitors. 6. History of peripheral vascular disease. 7. Chronic obstructive pulmonary disease exacerbation. 8. Acute renal insufficiency. 9. Elevated LFTs. 10. History of hypertension. PLAN: 1. Atrial fibrillation/flutter: Clearly ventricular rates needs to be controlled. Amiodarone seems to be succesfully controlled rates, but due to the elevatd LFTs , there was a concern for amio related liver toxicity and amio was stopped. -s/p DCCV on 04/23/19 at 1400. -04/24- sinus rhythm. Radiofrequency ablation with a cavotricuspid isthmus flutter circuit could be made, although he has additional circuits and is not stable enough for an extensive left atrial post ablation. Alternately, His pacing/Biventricular device with AV jerome ablation could be a consideration of all other measures fail. 2. Chadvasc score of 5. On lovenox - adjusted to renal insuf. 3.Worsening renal and liver function as well it is likely due to his worsening heart failure issues. Amiodarone use is limited by his liver function. 4. His mental status change might be related to possibly worsening renal and liver function with encephalopathy as well. -04/23- Ammonia level WNL Continue medical management to improve his LV function,if that does not occur he may benefit from consideration for a prophylactic ICD implant. In sinus rhythm since CV on 04/23 I will continue to monitor with you.
[2019-04-24] MEDS ORDERED: DOBUTamine 500 mg/250 ml 250 ML IVPB SCH (14:15)
[2019-04-24] MEDS ORDERED: DEXTROSE 5% IVPB SCH (14:45)
[2019-04-24] MEDS ORDERED: WATER IVPB SCH (14:45)
[2019-04-24] MEDS ORDERED: DOBUTAMINE IVPB SCH (14:45)
--- NOTE | 2019-04-24 18:05 | OP ---
DATE OF PROCEDURE: 04/23/19 SURGEON: Soraida Del Rosario M.D. PREOPERATIVE DIAGNOSIS: 74-year-old patient with atrial flutter with poorly controlled ventricular re sponse. He has history of atrial fibrillation also. He has severe decrease in left ventricular systo lic function. He was advised to undergo electrical cardioversion back to sinus rhythm to see if this would actually improve some of the cardiac output. PROCEDURE: Electrical cardioversion. CARDIOVERSION The patient was in the Intensive Care unit on Bi-Pap mask. He was given short acting propofol by the anesthesiologist and using one attempt at 50 joules, he was successfully converted back to a sinus [facility] with a heart rate in the 50s and 60s. There were no difficulties or complications encountered.
[2019-04-24] MEDS: Aspirin 300 MG Suppository PR SCH (18:21)
--- NOTE | 2019-04-24 19:15 | PDOC.HOSPP ---
- Subjective Encounter Date: 04/24/19 Encounter Time: 17:00 Subjective: Pt seen for followup re: NSTEMI. Lethargic, not answering questions, could not complete ROS. - Objective Vital Signs & Weight: Vital Signs (12 hours) Temp Pulse Resp Pulse Ox 04/24/19 16:00 98.2 F 04/24/19 13:10 57 L 04/24/19 13:09 57 L 21 H 100 04/24/19 12:50 100 04/24/19 12:00 99 F 04/24/19 08:00 96 04/24/19 07:35 64 24 H 98 04/24/19 07:34 64 24 H 98 Weight Admit Weight 186 lb 8 oz Weight 188 lb 0.869 oz Most Recent Monitor Data Heart Rate from ECG 65 NIBP 120/68 NIBP BP-Mean 85 Respiration from ECG 14 SpO2 100 I&O: 04/23/19 04/24/19 04/25/19 06:59 06:59 06:59 Intake Total 2252 1795 980.9 Output Total 1160 2010 1135 Balance 1092 -215 -154.1 Result Diagrams: 04/24/19 04:15 04/24/19 04:15 Additional Labs: Labs and MARs reviewed by me EKG Reviewed by me: Yes (Tele: NSR) Hospitalist ROS - Medication Medications: Active Medications Generic Name Dose Route Start Last Admin Trade Name Freq PRN Reason Stop Dose Admin Acetaminophen 650 mg 04/10/19 18:50 04/20/19 13:13 Tylenol PO 650 mg Q4H PRN Administration Headache/Fever/Mild Pain (1-3) Albuterol/Ipratropium 3 ml 04/20/19 13:00 04/24/19 13:09 Duoneb NEB 3 ml [id number] DANAY Administration Aspirin 300 mg 04/16/19 18:30 04/24/19 18:21 Aspirin SD 300 mg Q24H DANAY Administration Atorvastatin Calcium 20 mg 04/12/19 21:00 04/23/19 20:17 Lipitor PO Not Given HS DANAY Budesonide 0.25 mg 04/20/19 18:30 04/24/19 07:35 Pulmicort Neb Solution INH 0.25 mg BID-RT DANAY Administration Carvedilol 3.125 mg 04/12/19 08:00 04/24/19 17:04 Coreg PO Not Given BID-WM DANAY Enoxaparin Sodium 80 mg 04/23/19 09:00 04/24/19 09:12 Lovenox SC 80 mg 0900 DANAY Administration Gabapentin 400 mg 04/20/19 21:00 04/23/19 20:18 Neurontin PO Not Given HS DANAY Sodium Chloride 1,000 mls @ 75 mls/hr 04/21/19 11:00 04/24/19 05:19 1/2 Normal Saline IV 1,000 mls .[id number] DANAY Administration Levofloxacin 250 mg/ Device 50 mls @ 100 mls/hr 04/21/19 13:00 04/24/19 13:22 IVPB 50 mls 1300 DANAY Administration Dobutamine HCl 1,000 mg/ 330 mls @ 4.22 mls/hr 04/24/19 14:45 04/24/19 14:52 Dextrose/Water IVPB 330 mls INF DANAY Administration 2.5 MCG/KG/MIN Lorazepam 1 mg 04/23/19 15:15 04/23/19 23:18 Ativan SLOW IVP 1 mg Q4H PRN Administration Anxiety/Agitation Pantoprazole Sodium 40 mg 04/22/19 09:00 04/24/19 07:56 Protonix PO Not Given DAILY DANAY Sodium Chloride 10 ml 04/21/19 21:00 04/24/19 09:13 Flush - Normal Saline IVF 10 ml Q12HR DANAY Administration Tamsulosin HCl 0.4 mg 04/11/19 09:00 04/24/19 09:13 Flomax PO Not Given DAILY DANAY - Exam General Appearance: NAD Eye: anicteric sclera ENT: moist mucosa Neck: supple Heart: RRR Respiratory - other findings: Wiley crackles Musculoskeletal: no muscle wasting Psychiatric: lethargic Hosp A/P (1) NSTEMI (non-ST elevated myocardial infarction) Code(s): I21.4 - NON-ST ELEVATION (NSTEMI) MYOCARDIAL INFARCTION Status: Acute (2) Acute respiratory failure with hypoxia Code(s): J96.01 - ACUTE RESPIRATORY FAILURE WITH HYPOXIA Status: Acute (3) CAP (community acquired pneumonia) Code(s): J18.9 - PNEUMONIA, UNSPECIFIED ORGANISM Status: Acute (4) Acute on chronic systolic (congestive) heart failure Code(s): I50.23 - ACUTE ON CHRONIC SYSTOLIC (CONGESTIVE) HEART FAILURE Status : Acute (5) COPD exacerbation Code(s): J44.1 - CHRONIC OBSTRUCTIVE PULMONARY DISEASE W (ACUTE) EXACERBATION Status: Acute (6) Cardiomyopathy Code(s): I42.9 - CARDIOMYOPATHY, UNSPECIFIED Status: Acute (7) BPH (benign prostatic hyperplasia) Code(s): N40.0 - BENIGN PROSTATIC HYPERPLASIA WITHOUT LOWER URINRY TRACT SYMP Status: Chronic Qualifiers: Lower urinary tract symptom presence: symptoms absent Qualified Code(s): N40.0 - Benign prostatic hyperplasia without lower urinary tract symptoms (8) CAD (coronary artery disease) Code(s): I25.10 - ATHSCL HEART DISEASE OF [place] CORONARY ARTERY W/O ANG PCTRS Status: Chronic Qualifiers: Coronary Disease-Associated Artery/Lesion type: bypass graft [place] vs. transplanted heart: [place] heart Associated angina: without angina Qualified Code(s): I25.810 - Atherosclerosis of coronary artery bypass graft(s) without angina pectoris (9) Atrial flutter Code(s): I48.92 - UNSPECIFIED ATRIAL FLUTTER Status: Resolved (10) Acute metabolic encephalopathy Code(s): G93.41 - METABOLIC ENCEPHALOPATHY Status: Resolved - Plan s/p cardioversion for atrial flutter. Continue levofloxacin. Creatinine improved to 3.48 today. LFTs improving. LVEF 25-30% on echo. Pt is at high risk of aspiration due to AMS. Start TPN.
[2019-04-24] MEDS: Atorvastatin Calcium 20 MG TAB PO SCH (19:52)
[2019-04-24] MEDS: Gabapentin 400 MG CAP PO SCH (19:53)
[2019-04-25 04:45] LABS: ALT (SGPT) 542 U/L (8-55); AST (SGOT) 110 U/L (5-34); Albumin 2.4 g/dL (3.4-4.8); Alkaline Phosphatase 113 U/L (40-110); Anion Gap 14 mmol/L (10-20); BUN (Urea Nitrogen) 107 mg/dL (8.4-25.7); Bilirubin, Total 3.1 mg/dL (0.2-1.2); Calc. Creatinine Clearance 29 mL/min (70-130); Calcium 7.9 mg/dL (7.8-10.44); Carbon Dioxide 24 mmol/L (23-31); Chloride 109 mmol/L (98-107); Estimated GFR-MDRD 24; Globulin 3.4 g/dL (2.4-3.5); Glucose 84 mg/dL (83-110); Potassium 4.5 mmol/L (3.5-5.1); Protein, Total 5.8 g/dL (5.8-8.1); Sodium 142 mmol/L (136-145)
[2019-04-25 04:54] LABS: Band 17 % (5-11); Eosinophils 2 % (0-10); Hypochromia SLIGHT = 6-15 cells (100X) (0-5/hpf); Lymphocytes 11 % (21-51); MDiff Complete? YES; Mean Corpuscular HGB CONC 31.5 g/dL (32.0-36.0); Mean Platelet Volume 10.6 fL (7.4-10.4); Monocytes 2 % (0-10); Neutrophil 68 % (42-75); Nucleated RBC 12 % (0); Platelet Count 133 thou/uL (130-400); RBC Distribution Width 14.1 % (11.5-14.5); Red Blood Cell (RBC) Count 3.44 mill/uL (4.70-6.10); White Blood Cell (WBC) Count 9.6 thou/uL (4.8-10.8)
[2019-04-25] MEDS: Budesonide 0.25 MG/2 ML NEB INH SCH (07:41)
[2019-04-25] MEDS: Carvedilol 3.125 MG TAB PO SCH (08:00)
[2019-04-25] MEDS: Sodium Chloride 0.45% 1,000 ML IV SCH (08:20)
[2019-04-25] MEDS ORDERED: Sodium Chloride 0.45% 1,000 ML IV SCH (09:04)
[2019-04-25] MEDS ORDERED: Bumetanide 1 MG/4 ML VIAL IVP SCH ×2 (09:30→14:00)
--- NOTE | 2019-04-25 09:33 | PRG ---
DATE OF SERVICE: 04/25/2019 SUBJECTIVE: Guille Ricardo remains in the ICU. Nasal O2 saturations 100%, pulse 65, blood pressure 110/64 resp 22/min. He is still encephalopathic. His two daughters are at the bedside, had lengthy discussion with the daughters. The patient's overall prognosis is grave, it is very unlikely. He is not going to survive intubation and prolonged CPR. They have agreed to make him a DNR. Otherwise, he remains encephalopathic. OBJECTIVE: CHEST: Anterior rhonchi. CARDIAC: Normal sinus rhythm. He was cardioverted yesterday. ABDOMEN: Soft. NEUROLOGIC: Encephalopathic. He has failed the swallow test. LABORATORY DATA: Creatinine is 2, BUN is 107, azotemic. White count 9,000, hemoglobin and hematocrit 11 and 35, platelet count is 133. IMPRESSION AND PLAN: Respiratory failure, dysphagia, renal failure, encephalopathy. Feeding tube is placed. Continue otherwise supportive care. He is to be made a DNR. Long-term prognosis is grave. Job ID: [id number] [facility]
[2019-04-25] MEDS ORDERED: WATER IVPB SCH (09:43)
[2019-04-25] MEDS ORDERED: DEXTROSE 5% IVPB SCH (09:43)
[2019-04-25] MEDS ORDERED: DOBUTAMINE IVPB SCH (09:43)
[2019-04-25] MEDS: Pantoprazole 40 MG GRANULES PACKET PO SCH (09:45)
[2019-04-25] MEDS: Enoxaparin Sodium 80 MG/0.8 ML SYRINGE SC SCH (09:47)
[2019-04-25] MEDS: Tamsulosin HCl 0.4 MG CAP PO SCH (09:48)
--- NOTE | 2019-04-25 10:06 | PDOC.PALPN ---
Palliative Progress Note - Subjective Awake, remains confused. - Objective Vital Signs: Vital Signs - Most Recent Temp Pulse Resp BP Pulse Ox 97.9 F 74 23 H 180/99 H 100 04/25/19 04:00 04/25/19 07:38 04/25/19 07:38 04/22/19 13:00 04/24/19 23:41 - Physical Exam Constitutional: ill appearing HEENT: EOMI, moist MMs Respiratory: labored respirations Deviation from normal: Accessory muscle use, weak non productive cough Deviation from normal: interintermittant irr Gastrointestinal: non-tender, incontinent Genitourinary: mcguire catheter Musculoskeletal: no cyanosis, no clubbing, no edema, muscle wasting Neurology: moves all 4 limbs Skin: cap refill <2 seconds Deviation from normal: confused, pronounced weakness - Assessment (1) Palliative care encounter Code(s): Z51.5 - ENCOUNTER FOR PALLIATIVE CARE Current Visit: Yes Status: Acute (2) Cardiomyopathy Code(s): I42.9 - CARDIOMYOPATHY, UNSPECIFIED Current Visit: Yes Status: Acute (3) NSTEMI (non-ST elevated myocardial infarction) Code(s): I21.4 - NON-ST ELEVATION (NSTEMI) MYOCARDIAL INFARCTION Current Visit : Yes Status: Acute (4) Acute on chronic systolic (congestive) heart failure Code(s): I50.23 - ACUTE ON CHRONIC SYSTOLIC (CONGESTIVE) HEART FAILURE Current Visit: No Status: Acute (5) CKD (chronic kidney disease) stage 3, GFR 30-59 ml/min Code(s): N18.3 - CHRONIC KIDNEY DISEASE, STAGE 3 (MODERATE) Current Visit: No Status: Chronic (6) COPD (chronic obstructive pulmonary disease) Current Visit: No Status: Chronic Qualifiers: COPD type: COPD with acute exacerbation Qualified Code(s): J44.1 - Chronic obstructive pulmonary disease with (acute) exacerbation - Plan Plan: Lengthy conversation with family. Opting for Dobhoff for nutritional support. Dr Clark confirmed DNAR with family. I obtained signature from , and children in agreement. Dr Del Rosario and Tony Hale visited with family. *Place Dobhoff and evaluate for tolerance / family educated on potential for patient not to tolerate *Hospice consult *Continue to support family through theraputic listening and education with complex decisions. [60] minutes spent on this encounter with >50% of the time in counseling and coordination of care. - ROS Non Response: due to mental status
--- NOTE | 2019-04-25 11:58 | PDOC.CPN ---
- Subjective Date: 04/25/19 Time: 08:00 Interval history: EP progress note 04/25/19 Continues to be confused overnight. Still on Bipap. No other events. - Review of Systems ROS unobtainable: due to mental status - Objective Allergies/Adverse Reactions: Allergies Allergy/AdvReac Type Severity Reaction Status Date / Time No Known Allergies Allergy Verified 04/11/19 04:44 Visit Medications: Current Medications Acetaminophen (Tylenol) 650 mg PO Q4H PRN PRN Reason: Headache/Fever/Mild Pain (1-3) Last Admin: 04/20/19 13:13 Dose: 650 mg Albuterol/Ipratropium (Duoneb) 3 ml NEB [id number] DANAY Last Admin: 04/25/19 07:38 Dose: 3 ml Aspirin (Aspirin) 300 mg NH Q24H DANAY Last Admin: 04/24/19 18:21 Dose: 300 mg Atorvastatin Calcium (Lipitor) 20 mg PO HS DANAY Last Admin: 04/24/19 19:52 Dose: Not Given Bisacodyl (Dulcolax) 10 mg NH DAILYPRN PRN PRN Reason: Constipation Budesonide (Pulmicort Neb Solution) 0.25 mg INH BID-RT DANAY Last Admin: 04/25/19 07:41 Dose: 0.25 mg Carvedilol (Coreg) 3.125 mg PO BID-WM DANAY Last Admin: 04/25/19 08:00 Dose: Not Given Enoxaparin Sodium (Lovenox) 80 mg SC 0900 DANAY Last Admin: 04/25/19 09:47 Dose: 80 mg Gabapentin (Neurontin) 400 mg PO HS DANAY Last Admin: 04/24/19 19:53 Dose: Not Given Levofloxacin 250 mg/ Device 50 mls @ 100 mls/hr IVPB 1300 DANAY Last Admin: 04/24/19 13:22 Dose: 50 mls Sodium Chloride (1/2 Normal Saline) 1,000 mls @ 50 mls/hr IV .Q20H DANAY Last Admin: 04/25/19 09:48 Dose: 1,000 mls Dobutamine HCl 1,000 mg/ (Dextrose/Water) 330 mls @ 8.44 mls/hr IVPB INF DANAY Lorazepam (Ativan) 1 mg SLOW IVP Q4H PRN PRN Reason: Anxiety/Agitation Last Admin: 04/23/19 23:18 Dose: 1 mg Mineral Oil/White Petrolatum (Systane Nighttime Eye Ointment) 0 gm EA EYE PRN PRN PRN Reason: Dry Eyes Miscellaneous Medication (Pharmacy To Dose) 1 each IVPB PRN PRN PRN Reason: Pharmacy to dose Pantoprazole Sodium (Protonix) 40 mg PO DAILY [facility] Last Admin: 04/25/19 09:45 Dose: Not Given Senna/Docusate Sodium (Senokot S) 2 tab PO BIDPRN PRN PRN Reason: Constipation Sodium Chloride (Flush - Normal Saline) 10 ml IVF Q12HR DANAY Last Admin: 04/25/19 09:48 Dose: 10 ml Sodium Chloride (Flush - Normal Saline) 10 ml IVF PRN PRN PRN Reason: Saline Flush Tamsulosin HCl (Flomax) 0.4 mg PO DAILY [facility] Last Admin: 04/25/19 09:48 Dose: Not Given Vital Signs & Weight: Vital Signs Temp Pulse Resp 04/25/19 07:38 74 23 H 04/25/19 04:00 97.9 F 04/25/19 00:00 97.8 F Admit Weight 186 lb 8 oz Weight 188 lb 0.869 oz - Quality Measures Condition: Atrial Fibrillation/Flutter (hx or current), Coronary Artery Disease , Heart Failure CV meds: Beta Linda: Yes, CHAVEZ/ARB: No, Statin: Yes, ASA: Yes, Anticoagulant: Yes (heparin) - Physical Exam General: no apparent distress HEENT: mucus membranes moist, normocephaly Neck: supple neck, midline trachea, JVD/HJR Cardiac: regular rate and rhythm, no murmur, regular rate, regular rhythm Lungs: clear to auscultation, normal breath sounds, normal exam Neuro: cranial nerve 2-12 intact, grossly intact, coordination normal, no lateralizing findings Abdomen: unremarkable, active bowel sounds, no masses, no pulsations/bruits Extremities: no cyanosis, no clubbing, no edema - Labs Result Diagrams: 04/25/19 04:00 04/25/19 04:00 Troponin/CKMB CK-MB (CK-2) 15.5 ng/mL (0-6.6) H* 04/17/19 04:04 Troponin I 15.195 ng/mL (< 0.028) H* 04/17/19 04:04 - Telemetry Sinus rhythms and dysrhythmias: sinus rhythm - Assessment/Plan Assessment/Plan: 1. Recurrent atrial arrhythmias. a. Paroxysmal atrial fibrillation and also atrial flutter noted this admission, requiring amiodarone suppression, currently in atrial flutter with controlled rates. 2. Acute on chronic CHF. a. Prior history of reduced LVEF in 45%, now at 20% to 25%. 3. History of coronary artery disease, ischemic cardiomyopathy. a. History of coronary artery bypass grafting surgery x4 vessels in 2017. 4. History of CVA in 2018. 5. Nonsustained ventricular tachycardia on telemetry monitors. 6. History of peripheral vascular disease. 7. Chronic obstructive pulmonary disease exacerbation. 8. Acute renal insufficiency. 9. Elevated LFTs. 10. History of hypertension. PLAN: 1. Atrial fibrillation/flutter: Amiodarone seemed to be succesfully controlled rates, but due to the elevatd LFTs, there was a concern for amio related liver toxicity and amio was stopped. -s/p DCCV on 04/23/19 at 1400. -04/24- sinus rhythm. -04/25- sinus rhythm Radiofrequency ablation of cavotricuspid isthmus flutter circuit could be made, although he has additional circuits and is not stable enough for an extensive left atrial post ablation. Alternately, His pacing/ Biventricular device with AV jerome ablation could be a consideration of all other measures fail. 2. Chadvasc score of 5. On lovenox - adjusted to renal insuf. 3.Worsening renal and liver function as well it is likely due to his worsening heart failure issues. Amiodarone use is limited by his liver function. 4. His mental status change might be related to possibly worsening renal and liver function with encephalopathy as well. -04/23- Ammonia level WNL Continue medical management to improve his LV function,if that does not occur he may benefit from consideration for a prophylactic ICD implant. In sinus rhythm since CV on 04/23. Now on dopamine by cardiology for HF management. I will continue to monitor with you.
--- NOTE | 2019-04-25 12:01 | RAD ---
PORTABLE CHEST 1 VIEW: DATE: 04/25/2019. TIME: 10:45 a.m. HISTORY: CHF. FINDINGS/IMPRESSION: Comparison is made with the exam of 04/19/2019. A right-sided central line remains in place. Changes of median sternotomy are again seen. The heart is enlarged. The aorta is tortuous. There is pulmonary vascular congestion. No large effusions ar e seen. There is mild infiltrate in the right lower lung. POS: [facility]
--- NOTE | 2019-04-25 13:28 | PRG ---
DATE OF SERVICE: 04/25/2019 SERVICE: Nephrology. SUBJECTIVE: A 74-year-old male, admitted with worsening shortness of breath. The patient was found to have acute on chronic systolic heart failure associated with worsening renal function, necessitating Nephrology consult. The patient was found to have paroxysmal atrial fibrillation flutter associated with worsening cardiac function and shock liver and acute renal failure. The patient also has acute confusion and respiratory failure requiring continued BiPAP therapy. He was started on dobutamine infusion in the last 24 hours. The patient is now do not resuscitate and comfort care through hospice care is contemplated. Family are not interested in dialytic treatment and renal function is trending down worse. OBJECTIVE: VITAL SIGNS: Temperature 97.9, pulse 71, respiratory rate 23, SpO2 is 100% on 30% FiO2 BiPAP, blood pressure is 113/65. GENERAL: Elderly male, in some respiratory distress. The patient is lethargic. HEENT: Normocephalic, atraumatic. BiPAP mask is in place. CARDIOVASCULAR: Regular rhythm with frequent ectopic. Normal heart sounds 1 and 2. RESPIRATORY: Fair air entry bilaterally with coarse transmitted breath sound especially on the right side. Work of breathing is increased. GI: Full, soft, nontender, nondistended with normal bowel sounds. UROGENITAL: Larkin catheter is in place draining some urine. EXTREMITIES: Grossly normal looking, atraumatic with no edema or erythema. 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 Wakes up with stimulation. Nonverbal. Confused. DIAGNOSTIC DATA: CBC showed WBC count of 9.6, hemoglobin of 11, platelet of 133. BMP showed sodium 142, potassium 4.5, chloride 109, CO2 of 24, BUN 107, creatinine 2.60, glucose 84, calcium 7.9, total bilirubin 3.1, AST 110, ALT 542, alkaline phosphatase 113, total protein is 5.8, albumin is 2.4, globulin is 3.4. Chest x-ray showed pulmonary vascular congestion with mild infiltrate in the right lower lobe. ASSESSMENT: 1. Acute kidney injury: Due to cardiorenal syndrome related to cardiac decompensation. Creatinine and renal function are improving with improving hemodynamics. The patient is currently on dobutamine. 2. Chronic kidney disease stage 3 due to age and hypertension and . 3. Acute on chronic systolic heart failure with cardiogenic shock as evidenced by shock liver and acute kidney injury. The patient is on dobutamine currently. 4. Paroxysmal atrial fibrillation flutter, status post cardioversion. 5. Ischemic cardiomyopathy with ejection fraction in 20s. 6. Acute respiratory failure due to pulmonary congestion from cardiac decompensation. 7. Moderate mitral regurgitation as well as [id number] aortic regurgitation. PLAN: 1. Continue to observe the patient. It is expected that if hemodynamics improve the renal function, we will continue to try to improve with synchronization therapy and defibrillation is contemplated as well as hospice care. Nothing to add at this time. Supportive care with optimization of hemodynamics is recommended. Avoid nephrotoxic agent including diuretics at this time as the patient is clearly still volume depleted despite pulmonary congestion. Continue gentle IV fluid therapy. Monitor electrolytes and correct as needed. Job ID: [id number]
[2019-04-25 16:06] VITALS: TEMP 98
--- NOTE | 2019-04-25 16:12 | PDOC.HOSPP ---
- Subjective Encounter Date: 04/25/19 Encounter Time: 09:20 Subjective: Pt seen for followup re: NSTEMI. Pt not speaking, could not complete ROS. - Objective Vital Signs & Weight: Vital Signs (12 hours) Temp Pulse Resp Pulse Ox 04/25/19 13:33 78 21 H 04/25/19 12:00 98.0 F 04/25/19 08:30 97 04/25/19 08:00 97.9 F 04/25/19 07:38 74 23 H Weight Admit Weight 186 lb 8 oz Weight 168 lb 13.985 oz Most Recent Monitor Data Heart Rate from ECG 82 NIBP 113/61 NIBP BP-Mean 78 Respiration from ECG 30 SpO2 92 I&O: 04/24/19 04/25/19 04/26/19 06:59 06:59 06:59 Intake Total 1795 1822.2 Output Total 2009 5890 585 Balance -215 -287.8 -585 Result Diagrams: 04/25/19 04:00 04/25/19 04:00 Additional Labs: Labs and MARs reviewed by me EKG Reviewed by me: Yes (Tele: NSR) Hospitalist ROS - Medication Medications: Active Medications Generic Name Dose Route Start Last Admin Trade Name Freq PRN Reason Stop Dose Admin Acetaminophen 650 mg 04/10/19 18:50 04/20/19 13:13 Tylenol PO 650 mg Q4H PRN Administration Headache/Fever/Mild Pain (1-3) Albuterol/Ipratropium 3 ml 04/20/19 13:00 04/25/19 13:33 Duoneb NEB 3 ml [id number] DANAY Administration Aspirin 300 mg 04/16/19 18:30 04/24/19 18:21 Aspirin IN 300 mg Q24H DANAY Administration Atorvastatin Calcium 20 mg 04/12/19 21:00 04/24/19 19:52 Lipitor PO Not Given HS DANAY Budesonide 0.25 mg 04/20/19 18:30 04/25/19 07:41 Pulmicort Neb Solution INH 0.25 mg BID-RT DANAY Administration Carvedilol 3.125 mg 04/12/19 08:00 04/25/19 08:00 Coreg PO Not Given BID-WM DANAY Enoxaparin Sodium 80 mg 04/23/19 09:00 04/25/19 09:47 Lovenox SC 80 mg 0900 DANAY Administration Gabapentin 400 mg 04/20/19 21:00 04/24/19 19:53 Neurontin PO Not Given HS DANAY Levofloxacin 250 mg/ Device 50 mls @ 100 mls/hr 04/21/19 13:00 04/25/19 13:05 IVPB 50 mls 1300 DANAY Administration Sodium Chloride 1,000 mls @ 50 mls/hr 04/25/19 09:04 04/25/19 09:48 1/2 Normal Saline IV 1,000 mls .Q20H DANAY Administration Lorazepam 1 mg 04/23/19 15:15 04/23/19 23:18 Ativan SLOW IVP 1 mg Q4H PRN Administration Anxiety/Agitation Pantoprazole Sodium 40 mg 04/22/19 09:00 04/25/19 09:45 Protonix PO Not Given DAILY DANAY Sodium Chloride 10 ml 04/21/19 21:00 04/25/19 09:48 Flush - Normal Saline IVF 10 ml Q12HR DANAY Administration Tamsulosin HCl 0.4 mg 04/11/19 09:00 04/25/19 09:48 Flomax PO Not Given DAILY DANAY - Exam General Appearance: ill appearing Eye: scleral icterus ENT: moist mucosa Neck: supple Heart: RRR Respiratory - other findings: Wiley crackles Gastrointestinal: soft, non-tender Extremities: 1+ LE edema Psychiatric: lethargic Hosp A/P (1) NSTEMI (non-ST elevated myocardial infarction) Code(s): I21.4 - NON-ST ELEVATION (NSTEMI) MYOCARDIAL INFARCTION Status: Acute (2) Acute respiratory failure with hypoxia Code(s): J96.01 - ACUTE RESPIRATORY FAILURE WITH HYPOXIA Status: Acute (3) CAP (community acquired pneumonia) Code(s): J18.9 - PNEUMONIA, UNSPECIFIED ORGANISM Status: Acute (4) Acute on chronic systolic (congestive) heart failure Code(s): I50.23 - ACUTE ON CHRONIC SYSTOLIC (CONGESTIVE) HEART FAILURE Status : Acute (5) COPD exacerbation Code(s): J44.1 - CHRONIC OBSTRUCTIVE PULMONARY DISEASE W (ACUTE) EXACERBATION Status: Acute (6) Cardiomyopathy Code(s): I42.9 - CARDIOMYOPATHY, UNSPECIFIED Status: Acute (7) BPH (benign prostatic hyperplasia) Code(s): N40.0 - BENIGN PROSTATIC HYPERPLASIA WITHOUT LOWER URINRY TRACT SYMP Status: Chronic Qualifiers: Lower urinary tract symptom presence: symptoms absent Qualified Code(s): N40.0 - Benign prostatic hyperplasia without lower urinary tract symptoms (8) CAD (coronary artery disease) Code(s): I25.10 - ATHSCL HEART DISEASE OF [place] CORONARY ARTERY W/O ANG PCTRS Status: Chronic Qualifiers: Coronary Disease-Associated Artery/Lesion type: bypass graft [place] vs. transplanted heart: [place] heart Associated angina: without angina Qualified Code(s): I25.810 - Atherosclerosis of coronary artery bypass graft(s) without angina pectoris (9) Atrial flutter Code(s): I48.92 - UNSPECIFIED ATRIAL FLUTTER Status: Resolved (10) Acute metabolic encephalopathy Code(s): G93.41 - METABOLIC ENCEPHALOPATHY Status: Resolved - Plan plan discussed w/ family, continue antibiotics Consults: Palliative Care Pt seen by palliative care. Code status changed to DNR. Continue levofloxacin. Creatinine improved to 2.6 today. LFTs improving. LVEF 25-30% on echo. Start Dobhoff feeds.
== END 2019-04-25 17:20 | disposition hospice, inpatient (51) | DRG 280 ==
LOC: ERS 14:34 → 2NO 18:08 → CCU 04-16 16:40
PROVIDERS: ADMIT Student in an Organized Health Care Education/Training Program; ATTEND Internal Medicine
PROC: 5A2204Z Restoration of Cardiac Rhythm, Single (ICD-10-PCS; principal; 2019-04-23)
DX: I13.0 Hypertensive heart and chronic kidney disease with heart failure and stage 1 through stage 4 chronic kidney disease, or unspecified chronic kidney disease (principal); I21.A1 Myocardial infarction type 2; I50.23 Acute on chronic systolic (congestive) heart failure; G93.41 Metabolic encephalopathy; R57.0 Cardiogenic shock; J18.9 Pneumonia, unspecified organism; J96.20 Acute and chronic respiratory failure, unspecified whether with hypoxia or hypercapnia; K72.00 Acute and subacute hepatic failure without coma; J44.1 Chronic obstructive pulmonary disease with (acute) exacerbation; I47.2 Ventricular tachycardia; I48.92 Unspecified atrial flutter; N17.9 Acute kidney failure, unspecified; Z79.82 Long term (current) use of aspirin; I25.10 Atherosclerotic heart disease of native coronary artery without angina pectoris; Z95.1 Presence of aortocoronary bypass graft; E78.5 Hyperlipidemia, unspecified; N40.0 Benign prostatic hyperplasia without lower urinary tract symptoms; Z87.891 Personal history of nicotine dependence; N18.3 Chronic kidney disease, stage 3 (moderate); I73.9 Peripheral vascular disease, unspecified; I25.5 Ischemic cardiomyopathy; Z86.73 Personal history of transient ischemic attack (TIA), and cerebral infarction without residual deficits; F03.90 Unspecified dementia, unspecified severity, without behavioral disturbance, psychotic disturbance, mood disturbance, and anxiety; M54.9 Dorsalgia, unspecified; G89.29 Other chronic pain; Z99.81 Dependence on supplemental oxygen; G25.3 Myoclonus; I34.0 Nonrheumatic mitral (valve) insufficiency; I35.1 Nonrheumatic aortic (valve) insufficiency; Z51.5 Encounter for palliative care; Z66 Do not resuscitate; I48.0 Paroxysmal atrial fibrillation; Z79.01 Long term (current) use of anticoagulants; E78.00 Pure hypercholesterolemia, unspecified; E66.01 Morbid (severe) obesity due to excess calories; Z68.25 Body mass index [BMI] 25.0-25.9, adult
CPT/HCPCS: 36415; 36416; 70450; 71045; 71250; 76705; 76770; 80048; 80053; 80061; 80076; 81001; 82140; 82553; 82565; 82570; 82805; 83605; 83735; 83880; 84100; 84156; 84300; 84443; 84484; 84540; 85014; 85018; 85025; 85049; 85610; 85730; 87040; 87633; 87804; 93005; 93010; 93306; 93798; 94002; 94640; 94660; 94664; 96374; C9113; J0282; J1160; J1250; J1644; J1650; J1940; J1956; J2060; J2920; J7070; J7620; J7626; P9047; S0028